=== PATIENT | female | born 1950 | race Caucasian/White ===

== ENCOUNTER → 2016-12-27 | Outpatient (CLI) | payer OTHER ==
[~2016-12-27] MED LIST: OPTIRAY 320 IV PRN
--- NOTE | 2016-12-27 10:11 | DIAGNOSTIC IMAGING REPORT ---
CHEST CT WITH CONTRAST CT DOSE: 263.59 mGycm HISTORY: Lung nodule R91.1 Lung [id number] TECHNIQUE: Multiaxial CT images of the chest were performed following the intravenous administration of contrast. COMPARISON: 07/12/2016 FINDINGS: Unchanging 3 mm nodular density anterior aspect left upper lobe best seen transaxial image 23. Lungs otherwise are clear. There are no new or interval findings. There are no focal infiltrates. Findings of mild fatty infiltration of liver. No significant adenopathy. Thoracic aorta is normal in course and caliber. Unchanging left thyroid nodule. IMPRESSION: 1. No change compared to the prior study. 2. Unchanging left upper lobe 3 mm nodule. 3. Follow-up per Fleischner criteria. Please refer to below summary of Fleischner criteria recommendations for follow-up of incidental CT nodules (Carrol Hyatt, Guidelines for management of small pulmonary nodules detected on CT scans: A statement from the Fleischner Society, Radiology 237: [phone].) SOLID NODULES Solitary nodule size: <6 mm * low risk patients: no follow-up needed * high risk patients: optional CT at 12 months Solitary nodule size: 6-8 mm * low risk patients: follow-up at 6-12 months, then consider further follow-up at 18-24 months * high risk patients: initial follow-up CT at 6-12 months and then at 18-24 months if no change Solitary nodule size: >8 mm * either low or high risk patients - consider follow-up CT at 3 months, and/or CT-PET, and/or biopsy Multiple nodules size: <6 mm * low risk patients: no routine follow-up * high risk patients: optional CT at 12 months Multiple nodules size: 6-8 mm * low risk patients: follow-up at 3-6 months, then consider further follow-up at 18-24 months * high risk patients: follow-up at 3-6 months, then at 18-24 months if no change Multiple nodules size: >8 mm * low risk patients: follow-up at 3-6 months, then consider further follow-up at 18-24 months * high risk patients: follow-up at 3-6 months, then at 18-24 months if no change Note: newly detected indeterminate nodule in persons 35 years of age or older. * low risk patients: minimal or absent history of smoking and/or other known risk factors * high risk patients: history of smoking or of other known risk factors (e.g. first degree relative with lung cancer, or exposure to asbestos, radon, uranium) * if a nodule up to 8 mm is partly solid or is ground glass further follow-up is required after 24 months to exclude possible slow growing adenocarcinoma (ALEXANDRE) SUBSOIL NODULES Solitary pure ground-glass nodule * nodule size <6 mm - no CT follow-up required * nodule size >=6 mm - follow-up CT at 6-12 months, then every 2 years until 5 years Solitary part-solid nodule * nodule size <6 mm - no CT follow-up required * nodule size >=6 mm - follow-up CT at 3-6 months. If unchanged, and solid component remains <6 mm, then annual follow-up for 5 years Multiple subsolid nodules * nodule size <6 mm - follow-up CT at 3-6 months, consider further follow-up at 2 and 4 years if stable * nodule size >=6 mm - follow-up CT at 3-6 months, subsequent management based on the most suspicious nodule(s) . Electronically signed by: Wilberto Moore M.D. 12/27/2016 10:09 AM Dictated Date/Time: 12/27/2016 10:05 AM
== END | disposition home or self-care (01) ==
LOC: C.CTS 09:42
PROVIDERS: ATTEND Family Medicine
DX: R91.1 Solitary pulmonary nodule (principal)

== ENCOUNTER → 2018-01-31 | Outpatient (CLI) | payer OTHER ==
[2018-01-31 13:23] LABS: BASO % 0.6 %; BASO ABS # 0.05 K/uL (0-0.2); EOS % 1.7 %; EOS ABS # 0.15 K/uL (0-0.5); HEMATOCRIT 44.2 % (37-47); HEMOGLOBIN 14.8 g/dL (12.0-16.0); IG# 0.02 K/uL (0.00-0.02); LYMPH % 24.4 %; LYMPH ABS # 2.17 K/uL (1.2-3.4); MEAN CELL VOLUME 93.6 fL (80-100); MEAN CORPUSCULAR HEMOGLOBIN 31.4 pg (25-34); MEAN CORPUSCULAR HGB CONC 33.5 g/dl (32-36); MONO % 5.2 %; MONO ABS # 0.46 K/uL (0.11-0.59); NEUT % 67.9 %; NEUT ABS # 6.03 K/uL (1.4-6.5); PLATELET COUNT 285 K/uL (130-400); RED CELL DISTRIBUTION WIDTH CV 14.2 % (11.5-14.5); RED CELL DISTRIBUTION WIDTH SD 48.4 fL (36.4-46.3); WHITE BLOOD COUNT 8.88 K/uL (4.8-10.8)
[2018-01-31 14:04] LABS: ALBUMIN 4.3 gm/dl (3.4-5.0); ALT/SGPT 30 U/L (12-78); AST/SGOT 17 U/L (15-37); BLOOD UREA NITROGEN 12 mg/dl (7-18); CALCIUM 9.2 mg/dl (8.5-10.1); CARBON DIOXIDE 25 mmol/L (21-32); CHOLESTEROL 272 mg/dl (0-200); CREATININE 0.89 mg/dl (0.60-1.20); GLUCOSE 99 mg/dl (70-99); POTASSIUM 4.4 mmol/L (3.5-5.1); SODIUM 139 mmol/L (136-145)
[2018-01-31 14:12] LABS: ALKALINE PHOSPHATASE 83 U/L (45-117); LDL CHOLESTEROL CALCULATED 181 mg/dl
== END | disposition home or self-care (01) ==
LOC: C.LABPBG 08:49
PROVIDERS: ATTEND Family Medicine
DX: R10.9 Unspecified abdominal pain (principal); R19.7 Diarrhea, unspecified; M25.50 Pain in unspecified joint; R53.83 Other fatigue; Z13.220 Encounter for screening for lipoid disorders; Z11.59 Encounter for screening for other viral diseases

== ENCOUNTER → 2018-02-06 | Outpatient (CLI) | payer OTHER ==
--- NOTE | 2018-02-06 15:57 | DIAGNOSTIC IMAGING REPORT ---
ABD/PELVIS IV AND ORAL CONT CLINICAL HISTORY: 67 years-old Female presenting with R10.9 Abdominal painR19.7 [id number]. TECHNIQUE: Multidetector CT of the abdomen and pelvis was performed after the administration of oral and intravenous contrast. IV contrast: 93 mL of Optiray 320. A dose lowering technique was used consistent with the principles of ALARA (as low as reasonably achievable). COMPARISON: None. CT DOSE (mGy.cm): The estimated cumulative dose is 427.82 mGycm. FINDINGS: [employer] topogram: Unremarkable. Lung bases: Lungs and pleural spaces clear. Normal heart size. No pericardial or pleural effusion. Liver: Normal morphology. Density suggestive of hepatic steatosis. No focal lesion. Patent hepatic vasculature. Biliary: No intrahepatic or extrahepatic biliary ductal dilatation. Normal gallbladder. Pancreas: Normal. Spleen: Normal. Adrenal glands: Normal. Kidneys and ureters: Normal. No hydronephrosis. Bladder: Normal. Pelvic organs: Uterus and ovaries normal. Bowel: Diverticulosis of the distal descending and proximal colon. No significant wall thickening or pericolonic inflammatory change. The appendix is normal. No bowel obstruction. Peritoneal cavity: No free fluid or intraperitoneal gas. Lymph nodes: No enlarged lymph nodes in the abdomen or pelvis. Vasculature: Atherosclerosis of the normal caliber abdominal aorta. IVC patent. Abdominal wall: Normal. Musculoskeletal: Degenerative changes of the spine. IMPRESSION: 1. Hepatic steatosis. Correlate with liver function tests to exclude steatohepatitis as a cause for abdominal pain. No other evidence of acute intra-abdominal pathology. 2. Diverticulosis. No evidence of diverticulitis. Electronically signed by: Sammy Sutton M.D. 02/06/2018 3:56 PM Dictated Date/Time: 02/06/2018 3:49 PM
== END | disposition home or self-care (01) ==
LOC: C.CTS 13:22
PROVIDERS: ATTEND Family Medicine
DX: R19.7 Diarrhea, unspecified (principal); R10.9 Unspecified abdominal pain

== ENCOUNTER → 2018-03-30 | Outpatient (CLI) | payer OTHER | END | disposition home or self-care (01) | LOC: C.PAPS 17:15 | DX: N95.0 Postmenopausal bleeding (principal) ==

== ENCOUNTER 2020-08-27 05:54 | Inpatient (IN) ==
--- NOTE | 2020-08-07 08:53 | PAT Medication Instructions ---
Medication Instructions Date of Service August 07, 2020 Home Medications Medication Instructions Recorded ondansetron 4 mg disintegrating 4 mg PO Q8H PRN #14 tab 03/06/20 tablet lisinopril 20 mg tablet 20 mg PO QPM #90 tab 05/21/20 lorazepam 0.5 mg tablet 0.5 mg PO DAILY PRN #30 tab 07/23/20 tamsulosin 0.4 mg capsule 0.4 mg PO HS #30 cap 08/06/20 calcium carbonate [Calcium 600] 600 mg PO Q OTHER DAY ibuprofen 400 mg PO Q6H PRN diclofenac sodium 1 % topical gel 2 gm TOPICAL QID PRN cholecalciferol (vitamin D3) 50 mcg (2,000 unit) capsule 2,000 units PO QPM [facility] 1 tab PO QPM ondansetron 4 mg disintegrating tablet 4 mg PO Q8H PRN lisinopril 20 mg tablet 20 mg PO QPM lorazepam 0.5 mg tablet 0.5 mg PO DAILY PRN atorvastatin 20 mg PO QPM tamsulosin 0.4 mg capsule 0.4 mg PO HS ASK your surgeon for instructions ibuprofen 400 mg PO Q6H PRN STOP taking 2 weeks before surgery (or as soon as possible if surgery is within 2 weeks) [facility] 1 tab PO QPM STOP taking 24 hours before surgery diclofenac sodium 1 % topical gel 2 gm TOPICAL QID PRN DO NOT take the morning of surgery calcium carbonate [Calcium 600] 600 mg PO Q OTHER DAY Take morning of surgery With a small sip of water, OTHERWISE NOTHING TO EAT OR DRINK AFTER MIDNIGHT: ondansetron 4 mg disintegrating tablet 4 mg PO Q8H PRN (if needed) lorazepam 0.5 mg tablet 0.5 mg PO DAILY PRN (if needed) Take evening before surgery cholecalciferol (vitamin D3) 50 mcg (2,000 unit) capsule 2,000 units PO QPM ondansetron 4 mg disintegrating tablet 4 mg PO Q8H PRN (if needed) lisinopril 20 mg tablet 20 mg PO QPM lorazepam 0.5 mg tablet 0.5 mg PO DAILY PRN (if needed) atorvastatin 20 mg PO QPM tamsulosin 0.4 mg capsule 0.4 mg PO HS Other Notes If you have any questions please call us at [phone] or [phone] or [phone] or [phone]
--- NOTE | 2020-08-07 09:08 | Anesthesiology Consultation ---
Date of Service August 07, 2020 Assessment & Plan (1) Encounter for pre-operative examination: - Per assessment on 08/07: Travel screen negative. No known COVID-19 positive contacts or current COVID-19 related symptoms. Surgeon arranging preop COVID testing. Awaiting results. - S/P cystoscopy: 03/05/20: LMA#4 at [facility] - S/P cystoscopy, RP07/09/20: MAC sedation at [facility] Chart Review Chart Review: Acceptable Risk for Surgery and Patient seen in Pre Admission Testing Teaching & Discussion Pre-Anesthesia Teaching/Discussion Notes: Instructed NPO after midnight before surgery,except medications with 15 cc of water. Medication instructions provided according to the PAT guidelines. History Surgery Operation Date: 08/27/20 07:15 Proposed Procedures p Robotic Laparoscopic Assised Nephrectomy, Right Radical Nephroureterectomy - Frank Bonds, Height/Weight Height: 5 ft 3.5 in Weight: 61.6 kg Allergies Allergy/AdvReac Type Severity Reaction Status Date / Time magnesium sulfate Allergy Severe face, hand Verified 08/07/20 10:41 [From Suprep Bowel Prep Kit] swelling Penicillins Allergy Severe rash, Verified 08/06/20 15:06 throat tightening potassium Allergy Severe face, hand Verified 08/07/20 10:41 [From Suprep Bowel Prep Kit] swelling sodium sulfate Allergy Severe face, hand Verified 08/07/20 10:41 [From Suprep Bowel Prep Kit] swelling Medications Home Medications Medication Instructions Recorded Confirmed Last Taken calcium carbonate [Calcium 600] 600 mg PO Q OTHER DAY 01/16/19 08/06/20 07/06/20 ibuprofen 400 mg PO Q6H PRN 01/16/19 08/06/20 07/07/20 diclofenac sodium 1 % topical gel 2 gm TOPICAL QID PRN #1 gm 04/02/19 08/06/20 07/08/20 21:00 cholecalciferol (vitamin D3) 50 2,000 units PO QPM #30 cap 10/02/19 08/06/20 07/07/20 mcg (2,000 unit) capsule [facility] 1 tab PO QPM 12/16/19 08/06/20 07/07/20 ondansetron 4 mg disintegrating 4 mg PO Q8H PRN #14 tab 03/06/20 08/06/20 Unknown tablet lisinopril 20 mg tablet 20 mg PO QPM #90 tab 05/21/20 08/06/20 07/07/20 22:00 lorazepam 0.5 mg tablet 0.5 mg PO DAILY PRN #30 tab 07/23/20 08/06/20 Unknown atorvastatin 20 mg PO QPM 08/06/20 08/06/20 Unknown tamsulosin 0.4 mg capsule 0.4 mg PO HS #30 cap 08/06/20 08/06/20 Unknown Past Medical History Medical History Anxiety CKD (chronic kidney disease) baseline creatinine 1.3-1.4 per chart review Hyperlipidemia Hypertension Lung nodule Last CT 01/2019, unchanged, no further f/u needed per records Osteoarthritis Temporomandibular joint disorder + clicking, no locking Thyroid nodule Urothelial carcinoma of distal ureter Exercise / Class Metabolic Activity II 4-5 Yardwork/Stairs/Walk up hill Past Family History Family History Aunt Diabetes Colorectal cancer Myocardial infarction Ovarian cancer Father No problems noted. Mother Dementia Pacemaker Hypertension Uterine cancer Family/Other Pancreatic cancer Breast cancer Colorectal cancer Other No family history of adverse response to anesthesia Past Surgical History Surgical History H/O exploratory laparotomy tubal surgery for fertility issues History of cardiac cath 5+ years ago ([facility] no stents, attempts to obtain official report unsuccessful History of colonoscopy History of cystoscopy cystoscopy + stent insertion: 01/02/20: LMA#4 at [facility] cystoscopy: 03/05/20: LMA#4 at [facility] cystoscopy, RP07/09/20: MAC sedation at [facility] History of tooth extraction S/P D&C (status post dilation and curettage) S/P tonsillectomy Past Anesthesia History No Family Hx of Anesthesia Complications and Other ("slow to wake") History of PONV History of PONV (multiple*) and Hx of Motion Sickness (remote hx) Social History Smoking Status: Current every day smoker tobacco type: cigarettes Smoking cigarettes per day: 15 cigs/day x 25 years Do You Dip or Chew Tobacco: No Hx Alcohol Use: Yes Alcohol type: wine alcohol intake frequency: a few times a month Hx Substance Use: No substance use type: does not use Review of Systems Patient denies chest pain, shortness of breath, dyspnea on exertion, fever, chills, cough, wheezing, palpitations. Physical Exam Vital Signs VITALS BP 149/74 P 81 TEMP 98.0 SP02 99%RA RESP 16 PHYSICAL Full neck and c-spine range of motion. Full TMJ range of motion. TMD 2.5 finger breaths (small chin) Mallampati Score 3 Dentition: missing molars, + crowns (upper left side, ?lower right side) Lungs: clear throughout to auscultation Cardiac: regular rate and rhythm, III/ systolic murmur Spine: normal Carotid arteries: negative bruit Extremities: no edema Testing Laboratory Results 08/07/20 09:40 08/07/20 09:40 Urine Color Yellow 08/07/20 09:40 Urine Appearance Clear (Clear) 08/07/20 09:40 Urine pH 5.5 (4.5-7.5) 08/07/20 09:40 Ur Specific [place] 1.010 (1.000-1.030) 08/07/20 09:40 Urine Protein Negative (Negative) 08/07/20 09:40 Urine Glucose (UA) Negative (Negative) 08/07/20 09:40 Urine Ketones Negative (Negative) 08/07/20 09:40 Urine Nitrite Negative (Negative) 08/07/20 09:40 Ur Leukocyte Esterase Trace (Negative) H 08/07/20 09:40 Urine WBC (Auto) 1-5 /hpf (0-5) 08/07/20 09:40 Urine RBC (Auto) 0-4 /hpf (0-4) 08/07/20 09:40 U Hyaline Cast (Auto) 0 /lpf (0-5) 08/07/20 09:40 U Epithel Cells (Auto) 10-20 /lpf (0-5) H 08/07/20 09:40 Urine Bacteria (Auto) Negative (Negative) 08/07/20 09:40 Blood Type A Positive 08/07/20 09:40 Antibody Screen NEGATIVE 08/07/20 09:40 Preop labs forwarded to PCP for continuity of care* Electrocardiogram Date: 07/14/20 SR at 74bpm. Possible LAE. Chest X-Ray Date: 07/14/20 Findings: + NAD Echocardiogram Date: 10/24/18 Date: 10/24/18 EF: 60-65% LV Function: normal RWMA: + none Other Findings: + LVH (mild/concentric) Mild MR. Sclerotic AV without significant stenosis. Other Testing Chest CT: 01/17/29: unchanged bilateral 3 mm nodules. Lungs remain clear. No further follow-up is indicated. Thyroid ultrasound: 01/17/19: Decrease in size in the dominant 1.1 cm solid and cystic nodule within the upper pole of the left thyroid lobe. This does not meet sonographic criteria for biopsy.
[2020-08-07 10:41] LABS: Appearance Urine Clear (Clear); Bacteria Urine Automated Negative (Negative); Basophils # (auto) 0.05 K/uL (0-0.2); Basophils % (auto) 0.5 %; Bilirubin Urine Negative (Negative); Blood Urine Trace (Negative); Cast Urine Automated 0 /lpf (0-5); Color Urine Yellow; Eosinophils # (auto) 0.12 K/uL (0-0.5); Eosinophils % (auto) 1.1 %; Glucose Urine UA Negative (Negative); Hematocrit (blood only) 38.4 % (37-47); Hemoglobin 12.7 g/dL (12.0-16.0); Immature Granulocytes # (auto) 0.01 K/uL (0.00-0.02); Immature Granulocytes % (auto) 0.1 %; Ketones Urine Negative (Negative); Leukocyte Esterase Urine Trace (Negative); Lymphocytes # (auto) 1.62 K/uL (1.2-3.4); Lymphocytes % (auto) 14.8 %; Mean Corpuscular Hgb Conc 33.1 g/dL (32-36); Mean Corpuscular Volume 93.7 fL (80-100); Mean Platelet Volume 10.4 fL (7.4-10.4); Monocytes # (auto) 0.53 K/uL (0.11-0.59); Monocytes % (auto) 4.8 %; Neutrophils % (auto) 78.7 %; Nitrite Urine Negative (Negative); Platelet Count 316 K/uL (130-400); Protein Urine Negative (Negative); RBC Urine Automated 0-4 /hpf (0-4); RDW Coefficient of Variation 14.2 % (11.5-14.5); RDW Standard Deviation 48.5 fL (36.4-46.3); Urobilinogen Urine Negative (Negative); White Blood Count 10.93 K/uL (4.8-10.8); pH Urine 5.5 (4.5-7.5)
[2020-08-07 10:58] LABS: BUN Creatinine Ratio 16.7 (10-20); Calcium 9.9 mg/dl (8.5-10.1); Creatinine Clr Calc Pharmacy 30.7 ml/min; Est GFR (African American) 42.1; Est GFR (Non-African American) 36.3; Potassium 4.4 mmol/L (3.5-5.1)
[~2020-08-27 05:54] MED LIST changes: +ANCEF: ALLERGY NOTED TO ORDERED MEDICATION SCH; -OPTIRAY 320 IV PRN
[2020-08-27] MEDS ORDERED: ceFAZolin 2000MG 2,000 MG/15 ML SYR IV SCH (06:00)
[2020-08-27] MEDS ORDERED: LR 15ML/HR IV SCH (06:00)
[2020-08-27] MEDS ORDERED: ONDANSETRON INJ 2 MG/ML 2 ML VIAL IV PRN (07:07)
[2020-08-27] MEDS ORDERED: ePHEDrine sulfate 50 MG/ML AMP IV PRN (07:07)
[2020-08-27] MEDS ORDERED: LABETALOL HCL IV 5 MG/ML 20ML IV PRN (07:07)
[2020-08-27] MEDS ORDERED: PHENYLEPHRINE 100MCG/ML 5ML SYR IV PRN (07:07)
[2020-08-27] MEDS ORDERED: ATROPINE SULFATE 0.1 MG/ML 10ML SYR IV PRN (07:07)
[2020-08-27] MEDS ORDERED: MEPERIDINE HCL 25 MG/ML CARP/VIAL IV PRN (07:07)
[2020-08-27] MEDS ORDERED: HYDROmorphone INJ 1 MG/ML SYRINGE IV PRN (07:07)
[2020-08-27] MEDS ORDERED: SCOPOLAMINE 1.5 MG TDSY TD ONE (07:14)
[2020-08-27] MEDS ORDERED: ONDANSETRON 4 MG OD TAB PO PRN (07:20)
[2020-08-27] MEDS ORDERED: BUPIVACAINE 0.5 % 5 MG/1 ML MPF 30ML VIAL ONE (07:20)
[2020-08-27] MEDS ORDERED: LORazepam 0.5 MG TAB PO PRN (07:20)
--- NOTE | 2020-08-27 07:20 | History & Physical Bridge Note ---
Date of Service August 27, 2020 History & Physical Bridge Note I have examined the patient, reviewed the History & Physical and in the interval since the performance of the History & Physical I have noted the following changes of clinical significance: no changes noted
--- NOTE | 2020-08-27 12:48 | Post Operative Brief Note ---
PG Immediate Post Op with CF Date of Surgery August 27, 2020 Pre & Post Diagnosis Operation Date: 08/27/20 07:30 Pre-Op Diagnosis: Urothelial Carcinoma of Distal Ureter Post-Op Diagnosis: Urothelial Carcinoma of Distal Ureter I identified the patient and participated in the time-out.: Yes Procedure Operation Date: 08/27/20 07:30 Actual Procedures p Robotic Right Laparoscopic Assised Nephroureterectomy, Extensive Lysis of Adhesions(Right) - Frank Bonds, Surgeon Frank Bonds, II, DO Buttermaker Brooks DEJESUS and Jose ESPINOZA Estimated Blood Loss 40 Findings Consistent with Post-Op Diagnosis Specimens Specimen Description: Permanent specimen: A. right kidney and ureter Drains Mcgrath Catheter (16 fr mcgrath catheter inserted by SARAVANAN Rodriguez without difficulty, clear yellow urine for return) and Jame-Durant Drain (10 flat) Anesthesia Type General Complications none Disposition Disposition: Recovery Room Overlapping Procedure I was present for: the critical portions of procedure. I was immediately available: during the entire case. Back up surgeon: was not required during procedure.
--- NOTE | 2020-08-27 12:58 | Operative Report ---
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 Patient also had severe and extensive adhesions of the right lateral wall and pelvis with severe adhesions along the midline. 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 Patient failed ablation and resection and developed severe stricture and obliteration of ureter making surveillance and monitoring impossible. Risks and benefits discussed at length. Description of Procedure The patient was brought to the operative suite and placed under general endotracheal intubation anesthesia in the supine position. The patient was transferred to lateral position with the right flank exposed. The patient was placed into a flex'ed position and then placed into mild reverse Trendelenberg. At this point, the patient prepped and draped in the usual sterile fashion and a timeout was completed. Preoperative weight based antibiotics had been given. RUSSELL's and SCD's were placed on the patient's lower extremities. A catheter was placed by nursing using sterile technique. With the time out completed the patient was flexed and the skin was marked. The skin was marked to allow for robotic arms to be placed in a diagonal from the mid clavicular line for the superior placement down to the infra umbilical region for the fourth port. The lateral port site was anesthetized. A small incision was made into the skin and subcutaneous tissues. A Varess needle was selected and placed. The needle was easily moved and it was irrigated and aspirated without any issues or concerns for placement. Insufflation commenced. The 8 mm robotic port was placed. The abdominal cavity was further insufflated. The laparoscopic camera was placed and the abdominal cavity inspected. No concerning features were noted from placement of the needle report. Patient had severe adhesions throughout the abdomen especially around the liver, midline, and lateral wall. At this point, the skin was marked for the additional port placement and 8mm working ports were placed. The infraumbilical incision was held due to severe adhesions over that region. The skin was anesthetized down to fascia and an approx 1cm incision was made to place the 2 x 8mm ports. A 5 mm and 12 mm emergency veterinary assistant ports were also placed in similar fashion under direct visualization. The robot was positioned and docked. The camera was placed and all trocars were positioned under direct visualization. Leana Guy was integral in port placement, camera utilization, and docking procedure. She also assisted during the extensive lysis of adhesions. She remained in sterile attire and then proceeded to assist the remainder of the case. An extensive lysis of adhesions was completed in order to fully assess the kidney which was surrounded by adhesions along the liver. There was severe adhesions in the pelvis running along the midline going down into the right lower quadrant. These were slowly and bluntly dissected with minimal cautery utilized during the process. Greater than 45 minutes to lyse and excise the adhesions and to free bowel to allow retraction. The colon was mobilized medially to expose the retroperitoneum and the area assessed. Adhesions were freed to allow mobilization. A small amount of further adhesions were noted from the colon and were freed. These were dissected with blunt technique. Cautery was used to assist dissection and control bleeding. The retroperitoneal fat was assessed. Starting distally the retroperitoneum was dissected and care was taken to dissect down near the IVC. The gonadal vein and ureter were identified. This was then followed inferiorly to your the iliac vessels. Along the way larger veins running towards the ureter were noted and clips were utilized to ligate the vessels. As the ureter and gonadal crossed the iliac the gonadal vein was also clipped and cut. Dissection was taken down further. The patient's ovary and fallopian tube were found to be adhered to the anterior portion of the ureter. This was slowly dissected away. The ovary was then freely completely mobilized medially allowing for further dissection of the ureter. In this region significant adhesions and fibrosis was noted in the retroperitoneal fat. Care was taken to slowly dissect along. Additional large vessels were noted as the ureter moved further down the pelvis towards the bladder. During the dissection, a small mucosal injury was noted on a piece of ileal bowel. This did not appear to be a significant or severe injury however it was decided to oversew. A 3-0 silk suture was used to oversew this area with a [id number] stitch. No considerable issues or problems. At this point I transition from the robot to the bedside and scrubbed back in in order to place the fourth robotic port that was now able to be placed with the significant adhesions removed. A 12 mm robotic port was placed under direct visualization. After anesthetizing the skin with local and incising the skin with a scalpel. With the fourth port further retraction of the bowel was c ompleted. I transitioned back to the robotic consult. Resection of the ureter continued towards the bladder. Once the ureter was found free down towards the bladder, the ureter was clipped at the mid ureter. The ureter was then followed superiorly along with the gonadal vein towards the renal hilum. The gonadal vein was clipped and cut on its insertion on the IVC. This was further traveled to find the renal vein. With the renal vein isolated it was dissected free and exposed. The renal arteries were then identified. Patient appeared to have 2 arteries with 1 more superior. These were both read. Additional tissue was freed posteriorly as well as somewhat laterally. Attention was then taken back down to the bladder insertion of the ureter. At this point Dr. Garcia was available and scrubbed to assist during the portion of the procedure. The ureter was taken to its attachment at the bladder. The bladder was then filled retrograde through the catheter. With the bladder distended a V-Loc 2-0 suture was used at the edge of the planned excision of the bladder wall. Plan was to take a wide cuff due to the distal tumor location. A additional hemolock clip was placed on the distal ureter near its insertion into the bladder detrusor muscle. With the V-Loc in place and ready to close the mucosal linin, the ureter was then completely freed and a bladder cuff was achieved to fully excise and remove the ureter. The mucosal edges were approximated to close the cystotomy. This was completed in a running fashion. The same V-Loc suture was then used to imbricate the detrusor muscle and additional tissue over top of the incision line. Multiple leak test were completed and the closure was found to be adequate without considerable leak or concern. The suture line was bolstered additionally with a 2-0 Vicryl suture. The ureter was then followed back up to the renal hilum. The vascular load robotic stapling device was selected. The vessels were well exposed and the stapler was positioned to cross. The renal artery and vein were then stapled and ligated with the device. The superior additional accessory renal artery was then stapled and ligated with an additional staple load. No bleeding areas of concern or issues with closure were noted. The entire was assessed. The tips of the stapling device have been cleared with both. The kidney was then freed from the attachments in the lateral, superior, and posterior attachments. The kidney was completely freed and moved down towards the pelvis. The entire wound bed was assessed. No major issues or problems. No areas of concern. No bleeding or other concerning features. The area of extensive lysis was assessed. No concerning features or other areas concern. A Flat drain was placed through an additional incision in the right lower quadrant and positioned into the pelvis. This was secured with a silk 1-0 suture. The entire dissection space was inspected one final time. No bleeding or injuries or areas of concern were noted. No tumor or other concerning features were noted. At this point, the robot was undocked and moved away from the patient. The port sites were all assessed laparoscopically. The emergency veterinary assistant 12 mm port site was closed with the Govind-Jimenez device and were closed with Vicryl suture. The other ports were assessed and no issues observed. The inferior 12 mm robotic port was opened further along a previous midline incision scar. This exposed fascia which was then opened in order to removed the kidney and ureter. A PDS suture was used to close fascia. A running 2-0 Vicryl was used to close the subcutaneous tissues. The skin at each site was closed with a stapling device. The area was cleaned and bandages placed on each incision. The patient was cleaned and bandaged. The patient was moved back into the supine position The patient was cleaned, aroused from anesthesia, and transferred to the pacu in stable condition having tolerated the procedure well with no complications. I was present and participated in all aspects of the procedure. ANJELICA Teresa was critical in the portions as mentioned above. I attest to the content of the Intraoperative Record and any orders documented therein. Any exceptions are noted below.
[2020-08-27 13:22] LABS: Basophils # (auto) 0.02 K/uL (0-0.2); Basophils % (auto) 0.1 %; Eosinophils # (auto) 0.02 K/uL (0-0.5); Eosinophils % (auto) 0.1 %; Hematocrit (blood only) 34.8 % (37-47); Hemoglobin 11.3 g/dL (12.0-16.0); Immature Granulocytes # (auto) 0.06 K/uL (0.00-0.02); Immature Granulocytes % (auto) 0.3 %; Lymphocytes % (auto) 4.5 %; Mean Corpuscular Hemoglobin 30.5 pg (25-34); Mean Corpuscular Volume 94.1 fL (80-100); Mean Platelet Volume 9.8 fL (7.4-10.4); Monocytes # (auto) 0.47 K/uL (0.11-0.59); Monocytes % (auto) 2.3 %; Neutrophils # (auto) 18.61 K/uL (1.4-6.5); Neutrophils % (auto) 92.7 %; Platelet Count 255 K/uL (130-400); RDW Coefficient of Variation 14.3 % (11.5-14.5); RDW Standard Deviation 49.2 fL (36.4-46.3); White Blood Count 20.08 K/uL (4.8-10.8)
[2020-08-27 13:25] LABS: Mean Corpuscular Hgb Conc 32.5 g/dL (32-36)
[2020-08-27 13:38] LABS: BUN Creatinine Ratio 10.3 (10-20); Creatinine Clr Calc Pharmacy 25.4 ml/min; Est GFR (African American) 33.4; Est GFR (Non-African American) 28.8; Potassium 4.6 mmol/L (3.5-5.1)
[2020-08-27] MEDS: fentaNYL citrate 100 MCG/2 ML VIAL IV PRN ×4 (13:38→14:19)
--- NOTE | 2020-08-27 14:41 | Anesthesiology Progress Note ---
Date of Service August 27, 2020 Anesthesia Post Procedure Vital Signs Vital Signs: Temp Pulse Pulse Resp BP Pulse Ox 08/27/20 14:30 82 16 136/56 L 95 08/27/20 14:20 75 14 137/53 L 95 08/27/20 14:10 81 19 127/59 L 95 08/27/20 14:00 78 18 140/55 L 97 08/27/20 13:50 78 19 141/58 H 95 08/27/20 13:40 70 20 120/49 L 97 08/27/20 13:30 75 26 H 115/45 L 96 08/27/20 13:20 74 23 106/47 L 97 08/27/20 13:10 74 24 107/44 L 95 08/27/20 13:00 75 18 98/52 L 94 08/27/20 12:56 36.0 C L 75 26 H 99/37 L 94 08/27/20 06:14 36.8 C 77 18 155/83 H 99 Pain Intensity Right Abdomen: Pain Intensity: 2 Transfer of Care Handoff Completed per policy Notes Mental Status: alert / awake / arousable Patient Amnestic to Procedure: Yes Nausea / Vomiting: adequately controlled Pain: adequately controlled Airway Patency, RR, SpO2: stable & adequate BP & HR: stable & adequate Hydration State: stable & adequate Anesthetic Complications: no major complications apparent and Pt Satisfied with anesthetic care
[2020-08-27] MEDS ORDERED: oxyCODONE HCL IR 5 MG TAB (IMMEDIATE RELEASE) PO PRN (15:50)
[2020-08-27] MEDS ORDERED: ACETAMINOPHEN 325 MG TAB PO PRN (15:50)
[2020-08-27 16:26] LABS: Basophils # (auto) 0.02 K/uL (0-0.2); Basophils % (auto) 0.1 %; Hematocrit (blood only) 35.9 % (37-47); Hemoglobin 11.8 g/dL (12.0-16.0); Immature Granulocytes # (auto) 0.04 K/uL (0.00-0.02); Immature Granulocytes % (auto) 0.2 %; Lymphocytes # (auto) 0.91 K/uL (1.2-3.4); Lymphocytes % (auto) 4.8 %; Mean Corpuscular Hemoglobin 30.6 pg (25-34); Mean Corpuscular Hgb Conc 32.9 g/dL (32-36); Mean Corpuscular Volume 93.2 fL (80-100); Monocytes # (auto) 0.32 K/uL (0.11-0.59); Monocytes % (auto) 1.7 %; Neutrophils # (auto) 17.59 K/uL (1.4-6.5); Neutrophils % (auto) 93.2 %; Platelet Count 251 K/uL (130-400); RDW Coefficient of Variation 14.5 % (11.5-14.5); RDW Standard Deviation 49.2 fL (36.4-46.3); Red Blood Count 3.85 M/uL (4.2-5.4); White Blood Count 18.88 K/uL (4.8-10.8)
[2020-08-27] MEDS: MoRPHine SULFATE 2 MG/ML CARP IV PRN ×2 (16:27→20:26)
[2020-08-27] MEDS: D5W AND 1/2NSS + 20MEQ KCL 20 MEQ/1,000 ML BAG IV SCH (16:37)
[2020-08-27] MEDS: CHECK SCOPOLAMINE PATCH PLACEMENT SCH (16:38)
[2020-08-27] MEDS: NICOTINE 21 MG/24 HR TDSY TD SCH (16:38)
[2020-08-27] MEDS: ceFAZolin 2000MG 2,000 MG/15 ML SYR IV SCH (16:38)
[2020-08-27 16:44] LABS: Albumin Level 3.8 gm/dl (3.4-5.0); BUN Creatinine Ratio 11.7 (10-20); Calcium 9.4 mg/dl (8.5-10.1); Creatinine Clr Calc Pharmacy 26.7 ml/min; Est GFR (African American) 35.6; Est GFR (Non-African American) 30.7; Potassium 4.6 mmol/L (3.5-5.1)
[2020-08-27 16:47] LABS: Albumin Globulin Ratio 1.3 (0.9-2); Bilirubin,Total 0.6 mg/dl (0.2-1); Total Protein 6.8 gm/dl (6.4-8.2)
[2020-08-27] MEDS ORDERED: FAMOTIDINE 20 MG in SYRINGE 3 ML IV ONE (17:00)
--- NOTE | 2020-08-27 17:06 | Hospitalist Consultation ---
Date of Consultation August 27, 2020 Assessment & Plan (1) Ureteral cancer: s/p Robotic Right Laparoscopic Assisted Nephroureterectomy, Extensive Lysis of Adhesions Management of cancer, dvt proph, pain control per primary (2) CKD (chronic kidney disease): Creatinine 1.68 following procedure Baseline looks closer to about 1.4 IVF per primary D5 1/2 NSS 20K @ 75 mls/hr Avoid nephrotoxins, renally dose medications Repeat bmp am (3) Hypertension: Patient with hypertension - current blood pressure 170s systolically Hold home lisinopril for now given elevated creatinine Will add hydralazine prn for sbp >180 or dbp >110 (4) Hyperlipidemia: Continue home atorvastatin (5) Heartburn: Patient with substernal pain which she is describing as heartburn. She is not sob, no radiation of her pain EKG performed showing NSR, appears similar to previous tracing in June Will give 1 dose of IV famotidine IV now Supervising Physician Co-Signing Physician Notes I personally examined the patient and verified all bocanegra points of history and exam, discussed case, and agree with decision making with Katie DEJESUS. abdominal pain. R leg pain although seems to relate to abdomen. mouth dry. had some heartburn related pain earlier but now better vitals noted fatigued but nad. heent nc at mmm. cardio reg no r/m/g. lungs cta b/l no r/r/w good effort. mcgrath w bloody drainage. abd wound dressed, tender abdomen in range of expected post op. cn 2-12 grossly intact gross motor/sensory intact. in particular RLE moves 5/5. abdominal pain - post op, expected. R leg pain - seems referred from abdomen. follow clinically. no signs of leg pathology or neurovascular pathology heartburn - resolved. EKG compared to previous - nonspecifically flipped T's anterolaterally and a little more flat laterally. doubt acute ischemia given presentation. does have risks - check trop to be safe, but otherwise would anticipate outpt w/u otherwise as above History of Present Illness Attending Physician: Frank Bonds, II, DO History of Present Illness Ms. Hanna is just back from PACU and is very drowsy yet. She is in pain in her lower abdomen and feeling heartburn type substernal pain that does not radiate. She is not sob. She feels very thirsty. Her right leg feels stiff and weak. Pmhx: dyslipidemia, htn, anxiety, urothelial carcinoma of the distal ureter, osteoarthritis Social: retired, lives with , smokes ppd, rare alcohol Family: both parents had dementia Allergies Allergy/AdvReac Type Severity Reaction Status Date / Time magnesium sulfate Allergy Severe face, hand Verified 08/27/20 06:13 [From Suprep Bowel Prep Kit] swelling Penicillins Allergy Severe rash, Verified 08/27/20 06:13 throat tightening potassium Allergy Severe face, hand Verified 08/27/20 06:13 [From Suprep Bowel Prep Kit] swelling sodium sulfate Allergy Severe face, hand Verified 08/27/20 06:13 [From Suprep Bowel Prep Kit] swelling Home Medications Medication Instructions Recorded Confirmed Type calcium carbonate [Calcium 600] 600 mg PO Q OTHER DAY 01/16/19 08/27/20 History ibuprofen 400 mg PO Q6H PRN 01/16/19 08/27/20 History diclofenac sodium 1 % topical gel 2 gm TOPICAL QID PRN #1 gm 04/02/19 08/27/20 History cholecalciferol (vitamin D3) 50 2,000 units PO QPM #30 cap 10/02/19 08/27/20 History mcg (2,000 unit) capsule [facility] 1 tab PO QPM 12/16/19 08/27/20 History ondansetron 4 mg disintegrating 4 mg PO Q8H PRN #14 tab 03/06/20 08/27/20 Rx tablet lisinopril 20 mg tablet 20 mg PO QPM #90 tab 05/21/20 08/27/20 Rx lorazepam 0.5 mg tablet 0.5 mg PO DAILY PRN #30 tab 07/23/20 08/27/20 Rx tamsulosin 0.4 mg capsule 0.4 mg PO HS #30 cap 08/06/20 08/27/20 Rx atorvastatin 20 mg tablet 20 mg PO QPM #90 tab 08/24/20 08/27/20 Rx Patient History Medical History (Updated 08/27/20 @ 17:11 by ANJELICA Harley) Anxiety CKD (chronic kidney disease) baseline creatinine 1.3-1.4 per chart review Hyperlipidemia Hypertension Lung nodule Last CT 01/2019, unchanged, no further f/u needed per records Osteoarthritis PONV (postoperative nausea and vomiting) Temporomandibular joint disorder + clicking, no locking Thyroid nodule 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 Surgical History H/O exploratory laparotomy tubal surgery for fertility issues History of cardiac cath 5+ years ago ([facility] [place])- no stents, attempts to obtain official report unsuccessful History of colonoscopy History of cystoscopy cystoscopy + stent insertion: 01/02/20: LMA#4 at [facility] cystoscopy: 03/05/20: LMA#4 at [facility] cystoscopy, RP07/09/20: MAC sedation at [facility] History of tooth extraction S/P D&C (status post dilation and curettage) S/P tonsillectomy Family History Aunt Diabetes Colorectal cancer Myocardial infarction Ovarian cancer Father No problems noted. Mother Dementia Pacemaker Hypertension Uterine cancer Family/Other Pancreatic cancer Breast cancer Colorectal cancer Other No family history of adverse response to anesthesia Social History Smoking Status: Current every day smoker packs per day: 1; Cigarettes Per Day: 15 cigs/day x 25 years; Second Hand Exposure: Yes ( A CHILD); Do You Dip or Chew Tobacco: No; Tobacco Cessation Education Requested by Patient: No Hx Alcohol Use: Yes Alcohol type: wine Hx Substance Use: No Preferred Language: Singaporean Communication Ability: Effective Visual Impairment: No Limitations Hearing Ability: Normal Manager Nursing Home Required: No Beliefs That Will Affect Care: None marital status: Current Living Situation: Spouse current occupational status: retired Feels Safe at Home: Yes Safety Concerns: Feels Safe At This Time Childhood Exposure to Second-Hand Smoke: Yes caffeine: Yes (Coffee x 2-3 per day) during the past year weight has: remained stable Dental Care, Regularly: Yes Physical Activity Frequency: Daily Seatbelt Use: always Sunscreen Use: No Assistive Devices: Glasses Assistive Devices Comment: GLASSES FOR DRIVING Review of Systems Constitutional: no fever, no chills and no body aches Respiratory: no cough and no dyspnea Cardiovascular: no palpitations and no lightheadedness Gastrointestinal: + abdominal pain; no nausea and no vomiting Genitourinary: has Mcgrath catheter putting out bloody urine Musculoskeletal: no back pain and no joint pain Integumentary: no rash Physical Exam Physical Exam: General: no distress Eyes: normal inspection, PERLL Respiratory: chest non tender, clear to auscultation, normal breath sounds, no respiratory distress, no accessory muscle use Cardiac: regular rate and rhythm, no rub or gallop, no murmur, no edema, no jvd GI/: active bowel sounds, no abd pain or tenderness, soft, non distended Extremities: normal range of motion, normal strength, non tender, right leg reduced range of motion at the hip but equal pedal strength, able to move right arm without difficulty Neuro: drowsy, moves all extremities, no facial droop Psych: oriented x 3, normal mood and affect Skin: normal color, dry Results & Data Results & Data ([facility]) Vital Signs (Past 12 Hours) Vital Signs Temp Pulse Pulse Resp BP Pulse Ox 08/27/20 16:27 36.8 C 98 H 20 170/72 H 97 08/27/20 15:55 36.8 C 90 18 158/70 H 97 08/27/20 15:25 37.2 C 91 H 16 164/68 H 97 08/27/20 15:15 86 16 150/64 H 96 08/27/20 15:10 84 14 163/59 H 95 08/27/20 15:00 84 16 150/67 H 95 08/27/20 14:50 36.4 C L 85 16 148/55 H 95 08/27/20 14:40 80 15 155/60 H 95 08/27/20 14:30 82 16 136/56 L 95 08/27/20 14:20 75 14 137/53 L 95 08/27/20 14:10 81 19 127/59 L 95 08/27/20 14:00 78 18 140/55 L 97 08/27/20 13:50 78 19 141/58 H 95 08/27/20 13:40 70 20 120/49 L 97 08/27/20 13:30 75 26 H 115/45 L 96 08/27/20 13:20 74 23 106/47 L 97 08/27/20 13:10 74 24 107/44 L 95 08/27/20 13:00 75 18 98/52 L 94 08/27/20 12:56 36.0 C L 75 26 H 99/37 L 94 08/27/20 06:14 36.8 C 77 18 155/83 H 99 PG Care Time/CCT Total # of Minutes Spent Total Time Spent with Patient: Total time spent is greater than 50% in coordination of care (as documented) at patient's floor/unit and/or counseling patient: Coding Level of Care Code 69631 Inpt Consult Level 4 Diagnoses Ureteral cancer C66.9 CKD (chronic kidney disease) N18.9 Hypertension I10 Hyperlipidemia E78.5 Heartburn R12
[2020-08-27] MEDS ORDERED: hydrALAZINE HCL 20 MG/ML VIAL IV PRN (18:09)
[2020-08-27] MEDS: DOCUSATE SODIUM 100 MG CAP PO SCH (20:26)
[2020-08-27] MEDS: ATORVASTATIN 20 MG TAB PO SCH (20:27)
[2020-08-27] MEDS: TAMSULOSIN HCL 0.4 MG CAP PO SCH (20:27)
[2020-08-27] MEDS ORDERED: lisinopril 20 MG TAB PO SCH (21:00)
[2020-08-27] MEDS: oxyCODONE HCL IR 5 MG TAB (IMMEDIATE RELEASE) PO PRN (22:06)
[2020-08-28] MEDS: MoRPHine SULFATE 2 MG/ML CARP IV PRN ×4 (00:40→13:09)
[2020-08-28] MEDS: CHECK SCOPOLAMINE PATCH PLACEMENT SCH ×3 (00:40→17:15)
[2020-08-28] MEDS: ceFAZolin 2000MG 2,000 MG/15 ML SYR IV SCH ×2 (00:40→08:52)
[2020-08-28] MEDS: D5W AND 1/2NSS + 20MEQ KCL 20 MEQ/1,000 ML BAG IV SCH ×2 (05:42→19:23)
[2020-08-28 06:19] LABS: Basophils # (auto) 0.01 K/uL (0-0.2); Basophils % (auto) 0.1 %; Eosinophils # (auto) 0.02 K/uL (0-0.5); Eosinophils % (auto) 0.1 %; Hematocrit (blood only) 33.5 % (37-47); Hemoglobin 11.2 g/dL (12.0-16.0); Immature Granulocytes # (auto) 0.04 K/uL (0.00-0.02); Immature Granulocytes % (auto) 0.3 %; Lymphocytes # (auto) 1.22 K/uL (1.2-3.4); Lymphocytes % (auto) 7.9 %; Mean Corpuscular Hemoglobin 30.9 pg (25-34); Mean Corpuscular Hgb Conc 33.4 g/dL (32-36); Mean Corpuscular Volume 92.5 fL (80-100); Monocytes # (auto) 1.27 K/uL (0.11-0.59); Monocytes % (auto) 8.2 %; Neutrophils # (auto) 12.97 K/uL (1.4-6.5); Neutrophils % (auto) 83.4 %; Platelet Count 213 K/uL (130-400); RDW Coefficient of Variation 14.2 % (11.5-14.5); RDW Standard Deviation 48.5 fL (36.4-46.3); Red Blood Count 3.62 M/uL (4.2-5.4); White Blood Count 15.53 K/uL (4.8-10.8)
[2020-08-28 06:51] LABS: BUN Creatinine Ratio 11.7 (10-20); Calcium 8.6 mg/dl (8.5-10.1); Creatinine Clr Calc Pharmacy 29.3 ml/min; Est GFR (African American) 39.8; Est GFR (Non-African American) 34.3; Potassium 4.6 mmol/L (3.5-5.1)
[2020-08-28 08:49] LABS: Albumin Level 3.4 gm/dl (3.4-5.0); Bilirubin Direct 0.1 mg/dl (0-0.2); Bilirubin,Total 0.5 mg/dl (0.2-1); Total Protein 6.4 gm/dl (6.4-8.2)
[2020-08-28] MEDS: ONDANSETRON INJ 2 MG/ML 2 ML VIAL IV PRN (08:52)
[2020-08-28] MEDS: DOCUSATE SODIUM 100 MG CAP PO SCH ×2 (08:52→20:05)
[2020-08-28] MEDS: HEPARIN SOD 5,000 UNIT/0.5 ML VIAL SQ SCH ×2 (08:52→20:07)
[2020-08-28] MEDS: NICOTINE 21 MG/24 HR TDSY TD SCH (08:52)
--- NOTE | 2020-08-28 09:36 | Urology Progress Note ---
Date of Service August 28, 2020 Assessment & Plan (1) Urothelial carcinoma of distal ureter: (2) ESTRELLA (acute kidney injury): 69yo F who is s/p Right s/p Robotic Laparoscopic Assisted Nephroureterectomy, Extensive Lysis of Adhesions on 08/27/[address] Bonds for urothelial carcinoma of the distal ureter with ESTRELLA likely secondary to intervention on kidney and postoperative ESTRELLA. -Patient clinically progressing as expected. -Remains afebrile, hemodynamically stable. -Labs reviewed, creatinine 1.53 today (previous 1.68) -Continue Yan catheter -Maintain MANI drain -Encourage ambulation with assistance -Continue with supportive care and pain management. -Will continue to monitor, likely home tomorrow depending on clinical progression Admission and Anticipated Discharge Date Admission Date: August 27, 2020 Subjective 69yo F admitted s/p Robotic Right Laparoscopic Assisted Nephroureterectomy, Extensive Lysis of Adhesions on 08/27/[address] Bonds POD #1 Patient examined at bedside this AM. Awake, resting in bed on arrival. She reports bilateral abdominal pain, tolerable with IV/PO pain meds. Some nausea, managed with prn medication. Denies fevers or chills. Denies vomiting. No Flatus. Yan intact/patent and draining light pink urine, 400ml output overnight. MANI drain putting out small amount of sanguinous drainage, 25ml output overnight. Has not been OOB yet. Chart review: Afebrile Wbc 15.53 (previous 18.88) Hgb 11.2 (previous 11.8) Cr 1.53 (previous 1.68) On IV Cefazolin q8h Review of Systems Constitutional: as per Subjective / HPI Gastrointestinal: as per Subjective / HPI Genitourinary: as per Subjective / HPI Physical Exam Constitutional: well developed and well nourished; no acute distress Neck: normal visual inspection Respiratory: normal respiratory effort and able to speak in complete sentences Cardiovascular: Extremities: no calf tenderness Gastrointestinal (Abdomen): Inspection/Auscultation: abdomen not distended Percussion/Palpation: + abdomen tender and abdomen soft Incision sites covered with 4x4 and Medipore, clean, dry, intact. MANI drain intact Musculoskeletal: Head/Neck/Chest: normocephalic Skin: Normal color. Warm and dry. Neurologic: awake; not confused Psychiatric: Orientation: alert, oriented x 3 and cooperative Genitourinary: Yan catheter intact/patent, draining light pink urine Results & Data ([facility]) Vital Signs (Past 12 Hours) Vital Signs Temp Pulse Pulse Pulse Resp BP Pulse Ox 08/28/20 07:54 37.0 C 82 20 150/69 H 97 08/28/20 07:31 81 08/28/20 04:00 37.0 C 90 18 156/66 H 93 08/28/20 01:39 89 08/28/20 01:35 08/27/20 23:00 36.8 C 93 H 18 175/75 H 98 Pulse Ox 08/28/20 07:54 08/28/20 07:31 08/28/20 04:00 08/28/20 01:39 08/28/20 01:35 98 08/27/20 23:00 PG Care Time/CCT Total # of Minutes Spent Total Time Spent with Patient: Total time spent is greater than 50% in coordination of care (as documented) at patient's floor/unit and/or counseling patient: Coding Level of Care Code None Diagnoses Urothelial carcinoma of distal ureter C66.9 ESTRELLA (acute kidney injury) N17.9
--- NOTE | 2020-08-28 13:36 | Hospitalist Progress Note ---
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 08/27 EKG performed showing NSR, appears similar to previous tracing in June, negative Given famotidine Symptoms resolved Admission and Anticipated Discharge Date Admission Date: August 27, 2020 Supervising Physician Co-Signing Physician Notes I personally examined the patient and verified all bocanegra points of history and exam, discussed case, and agree with decision making with Katie DEJESUS. more more awake and alert. much brighter. in the morning still had some abdominal pain she related to CO2 insufflation from surgery. in the evening eating well and smiling vitals noted fatigued but nad. heent nc at mmm. breathing unlabored no accessory muscles good effort. skin no pallor or icterus abdominal pain - post op, expected. doing well. R leg pain - essentially resolved. heartburn - resolved. otherwise as above Subjective Ms. Hanna is having some abdominal soreness but otherwise doing well. She is tolerating clear liquid diet though she does report some nausea Review of Systems Constitutional: no fever, no chills and no body aches Respiratory: no cough and no dyspnea Cardiovascular: no chest pain, no dyspnea and no palpitations Gastrointestinal: + nausea; no abdominal pain and no vomiting Genitourinary: no dysuria and no urinary hesitancy Musculoskeletal: no back pain and no joint pain Integumentary: no rash Physical Exam Physical Exam: General: no distress Eyes: normal inspection, PERLL Respiratory: chest non tender, clear to auscultation, normal breath sounds, no respiratory distress, no accessory muscle use Cardiac: regular rate and rhythm, no rub or gallop, systolic murmur, no edema, no jvd GI/: active bowel sounds, no abd pain or tenderness, soft, non distended Extremities: normal range of motion, normal strength, non tender Neuro/Psych: alert and oriented x 3, normal mood and affect Skin: normal color, dry Results & Data Results & Data ([facility]) Vital Signs (Past 12 Hours) Vital Signs Temp Pulse Pulse Pulse Resp BP Pulse Ox 08/28/20 11:43 36.8 C 85 20 120/69 91 08/28/20 07:54 37.0 C 82 20 150/69 H 97 08/28/20 07:31 81 08/28/20 04:00 37.0 C 90 18 156/66 H 93 08/28/20 01:39 89 08/28/20 01:35 Pulse Ox 08/28/20 11:43 08/28/20 07:54 08/28/20 07:31 08/28/20 04:00 08/28/20 01:39 08/28/20 01:35 98 PG Care Time/CCT Total # of Minutes Spent Total Time Spent with Patient: Total time spent is greater than 50% in coordination of care (as documented) at patient's floor/unit and/or counseling patient: Coding Level of Care Code 40751 Subseq Hosp Care Lvl 2 Diagnoses Ureteral cancer C66.9 CKD (chronic kidney disease) N18.9 Hypertension I10 Hyperlipidemia E78.5 Heartburn R12
--- NOTE | 2020-08-28 14:22 | Electrocardiogram Report ---
Test Reason : Blood Pressure : / mmHG Vent. Rate : 096 BPM Atrial Rate : 096 BPM P-R Int : 130 ms QRS Dur : 086 ms QT Int : 348 ms P-R-T Axes : 097 050 090 degrees QTc Int : 439 ms Normal sinus rhythm Possible Left atrial enlargement Septal infarct , age undetermined Nonspecific ST and T wave abnormality Abnormal ECG When compared with ECG of 16-DEC-2019 13:06, Vent. rate has increased BY 32 BPM Septal infarct is now Present ST now depressed in Anterior leads Nonspecific T wave abnormality, worse in Anterolateral leads Confirmed by Gokul Rubalcava ([id number]) on 08/28/2020 2:22:29 PM Referred By: Frank Bonds Confirmed By:Gokul Rubalcava
[2020-08-28] MEDS: oxyCODONE HCL IR 5 MG TAB (IMMEDIATE RELEASE) PO PRN (20:04)
[2020-08-28] MEDS: ATORVASTATIN 20 MG TAB PO SCH (20:06)
[2020-08-28] MEDS: TAMSULOSIN HCL 0.4 MG CAP PO SCH (20:06)
[2020-08-29] MEDS: CHECK SCOPOLAMINE PATCH PLACEMENT SCH ×3 (00:07→14:40)
[2020-08-29] MEDS: oxyCODONE HCL IR 5 MG TAB (IMMEDIATE RELEASE) PO PRN ×2 (05:31→14:39)
[2020-08-29] MEDS: D5W AND 1/2NSS + 20MEQ KCL 20 MEQ/1,000 ML BAG IV SCH ×2 (08:03→22:06)
[2020-08-29] MEDS: DOCUSATE SODIUM 100 MG CAP PO SCH ×2 (08:04→19:43)
[2020-08-29] MEDS: HEPARIN SOD 5,000 UNIT/0.5 ML VIAL SQ SCH ×2 (08:04→19:42)
[2020-08-29] MEDS: NICOTINE 21 MG/24 HR TDSY TD SCH (08:04)
[2020-08-29 11:49] LABS: Basophils # (auto) 0.02 K/uL (0-0.2); Basophils % (auto) 0.2 %; Eosinophils # (auto) 0.11 K/uL (0-0.5); Hematocrit (blood only) 31.4 % (37-47); Hemoglobin 10.5 g/dL (12.0-16.0); Immature Granulocytes # (auto) 0.02 K/uL (0.00-0.02); Immature Granulocytes % (auto) 0.2 %; Lymphocytes # (auto) 1.28 K/uL (1.2-3.4); Lymphocytes % (auto) 11.4 %; Mean Corpuscular Hgb Conc 33.4 g/dL (32-36); Mean Corpuscular Volume 92.6 fL (80-100); Mean Platelet Volume 9.9 fL (7.4-10.4); Monocytes % (auto) 8.9 %; Neutrophils # (auto) 8.81 K/uL (1.4-6.5); Neutrophils % (auto) 78.3 %; Platelet Count 187 K/uL (130-400); RDW Standard Deviation 47.4 fL (36.4-46.3); Red Blood Count 3.39 M/uL (4.2-5.4); White Blood Count 11.24 K/uL (4.8-10.8)
[2020-08-29 12:33] LABS: Albumin Level 3.1 gm/dl (3.4-5.0); BUN Creatinine Ratio 9.8 (10-20); Calcium 8.9 mg/dl (8.5-10.1); Creatinine Clr Calc Pharmacy 37.2 ml/min; Est GFR (African American) 47.6; Est GFR (Non-African American) 41.1
--- NOTE | 2020-08-29 14:05 | Hospitalist Progress Note ---
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, Extensive Lysis of Adhesions 08/27 Intermittent hip numbness complaints likely due to cutaneous nerve disruption during surgery especially in the abscence of back pain Management of cancer, dvt proph, pain control per primary (2) CKD (chronic kidney disease): Creatinine improved to 1.32 IVF per primary D5 1/ NSS 20K @ 75 mls/hr Avoid nephrotoxins, renally dose medications (3) Hypertension: Patient with hypertension - blood pressures have improved, not hypertensive now Can resume home lisinopril at discharge or sooner if blood pressure begins to run high again Hydralazine prn (4) Hyperlipidemia: Continue home atorvastatin (5) Heartburn: Patient with substernal pain which she was describing as heartburn 08/27 EKG performed showing NSR, appears similar to previous tracing in June, trop negative Given famotidine Symptoms resolved Thank you for involving us in the care of this patient. Medicine will sign off at this time. Please call with any questions or concerns. Admission and Anticipated Discharge Date Admission Date: August 27, 2020 Supervising Physician Co-Signing Physician Notes I personally examined the patient and verified all bocanegra points of history and exam, discussed case, and agree with decision making with Katie DEJESUS. pain reasonable control. doing well overall. eating reasonably well too. vitals noted fatigued but nad. heent nc at mmm. breathing unlabored no accessory muscles good effort. skin no pallor or icterus abdominal pain - post op, expected. doing well. possibly home tomorrow. continue current care. R leg pain - essentially resolved. heartburn - resolved. otherwise as above Subjective Ms. Hanna is having intermittent numbness over her right hip near her surgical site, denies back pain. She is also having some intermittent nausea, no vomiting, no diarrhea, belly still feels sore. Yan catheter no longer putting out bloody drainage Review of Systems Constitutional: no fever, no chills and no body aches Respiratory: no cough and no dyspnea Cardiovascular: no chest pain and no palpitations Gastrointestinal: no abdominal pain, no nausea and no vomiting Genitourinary: no dysuria and no urinary hesitancy Musculoskeletal: no back pain and no joint pain Integumentary: no rash Physical Exam Physical Exam: General: no distress Eyes: normal inspection, PERLL Respiratory: chest non tender, clear to auscultation, normal breath sounds, no respiratory distress, no accessory muscle use Cardiac: regular rate and rhythm, no rub or gallop, no murmur, no edema, no jvd GI/: active bowel sounds, no abd pain or tenderness, soft, non distended Extremities: normal range of motion, normal strength, non tender Neuro/Psych: alert and oriented x 3, normal mood and affect Skin: normal color, dry Results & Data Results & Data ([facility]) Vital Signs (Past 12 Hours) Vital Signs Temp Pulse Pulse Resp BP Pulse Ox 08/29/20 11:36 37.0 C 86 18 122/86 98 08/29/20 07:42 84 08/29/20 06:30 36.8 C 88 18 149/73 H 93 08/29/20 02:53 37.2 C 77 18 151/73 H 96 PG Care Time/CCT Total # of Minutes Spent Total Time Spent with Patient: Total time spent is greater than 50% in coordination of care (as documented) at patient's floor/unit and/or counseling patient: Coding Level of Care Code 61927 Subseq Hosp Care Lvl 2 Diagnoses Ureteral cancer C66.9 CKD (chronic kidney disease) N18.9 Hypertension I10 Hyperlipidemia E78.5 Heartburn R12
[2020-08-29 14:16] LABS: Potassium 4.6 mmol/L (3.5-5.1)
[2020-08-29 14:25] LABS: Albumin Globulin Ratio 0.9 (0.9-2); Bilirubin,Total 0.5 mg/dl (0.2-1); Globulin 3.4 gm/dl (2.5-4.0); Total Protein 6.5 gm/dl (6.4-8.2)
--- NOTE | 2020-08-29 16:26 | Urology Progress Note ---
Date of Service August 29, 2020 Assessment & Plan (1) Urothelial carcinoma of distal ureter: (2) ESTRELLA (acute kidney injury): 69yo F POD2 s/p Right Robotic Laparoscopic Assisted Nephroureterectomy, Extensive Lysis of Adhesions on 08/27/[address] Bonds urothelial carcinoma of the distal ureter with ESTRELLA likely secondary to intervention on kidney and postoperative ESTRELLA. -Patient clinically progressing as expected. -Remains afebrile, hemodynamically stable. -Labs reviewed, improving -Continue Yan catheter. Maintain likely 1-2 weeks. -Maintain MANI drain. Possible out tomorrow if <50 cc per day -Encourage ambulation with assistance. OOB today. -Continue with supportive care and pain management. -Will continue to monitor, likely home tomorrow depending on clinical progression Continue nicotene replacement as needed. Monitor. Encouraged ambulation. Possibly home tomorrow. Okay to shower and wash. Admission and Anticipated Discharge Date Admission Date: August 27, 2020 Subjective Postop from urologic surgery. Patient has been tolerating well, but is having some pain and discomfort. Incisions have been mild sore. Having some abdominal distension/gas pains. Has tolerated catheter. Has not had severe pain or uncontrollable pain. Patient has been ambulating. Has not had bowel movement or major change. No new nausea or vomiting. Had tolerated anesthesia without major problems Tolerated liquid diet postoperatively. Review of Systems Review of Systems: All systems reviewed & are unremarkable except as noted in HPI & below Physical Exam Physical Exam: General: Alert in no acute distress. HEENT: Normocephalic Atraumatic. Inspection normal. Cranial Nerves 2-12 Grossly intact. Normal inspection of face. Normal inspection of neck. Psychologic: Normal affect. Respiratory: Nonlabored. No use of accessory muscles. No tachypnea or dyspnea. Cardiovascular: No tachycardia Skin: [place] and Dry. No rashes or visible lesions. Extremities/Lymphatics: No edema Abdomen: Appropriately tender. Mild distended. No rebound or guarding. Wound: Clean, dry, covered. Results & Data ([facility]) Vital Signs (Past 12 Hours) Vital Signs Temp Pulse Pulse Resp BP Pulse Ox 08/29/20 15:33 37.0 C 78 18 132/68 98 08/29/20 14:58 86 08/29/20 11:36 37.0 C 86 18 122/86 98 08/29/20 07:42 84 12/12/20 06:30 36.8 C 88 18 149/73 H 93 PG Care Time/CCT Total # of Minutes Spent Total Time Spent with Patient: Total time spent is greater than 50% in coordination of care (as documented) at patient's floor/unit and/or counseling patient: Coding Level of Care Code 87389 Subseq Hosp Care Lvl 2 Diagnoses Urothelial carcinoma of distal ureter C66.9 ESTRELLA (acute kidney injury) N17.9
[2020-08-29] MEDS: ATORVASTATIN 20 MG TAB PO SCH (19:42)
[2020-08-29] MEDS: TAMSULOSIN HCL 0.4 MG CAP PO SCH (19:43)
[2020-08-29] MEDS: MoRPHine SULFATE 2 MG/ML CARP IV PRN (19:56)
[2020-08-30] MEDS: CHECK SCOPOLAMINE PATCH PLACEMENT SCH ×2 (00:34→08:18)
[2020-08-30] MEDS: MoRPHine SULFATE 2 MG/ML CARP IV PRN (05:18)
[2020-08-30] MEDS ORDERED: FAMOTIDINE 20 MG in SYRINGE 3 ML IV ONE (06:09)
[2020-08-30] MEDS: HEPARIN SOD 5,000 UNIT/0.5 ML VIAL SQ SCH ×2 (08:18→20:13)
[2020-08-30] MEDS: NICOTINE 21 MG/24 HR TDSY TD SCH (08:18)
[2020-08-30] MEDS: DOCUSATE SODIUM 100 MG CAP PO SCH ×2 (08:18→20:13)
[2020-08-30] MEDS ORDERED: POLYETHYLENE (MIRALAX) 17 GM PACK PO PRN (09:07)
[2020-08-30] MEDS: D5W AND 1/2NSS + 20MEQ KCL 20 MEQ/1,000 ML BAG IV SCH ×2 (11:37→23:31)
[2020-08-30] MEDS: oxyCODONE HCL IR 5 MG TAB (IMMEDIATE RELEASE) PO PRN ×2 (11:37→22:21)
--- NOTE | 2020-08-30 13:12 | Urology Progress Note ---
Date of Service August 30, 2020 Assessment & Plan (1) Urothelial carcinoma of distal ureter: (2) ESTRELLA (acute kidney injury): 69yo F POD3 s/p Right Robotic Laparoscopic Assisted Nephroureterectomy, Extensive Lysis of Adhesions on 08/27/20 urothelial carcinoma of the distal ureter with ESTRELLA likely secondary to intervention on kidney and postoperative ESTRELLA. -Patient continues to improve. -Remains afebrile, hemodynamically stable. -Nausea was worse this am and lead to vomiting. Responded well to antiemetics. -Continue Yan catheter. Maintain likely 1-2 weeks. -Encourage ambulation with assistance. OOB today. -Continue with supportive care and pain management. Continue nicotene replacement as needed. Monitor. Encouraged ambulation. Possibly home tomorrow. Okay to shower and wash. Admission and Anticipated Discharge Date Admission Date: August 27, 2020 Subjective Postop from urologic surgery. Patient has been tolerating well, but is having some pain and discomfort. Developed worsening of N/V this am which responded well to antiemetics. No further episode. May still be post anesthesia nausea. Incisions have been mild sore. Having some abdominal distension/gas pains. Has not had severe pain or uncontrollable pain. Patient has been ambulating. Has not had bowel movement or major change. Diet advancing. Increasing activity. Tolerating catheter. Review of Systems Review of Systems: All systems reviewed & are unremarkable except as noted in HPI & below Physical Exam Physical Exam: General: Alert in no acute distress. HEENT: Normocephalic Atraumatic. Inspection normal. Cranial Nerves 2-12 Grossly intact. Normal inspection of face. Normal inspection of neck. Psychologic: Normal affect. Respiratory: Nonlabored. No use of accessory muscles. No tachypnea or dyspnea. Cardiovascular: No tachycardia Skin: [place] and Dry. No rashes or visible lesions. Extremities/Lymphatics: No edema Abdomen: Appropriately tender. Mild distended. No rebound or guarding. Wound: Clean, dry, and intact Results & Data ([facility]) Vital Signs (Past 12 Hours) Vital Signs Temp Pulse Pulse Resp BP Pulse Ox 08/30/20 10:00 77 08/30/20 07:22 37.2 C 77 18 118/72 91 08/30/20 05:30 76 08/30/20 03:37 36.9 C 81 18 139/71 89 L PG Care Time/CCT Total # of Minutes Spent Total Time Spent with Patient: Total time spent is greater than 50% in coordination of care (as documented) at patient's floor/unit and/or counseling patient: Coding Level of Care Code 67351 Subseq Hosp Care Lvl 2 Diagnoses Urothelial carcinoma of distal ureter C66.9 ESTRELLA (acute kidney injury) N17.9
--- NOTE | 2020-08-30 13:38 | Hospitalist Progress Note ---
Date of Service August 30, 2020 Assessment & Plan (1) Ureteral cancer: s/p Robotic Right Laparoscopic Assisted Nephroureterectomy, Extensive Lysis of Adhesions 08/27 Intermittent hip numbness complaints likely due to cutaneous nerve disruption during surgery especially in the abscence of back pain Management of cancer, dvt proph, pain control per primary (2) CKD (chronic kidney disease): Creatinine improved to 1.32 IVF per primary D5 1/ NSS 20K @ 75 mls/hr Avoid nephrotoxins, renally dose medications (3) Hypertension: Patient with hypertension - blood pressures have improved, not hypertensive now Can resume home lisinopril at discharge or sooner if blood pressure begins to run high again Hydralazine prn (4) Hyperlipidemia: Continue home atorvastatin (5) Heartburn: Patient with substernal pain which she was describing as heartburn 08/27 EKG performed showing NSR, appears similar to previous tracing in June, trop negative Given famotidine Symptoms resolved (6) Hypoxia: Likely atelectasis as patient is avoiding deep breaths and coughing due to belly pain. She is also a smoker so may have a component of underlying COPD. Encourage IS and splinting belly with pillow when needing to cough Admission and Anticipated Discharge Date Admission Date: August 27, 2020 Supervising Physician Co-Signing Physician Notes I personally examined the patient and verified all bocanegra points of history and exam, discussed case, and agree with decision making with Katie DEJESUS. wondering about discharge. no problems when i see her vitals noted no converastional dyspnea breathing unlabored no accessory muscles skin no pallor or icterus mild hypoxia - almost certainly atelectasis. IS, follow pulse ox Subjective Saw patient today for hypoxia overnight. She feels that her breath "hitches" but is not sob. She is taking shallow breaths and avoiding coughing due to abdominal pain. Review of Systems Constitutional: no fever, no chills and no body aches Respiratory: no cough and no dyspnea Cardiovascular: no chest pain and no palpitations Gastrointestinal: + nausea and + vomiting; no abdominal pain Genitourinary: no dysuria and no urinary hesitancy Musculoskeletal: no back pain and no joint pain Integumentary: no rash Physical Exam Physical Exam: General: no distress Eyes: normal inspection, PERLL Respiratory: chest non tender, clear to auscultation, normal breath sounds, no respiratory distress, no accessory muscle use Cardiac: regular rate and rhythm, no rub or gallop, no murmur, no edema, no jvd GI/: active bowel sounds, no abd pain or tenderness, soft, non distended Extremities: normal range of motion, normal strength, non tender Neuro/Psych: alert and oriented x 3, normal mood and affect Skin: normal color, dry Results & Data Results & Data ([facility]) Vital Signs (Past 12 Hours) Vital Signs Temp Pulse Pulse Resp BP Pulse Ox 08/30/20 10:00 77 08/30/20 07:22 37.2 C 77 18 118/72 91 08/30/20 05:30 76 08/30/20 03:37 36.9 C 81 18 139/71 89 L PG Care Time/CCT Total # of Minutes Spent Total Time Spent with Patient: Total time spent is greater than 50% in coordination of care (as documented) at patient's floor/unit and/or counseling patient: Coding Level of Care Code 09571 Subseq Hosp Care Lvl 2 Diagnoses Ureteral cancer C66.9 CKD (chronic kidney disease) N18.9 Hypertension I10 Hyperlipidemia E78.5 Heartburn R12 Hypoxia R09.02
[2020-08-30] MEDS: ATORVASTATIN 20 MG TAB PO SCH (20:13)
[2020-08-30] MEDS: TAMSULOSIN HCL 0.4 MG CAP PO SCH (20:13)
[2020-08-31] MEDS: HEPARIN SOD 5,000 UNIT/0.5 ML VIAL SQ SCH ×2 (08:26→10:37)
[2020-08-31] MEDS: DOCUSATE SODIUM 100 MG CAP PO SCH (08:26)
[2020-08-31] MEDS: oxyCODONE HCL IR 5 MG TAB (IMMEDIATE RELEASE) PO PRN ×2 (08:27→13:53)
[2020-08-31] MEDS: NICOTINE 21 MG/24 HR TDSY TD SCH (08:27)
[2020-08-31] MEDS: ONDANSETRON INJ 2 MG/ML 2 ML VIAL IV PRN (08:28)
--- NOTE | 2020-08-31 10:10 | Hospitalist Progress Note ---
Date of Service August 31, 2020 Assessment & Plan (1) Ureteral cancer: s/p Robotic Right Laparoscopic Assisted Nephroureterectomy, Extensive Lysis of Adhesions 08/27 Intermittent hip numbness complaints likely due to cutaneous nerve disruption during surgery especially in the abscence of back pain (2) CKD (chronic kidney disease): Creatinine improved to 1.32 (3) Hypertension: Patient with hypertension - blood pressures have improved, not hypertensive now Can resume home lisinopril at discharge (4) Hyperlipidemia: Continue home atorvastatin (5) Heartburn: Patient with substernal pain which she was describing as heartburn 08/27 EKG performed showing NSR, appears similar to previous tracing in June, trop negative Given famotidine Symptoms resolved (6) Hypoxia: Likely atelectasis as patient is avoiding deep breaths and coughing due to belly pain. She is also a smoker so may have a component of underlying COPD. Encourage smoking cessation Admission and Anticipated Discharge Date Admission Date: August 30, 2020 Subjective Patient without complaints or problems she is eating food during my examination she only has some very minor abdominal discomfort Review of Systems Review of Systems: Mild distress and fatigue no headache, blurry or double vision no speech or swallowing issues no chest pain, pressure or palpitations no shortness of breath, cough or wheezes Minor abdominal discomfort mostly with movement no significant dysuria, hematuria or frequency no focal joint pain or swelling no back pain, CVA tenderness or radicular pain no bruising, bleeding or rashes no focal signs of weakness or numbness or altered sensation no complaints of anxiety or depression.. Physical Exam Physical Exam: The patient appeared well Vital signs as documented. Lungs are clear to auscultation and appear unlabored Cardiac exam, Rhythm is regular.. No murmurs, rubs or gallops. Abdominal exam reveals normal bowel sounds, soft very mild nondescript tenderness, no masses Extremities are nonedematous and both pedal pulses are normal. Neurologic exam is alert and oriented, no focal loss of strength or sensation Skin is without bruises or rashes Psychologically is without concerns for anxiety or depression. Results & Data Results & Data ([facility]) Vital Signs (Past 12 Hours) Vital Signs Temp Pulse Pulse Pulse Resp BP Pulse Ox 08/31/20 07:26 97.9 F 87 16 131/70 91 08/31/20 07:18 72 12/14/20 04:00 98.6 F 80 20 131/74 91 08/31/20 00:00 99.1 F 70 18 152/74 H 92 08/30/20 23:38 86 PG Care Time/CCT Total # of Minutes Spent Total Time Spent with Patient: Total time spent is greater than 50% in coordination of care (as documented) at patient's floor/unit and/or counseling patient: Coding Level of Care Code 87102 Subseq Hosp Care Lvl 2 Diagnoses Ureteral cancer C66.9 CKD (chronic kidney disease) N18.9 Hypertension I10 Hyperlipidemia E78.5 Heartburn R12 Hypoxia R09.02
--- NOTE | 2020-08-31 10:12 | Urology Progress Note ---
Date of Service August 31, 2020 Assessment & Plan (1) Ureteral cancer: 69 yo F POD#4 s/p Right Robotic Laparoscopic Assisted Nephroureterectomy, Extensive Lysis of Adhesions on 08/27/20. - Pt with urothelial carcinoma of the distal ureter. - Remains afebrile, hemodynamically stable. No new lab work since 08/29/20. Pt refused additional labs this morning. - Continue Yan catheter, maintain for 1-2 weeks. - Encourage ambulation with assistance, incentive spirometer - discussed splinting abd for IS, cough/deep breathing. - Continue with supportive care and prn pain management. - Possibly d/c later today if continues to progress. - Will arrange outpatient follow-up next week for Yan removal, cystogram prior per Dr. Bonds - order placed. Update: Pt reassessed at 1100 - She is feeling better at present. Reports abdominal discomfort improved since this AM, no nausea or vomiting. Continues to feel some bloating, no BM at this time. She agreed to lab work after morning exam. Labs reviewed: Creatinine improved to 1.27, WBC 12.59, Hgb 11.7. She would like to go home today. Reviewed with Dr. Bonds. Will plan to d/c home later today with Yan catheter intact. MANI to be removed prior to discharge. Follow-up appointments in place. Admission and Anticipated Discharge Date Admission Date: August 30, 2020 Subjective Patient seen and examined at bedside this AM. Overall, feeling better than yesterday. Reports bloating and generalized abdominal discomfort, most pronounced in right upper quadrant. Notes incisions sore, especially with movement, cough and deep breathing. Tolerating diet this AM, though notes low appetite. No nausea or vomiting. Reports belching, no flatus. No BM. She is tolerating Yan catheter with minimal bother. Yan intact, patent, and draining clear yellow urine. No dysuria. Reports OOB ambulating in hallway a few times yesterday, has not been out of bed yet today. Breathing stable. She is utilizing incentive spirometer. No fever or chills. Pt would like to go home today if continues to feel better. No additional concerns today. Chart review: Afebrile. MANI output - 20 mL overnight. No new labs on chart this AM. Pt refused lab work. Review of Systems Constitutional: as per Subjective / HPI Gastrointestinal: as per Subjective / HPI Genitourinary: as per Subjective / HPI Physical Exam Constitutional: well developed and well nourished; no acute distress and not ill appearing Respiratory: normal respiratory effort and able to speak in complete sentences; no respiratory distress and no labored breathing Cardiovascular: Extremities: no pedal edema Gastrointestinal (Abdomen): Inspection/Auscultation: abdomen normal to inspection; abdomen not distended Percussion/Palpation: + abdomen tender (mi ld tenderness to palpation near incisions.) and abdomen soft; no guarding Musculoskeletal: Head/Neck/Chest: normocephalic and head atraumatic Extremities: extremities normal to inspection Skin: Surgical incisions with jaci, well approximated. C/D/I. No warmth, erythema or drainage. MANI intact with minimal serosanguinous output noted. Neurologic: moves all extremities and awake Psychiatric: Orientation: alert and oriented x 3 Genitourinary: no CVA tenderness Yan catheter intact, patent, and draining clear yellow urine. Results & Data ([facility]) Vital Signs (Past 12 Hours) Vital Signs Temp Pulse Pulse Pulse Resp BP Pulse Ox 08/31/20 07:26 36.6 C 87 16 131/70 91 08/31/20 07:18 72 08/31/20 04:00 37 C 80 20 131/74 91 08/31/20 00:00 37.3 C 70 18 152/74 H 92 08/30/20 23:38 86 PG Care Time/CCT Total # of Minutes Spent Total Time Spent with Patient: Total time spent is greater than 50% in coordination of care (as documented) at patient's floor/unit and/or counseling patient: Coding Level of Care Code 77707 Subseq Hosp Care Lvl 2 Diagnoses Ureteral cancer C66.9
[2020-08-31 10:26] LABS: Basophils # (auto) 0.03 K/uL (0-0.2); Basophils % (auto) 0.2 %; Eosinophils # (auto) 0.17 K/uL (0-0.5); Eosinophils % (auto) 1.4 %; Hematocrit (blood only) 34.6 % (37-47); Hemoglobin 11.7 g/dL (12.0-16.0); Immature Granulocytes # (auto) 0.03 K/uL (0.00-0.02); Immature Granulocytes % (auto) 0.2 %; Lymphocytes # (auto) 0.82 K/uL (1.2-3.4); Lymphocytes % (auto) 6.5 %; Mean Corpuscular Hgb Conc 33.8 g/dL (32-36); Mean Corpuscular Volume 91.5 fL (80-100); Mean Platelet Volume 10.2 fL (7.4-10.4); Monocytes # (auto) 0.83 K/uL (0.11-0.59); Monocytes % (auto) 6.6 %; Neutrophils # (auto) 10.71 K/uL (1.4-6.5); Neutrophils % (auto) 85.1 %; Platelet Count 254 K/uL (130-400); RDW Coefficient of Variation 13.7 % (11.5-14.5); RDW Standard Deviation 45.4 fL (36.4-46.3); Red Blood Count 3.78 M/uL (4.2-5.4); White Blood Count 12.59 K/uL (4.8-10.8)
[2020-08-31 10:46] LABS: BUN Creatinine Ratio 10.3 (10-20); Calcium 9.5 mg/dl (8.5-10.1); Creatinine Clr Calc Pharmacy 38.9 ml/min; Creatinine Clr Calc Pharmacy 39.2 ml/min; Est GFR (African American) 49.9; Est GFR (African American) 50.3; Est GFR (Non-African American) 43.4; Potassium 4.9 mmol/L (3.5-5.1)
[2020-08-31 10:48] LABS: Albumin Globulin Ratio 0.8 (0.9-2); Bilirubin,Total 0.7 mg/dl (0.2-1); Globulin 3.8 gm/dl (2.5-4.0); Total Protein 6.8 gm/dl (6.4-8.2)
[2020-08-31] MEDS: D5W AND 1/2NSS + 20MEQ KCL 20 MEQ/1,000 ML BAG IV SCH (11:56)
--- NOTE | 2020-09-08 13:24 | Discharge Summary ---
Date of Service August 31, 2020 Admission HPI Per Admitting Provider Patient is a 69-year-old female with upper track UCC for Nephroureterectomy See Admission H&P Admission Exam Per Admitting Provider See H&P Principal Diagnosis Upper Track UCC of ureter Discharge Exam General: Alert in no acute distress. HEENT: Normocephalic Atraumatic. Inspection normal. Psychologic: Normal affect. Skin: Linneus and Dry. No rashes or visible lesions. Abdomen: Soft Non-distended. No rebound or guarding. Discharge Data Allergies Allergy/AdvReac Type Severity Reaction Status Date / Time magnesium sulfate Allergy Severe face, hand Verified 09/01/20 17:55 [From Suprep Bowel Prep Kit] swelling Penicillins Allergy Severe rash, Verified 09/01/20 17:55 throat tightening potassium Allergy Severe face, hand Verified 09/01/20 17:55 [From Suprep Bowel Prep Kit] swelling sodium sulfate Allergy Severe face, hand Verified 09/01/20 17:55 [From Suprep Bowel Prep Kit] swelling Consultations 09/01/20 17:55 ED Decision to Admit Stat 09/01/20 20:18 Consult General Surgery Routine Consult Urology Stat Ordered Studies 09/01/20 15:58 CT abd pelvis IV con only Stat CT angio chest PE protocol Stat 09/04/20 09:24 [place] small bowel follow through Routine Hospital Course (1) Urothelial carcinoma of distal ureter: Post op from Nephro-uretectomy on right with mild pain and overall doing well without issues. 69 yo F POD#4 s/p Right Robotic Laparoscopic Assisted Nephroureterectomy, Extensive Lysis of Adhesions on 08/27/20. - Pt with urothelial carcinoma of the distal ureter. - Remains afebrile, hemodynamically stable. No new lab work since 08/29/20. Pt refused additional labs this morning. - Continue Yan catheter, maintain for 1-2 weeks. - Encourage ambulation with assistance, incentive spirometer - discussed splinting abd for IS, cough/deep breathing. - Continue with supportive care and prn pain management. - Possibly d/c later today if continues to progress. - Will arrange outpatient follow-up next week for Yan removal, cystogram prior per Dr. Bonds - order placed. Update: Pt reassessed at 1100 - She is feeling better at present. Reports abdominal discomfort improved since this AM, no nausea or vomiting. Continues to feel some bloating, no BM at this time. She agreed to lab work after morning exam. Labs reviewed: Creatinine improved to 1.27, WBC 12.59, Hgb 11.7. She would like to go home today. Reviewed with Dr. Bonds. Will plan to d/c home later today with Yan catheter intact. MANI to be removed prior to discharge. Follow-up appointments in place Total Time Total Time Spent Total Time Spent (In Minutes): 10 minutes Total Time Includes: Examination of the Patient, Discharge Planning, Medication Reconciliation and Communication With Other Providers Discharge Plan Discharge Items Reason For Visit: Spontaneous Right Sided pneumothorax, SBO, s/p Rig Follow-up/Referrals: Verónica Faulkner, [Primary Care Provider] - Medications and DC Order Prescriptions: No Action lisinopril 20 mg tablet 20 mg PO QPM Qty: 90 RF: 1 tamsulosin 0.4 mg capsule 0.4 mg PO HS Qty: 30 RF: 0 atorvastatin 20 mg tablet 20 mg PO QPM Qty: 90 RF: 1 cholecalciferol (vitamin D3) 50 mcg (2,000 unit) capsule 2,000 units PO QPM Qty: 30 RF: 0 lorazepam [Ativan] 0.5 mg tablet 0.5 mg PO DAILY PRN (Reason: anxiety) Qty: 30 RF: 0 [facility] 40-10-5-3.3 mg Tablet 1 tab PO QPM RF: 0 docusate sodium [Colace] 100 mg capsule 100 mg PO BID Qty: 60 RF: 0 oxycodone-acetaminophen [Percocet] 5-325 mg tablet 1 tab PO TID PRN (Reason: pain) Qty: 14 RF: 0 nicotine [Nicoderm CQ] 21 mg/24 hr Patch 24 Hour 21 mg transdermal QAM Qty: 14 RF: 0 ondansetron 4 mg tablet,disintegrating 4 mg PO TID PRN (Reason: nausea and vomiting) Qty: 12 RF: 0 calcium carbonate [Calcium 600] 600 mg calcium (1,500 mg) Tablet 600 mg PO Q OTHER DAY RF: 0 Admission Data Admit Date/Time: 09/01/20 18:43 Attending Provider: Hemanth Martinez Admit Provider: Hemanth Martinez Primary Care Provider: Verónica Faulkner Other Providers: Hemanth Martinez ; Frank Bonds ; Frantz Navarro ; Vazquez Bang ; Henry Villalobos ; Troy Elias Jr ; Michael Urban ; Antonio Leiva ; Stephanie Fay ; Artis Vincent ; Rafael Sherman Coding Level of Care Code D/C Day Management <30 mins Diagnoses Urothelial carcinoma of distal ureter C66.9
== END 2020-08-31 14:47 | disposition home or self-care (01) | DRG 657 ==
LOC: ASU 05:54 → 2N 05:54

== ENCOUNTER 2020-09-01 15:04 | Inpatient (IN) ==
[2020-09-01] MEDS ORDERED: FAMOTIDINE 20MG IV PUSH 20 MG/5 ML SYR IV STA (15:15)
[2020-09-01] MEDS ORDERED: SODIUM CHLORIDE 0.9% 1000ML 1,000 ML IV ONE ×2 (15:15→17:07)
[2020-09-01] MEDS ORDERED: diphenhydrAMINE 50 MG/ML VIAL IV STA (15:18)
[2020-09-01] MEDS ORDERED: METOCLOPRAMIDE HCL INJ 5 MG/ML 2 ML VIAL IV STA (15:18)
[2020-09-01] MEDS ORDERED: ACETAMINOPHEN 1,000 MG/100 ML VIAL IV STA (15:19)
--- NOTE | 2020-09-01 15:41 | XRay Report ---
[facility]UB CLINICAL HISTORY: Recent surgery. Generalized abdominal pain. Nausea and vomiting. FINDINGS: An AP, portable, supine abdominal radiograph is correlated with abdominal CT dated 0. Numerous skin clips project over the abdomen. Fecal retention is noted in the right colon. There a re distended and gas-filled loops of small bowel which measure up to 3.6 cm in diameter. Gas is noted within the left colon. No evidence of intraperitoneal free air is seen on this supine image. There a re no abnormal abdominal calcifications. The skeletal structures are osteopenic and appear intact. IMPRESSION: There are distended and gas-filled loops of small bowel, with gas also seen in the colon. Differential considerations are postoperative ileus versus developing small bowel obstruction. Ileus is favored given the history of recent surgery. Clinical correlation will be required. Electronically signed by: Delio Alvarez M.D. 09/01/2020 3:40 PM
--- NOTE | 2020-09-01 15:42 | XRay Report ---
XR chest 1V portable CLINICAL HISTORY: Chest Pain COMPARISON STUDY: Chest radiograph December 16, 2019. FINDINGS: A moderate right pneumothorax is noted. Superior pleural separation is 2.2 cm. There is no left pneumothorax. Bibasilar opacities, greater on the right, are noted. There is possible pneumoperi toneum with lucency under the left hemidiaphragm. Cardiac size is normal. There is no evidence for pu lmonary edema. IMPRESSION: 1. Moderate right pneumothorax. Findings discussed with Dr. Ramirez at time of dictation. 2. Bibasilar opacities, greater on the right. This could reflect atelectasis or consolidation. 3. Possible extraluminal gas under the left hemidiaphragm. This could be postsurgical. ACT 112: Negative or not required by law. Electronically signed by: Chicho Porter M.D. 09/01/2020 3:41 PM
[2020-09-01 16:42] LABS: Basophils # (auto) 0.03 K/uL (0-0.2); Basophils % (auto) 0.2 %; Eosinophils # (auto) 0.13 K/uL (0-0.5); Eosinophils % (auto) 0.7 %; Hematocrit (blood only) 35.4 % (37-47); Immature Granulocytes # (auto) 0.07 K/uL (0.00-0.02); Immature Granulocytes % (auto) 0.4 %; Lymphocytes # (auto) 1.23 K/uL (1.2-3.4); Lymphocytes % (auto) 6.3 %; Mean Corpuscular Hgb Conc 33.9 g/dL (32-36); Mean Corpuscular Volume 91.5 fL (80-100); Mean Platelet Volume 10.3 fL (7.4-10.4); Monocytes # (auto) 0.89 K/uL (0.11-0.59); Monocytes % (auto) 4.5 %; Neutrophils # (auto) 17.32 K/uL (1.4-6.5); Neutrophils % (auto) 87.9 %; Platelet Count 348 K/uL (130-400); RDW Coefficient of Variation 13.8 % (11.5-14.5); Red Blood Count 3.87 M/uL (4.2-5.4); White Blood Count 19.67 K/uL (4.8-10.8)
--- NOTE | 2020-09-01 16:49 | Emergency Department Note ---
Impression & Plan Small bowel obstruction, Pneumothorax on right, Renal insufficiency, Leukocytosis, Hx of nephroureterectomy ED Provider Note NAME: ISIS Wilson YOUNG AGE: 69 SEX: F ARRIVES VIA: Ambulance INFORMANT: Patient, ED PROVIDER(S): Enrique Ramirez MD CHIEF COMPLAINT: vomiting PLAN: Disposition: Admit MEDICAL DECISION MAKING: The patient is a pleasant 69-year-old woman with a past medical history of hypertension, hyperlipidemia who is s/p Right Robotic Laparoscopic Assisted Nephroureterectomy, Extensive Lysis of Adhesions on 08/27/[address] Bonds who presents emergency department with nausea vomiting that began last night worsening into today with chills and generalized abdominal pain. She reports she left the hospital feeling improved and was preferring to go home but since last night into today she has not been able to keep anything down. Denies objective fevers, cough, diarrhea. She does report not having a bowel movement since prior to her surgery 6 days ago. She denies chest pain or shortness of breath though was noted to be hypoxic by EMS to 88% on room air placed on oxygen however here in the emergency department is saturating 94% on room air without labored breathing. On arrival patient is uncomfortable but no acute distress, afebrile with stable vital signs. She appears clinically dry. She has generalized abdominal discomfort is appropriate for her postop status. Yan catheter is in dwelling. Chest x-ray performed and demonstrates a moderate right-sided pneumothorax of unclear etiology. Additionally noted are bibasilar opacities which are likely atelectasis in the setting of the patient's recent surgery. Note of extraluminal gas underneath the left diaphragm could be postsurgical. KUB demon strates distended and gas-filled loops of small bowel that are consistent with ileus versus less likely SBO in setting of the patient's recent surgery. Given the patient's history of renal cancer which led to her nephrectomy CTA of the chest was ordered for further characterization of patient's pneumothorax and to help clarify possible underlying etiology to this. Additionally will proceed with CT abdomen pelvis for further clarification of KUB findings. I did review the pneumothorax with pulmonology, Dr. Noel, and we agree that given the patient has no respiratory distress/complaints can place the patient on nonrebreather overnight and repeat x-ray in the morning to assess need for chest tube or pigtail if not resolved or worsening. WBC 19.6 which is elevated from patient's discharge yesterday of 12. This potentially could be related to the patient's nausea and vomiting. However, bl ood cultures ordered. Chemistry without metabolic acidosis. Creatinine 1.5 consistent with the adrienne ent's clinically dry appearance. Troponin negative/undetectable. Lipase within normal limits. COVID-19 RNA, NAAT test was negative. CTA of the chest was performed and negative for PE, however redemonstrates the patient's pneumothorax without clear underlying etiology. CT abdomen pelvis demonstrates small bowel obstruction with mesenteric swirling that raises the possibility of internal hernia. CT was reviewed with general surgery Dr. Urban and agrees with plan for NG tube as well as empiric antibiotics. He will be available for inpatient team consultation. Case was d/w Elise Javier, [facility] and Dr. Martinez [facility] hospitalist who will evaluate the patient for admission. Triage Nursing notes reviewed and agree them. Prior medical records reviewed Vital Signs: reviewed and remarkable for no significant abnormalities Differential diagnosis: Gastroenteritis, food borne illness, infections, appendicitis, diverticulitis, inflammatory bowel disease, obstruction, GI bleed, biliary pathology, volvulus, as well as other pathologies. ER treatment provided: See below. Diagnostics interpreted by me: ECG: Normal sinus rhythm, 71 bpm, no ectopy, nonspecific T wave abnormality, no overt ST elevation or depression, QTC 430, QRS 86. Cardiac Monitoring: An order for continuous cardiac monitoring was placed and demonstrated Normal sinus rhythm, 71 bpm, no ectopy. Laboratory studies: See below Imaging studies: XR chest 1V portable CLINICAL HISTORY: Chest Pain COMPARISON STUDY: Chest radiograph December 16, 2019. FINDINGS: A moderate right pneumothorax is noted. Superior pleural separation is 2.2 cm. There is no left pneumothorax. Bibasilar opacities, greater on the right, are noted. There is possible pneumoperitoneum with lucency under the left hemidiaphragm. Cardiac size is normal. There is no evidence for pulmonary edema. IMPRESSION: 1. Moderate right pneumothorax. Findings discussed with Dr. Ramirez at time of dictation. 2. Bibasilar opacities, greater on the right. This could reflect atelectasis or consolidation. 3. Possible extraluminal gas under the left hemidiaphragm. This could be postsurgical. -- KUB CLINICAL HISTORY: Recent surgery. Generalized abdominal pain. Nausea and vomiting. FINDINGS: An AP, portable, supine abdominal radiograph is correlated with abdominal CT dated 06/10/2020. Numerous skin clips project over the abdomen. Fecal retention is noted in the right colon. There are distended and gas-filled loops of small bowel which measure up to 3.6 cm in diameter. Gas is noted within the left colon. No evidence of intraperitoneal free air is seen on this supine image. There are no abnormal abdominal calcifications. The skeletal structures are osteopenic and appear intact. IMPRESSION: There are distended and gas-filled loops of small bowel, with gas also seen in the colon. Differential considerations are postoperative ileus versus developing small bowel obstruction. Ileus is favored given the history of recent surgery. Clinical correlation will be required. Consultation(s): Dr. Noel, Pulmonology Dr. Urban, General surgery. Elise Javier, [facility] and Dr. Martinez [facility] hospitalist. HPI: The patient is a pleasant 69-year-old woman with a past medical history of hypertension, hyperlipidemia who is s/p Right Robotic Laparoscopic Assisted Nephroureterectomy, Extensive Lysis of Adhesions on 08/27/[address] Bonds who presents emergency department with nausea vomiting that began last night worsening into today with chills and generalized abdominal pain. She reports she left the hospital feeling improved and was preferring to go home but since last night into today she has not been able to keep anything down. Denies objective fevers, cough, diarrhea. She does report not having a bowel movement since prior to her surgery 6 days ago. She denies chest pain or shortness of breath though was noted to be hypoxic by EMS to 88% on room air placed on oxygen however here in the emergency department is saturating 94% on room air without labored breathing. ROS: See above HPI for pertinent positives & negatives. A total of 10 systems reviewed and were otherwise negative. PAST MEDICAL HISTORY:See Below PAST SURGICAL HISTORY:See Below FAMILY HISTORY:See Below SOCIAL HISTORY:See Below HOME MEDICATIONS:See Below ALLERGIES:See Below VITALS:See Below PHYSICAL EXAMINATION: GENERAL: Awake, alert, uncomfortable-appearing, in no distress HENT: Normocephalic, atraumatic. Oropharynx with dry mucous membranes and otherwise unremarkable. EYES: Normal conjunctiva. Sclera non-icteric. NECK: Supple. No nuchal rigidity. FROM. No JVD. RESPIRATORY: Clear to auscultation. CARDIAC: Regular rate, normal rhythm. Extremities warm and well perfused. Pulses equal. ABDOMEN: Soft, non-distended. Generalized abdominal discomfort without discrete to palpation appropriate for postop status. Trocar incision sites clean dry and intact. No rebound or guarding. No masses. RECTAL: Deferred. MUSCULOSKELETAL: Chest examination reveals no tenderness. The back is symmetrical on inspection without obvious abnormality. There is no CVA tenderness to palpation. No joint edema. LOWER EXTREMITIES: Calves are equal size bilaterally and non-tender. No edema. No discoloration. NEURO: Normal sensorium. No sensory or motor deficits noted. SKIN: No rash or jaundice noted. ED COURSE: Critical Care: I have personally spent greater than 45 minutes of critical care time in the direct management of this patient. This includes bedside care, interpretation of diagnostic studies, and testing, discussion with consultants, patient, and family members, and other required patient management activities. This 45 minutes is in excess of all separately billable procedures. 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 Surgical History H/O exploratory laparotomy tubal surgery for fertility issues History of cardiac cath 5+ years ago ([facility] [place])- no stents, attempts to obtain official report unsuccessful History of colonoscopy History of cystoscopy cystoscopy + stent insertion: 01/02/20: LMA#4 at [facility] cystoscopy: 03/05/20: LMA#4 at [facility] cystoscopy, RP07/09/20: MAC sedation at [facility] History of tooth extraction S/P D&C (status post dilation and curettage) S/P tonsillectomy Family History Aunt Diabetes Colorectal cancer Myocardial infarction Ovarian cancer Father No problems noted. Mother Dementia Pacemaker Hypertension Uterine cancer Family/Other Pancreatic cancer Breast cancer Colorectal cancer Other No family history of adverse response to anesthesia Social History Smoking Status: Current every day smoker packs per day: 1; Cigarettes Per Day: 15 cigs/day x 25 years; Second Hand Exposure: Yes ( A CHILD); Hx Alcohol Use: Yes Alcohol type: wine Hx Substance Use: No Preferred Language: Slovak Communication Ability: Effective Visual Impairment: No Limitations Hearing Ability: Normal Material Assistant Required: No Beliefs That Will Affect Care: None marital status: Current Living Situation: Spouse current occupational status: retired Feels Safe at Home: Yes Childhood Exposure to Second-Hand Smoke: Yes caffeine: Yes (Coffee x 2-3 per day) during the past year weight has: remained stable Dental Care, Regularly: Yes Physical Activity Frequency: Daily Seatbelt Use: always Sunscreen Use: No Assistive Devices: Walker Allergies Allergies Allergy/AdvReac Type Severity Reaction Status Date / Time magnesium sulfate Allergy Severe face, hand Verified 09/01/20 17:55 [From Suprep Bowel Prep Kit] swelling Penicillins Allergy Severe rash, Verified 09/01/20 17:55 throat tightening potassium Allergy Severe face, hand Verified 09/01/20 17:55 [From Suprep Bowel Prep Kit] swelling sodium sulfate Allergy Severe face, hand Verified 09/01/20 17:55 [From Suprep Bowel Prep Kit] swelling Home Meds Home Medications Medication Instructions Recorded Confirmed calcium carbonate [Calcium 600] 600 mg PO Q OTHER DAY 01/16/19 09/01/20 cholecalciferol (vitamin D3) 50 2,000 units PO QPM #30 cap 10/02/19 09/01/20 mcg (2,000 unit) capsule Joint Health 1 tab PO QPM 12/16/19 09/01/20 Previous Rx's Medication Instructions Recorded lisinopril 20 mg tablet 20 mg PO QPM #90 tab 05/21/20 lorazepam 0.5 mg tablet 0.5 mg PO DAILY PRN #30 tab 07/23/20 tamsulosin 0.4 mg capsule 0.4 mg PO HS #30 cap 11/19/20 atorvastatin 20 mg tablet 20 mg PO QPM #90 tab 08/24/20 docusate sodium [Colace] 100 mg PO BID #60 cap 08/31/20 nicotine [Nicoderm CQ] 21 mg TRANSDERMAL QAM #14 ea 08/31/20 ondansetron 4 mg PO TID PRN #12 tab 08/31/20 oxycodone-acetaminophen [Percocet] 1 tab PO TID PRN #14 tab 08/31/20 Results & Data (ED) Vital Signs Vital Signs - 24 hr 09/01/20 15:30 09/01/20 15:31 09/01/20 15:47 Temperature 36.7 C Temperature Source Oral Pulse Rate 73 75 78 Pulse Rate [Apical] Pulse Rate from SpO2 Sensor 75 78 Respiratory Rate 19 26 H 20 Respiratory Effort / Characteristics Non-Labored Respiratory Depth Normal Blood Pressure 92/62 L 92/54 L Blood Pressure [Left Arm] Blood Pressure Mean 72 78 Blood Pressure Mean [Left Arm] Pulse Oximetry 94 91 90 Oxygen Delivery Method Room Air Oxygen Flow Rate Sepsis Recent Fever Within 48 Hours No Sepsis New/Unexplained Change in Mental Status No Sepsis Action Taken by Nursing No Action Required 09/01/20 15:50 09/01/20 16:00 09/01/20 16:01 Temperature Temperature Source Pulse Rate 74 79 78 Pulse Rate [Apical] Pulse Rate from SpO2 Sensor 74 81 78 Respiratory Rate 26 H 18 23 Respiratory Effort / Characteristics Respiratory Depth Blood Pressure 103/53 L Blood Pressure [Left Arm] Blood Pressure Mean 64 Blood Pressure Mean [Left Arm] Pulse Oximetry 91 91 90 Oxygen Delivery Method Oxygen Flow Rate Sepsis Recent Fever Within 48 Hours Sepsis New/Unexplained Change in Mental Status Sepsis Action Taken by Nursing 09/01/20 16:07 09/01/20 16:10 09/01/20 16:13 Temperature Temperature Source Pulse Rate 73 Pulse Rate [Apical] Pulse Rate from SpO2 Sensor 72 Respiratory Rate 23 Respiratory Effort / Characteristics Respiratory Depth Blood Pressure Blood Pressure [Left Arm] Blood Pressure Mean Blood Pressure Mean [Left Arm] Pulse Oximetry 91 92 92 Oxygen Delivery Method Room Air Room Air Oxygen Flow Rate Sepsis Recent Fever Within 48 Hours Sepsis New/Unexplained Change in Mental Status Sepsis Action Taken by Nursing 09/01/20 16:20 09/01/20 16:30 09/01/20 16:31 Temperature Temperature Source Pulse Rate 66 68 72 Pulse Rate [Apical] Pulse Rate from SpO2 Sensor 68 72 Respiratory Rate 21 20 18 Respiratory Effort / Characteristics Respiratory Depth Blood Pressure 148/61 H Blood Pressure [Left Arm] Blood Pressure Mean 83 Blood Pressure Mean [Left Arm] Pulse Oximetry 93 93 Oxygen Delivery Method Oxygen Flow Rate Sepsis Recent Fever Within 48 Hours Sepsis New/Unexplained Change in Mental Status Sepsis Action Taken by Nursing 09/01/20 16:40 09/01/20 16:50 09/01/20 17:00 Temperature Temperature Source Pulse Rate 76 73 77 Pulse Rate [Apical] Pulse Rate from SpO2 Sensor 75 72 78 Respiratory Rate 22 20 21 Respiratory Effort / Characteristics Respiratory Depth Blood Pressure 155/75 H Blood Pressure [Left Arm] Blood Pressure Mean 94 Blood Pressure Mean [Left Arm] Pulse Oximetry 94 95 94 Oxygen Delivery Method Oxygen Flow Rate Sepsis Recent Fever Within 48 Hours Sepsis New/Unexplained Change in Mental Status Sepsis Action Taken by Nursing 09/01/20 17:01 09/01/20 17:22 09/01/20 17:30 Temperature Temperature Source Pulse Rate 80 102 H 93 H Pulse Rate [Apical] 90 Pulse Rate from SpO2 Sensor 80 94 H Respiratory Rate 23 26 H 25 H Respiratory Effort / Characteristics Respiratory Depth Blood Pressure 168/74 H Blood Pressure [Left Arm] 168/74 H Blood Pressure Mean 117 Blood Pressure Mean [Left Arm] 105 Pulse Oximetry 95 100 Oxygen Delivery Method Oxymask Oxygen Flow Rate 10 Sepsis Recent Fever Within 48 Hours Sepsis New/Unexplained Change in Mental Status Sepsis Action Taken by Nursing 09/01/20 17:31 09/01/20 17:40 09/01/20 17:50 Temperature Temperature Source Pulse Rate 93 H 96 H 86 Pulse Rate [Apical] Pulse Rate from SpO2 Sensor 93 H 96 H 86 Respiratory Rate 22 24 22 Respiratory Effort / Characteristics Respiratory Depth Blood Pressure Blood Pressure [Left Arm] Blood Pressure Mean Blood Pressure Mean [Left Arm] Pulse Oximetry 100 100 99 Oxygen Delivery Method Oxymask Oxygen Flow Rate 15 Sepsis Recent Fever Within 48 Hours Sepsis New/Unexplained Change in Mental Status Sepsis Action Taken by Nursing 09/01/20 18:00 09/01/20 18:01 09/01/20 18:10 Temperature Temperature Source Pulse Rate 90 92 H 96 H Pulse Rate [Apical] Pulse Rate from SpO2 Sensor 90 93 H 96 H Respiratory Rate 25 H 27 H 20 Respiratory Effort / Characteristics Respiratory Depth Blood Pressure 146/92 H Blood Pressure [Left Arm] Blood Pressure Mean 106 Blood Pressure Mean [Left Arm] Pulse Oximetry 95 96 92 Oxygen Delivery Method Oxygen Flow Rate Sepsis Recent Fever Within 48 Hours Sepsis New/Unexplained Change in Mental Status Sepsis Action Taken by Nursing 09/01/20 18:20 09/01/20 18:21 09/01/20 18:30 Temperature Temperature Source Pulse Rate 90 90 95 H Pulse Rate [Apical] Pulse Rate from SpO2 Sensor 89 91 H 95 H Respiratory Rate 19 24 18 Respiratory Effort / Characteristics Respiratory Depth Blood Pressure 123/67 143/85 H Blood Pressure [Left Arm] Blood Pressure Mean 92 124 Blood Pressure Mean [Left Arm] Pulse Oximetry 98 94 97 Oxygen Delivery Method Oxygen Flow Rate Sepsis Recent Fever Within 48 Hours Sepsis New/Unexplained Change in Mental Status Sepsis Action Taken by Nursing 09/01/20 18:31 09/01/20 18:40 09/01/20 18:50 Temperature Temperature Source Pulse Rate 83 86 87 Pulse Rate [Apical] Pulse Rate from SpO2 Sensor 87 88 87 Respiratory Rate 17 22 17 Respiratory Effort / Characteristics Respiratory Depth Blood Pressure Blood Pressure [Left Arm] Blood Pressure Mean Blood Pressure Mean [Left Arm] Pulse Oximetry 97 97 94 Oxygen Delivery Method Oxygen Flow Rate Sepsis Recent Fever Within 48 Hours Sepsis New/Unexplained Change in Mental Status Sepsis Action Taken by Nursing 09/01/20 19:00 09/01/20 19:01 09/01/20 19:10 Temperature Temperature Source Pulse Rate 85 86 85 Pulse Rate [Apical] Pulse Rate from SpO2 Sensor 86 85 85 Respiratory Rate 18 15 15 Respiratory Effort / Characteristics Respiratory Depth Blood Pressure 131/79 Blood Pressure [Left Arm] Blood Pressure Mean 105 Blood Pressure Mean [Left Arm] Pulse Oximetry 97 98 94 Oxygen Delivery Method Oxygen Flow Rate Sepsis Recent Fever Within 48 Hours Sepsis New/Unexplained Change in Mental Status Sepsis Action Taken by Nursing 09/01/20 19:20 09/01/20 19:30 09/01/20 19:31 Temperature Temperature Source Pulse Rate 94 H 93 H 92 H Pulse Rate [Apical] Pulse Rate from SpO2 Sensor 94 H 93 H 92 H Respiratory Rate 23 21 17 Respiratory Effort / Characteristics Respiratory Depth Blood Pressure 126/76 Blood Pressure [Left Arm] Blood Pressure Mean 91 Blood Pressure Mean [Left Arm] Pulse Oximetry 97 95 94 Oxygen Delivery Method Oxymask Oxygen Flow Rate 15 Sepsis Recent Fever Within 48 Hours Sepsis New/Unexplained Change in Mental Status Sepsis Action Taken by Nursing 09/01/20 19:42 Temperature Temperature Source Pulse Rate Pulse Rate [Apical] Pulse Rate from SpO2 Sensor Respiratory Rate Respiratory Effort / Characteristics Respiratory Depth Blood Pressure Blood Pressure [Left Arm] Blood Pressure Mean Blood Pressure Mean [Left Arm] Pulse Oximetry Oxygen Delivery Method Oxymask Oxygen Flow Rate 15 Sepsis Recent Fever Within 48 Hours Sepsis New/Unexplained Change in Mental Status Sepsis Action Taken by Nursing Laboratory Data Result diagrams: 09/01/20 16:28 09/01/20 16:28 Lab Results 09/01/20 09/01/20 09/01/20 Range/Units 16:04 16:04 16:28 WBC 19.67 H (4.8-10.8) K/uL RBC 3.87 L (4.2-5.4) M/uL Hgb 12.0 (12.0-16.0) g/dL Hct 35.4 L (37-47) % MCV 91.5 (80-100) fL MCH 31.0 (25-34) pg MCHC 33.9 (32-36) g/dL RDW Std Deviation 46.0 (36.4-46.3) fL RDW Coeff of Bonita 13.8 (11.5-14.5) % Plt Count 348 (130-400) K/uL MPV 10.3 (7.4-10.4) fL Immature Gran % (Auto) 0.4 % Neut % (Auto) 87.9 % Lymph % (Auto) 6.3 % [place] % (Auto) 4.5 % Eos % (Auto) 0.7 % Baso % (Auto) 0.2 % Neut # (Auto) 17.32 H (1.4-6.5) K/uL Lymph # (Auto) 1.23 (1.2-3.4) K/uL [place] # (Auto) 0.89 H (0.11-0.59) K/uL Eos # (Auto) 0.13 (0-0.5) K/uL Baso # (Auto) 0.03 (0-0.2) K/uL Immature Gran # (Auto) 0.07 H (0.00-0.02) K/uL PT (9.0-12.0) Seconds INR (0.9-1.1) APTT (21.0-31.0) Seconds PTT Ratio Sodium (136-145) mmol/L Potassium (3.5-5.1) mmol/L Chloride (98-107) mmol/L Carbon Dioxide (21-32) mmol/L Anion Gap (3-11) BUN (7-18) mg/dl Creatinine (0.6-1.2) mg/dl Est Cr Clr Drug Dosing ml/min Est GFR ( Amer) Est GFR (Non-Af Amer) BUN/Creatinine Ratio (10-20) Glucose (70-99) mg/dl Lactate (0.4-2.0) mmol/L Calcium (8.5-10.1) mg/dl Phosphorus (2.5-4.9) mg/dl Magnesium (1.8-2.4) mg/dl Total Bilirubin (0.2-1) mg/dl Direct Bilirubin (0-0.2) mg/dl AST (15-37) U/L ALT (12-78) U/L Alkaline Phosphatase (45-117) U/L Troponin I (0-0.045) ng/ml Total Protein (6.4-8.2) gm/dl Albumin (3.4-5.0) gm/dl Globulin (2.5-4.0) gm/dl Albumin/Globulin Ratio (0.9-2) Lipase (73-393) U/L Procalcitonin (0-0.5) ng/ml Urine Color Urine Appearance (Clear) Urine pH (4.5-7.5) Ur Specific [place] (1.000-1.030) Urine Protein (Negative) Urine Glucose (UA) (Negative) Urine Ketones (Negative) Urine Blood (Negative) Urine Nitrite (Negative) Urine Bilirubin (Negative) Urine Urobilinogen (Negative) Ur Leukocyte Esterase (Negative) Urine WBC (Auto) (0-5) /hpf Urine RBC (Auto) (0-4) /hpf U Hyaline Cast (Auto) (0-5) /lpf U Epithel Cells (Auto) (0-5) /lpf Urine Bacteria (Auto) (Negative) COVID-19 Eval Order Covid19 IDNow atMINC SARS-CoV-2, RNA, NAAT NEGATIVE (NEGATIVE) 09/01/20 09/01/20 09/01/20 Range/Units 16:28 16:28 16:28 WBC (4.8-10.8) K/uL RBC (4.2-5.4) M/uL Hgb (12.0-16.0) g/dL Hct (37-47) % MCV (80-100) fL MCH (25-34) pg MCHC (32-36) g/dL RDW Std Deviation (36.4-46.3) fL RDW Coeff of Bonita (11.5-14.5) % Plt Count (130-400) K/uL MPV (7.4-10.4) fL Immature Gran % (Auto) % Neut % (Auto) % Lymph % (Auto) % [place] % (Auto) % Eos % (Auto) % Baso % (Auto) % Neut # (Auto) (1.4-6.5) K/uL Lymph # (Auto) (1.2-3.4) K/uL [place] # (Auto) (0.11-0.59) K/uL Eos # (Auto) (0-0.5) K/uL Baso # (Auto) (0-0.2) K/uL Immature Gran # (Auto) (0.00-0.02) K/uL PT 10.8 (9.0-12.0) Seconds INR 1.0 (0.9-1.1) APTT 23.3 (21.0-31.0) Seconds PTT Ratio 0.8 Sodium 134 L (136-145) mmol/L Potassium 4.3 (3.5-5.1) mmol/L Chloride 102 (98-107) mmol/L Carbon Dioxide 23 (21-32) mmol/L Anion Gap 9.0 (3-11) BUN 23 H D (7-18) mg/dl Creatinine 1.58 H D (0.6-1.2) mg/dl Est Cr Clr Drug Dosing 31.1 ml/min Est GFR ( Amer) 38.3 Est GFR (Non-Af Amer) 33.0 BUN/Creatinine Ratio 14.2 (10-20) Glucose 130 H (70-99) mg/dl Lactate (0.4-2.0) mmol/L Calcium 9.5 (8.5-10.1) mg/dl Phosphorus 4.2 (2.5-4.9) mg/dl Magnesium 2.0 (1.8-2.4) mg/dl Total Bilirubin 0.7 (0.2-1) mg/dl Direct Bilirubin 0.2 (0-0.2) mg/dl AST 29 (15-37) U/L ALT 30 (12-78) U/L Alkaline Phosphatase 92 (45-117) U/L Troponin I < 0.015 (0-0.045) ng/ml Total Protein 6.9 (6.4-8.2) gm/dl Albumin 3.1 L (3.4-5.0) gm/dl Globulin 3.8 (2.5-4.0) gm/dl Albumin/Globulin Ratio 0.8 L (0.9-2) Lipase 84 (73-393) U/L Procalcitonin 0.31 (0-0.5) ng/ml Urine Color Urine Appearance (Clear) Urine pH (4.5-7.5) Ur Specific [place] (1.000-1.030) Urine Protein (Negative) Urine Glucose (UA) (Negative) Urine Ketones (Negative) Urine Blood (Negative) Urine Nitrite (Negative) Urine Bilirubin (Negative) Urine Urobilinogen (Negative) Ur Leukocyte Esterase (Negative) Urine WBC (Auto) (0-5) /hpf Urine RBC (Auto) (0-4) /hpf U Hyaline Cast (Auto) (0-5) /lpf U Epithel Cells (Auto) (0-5) /lpf Urine Bacteria (Auto) (Negative) COVID-19 Eval Order SARS-CoV-2, RNA, NAAT (NEGATIVE) 09/01/20 09/01/20 Range/Units 17:55 18:52 WBC (4.8-10.8) K/uL RBC (4.2-5.4) M/uL Hgb (12.0-16.0) g/dL Hct (37-47) % MCV (80-100) fL MCH (25-34) pg MCHC (32-36) g/dL RDW Std Deviation (36.4-46.3) fL RDW Coeff of Bonita (11.5-14.5) % Plt Count (130-400) K/uL MPV (7.4-10.4) fL Immature Gran % (Auto) % Neut % (Auto) % Lymph % (Auto) % [place] % (Auto) % Eos % (Auto) % Baso % (Auto) % Neut # (Auto) (1.4-6.5) K/uL Lymph # (Auto) (1.2-3.4) K/uL [place] # (Auto) (0.11-0.59) K/uL Eos # (Auto) (0-0.5) K/uL Baso # (Auto) (0-0.2) K/uL Immature Gran # (Auto) (0.00-0.02) K/uL PT (9.0-12.0) Seconds INR (0.9-1.1) APTT (21.0-31.0) Seconds PTT Ratio Sodium (136-145) mmol/L Potassium (3.5-5.1) mmol/L Chloride (98-107) mmol/L Carbon Dioxide (21-32) mmol/L Anion Gap (3-11) BUN (7-18) mg/dl Creatinine (0.6-1.2) mg/dl Est Cr Clr Drug Dosing ml/min Est GFR ( Amer) Est GFR (Non-Af Amer) BUN/Creatinine Ratio (10-20) Glucose (70-99) mg/dl Lactate 1.5 (0.4-2.0) mmol/L Calcium (8.5-10.1) mg/dl Phosphorus (2.5-4.9) mg/dl Magnesium (1.8-2.4) mg/dl Total Bilirubin (0.2-1) mg/dl Direct Bilirubin (0-0.2) mg/dl AST (15-37) U/L ALT (12-78) U/L Alkaline Phosphatase (45-117) U/L Troponin I (0-0.045) ng/ml Total Protein (6.4-8.2) gm/dl Albumin (3.4-5.0) gm/dl Globulin (2.5-4.0) gm/dl Albumin/Globulin Ratio (0.9-2) Lipase (73-393) U/L Procalcitonin (0-0.5) ng/ml Urine Color Yellow Urine Appearance Clear (Clear) Urine pH 5.0 (4.5-7.5) Ur Specific [place] > 1.045 H (1.000-1.030) Urine Protein 1+ H (Negative) Urine Glucose (UA) Negative (Negative) Urine Ketones Negative (Negative) Urine Blood 2+ H (Negative) Urine Nitrite Negative (Negative) Urine Bilirubin Negative (Negative) Urine Urobilinogen Negative (Negative) Ur Leukocyte Esterase Negative (Negative) Urine WBC (Auto) 5-10 H (0-5) /hpf Urine RBC (Auto) 10-30 H (0-4) /hpf U Hyaline Cast (Auto) 1-5 (0-5) /lpf U Epithel Cells (Auto) 10-20 H (0-5) /lpf Urine Bacteria (Auto) Negative (Negative) COVID-19 Eval Order SARS-CoV-2, RNA, NAAT (NEGATIVE) Administered Medications Discontinued Medications Diphenhydramine HCl (Diphenhydramine 50 Mg/Ml Vial) 25 mg IV NOW STA Stop: 09/01/20 15:19 Last Admin: 09/01/20 16:09 Dose: 25 mg Documented by: [id number] Sodium Chloride (Nss 1000ml) 1,000 mls @ 999 mls/hr IV .Q1H1M ONE Stop: 09/01/20 16:15 Last Infusion: 09/01/20 17:11 Dose: 0 mls/hr Documented by: [id number] Admin: 09/01/20 16:08 Dose: 999 mls/hr Documented by: [id number] Famotidine (Pepcid 20mg Iv Push) 20 mg in 5 mls @ 2.5 mls/min IV NOW STA Stop: 09/01/20 15:16 Last Admin: 09/01/20 16:09 Dose: 2.5 mls/min Documented by: [id number] Acetaminophen (Ofirmev) 1,000 mg in 100 mls @ 400 mls/hr IV NOW STA Stop: 09/01/20 15:33 Last Infusion: 09/01/20 17:00 Dose: 0 mls/hr Documented by: [id number] Admin: 09/01/20 16:10 Dose: 400 mls/hr Documented by: [id number] Sodium Chloride (Nss 1000ml) 1,000 mls @ 999 mls/hr IV .Q1H1M ONE Stop: 09/01/20 18:07 Last Infusion: 09/01/20 18:59 Dose: 0 mls/hr Documented by: [id number] Admin: 09/01/20 17:49 Dose: 999 mls/hr Documented by: [id number] Ceftriaxone Sodium (Rocephin) 2,000 mg in 70 mls @ 140 mls/hr IV NOW STA Stop: 09/01/20 18:30 Last Infusion: 09/01/20 19:41 Dose: 0 mls/hr Documented by: [id number] Admin: 09/01/20 18:58 Dose: 140 mls/hr Documented by: [id number] Ioversol (Ioversol 100ml) 75 ml IV ONCE ONE Stop: 09/01/20 17:17 Last Admin: 09/01/20 17:16 Dose: 75 ml Documented by: [id number] Metoclopramide HCl (Metoclopramide Hcl Inj 5 Mg/Ml 2 Ml Vial) 10 mg IV NOW STA Stop: 09/01/20 15:19 Last Admin: 09/01/20 16:10 Dose: 10 mg Documented by: [id number] Morphine Sulfate (Morphine Sulfate 4 Mg/Ml 1 Ml Carp\Vial) 4 mg IV NOW STA Stop: 09/01/20 17:08 Last Admin: 09/01/20 17:49 Dose: 4 mg Documented by: [id number] Discharge Plan Visit Data Chief Complaint: Illness Stated Complaint: ILLNESS/ S/P KIDNEY REMOVAL ED Provider: Enrique Ramirez Discharge Problem: Small bowel obstruction, Pneumothorax on right, Renal insufficiency, Leukocytosis, Hx of nephroureterectomy Discharge Instructions Interventions: ED Discharge Assessment Last Done: 09/01/20 19:42 Forms Stand Alone Forms: My [facility] Prescriptions Prescriptions: No Action lisinopril 20 mg tablet 20 mg PO QPM Qty: 90 RF: 1 tamsulosin 0.4 mg capsule 0.4 mg PO HS Qty: 30 RF: 0 atorvastatin 20 mg tablet 20 mg PO QPM Qty: 90 RF: 1 cholecalciferol (vitamin D3) 50 mcg (2,000 unit) capsule 2,000 units PO QPM Qty: 30 RF: 0 lorazepam [Ativan] 0.5 mg tablet 0.5 mg PO DAILY PRN (Reason: anxiety) Qty: 30 RF: 0 Joint [email or web address] 40-10-5-3.3 mg Tablet 1 tab PO QPM RF: 0 docusate sodium [Colace] 100 mg capsule 100 mg PO BID Qty: 60 RF: 0 oxycodone-acetaminophen [Percocet] 5-325 mg tablet 1 tab PO TID PRN (Reason: pain) Qty: 14 RF: 0 nicotine [Nicoderm CQ] 21 mg/24 hr Patch 24 Hour 21 mg transdermal QAM Qty: 14 RF: 0 ondansetron 4 mg tablet,disintegrating 4 mg PO TID PRN (Reason: nausea and vomiting) Qty: 12 RF: 0 calcium carbonate [Calcium 600] 600 mg calcium (1,500 mg) Tablet 600 mg PO Q OTHER DAY RF: 0 Referrals Referrals: Verónica Faulkner DO [Primary Care Provider] - Discharge Problem: Leukocytosis Qualifiers: Leukocytosis type: unspecified Qualified Code(s): D72.829 - Elevated white blood cell count, unspecified
[2020-09-01 16:57] LABS: Alanine Aminotransferase 30 U/L (12-78); Albumin Level 3.1 gm/dl (3.4-5.0); Aspartate Aminotransferase 29 U/L (15-37); BUN Creatinine Ratio 14.2 (10-20); Bilirubin Direct 0.2 mg/dl (0-0.2); Blood Urea Nitrogen 23 mg/dl (7-18); Calcium 9.5 mg/dl (8.5-10.1); Carbon Dioxide 23 mmol/L (21-32); Chloride 102 mmol/L (98-107); Creatinine Clr Calc Pharmacy 31.1 ml/min; Est GFR (African American) 38.3; Glucose 130 mg/dl (70-99); Lipase 84 U/L (73-393); Potassium 4.3 mmol/L (3.5-5.1); Sodium 134 mmol/L (136-145)
[2020-09-01 17:01] LABS: Albumin Globulin Ratio 0.8 (0.9-2); Alkaline Phosphatase 92 U/L (45-117); Bilirubin,Total 0.7 mg/dl (0.2-1); Globulin 3.8 gm/dl (2.5-4.0); Phosphorus 4.2 mg/dl (2.5-4.9); Total Protein 6.9 gm/dl (6.4-8.2); Troponin I < 0.015 ng/ml (0-0.045)
[2020-09-01 17:03] LABS: Partial Thromboplastin Ratio 0.8; Partial Thromboplastin Time 23.3 Seconds (21.0-31.0); Prothrombin Time 10.8 Seconds (9.0-12.0)
[2020-09-01] MEDS ORDERED: MoRPHine SULFATE 4 MG/ML 1 ML CARP\\VIAL IV STA (17:07)
[2020-09-01] MEDS ORDERED: OPTIRAY 320 100ml IV ONE (17:16)
--- NOTE | 2020-09-01 17:34 | CT Scan Report ---
CT ANGIOGRAPHY OF THE CHEST, PULMONARY EMBOLUS PROTOCOL CLINICAL HISTORY: renal ca, eval ptx, low O2 COMPARISON STUDY: Chest CT January 17, 2019. Chest radiograph performed earlier today. TECHNIQUE: Following IV administration of 75 mL of Optiray-320, helical axial images of the chest wer e obtained utilizing the pulmonary embolus protocol. Maximal intensity projections and sagittal and coronal reformats were viewed on an independent 3D workstation. IV contrast was administered without complication. Automated exposure control was utilized for the study. A dose lowering technique was utilized adhering to the principles of ALARA. FINDINGS: No pulmonary emboli are identified although the lower lobe pulmonary arteries are suboptim ally assessed due to respiratory motion. The size of the heart is normal. There is no thoracic lympha denopathy. No thoracic aortic dissection is noted. Note is made of a moderate right pneumothorax, pre dominantly basilar on this supine examination. Extensive right lower lobe atelectasis is noted. There are secretions within the right lower lobe bronchi. There is a trace right pleural effusion There is no left pneumothorax. A 4 mm left upper lobe nodule on image 171 of 266 has only slightly increased in size since CT of July 12, 2016. This is likely benign. Actual gas within the abdomen and gas wi thin the right chest wall is likely postsurgical. The stomach is fluid-filled and distended. IMPRESSION: 1. No pulmonary emboli identified although lower lobe pulmonary arteries suboptimally assessed. 2. Moderate right pneumothorax. Extensive right lower lobe atelectasis with secretions within the rig ht lower lobe segmental bronchi. Trace right pleural effusion. 3. Postoperative findings within the abdomen and pelvis, depicted on the CT of the abdomen and pelvis . ACT 112: Negative or not required by law. Electronically signed by: Chicho Porter M.D. 09/01/2020 5:33 PM
--- NOTE | 2020-09-01 17:45 | CT Scan Report ---
CT OF THE ABDOMEN AND PELVIS WITH CONTRAST CLINICAL HISTORY: renal ca, n/v, abd pain, eval ileus vs sbo COMPARISON STUDY: CT of the abdomen and pelvis June 10, 2020. KUB performed earlier today. TECHNIQUE: Following IV administration of 75 mL of Optiray-320, axial images of the abdomen and pelvi s were obtained from the lung bases to the proximal femurs. Images were reviewed in the axial, sagitt al, and coronal planes. IV contrast was administered without complication. Automated exposure contro l was utilized for the study. A dose lowering technique was utilized adhering to the principles of A WILLIAM. CT DOSE: 591.93 mGy.cm FINDINGS: Please note that the chest CT will be reported separately. Moderate right basilar pneumotho rax with right lower lobe atelectasis and a trace right pleural effusion are better depicted on that exam. A small amount of extraluminal gas within the abdomen and pelvis is postsurgical. There is also gas within the abdominal wall which is postsurgical. Trace ascites within the operative bed is noted . There are postoperative findings consistent with a right nephroureterectomy. Trace fluid within the operative bed is postsurgical. There is no hematoma. The liver, spleen, adrenal glands, pancreas and left kidney are unremarkable. The gallbladder is surgically absent. There is trace fluid within the pelvis. A moderate amount stool within the right colon is noted. The stomach is distended and fluid-f illed. The proximal to mid small bowel is moderately dilated and fluid-filled. There is a discrete tr ansition point within the right mid abdomen on axial image 268 of 481. There is a swirling appearance of the mesentery at this site. Distal small bowel is decompressed. There is mild mesenteric infiltra tion. No bowel wall thickening is identified on this exam. There is no pneumatosis. No lymphadenopath y is present. Yan balloon is present within the bladder which is collapsed. No suspicious osseous l esions are noted. Skin jaci are present. IMPRESSION: 1. Findings consistent with a small bowel obstruction with transition point within the right mid abdo men, within the distal ileum. Swirling appearance of the bowel and mesentery at this site raises the possibility of an internal hernia as the etiology for the small bowel obstruction. Associated fluid-f illed distended stomach. Nasogastric tube placement might be considered. Surgical consultation is rec ommended. 2. Moderate basilar right pneumothorax, subtotal right lower lobe atelectasis and a trace right pleur al effusion, better depicted on the chest CT. 3. Extraluminal gas within the abdomen and pelvis and trace fluid within the right nephroureterectomy bed. These findings are postsurgical. 4. Slit-like IVC which may indicate depleted volume status. ACT 112: Negative or not required by law. Electronically signed by: Chicho Porter M.D. 09/01/2020 5:44 PM
[2020-09-01] MEDS ORDERED: cefTRIAXone SODIUM 2,000 MG/70 ML BAG IV STA (18:01)
[2020-09-01 18:13] LABS: Appearance Urine Clear (Clear); Bacteria Urine Automated Negative (Negative); Bilirubin Urine Negative (Negative); Blood Urine 2+ (Negative); Color Urine Yellow; Glucose Urine UA Negative (Negative); Ketones Urine Negative (Negative); Leukocyte Esterase Urine Negative (Negative); Nitrite Urine Negative (Negative); Protein Urine 1+ (Negative); Specific Gravity Urine > 1.045 (1.000-1.030); Urobilinogen Urine Negative (Negative)
[2020-09-01] MEDS ORDERED: GLUCAGON FOR INJ 1 MG VIAL SQ PRN (18:48)
[2020-09-01] MEDS ORDERED: DEXTROSE 50% 50 ML SYRINGE IV PRN (18:48)
[2020-09-01] MEDS ORDERED: ONDANSETRON INJ 2 MG/ML 2 ML VIAL IV PRN (18:53)
--- NOTE | 2020-09-01 19:03 | History & Physical Report ---
Date of Service September 01, 2020 Assessment & Plan (1) Spontaneous pneumothorax: * Patient initially found to be hypoxic with EMS arrival. * Chest x-ray concerning for spontaneous RIGHT-sided pneumothorax. Chest CT confirms moderate pneumothorax. * Patient provided high flow oxygen via oxygen mask. * Per pulmonary recommendations, continue with anoxic mass/high flow for 24 hours. * Repeat chest x-ray ordered in a.m. * Pigtail catheter placement if worsening clinical decline. * Patient saturating well at this time. * Likely secondary to retching with intense nausea and vomiting. No other mediastinal findings noted on CTA. (2) Small bowel obstruction: * Patient with intense abdominal discomfort in the epigastrium with intense nausea and vomiting. * CT findings concerning for small bowel obstruction. * Thankfully, lactic acid within normal limits. * Continue with IV fluid hydration. * NG tube in place. Initial output greater than 1 L bilious material. * Continue with NG tube to LIS. * Appreciate general surgery consultation. * Monitor electrolytes appropriately. Replace as needed. (3) Intractable nausea and vomiting: * Secondary to SBO. * Please see above. (4) Hypoxia: * Secondary to spontaneous pneumothorax. * Supplemental oxygen as described above. (5) ESTRELLA (acute kidney injury): * In the setting of profound dehydration with nausea, vomiting, and SBO. * Ongoing fluids in the form of Normosol at 100 mL's per hour. (6) Urothelial carcinoma of distal ureter: * Per pathology findings status post nephrectomy and ureterectomy. (7) Hypertension: * Hold antihypertensives while n.p.o. (8) Anxiety: * Provide IV Ativan as needed. * May benefit as a secondary antinausea medication as well. (9) Hyperlipidemia: * Hold on home Rx while NPO. History of Present Illness Primary Care Provider: Verónica Faulkner DO Patient is a 69-year-old female with significant past medical history of hyperlipidemia, anxiety, hypertension, chronic kidney disease, and mitral regurgitation who presented to the emergency department via EMS with a several hour episode of severe nausea and vomiting with associated abdominal pain as well as shortness of breath. Patient recently underwent RIGHT-sided laparoscopic nephrectomy in the setting of renal carcinoma. The patient had an uneventful hospital stay and was discharged from this institution yesterday. She was doing well at the time of discharged home, but throughout the night she reports that she did have an episode of vomiting. She reports that throughout most of the day she was experiencing intense nausea and vomiting with associated abdominal pain. She subsequently developed shortness of breath and upon EMS arrival, patient was noted to be hypoxic. On evaluation in the emergency department, the patient was noted to have a RIGHT-sided pneumothorax. She received antinausea medications with moderate relief of symptoms. Pain has been controlled at this point. Patient does have a moderate leukocytosis, but is without other significant laboratory findings. Slight ESTRELLA appreciated. No significant electrolyte derangements. COVID-[address] of the abdomen and pelvis demonstrates small bowel obstruction. Chest CT with findings of moderate right pneumothorax. Emergency provider spoke with general surgery as well as pulmonary/critical care provider. Plan for supplemental oxygen throughout the night with repeat chest x-ray. Chest tube/pigtail catheter to be placed if any respiratory decline. NG tube ordered. Upon evaluation in the emergency department, the patient is awake, alert, and oriented. The patient is ill-appearing. She complains of intense upper abdominal pain. She feels extremely nauseous. NG tube was placed with substantial amount of decompression in the emergency department. The patient was more comfortable and able to provide historical information at this time. She reports that she has had ongoing upper abdominal pain. She adamantly declines any complaints of headaches, dizziness, lightheadedness, chest pain, hemoptysis, hematemesis, hematochezia, melena, hematuria, or dysuria. The patient reports that she has not had a bowel movement since the time of discharge. Allergies Allergy/AdvReac Type Severity Reaction Status Date / Time magnesium sulfate Allergy Severe face, hand Verified 09/01/20 17:55 [From Suprep Bowel Prep Kit] swelling Penicillins Allergy Severe rash, Verified 09/01/20 17:55 throat tightening potassium Allergy Severe face, hand Verified 09/01/20 17:55 [From Suprep Bowel Prep Kit] swelling sodium sulfate Allergy Severe face, hand Verified 09/01/20 17:55 [From Suprep Bowel Prep Kit] swelling Home Medications Medication Instructions Recorded Confirmed Type calcium carbonate [Calcium 600] 600 mg PO Q OTHER DAY 01/16/19 09/01/20 History cholecalciferol (vitamin D3) 50 2,000 units PO QPM #30 cap 10/02/19 09/01/20 History mcg (2,000 unit) capsule [facility] 1 tab PO QPM 12/16/19 09/01/20 History lisinopril 20 mg tablet 20 mg PO QPM #90 tab 05/21/20 09/01/20 Rx lorazepam 0.5 mg tablet 0.5 mg PO DAILY PRN #30 tab 07/23/20 09/01/20 Rx tamsulosin 0.4 mg capsule 0.4 mg PO HS #30 cap 08/06/20 09/01/20 Rx atorvastatin 20 mg tablet 20 mg PO QPM #90 tab 08/24/20 09/01/20 Rx docusate sodium [Colace] 100 mg PO BID #60 cap 08/31/20 09/01/20 Rx nicotine [Nicoderm CQ] 21 mg TRANSDERMAL QAM #14 ea 08/31/20 09/01/20 Rx ondansetron 4 mg PO TID PRN #12 tab 08/31/20 09/01/20 Rx oxycodone-acetaminophen [Percocet] 1 tab PO TID PRN #14 tab 08/31/20 09/01/20 Rx Past Med/Surg History Medical History ESTRELLA (acute kidney injury) Anxiety CKD (chronic kidney disease) baseline creatinine 1.3-1.4 per chart review Hyperlipidemia Hypertension Lung nodule Last CT 01/2019, unchanged, no further f/u needed per records Osteoarthritis PONV (postoperative nausea and vomiting) Temporomandibular joint disorder + clicking, no locking Thyroid nodule 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 Surgical History H/O exploratory laparotomy tubal surgery for fertility issues History of cardiac cath 5+ years ago ([facility])- no stents, attempts to obtain official report unsuccessful History of colonoscopy History of cystoscopy cystoscopy + stent insertion: 01/02/20: LMA#4 at [facility] cystoscopy: 03/05/20: LMA#4 at [facility] cystoscopy, RP07/09/20: MAC sedation at [facility] History of tooth extraction S/P D&C (status post dilation and curettage) S/P tonsillectomy Family History Aunt Diabetes Colorectal cancer Myocardial infarction Ovarian cancer Father No problems noted. Mother Dementia Pacemaker Hypertension Uterine cancer Family/Other Pancreatic cancer Breast cancer Colorectal cancer Other No family history of adverse response to anesthesia Social History Smoking Status: Current every day smoker packs per day: 1; Cigarettes Per Day: hasn't smoked since surgery - been using patch; Second Hand Exposure: Yes ( A CHILD); Hx Alcohol Use: Yes Alcohol type: wine Hx Substance Use: No Preferred Language: Chinese Communication Ability: Effective Visual Impairment: No Limitations Hearing Ability: Normal Duplication Specialist Required: No Beliefs That Will Affect Care: None marital status: Current Living Situation: Spouse current occupational status: retired Other Information That Helps Us Care for You: No Feels Safe at Home: Yes Safety Concerns: Feels Safe At This Time Childhood Exposure to Second-Hand Smoke: Yes caffeine: Yes (Coffee x 2-3 per day) during the past year weight has: remained stable Dental Care, Regularly: Yes Physical Activity Frequency: Daily Seatbelt Use: always Sunscreen Use: No Assistive Devices: Oxygen - Continuous Review of Systems Review of Systems: A complete 10 point review of systems was reviewed with the patient with pertinent positives and negatives as per history of present illness. All else were negative. Physical Exam Physical Exam: VITAL SIGNS - Vital signs and nursing notes were reviewed. GENERAL - 69-year-old female appearing her stated age who is in moderate distress. Communicates well with provider and answers questions appropriately. HEAD - NC/AT. EYES - PERRL with EOMI bilaterally. Sclera anicteric. Palpebral conjunctiva pink and moist with no injection noted. EARS - No deformities of external structures noted on gross examination bilaterally. NOSE - Midline and without cyanosis. No epistaxis or purulent drainage noted. Septum midline without deviation or septal hematoma noted. MOUTH/OROPHARYNX - Without perioral cyanosis. Buccal mucosa pink and dry. NECK - Neck with FROM. No nuchal rigidity. LUNGS - Chest wall symmetric without accessory muscle use, intercostals retractions, or central cyanosis. Breath sounds appreciated greater LEFT versus right. Slightly diminished to the RIGHT, but able to discern inspiratory next Tory noises. CARDIAC - RRR with S1/S2. No murmur, rubs, or gallops appreciated. ABDOMEN - Abdominal contour flat without pulsations or visible masses. Postsurgical incision sites clean, dry, and intact. BS absent. Moderate tenderness to palpation appreciated in the epigastrium. Mild guarding. No palpable masses, hepatosplenomegaly, or ascites noted. EXTREMITIES - No clubbing or peripheral cyanosis. No pretibial edema present. +3/5 radial and dorsalis pedis pulses palpated throughout. +5/5 strength noted in UE/LE bilaterally. NEUROLOGIC - Cranial nerves II through XII grossly intact. Sensory intact to light touch throughout. PSYCH - A&Ox3 and cooperates fully with examiner. Pt is very pleasant despite current state of illness. Results & Data Results & Data ([facility]) Vital Signs (Past 12 Hours) Vital Signs Temp Pulse Pulse Resp BP BP Pulse Ox 09/01/20 18:21 90 24 94 09/01/20 18:20 90 19 123/67 98 09/01/20 18:10 96 H 20 92 09/01/20 18:01 92 H 27 H 96 09/01/20 18:00 90 25 H 146/92 H 95 09/01/20 17:50 86 22 99 09/01/20 17:40 96 H 24 100 09/01/20 17:31 93 H 22 100 09/01/20 17:30 93 H 90 25 H 168/74 H 168/74 H 100 09/01/20 17:22 102 H 26 H 09/01/20 17:01 80 23 95 09/01/20 17:00 77 21 155/75 H 94 09/01/20 16:50 73 20 95 09/01/20 16:40 76 22 94 09/01/20 16:31 72 18 93 09/01/20 16:30 68 20 148/61 H 93 09/01/20 16:20 66 21 09/01/20 16:13 92 09/01/20 16:10 73 23 92 09/01/20 16:07 91 09/01/20 16:01 78 23 90 09/01/20 16:00 79 18 103/53 L 91 09/01/20 15:50 74 26 H 91 09/01/20 15:47 78 20 90 09/01/20 15:31 75 26 H 92/54 L 91 09/01/20 15:30 36.7 C 73 19 92/62 L 94 Code Status & VTE Plan VTE Prophylaxis Plan VTE Prophylaxis will be ordered: Yes Supervising Physician Co-Signing Physician Notes Patient was seen and examined independently I discussed the case with Michael Lyn PAC I reviewed pertinent past medical social family history and also the plan of care and agree with the plan of care. Patient returns 1 day post discharge after urological surgical procedure with nephrectomy for urothelial carcinoma. The patient had nausea vomiting dizziness weakness at home. She is found to have a bowel obstruction. During her procedure there was comments that she had significant intra-abdominal adhesions. This is likely from preceding intra-abdominal infections of salpingitis when she was younger. The patient also was found to have a right-sided apical pneumothorax. The patient was vomiting at home which may have caused the pneumothorax occur. There is also some incidental free air noted in her abdomen but she is 1 week out from intra-abdominal procedure with insufflation of her abdominal cavity. After NG tube was placed almost a liter and a half of fluid came out the patient looks much better she was in no respiratory distress. Abdomen is was with hypoactive bowel sounds she was soft and mildly tender her lungs were clear bilaterally Patient be admitted to our facility for small bowel obstruction and new onset right sided pneumothorax. Patient be kept n.p.o. NG tube drainage antibiotics for coverage of her bowel melissa and surveillance x-rays for progression of her apical pneumothorax. Any exceptions will be noted below PG Care Time/CCT Total # of Minutes Spent Total Time Spent with Patient: Total time spent is greater than 50% in coordination of care (as documented) at patient's floor/unit and/or counseling patient: Coding Level of Care Code 64524 Initial Inpt Care Lvl 3 Diagnoses Spontaneous pneumothorax J93.83 Small bowel obstruction K56.609 Intractable nausea and vomiting R11.2 Hypoxia R09.02 ESTRELLA (acute kidney injury) N17.9 Urothelial carcinoma of distal ureter C66.9 Hypertension I10 Anxiety F41.9 Hyperlipidemia E78.5 Time Spent (min) 45
[2020-09-01] MEDS: NORMOSOL-R 1,000 ML IV SCH (21:32)
[2020-09-01] MEDS: metroNIDAZOLE 500 MG/100 ML BAG IV SCH (21:33)
[2020-09-01] MEDS: CEFEPIME 2,000 MG in SYRINGE 0 ML IV SCH (21:33)
[2020-09-01] MEDS: ONDANSETRON INJ 2 MG/ML 2 ML VIAL IV PRN (23:39)
[2020-09-01] MEDS: MoRPHine SULFATE 2 MG/ML CARP IV PRN (23:39)
--- NOTE | 2020-09-02 00:03 | Surgery Consultation ---
Date of Consultation September 01, 2020 Assessment & Plan (1) Small bowel obstruction: -continue NPO status -hydrate with IVF -continue NGT output -hopefully conservative measures will resolve this issue History of Present Illness Attending Physician: Hemanth Martinez MD History of Present Illness 69 year old female admitted with SBO and pneumothorax earlier today. This pt. had a right nephrectomy on 08/27/20 and was d/c home approx. 24 hours ago. Since being home she has had worsening abdominal pain along with N/V. The pain was described as an ache with some relief noted with vomiting. She presented to the ED where CT scan of the abdomen showed SBO. She had NGT placed with almost 1 liter of return immediately. She has noted relief of her N/V and improvement of her abdominal pain since NGT placement. At the time of my exam, she was in no distress. Allergies Allergy/AdvReac Type Severity Reaction Status Date / Time magnesium sulfate Allergy Severe face, hand Verified 09/01/20 17:55 [From Suprep Bowel Prep Kit] swelling Penicillins Allergy Severe rash, Verified 09/01/20 17:55 throat tightening potassium Allergy Severe face, hand Verified 09/01/20 17:55 [From Suprep Bowel Prep Kit] swelling sodium sulfate Allergy Severe face, hand Verified 09/01/20 17:55 [From Suprep Bowel Prep Kit] swelling Home Medications Medication Instructions Recorded Confirmed Type calcium carbonate [Calcium 600] 600 mg PO Q OTHER DAY 01/16/19 09/01/20 History cholecalciferol (vitamin D3) 50 2,000 units PO QPM #30 cap 10/02/19 09/01/20 History mcg (2,000 unit) capsule [employer] 1 tab PO QPM 12/16/19 09/01/20 History lisinopril 20 mg tablet 20 mg PO QPM #90 tab 05/21/20 09/01/20 Rx lorazepam 0.5 mg tablet 0.5 mg PO DAILY PRN #30 tab 07/23/20 09/01/20 Rx tamsulosin 0.4 mg capsule 0.4 mg PO HS #30 cap 08/06/20 09/01/20 Rx atorvastatin 20 mg tablet 20 mg PO QPM #90 tab 08/24/20 09/01/20 Rx docusate sodium [Colace] 100 mg PO BID #60 cap 08/31/20 09/01/20 Rx nicotine [Nicoderm CQ] 21 mg TRANSDERMAL QAM #14 ea 08/31/20 09/01/20 Rx ondansetron 4 mg PO TID PRN #12 tab 08/31/20 09/01/20 Rx oxycodone-acetaminophen [Percocet] 1 tab PO TID PRN #14 tab 08/31/20 09/01/20 Rx Patient History Medical History ESTRELLA (acute kidney injury) Anxiety CKD (chronic kidney disease) baseline creatinine 1.3-1.4 per chart review Hyperlipidemia Hypertension Lung nodule Last CT 01/2019, unchanged, no further f/u needed per records Osteoarthritis PONV (postoperative nausea and vomiting) Temporomandibular joint disorder + clicking, no locking Thyroid nodule 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 Surgical History H/O exploratory laparotomy tubal surgery for fertility issues History of cardiac cath 5+ years ago ([facility])- no stents, attempts to obtain official report unsuccessful History of colonoscopy History of cystoscopy cystoscopy + stent insertion: 01/02/20: LMA#4 at [facility] cystoscopy: 03/05/20: LMA#4 at [facility] cystoscopy, RP07/09/20: MAC sedation at [facility] History of tooth extraction S/P D&C (status post dilation and curettage) S/P tonsillectomy Family History Aunt Diabetes Colorectal cancer Myocardial infarction Ovarian cancer Father No problems noted. Mother Dementia Pacemaker Hypertension Uterine cancer Family/Other Pancreatic cancer Breast cancer Colorectal cancer Other No family history of adverse response to anesthesia Social History Smoking Status: Current every day smoker packs per day: 1; Cigarettes Per Day: hasn't smoked since surgery - been using patch; Second Hand Exposure: Yes ( A CHILD); Hx Alcohol Use: Yes Alcohol type: wine Hx Substance Use: No Preferred Language: Trinidadian Communication Ability: Effective Visual Impairment: No Limitations Hearing Ability: Normal Signing Agent Required: No Beliefs That Will Affect Care: None marital status: Current Living Situation: Spouse current occupational status: retired Other Information That Helps Us Care for You: No Feels Safe at Home: Yes Safety Concerns: Feels Safe At This Time Childhood Exposure to Second-Hand Smoke: Yes caffeine: Yes (Coffee x 2-3 per day) during the past year weight has: remained stable Dental Care, Regularly: Yes Physical Activity Frequency: Daily Seatbelt Use: always Sunscreen Use: No Assistive Devices: Oxygen - Continuous Review of Systems Constitutional: no fever Eyes: no diplopia Ear, Nose, Mouth, Throat: no ear pain Respiratory: no cough Cardiovascular: no chest pain Gastrointestinal: + abdominal pain, + nausea and + vomiting Genitourinary: no dysuria Musculoskeletal: no back pain Integumentary: no rash Neurologic: no localized weakness Physical Exam Constitutional: no acute distress Eyes: no conjunctival abnormality ENMT: Ears: no hearing impairment Neck: trachea midline Respiratory: normal respiratory effort; no respiratory distress and no labored breathing BS are decreased on right Cardiovascular: Rate/Rhythm: regular rate and regular rhythm Gastrointestinal (Abdomen): Percussion/Palpation: + abdomen tender (generalized ) BS are absent; mild distention Musculoskeletal: no calf pain Skin: no rashes, warm and dry Neurologic: moves all extremities Psychiatric: Orientation: alert and oriented x 3 Affect: + flat affect Results & Data ([facility]) Vital Signs (Past 12 Hours) Vital Signs Temp Pulse Pulse Resp BP BP Pulse Ox 09/01/20 23:34 36.7 C 100 H 20 118/57 L 97 09/01/20 20:28 37.1 C 90 20 104/54 L 95 09/01/20 19:31 92 H 17 94 09/01/20 19:30 93 H 21 126/76 95 09/01/20 19:20 94 H 23 97 09/01/20 19:10 85 15 94 09/01/20 19:01 86 15 98 09/01/20 19:00 85 18 131/79 97 09/01/20 18:50 87 17 94 09/01/20 18:40 86 22 97 09/01/20 18:31 83 17 97 09/01/20 18:30 95 H 18 143/85 H 97 09/01/20 18:21 90 24 94 09/01/20 18:20 90 19 123/67 98 09/01/20 18:10 96 H 20 92 09/01/20 18:01 92 H 27 H 96 09/01/20 18:00 90 25 H 146/92 H 95 09/01/20 17:50 86 22 99 09/01/20 17:40 96 H 24 100 09/01/20 17:31 93 H 22 100 09/01/20 17:30 93 H 90 25 H 168/74 H 168/74 H 100 09/01/20 17:22 102 H 26 H 09/01/20 17:01 80 23 95 09/01/20 17:00 77 21 155/75 H 94 09/01/20 16:50 73 20 95 09/01/20 16:40 76 22 94 09/01/20 16:31 72 18 93 09/01/20 16:30 68 20 148/61 H 93 09/01/20 16:20 66 21 09/01/20 16:13 92 09/01/20 16:10 73 23 92 09/01/20 16:07 91 09/01/20 16:01 78 23 90 09/01/20 16:00 79 18 103/53 L 91 09/01/20 15:50 74 26 H 91 09/01/20 15:47 78 20 90 09/01/20 15:31 75 26 H 92/54 L 91 09/01/20 15:30 36.7 C 73 19 92/62 L 94 PG Care Time/CCT Total # of Minutes Spent Total Time Spent with Patient: Total time spent is greater than 50% in coordination of care (as documented) at patient's floor/unit and/or counseling patient: Coding Level of Care Code 87956 Inpt Consult Level 4 Diagnoses Small bowel obstruction K56.609
[2020-09-02] MEDS: metroNIDAZOLE 500 MG/100 ML BAG IV SCH ×3 (05:09→21:21)
[2020-09-02 05:28] LABS: Basophils # (auto) 0.02 K/uL (0-0.2); Basophils % (auto) 0.2 %; Eosinophils # (auto) 0.12 K/uL (0-0.5); Eosinophils % (auto) 1.2 %; Hematocrit (blood only) 35.5 % (37-47); Immature Granulocytes # (auto) 0.02 K/uL (0.00-0.02); Immature Granulocytes % (auto) 0.2 %; Lymphocytes # (auto) 1.24 K/uL (1.2-3.4); Lymphocytes % (auto) 12.8 %; Mean Corpuscular Hemoglobin 30.7 pg (25-34); Mean Corpuscular Hgb Conc 33.8 g/dL (32-36); Mean Corpuscular Volume 90.8 fL (80-100); Mean Platelet Volume 9.9 fL (7.4-10.4); Monocytes # (auto) 0.21 K/uL (0.11-0.59); Monocytes % (auto) 2.2 %; Neutrophils # (auto) 8.07 K/uL (1.4-6.5); Neutrophils % (auto) 83.4 %; Platelet Count 341 K/uL (130-400); RDW Coefficient of Variation 13.9 % (11.5-14.5); Red Blood Count 3.91 M/uL (4.2-5.4); White Blood Count 9.68 K/uL (4.8-10.8)
[2020-09-02 05:48] LABS: Albumin Level 2.7 gm/dl (3.4-5.0); Bilirubin Direct 0.1 mg/dl (0-0.2); Calcium 9.2 mg/dl (8.5-10.1); Creatinine Clr Calc Pharmacy 29.1 ml/min; Est GFR (African American) 40.4; Est GFR (Non-African American) 34.9; Magnesium 2.3 mg/dl (1.8-2.4); Potassium 5.1 mmol/L (3.5-5.1)
--- NOTE | 2020-09-02 06:01 | Electrocardiogram Report ---
Test Reason : Blood Pressure : / mmHG Vent. Rate : 071 BPM Atrial Rate : 071 BPM P-R Int : 130 ms QRS Dur : 086 ms QT Int : 396 ms P-R-T Axes : 069 039 072 degrees QTc Int : 430 ms Normal sinus rhythm Normal ECG When compared with ECG of 27-AUG-2020 17:04, T wave amplitude has increased in Inferior leads Nonspecific T wave abnormality, improved in Anterolateral leads Confirmed by German Mckinney ([id number]) on 09/02/2020 6:00:55 AM Referred By: Confirmed By:German Mckinney
[2020-09-02 06:09] LABS: Bilirubin,Total 0.5 mg/dl (0.2-1); Phosphorus 4.5 mg/dl (2.5-4.9); Total Protein 6.7 gm/dl (6.4-8.2)
[2020-09-02] MEDS: NORMOSOL-R 1,000 ML IV SCH ×2 (06:25→18:08)
--- NOTE | 2020-09-02 07:56 | Hospitalist Progress Note ---
Date of Service September 02, 2020 Assessment & Plan (1) Spontaneous pneumothorax: * Patient initially found to be hypoxic with EMS arrival. * Chest x-ray concerning for spontaneous RIGHT-sided pneumothorax. Chest CT confirms moderate pneumothorax. * Patient with high flow oxygen overnight without improvement chest tube placed by pulmonary medicine on 09/02/2020 (2) Small bowel obstruction: * Patient with intense abdominal discomfort in the epigastrium with intense nausea and vomiting. * CT findings concerning for small bowel obstruction. Likely due to adhesions. * NG tube in place. Continue with NG tube to LIS. * Repeat abdominal series has some slight improvement of decompression of the small bowel obstruction, Appreciate general surgery consultation. (3) Intractable nausea and vomiting: * Secondary to SBO. * Improved with NG tube drainage and decompression continuing antiemetics as needed (4) Hypoxia: * Supplemental oxygen has resolved (5) ESTRELLA (acute kidney injury): * In the setting of profound dehydration with nausea, vomiting, and SBO. * Ongoing fluids in the form of Normosol at 100 mL's per hour. Slight im provement of creatinine since admission (6) Urothelial carcinoma of distal ureter: * Per pathology findings status post nephrectomy and ureterectomy. (7) Hypertension: * Hold antihypertensives while n.p.o. (8) Anxiety: * Provide IV Ativan as needed. * May benefit as a secondary antinausea medication as well. (9) Hyperlipidemia: * Hold on home Rx while NPO. Admission and Anticipated Discharge Date Admission Date: September 01, 2020 Subjective Patient seen. Feeling much better this morning than last night. Abdominal distention decreased. She is passing flatus. Her main complaint at this point is her NG tube. She denies chest pain or shortness of breath, she did have medical chest tube to decompress her pneumothorax and tolerated well Review of Systems Review of Systems: Mild distress and fatigue no headache, blurry or double vision no speech or swallowing issues no chest pain, pressure or palpitations persistent shortness of breath, lessening abdominal pain maybe some flatus no dysuria or frequency no focal joint pain or swelling no back pain, CVA tenderness or radicular pain no bruising, bleeding or rashes no focal signs of weakness or numbness or altered sensation no complaints of anxiety or depression. Physical Exam Physical Exam: The patient appeared much better but fatigued Vital signs as documented. Head exam is normocephalic atraumatic no scleral icterus Neck is without JVD, thyromegaly, or carotid bruits. Lungs are clear to auscultation, lateral rales which are scant likely atelecta tic Cardiac exam, Rhythm is regular.. No murmurs, rubs or gallops. Abdominal exam reveals hypoactive bowel sounds, only tender to exam not rigid not distended s Extremities are nonedematous and both pedal pulses are present Neurologic exam is alert and oriented, no focal loss of strength or sensation Skin is without bruises or rashes Psychologically is without concerns for anxiety or depression. Results & Data Results & Data ([facility]) Vital Signs (Past 12 Hours) Vital Signs Temp Pulse Resp BP Pulse Ox 09/02/20 04:00 98.1 F 108 H 20 150/73 H 97 09/01/20 23:34 98.1 F 100 H 20 118/57 L 97 09/01/20 20:28 98.8 F 90 20 104/54 L 95 PG Care Time/CCT Total # of Minutes Spent Total Time Spent with Patient: Total time spent is greater than 50% in coordinat ion of care (as documented) at patient's floor/unit and/or counseling patient: Coding Level of Care Code 25183 Subseq Hosp Care Lvl 3 Diagnoses Spontaneous pneumothorax J93.83 Small bowel obstruction K56.609 Intractable nausea and vomiting R11.2 Hypoxia R09.02 ESTRELLA (acute kidney injury) N17.9 Urothelial carcinoma of distal ureter C66.9 Hypertension I10 Anxiety F41.9 Hyperlipidemia E78.5
[2020-09-02] MEDS ORDERED: hydrALAZINE HCL 20 MG/ML VIAL IV PRN (07:59)
[2020-09-02] MEDS: ONDANSETRON INJ 2 MG/ML 2 ML VIAL IV PRN (08:02)
[2020-09-02] MEDS: MoRPHine SULFATE 2 MG/ML CARP IV PRN ×5 (08:02→23:42)
--- NOTE | 2020-09-02 08:11 | XRay Report ---
SINGLE VIEW CHEST CLINICAL HISTORY: Enteric tube placement. Pneumothorax. FINDINGS: An AP, portable, upright chest radiograph is compared to chest x-ray and chest CT dated . An enteric tube has been placed. The tip projects below the diaphragm over the mid stomach. The cardiomediastinal silhouette is unremarkable. Atelectasis is seen at both lung bases. There is a small right pleural effusion. A small to moderate right-sided pneumothorax persists. The skeletal str uctures are osteopenic. The bony thorax is grossly intact. IMPRESSION: 1. An enteric tube has been placed. The tip projects below the diaphragm. 2. A small to moderate right-sided pneumothorax is unchanged. 3. Atelectasis is seen at both lung bases with pleural fluid on the right ACT 112: Negative or not required by law. Electronically signed by: Delio Alvarez M.D. 09/02/2020 8:10 AM
--- NOTE | 2020-09-02 08:32 | XRay Report ---
XR abdomen min 2V CLINICAL HISTORY: Small bowel obstruction COMPARISON STUDY: No previous studies for comparison. FINDINGS: Postsurgical changes are visualized with multiple skin jaci. No free air is visualized o n the decubitus view. There is a nasogastric tube within the stomach. There is increasing colonic gas . There is slight decrease in the previously identified small bowel dilatation IMPRESSION: 1. Persistent but diminishing small bowel dilatation 2. Increasing colonic gas 2. No evidence of free intraperitoneal air ACT 112: Negative or not required by law. Electronically signed by: Sheng Braxton M.D. 09/02/2020 8:30 AM
[2020-09-02] MEDS: FAMOTIDINE 20 MG in SYRINGE 3 ML IV SCH (08:37)
--- NOTE | 2020-09-02 08:39 | Urology Consultation ---
Date of Consultation September 02, 2020 Assessment & Plan (1) Small bowel obstruction: (2) Pneumothorax on right: Small bowel obstruction and pneumothorax after recent right nephroureterectomy Continue supportive/intensive care Saturations have improved Bowel function gradually returning, however NG tube still with significant output Reassured her that think should improve with continued time no acute interventions but we will certainly continue to follow closely History of Present Illness Attending Physician: Hemanth Martinez MD History of Present Illness Admitted with difficulty breathing, severe nausea and vomiting, grossly distended abdomen She is status post recent right nephro ureterectomy She has an extensive surgical history She was discharged home Monday morning stable condition, developed symptoms shortly after returning home Progression of the symptoms promptly returned Imaging at that time revealed small bowel obstruction as well as a pneumothorax which is believed to have occurred secondary to retching Subjectively improved this morning NG tube in place In an ICU bed No supplemental oxygensaturations in the low 90s Flatus overnight and again this morning, no bowel movement Allergies Allergy/AdvReac Type Severity Reaction Status Date / Time magnesium sulfate Allergy Severe face, hand Verified 09/01/20 17:55 [From Suprep Bowel Prep Kit] swelling Penicillins Allergy Severe rash, Verified 09/01/20 17:55 throat tightening potassium Allergy Severe face, hand Verified 09/01/20 17:55 [From Suprep Bowel Prep Kit] swelling sodium sulfate Allergy Severe face, hand Verified 09/01/20 17:55 [From Suprep Bowel Prep Kit] swelling Home Medications Medication Instructions Recorded Confirmed Type calcium carbonate [Calcium 600] 600 mg PO Q OTHER DAY 01/16/19 09/01/20 History cholecalciferol (vitamin D3) 50 2,000 units PO QPM #30 cap 10/02/19 09/01/20 History mcg (2,000 unit) capsule [address] 1 tab PO QPM 12/16/19 09/01/20 History lisinopril 20 mg tablet 20 mg PO QPM #90 tab 05/21/20 09/01/20 Rx lorazepam 0.5 mg tablet 0.5 mg PO DAILY PRN #30 tab 07/23/20 09/01/20 Rx tamsulosin 0.4 mg capsule 0.4 mg PO HS #30 cap 08/06/20 09/01/20 Rx atorvastatin 20 mg tablet 20 mg PO QPM #90 tab 08/24/20 09/01/20 Rx docusate sodium [Colace] 100 mg PO BID #60 cap 08/31/20 09/01/20 Rx nicotine [Nicoderm CQ] 21 mg TRANSDERMAL QAM #14 ea 08/31/20 09/01/20 Rx ondansetron 4 mg PO TID PRN #12 tab 08/31/20 09/01/20 Rx oxycodone-acetaminophen [Percocet] 1 tab PO TID PRN #14 tab 08/31/20 09/01/20 Rx Patient History Medical History ESTRELLA (acute kidney injury) Anxiety CKD (chronic kidney disease) baseline creatinine 1.3-1.4 per chart review Hyperlipidemia Hypertension Lung nodule Last CT 01/2019, unchanged, no further f/u needed per records Osteoarthritis PONV (postoperative nausea and vomiting) Temporomandibular joint disorder + clicking, no locking Thyroid nodule 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 Surgical History H/O exploratory laparotomy tubal surgery for fertility issues History of cardiac cath 5+ years ago ([facility])- no stents, attempts to obtain official report unsuccessful History of colonoscopy History of cystoscopy cystoscopy + stent insertion: 01/02/20: LMA#4 at [facility] cystoscopy: 03/05/20: LMA#4 at [facility] cystoscopy, RP07/09/20: MAC sedation at [facility] History of tooth extraction S/P D&C (status post dilation and curettage) S/P tonsillectomy Family History Aunt Diabetes Colorectal cancer Myocardial infarction Ovarian cancer Father No problems noted. Mother Dementia Pacemaker Hypertension Uterine cancer Family/Other Pancreatic cancer Breast cancer Colorectal cancer Other No family history of adverse response to anesthesia Social History Smoking Status: Current every day smoker packs per day: 1; Cigarettes Per Day: hasn't smoked since surgery - been using patch; Second Hand Exposure: Yes ( A CHILD); Hx Alcohol Use: Yes Alcohol type: wine Hx Substance Use: No Preferred Language: Urdu Communication Ability: Effective Visual Impairment: No Limitations Hearing Ability: Normal Marine Insulator Required: No Beliefs That Will Affect Care: None marital status: Current Living Situation: Spouse current occupational status: retired Other Information That Helps Us Care for You: No Feels Safe at Home: Yes Safety Concerns: Feels Safe At This Time Childhood Exposure to Second-Hand Smoke: Yes caffeine: Yes (Coffee x 2-3 per day) during the past year weight has: remained stable Dental Care, Regularly: Yes Physical Activity Frequency: Daily Seatbelt Use: always Sunscreen Use: No Assistive Devices: Oxygen - Continuous Review of Systems Constitutional: + body aches, + fatigue and + malaise; no fever and no chills Eyes: no worsening vision Ear, Nose, Mouth, Throat: no facial pain and no pain with swallowing Respiratory: + dyspnea and + problem reported Cardiovascular: no chest pain and no palpitations Gastrointestinal: + abdominal pain and + nausea Genitourinary: no dysuria, no difficulty urinating, no urinary frequency and no hematuria Musculoskeletal: no back pain Integumentary: no rash and no urticaria Neurologic: no gait abnormality and no unsteadiness Psychiatric: no behavioral changes and no depression Endocrine: no fatigue Physical Exam Constitutional: Uncomfortable appearing NG tube in place Neck: neck nontender Respiratory: normal respiratory effort; no respiratory distress and does not use accessory muscles Cardiovascular: Rate/Rhythm: regular rate Vessels: radial pulses present Extremities: no edema Gastrointestinal (Abdomen): Percussion/Palpation: abdomen soft; abdomen nontender and no guarding Stable incisions, dressings on several, no evidence of infection, nondistended Musculoskeletal: Head/Neck/Chest: normocephalic and head atraumatic Extremities: extremities normal to inspection Skin: no rashes and no lesions Trauma: no evidence of skin trauma Neurologic: awake; not obtunded Speech / Cognition: normal speech Motor/Sensory: no tremor Psychiatric: Orientation: alert and oriented x 3 Lymphatic: no lymphadenopathy Results & Data ([facility]) Vital Signs (Past 12 Hours) Vital Signs Temp Pulse Resp BP Pulse Ox 09/02/20 04:00 36.7 C 108 H 20 150/73 H 97 09/01/20 23:34 36.7 C 100 H 20 118/57 L 97 PG Care Time/CCT Total # of Minutes Spent Total Time Spent with Patient: Total time spent is greater than 50% in coordination of care (as documented) at patient's floor/unit and/or counseling patient: Coding Level of Care Code 08159 Inpt Consult Level 4 Diagnoses Small bowel obstruction K56.609 Pneumothorax on right J93.9
[2020-09-02] MEDS ORDERED: FAMOTIDINE 20 MG in SYRINGE 3 ML IV SCH (09:00)
--- NOTE | 2020-09-02 10:22 | Surgery Progress Note ---
Date of Service September 02, 2020 Assessment & Plan (1) Small bowel obstruction: Clinically improving. Repeat x-ray looks better as well. Would keep NG tube at least another 24 hours and repeat KUB tomorrow. Regarding the pneumothorax she is clinically stable. We will continue to repeat chest x-rays until resolution. We will continue to follow closely. Admission and Anticipated Discharge Date Admission Date: September 01, 2020 Subjective Patient seen. Feeling much better this morning than last night. Abdominal distention decreased. She is passing flatus. Her main complaint at this point is her NG tube. She denies chest pain or shortness of breath Physical Exam Physical Exam: Alert. No acute distress NG tube in place with significant output. Abdomen soft. Mild distention but dramatically improved from last night according to the patient. Some mild incisional tenderness. No peritoneal signs. Recent surgical scars are healing nicely with no sign of infection. Results & Data ([facility]) Vital Signs (Past 12 Hours) Vital Signs Temp Pulse Resp BP Pulse Ox 09/02/20 08:00 37.0 C 96 H 19 116/59 L 99 09/02/20 04:00 36.7 C 108 H 20 150/73 H 97 09/01/20 23:34 36.7 C 100 H 20 118/57 L 97 PG Care Time/CCT Total # of Minutes Spent Total Time Spent with Patient: Total time spent is greater than 50% in coordination of care (as documented) at patient's floor/unit and/or counseling patient: Coding Level of Care Code 52845 Subseq Hosp Care Lvl 3 Diagnoses Small bowel obstruction K56.609
--- NOTE | 2020-09-02 10:30 | XRay Report ---
XR chest 1V portable CLINICAL HISTORY: Pneumothorax COMPARISON STUDY: 09/01/2020 FINDINGS: There is a persistent right apical pneumothorax with pleural separation of 2 cm. There are persistent but improving right basilar airspace opacities, atelectatic versus infectious/inflammatory . A nasogastric tube is again visualized.[ IMPRESSION: 1. Slight decrease in the size of the right apical pneumothorax with pleural separation a 2 cm 2. Right basilar opacities, atelectasis favored over pneumonia. ACT 112: Negative or not required by law. Electronically signed by: Sheng Braxton M.D. 09/02/2020 10:29 AM
--- NOTE | 2020-09-02 15:06 | Pulmonary Consultation ---
Date of Consultation September 02, 2020 Assessment & Plan (1) Pneumothorax on right: Impression: 69-year-old female status post recent robotic/laparoscopic nephrectomy on the right now with right-sided pneumothorax in the setting of small bowel obstruction. She has had nausea and vomiting and certainly Fernanda- Marin tear would be possible. She does not appear to have a clinical picture consistent with Boerhaave's. Alternatively, the pneumothorax could be secondary to insufflation of air associated with her laparoscopic procedure. Nevertheless, it is not shown significant improvement or regression with conservative management overnight and I recommended drainage. Recommendations: 1. Pneumothorax: Discussed with patient options at this point time. Could pursue a small bore catheter with aspiration/drainage versus continued clinical observation. I think given the fact that it is not really resolved over 12 hours of conservative therapy would make a drainage procedure a better option for the patient. After careful consideration, she has consented to placement of a small bore chest tube. 2. Additional recommendations will depend on results of the follow-up imaging studies and the patient's clinical response. Management of her medical issues per primary admitting service History of Present Illness Attending Physician: Hemanth Martinez MD History of Present Illness Asked by hospitalist to evaluate this patient with pneumothorax. History is obtained from discussion with the ER staff, admitting hospitalist, patient, and review the electronic medical record. The patient is a 69-year-old female who was recently dismissed to the hospital after undergoing a right-sided laparoscopic nephrectomy for urothelial carcinoma. She returned to the emergency room yesterday evening complaining of nausea vomiting and abdominal pain. She also had some associated shortness of breath and was found to be hypoxemic when EMS evaluated her. In the emergency room she had imaging performed which revealed an ileus versus bowel obstruction as well as a right-sided pneumothorax. Surgery was consulted and recommended conservative management with NG tube. Given the fact that she was in no distress she was observed overnight with a follow-up chest x-ray this morning which unfortunately revealed persistence of the right apical pneumothorax. Allergies Allergy/AdvReac Type Severity Reaction Status Date / Time magnesium sulfate Allergy Severe face, hand Verified 09/01/20 17:55 [From Suprep Bowel Prep Kit] swelling Penicillins Allergy Severe rash, Verified 09/01/20 17:55 throat tightening potassium Allergy Severe face, hand Verified 09/01/20 17:55 [From Suprep Bowel Prep Kit] swelling sodium sulfate Allergy Severe face, hand Verified 09/01/20 17:55 [From Suprep Bowel Prep Kit] swelling Home Medications Medication Instructions Recorded Confirmed Type calcium carbonate [Calcium 600] 600 mg PO Q OTHER DAY 01/16/19 09/01/20 History cholecalciferol (vitamin D3) 50 2,000 units PO QPM #30 cap 10/02/19 09/01/20 History mcg (2,000 unit) capsule [facility] 1 tab PO QPM 12/16/19 09/01/20 History lisinopril 20 mg tablet 20 mg PO QPM #90 tab 05/21/20 09/01/20 Rx lorazepam 0.5 mg tablet 0.5 mg PO DAILY PRN #30 tab 07/23/20 09/01/20 Rx tamsulosin 0.4 mg capsule 0.4 mg PO HS #30 cap 08/06/20 09/01/20 Rx atorvastatin 20 mg tablet 20 mg PO QPM #90 tab 08/24/20 09/01/20 Rx docusate sodium [Colace] 100 mg PO BID #60 cap 08/31/20 09/01/20 Rx nicotine [Nicoderm CQ] 21 mg TRANSDERMAL QAM #14 ea 08/31/20 09/01/20 Rx ondansetron 4 mg PO TID PRN #12 tab 08/31/20 09/01/20 Rx oxycodone-acetaminophen [Percocet] 1 tab PO TID PRN #14 tab 08/31/20 09/01/20 Rx Patient History Medical History ESTRELLA (acute kidney injury) Anxiety CKD (chronic kidney disease) baseline creatinine 1.3-1.4 per chart review Hyperlipidemia Hypertension Lung nodule Last CT 01/2019, unchanged, no further f/u needed per records Osteoarthritis PONV (postoperative nausea and vomiting) Temporomandibular joint disorder + clicking, no locking Thyroid nodule 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 Surgical History H/O exploratory laparotomy tubal surgery for fertility issues History of cardiac cath 5+ years ago ([facility])- no stents, attempts to obtain official report unsuccessful History of colonoscopy History of cystoscopy cystoscopy + stent insertion: 01/02/20: LMA#4 at [facility] cystoscopy: 03/05/20: LMA#4 at [facility] cystoscopy, RP07/09/20: MAC sedation at [facility] History of tooth extraction S/P D&C (status post dilation and curettage) S/P tonsillectomy Family History Aunt Diabetes Colorectal cancer Myocardial infarction Ovarian cancer Father No problems noted. Mother Dementia Pacemaker Hypertension Uterine cancer Family/Other Pancreatic cancer Breast cancer Colorectal cancer Other No family history of adverse response to anesthesia Social History Smoking Status: Current every day smoker packs per day: 1; Cigarettes Per Day: hasn't smoked since surgery - been using patch; Second Hand Exposure: Yes ( A CHILD); Hx Alcohol Use: Yes Alcohol type: wine Hx Substance Use: No Preferred Language: Ugandan Communication Ability: Effective Visual Impairment: No Limitations Hearing Ability: Normal Associate Counsel Required: No Beliefs That Will Affect Care: None marital status: Current Living Situation: Spouse current occupational status: retired Other Information That Helps Us Care for You: No Feels Safe at Home: Yes Safety Concerns: Feels Safe At This Time Childhood Exposure to Second-Hand Smoke: Yes caffeine: Yes (Coffee x 2-3 per day) during the past year weight has: remained stable Dental Care, Regularly: Yes Physical Activity Frequency: Daily Seatbelt Use: always Sunscreen Use: No Assistive Devices: Oxygen - Continuous Review of Systems Review of Systems: Please refer to admission H&P Physical Exam Constitutional: WD/WN, vitals as above Neck: trachea midline, no thyromegaly Respiratory: normal respiratory effort, lungs clear to auscultation No crepitus or tracheal deviation Cardiovascular: RRR, no murmur, no edema Gastrointestinal (Abdomen): Inspection/Auscultation: abdomen normal to inspe ction Nontender to palpation. Diminished bowel sounds Musculoskeletal: Extremities: extremities normal to inspection Skin: no rashes, warm and dry Neurologic: Nonfocal exam Lymphatic: no cervical lymphadenopathy Results & Data Results & Data ([facility]) Vital Signs (Past 12 Hours) Vital Signs Temp Pulse Resp BP Pulse Ox 09/02/20 08:00 37.0 C 96 H 19 116/59 L 99 09/02/20 04:00 36.7 C 108 H 20 150/73 H 97 Laboratory Results 09/02/20 05:06 09/02/20 05:06 Diagnostic Findings Imaging studies were all independently reviewed. CT angiogram performed 09/01/2020 showed no PE. Moderate right-sided pneumothorax with right lower lobe atelectasis and trace right pleural effusions. Postoperative findings within the abdomen and pelvis better delineated on CT of the abdomen pelvis from same day. Chest x-ray this morning demonstrated stable pneumothorax measuring 2 to 3 cm in the right apex PG Care Time/CCT Total # of Minutes Spent Total Time Spent with Patient: Total time spent is greater than 50% in coordination of care (as documented) at patient's floor/unit and/or counseling patient: Coding Level of Care Code 67475 Inpt Consult Level 5 Diagnoses Pneumothorax on right J93.9
--- NOTE | 2020-09-02 15:07 | Procedure Note ---
Procedure Note Date of Service September 02, 2020 Procedure: Right-sided 8 [place] pneumothorax catheter placement. Radio Interference Supervisor Dr. Noel Indication: Pneumothorax Consent risks and benefits were explained to the patient who agreed to proceed. Anesthesia: 10 cc 1% lidocaine locally. Estimated blood loss minimal Procedure: Consent was verified. A timeout was performed. The patient was placed in a semirecumbent position. The anterior chest was cleaned extending below the clavicles approximately 4cm. The rib was easily palpable. Using 1% lidocaine, the skin and subcutaneous tissues approximately 2 cm below the clavicle in the midclavicular line were anesthetized. The soft tissues were anesthetized deeper down to the pleural space and I was able to aspirate air with the finder needle. The finder needle was removed and a small skin viki was made with a scalpel. An 8 [place] pneumothorax catheter was then advanced through the stab wound and through the subcutaneous tissues until we are able to aspirate air. The catheter was then threaded off the needle into the pleural space and attached to the Pleur-evac where significant bubbling was observed. The catheter was sutured in place and a Vaseline impregnated gauze and dressing were applied. Post procedure chest x-ray is pending. Coding CPT Codes Pulmonary/Thoracic - Pulmonary and Thoracic: 91775 Pleural drainage w/o imaging ([id number]) [facility] Procedure Codes (Charges) Pulmonary/Thoracic Procedure 1: Pulmonary and Thoracic: 61772 Pleural drainage w/o imaging
--- NOTE | 2020-09-02 16:47 | XRay Report ---
XR chest 1V portable CLINICAL HISTORY: R chest tube placement COMPARISON STUDY: Chest radiograph September 02, 2020 at 10:05 AM. FINDINGS: Interval placement of a right pleural catheter is noted. The right pneumothorax has nearly completely resolved. There is a trace residual right apical pneumothorax. No evidence for pulmonary e ace. There are are persistent mild bibasilar opacities. Cardiac size is normal. Mediastinal contours are normal. Tip of nasogastric tube is within the gastric fundus. IMPRESSION: Near complete resolution of the right pneumothorax following pleural catheter placement. Trace residual right apical pneumothorax. ACT 112: Negative or not required by law. Electronically signed by: Chicho Porter M.D. 09/02/2020 4:46 PM
[2020-09-02] MEDS: CEFEPIME 2,000 MG in SYRINGE 0 ML IV SCH (21:21)
[2020-09-03] MEDS: NORMOSOL-R 1,000 ML IV SCH ×3 (03:12→22:46)
[2020-09-03] MEDS: MoRPHine SULFATE 2 MG/ML CARP IV PRN ×3 (03:12→17:20)
[2020-09-03] MEDS: metroNIDAZOLE 500 MG/100 ML BAG IV SCH ×3 (03:13→21:15)
[2020-09-03] MEDS: NICOTINE 7 MG/24 HR TDSY TD SCH (06:11)
--- NOTE | 2020-09-03 07:37 | XRay Report ---
XR KUB/Abdomen 1 view CLINICAL HISTORY: Small bowel obstruction COMPARISON STUDY: 09/02/2020 FINDINGS: There are mildly distended small bowel loops measuring up to 33 mm in diameter. This remain s unchanged from the prior study. There is gas present within the colon. Multiple skin jaci are vi sualized. There is suspected colonic diverticulosis. A nasogastric tube is visualized. IMPRESSION: 1. Stable mild small bowel dilatation. ACT 112: Negative or not required by law. Electronically signed by: Sheng Braxton M.D. 09/03/2020 7:35 AM
--- NOTE | 2020-09-03 07:48 | XRay Report ---
XR chest 1V portable CLINICAL HISTORY: Pneumonia PNEUMOTHORAX COMPARISON STUDY: 09/02/2020 FINDINGS: A right-sided pleural catheter remains unchanged in position. There is a nasogastric tube w ithin the stomach. The heart is normal in size. There are patchy bibasilar airspace opacities likely atelectatic although an infectious/inflammatory processes could appear similar. There is a persistent right-sided pneumothorax with pleural separation of 16 mm.[ IMPRESSION: 1. Interval enlargement of the right-sided pneumothorax which has a pleural separation of 16 mm. 2. Persistent bibasilar opacities, atelectatic versus infectious/inflammatory ACT 112: Negative or not required by law. Electronically signed by: Sheng Braxton M.D. 09/03/2020 7:47 AM
[2020-09-03] MEDS: FAMOTIDINE 20 MG in SYRINGE 3 ML IV SCH (08:58)
--- NOTE | 2020-09-03 09:21 | Surgery Progress Note ---
Date of Service September 03, 2020 Assessment & Plan (1) Small bowel obstruction: Patient continues to slowly improve She is passing flatus, no BM yet KUB this AM shows stable mild small bowel dilation Patient now has a right sided chest tube placed yesterday for enlarging ptx For SBO, would continue supportive care and keep NGT in for today yet Will repeat KUB tomorrow as above. continues to feel better each day. denies abdominal pain. still with NGT output and no bowel fx. repeat KUB tomorrow. Keep NGT/NPO. continue conservative management.. will continue to follow closely. Admission and Anticipated Discharge Date Admission Date: September 01, 2020 Subjective Patient states she is doing well. Passing some flatus, no BM yet. Denies nausea/vomiting. Reports abdominal pain is tolerable. Physical Exam Physical Exam: awake/alert, sitting up in bed Gastrointestinal (Abdomen): Inspection/Auscultation: + abdomen distended (mild) and + abdominal surgical incision (c/d/i) Percussion/Palpation: + abdomen tender (mild ttp epigastric) and abdomen soft NGT 800cc brown/bilious output documented Results & Data ([facility]) Vital Signs (Past 12 Hours) Vital Signs Temp Pulse Pulse Resp BP Pulse Ox 09/03/20 07:35 36.8 C 81 16 146/69 H 92 09/03/20 03:30 36.8 C 87 18 151/70 H 91 09/03/20 01:17 92 H 09/03/20 01:03 36.8 C 90 137/62 94 PG Care Time/CCT Total # of Minutes Spent Total Time Spent with Patient: Total time spent is greater than 50% in coordination of care (as documented) at patient's floor/unit and/or counseling patient: Coding Level of Care Code 46983 Subseq Hosp Care Lvl 3 Diagnoses Small bowel obstruction K56.609
[2020-09-03 09:36] LABS: Hematocrit (blood only) 33.4 % (37-47); Mean Corpuscular Hemoglobin 30.1 pg (25-34); Mean Corpuscular Hgb Conc 32.9 g/dL (32-36); Mean Corpuscular Volume 91.3 fL (80-100); Mean Platelet Volume 9.6 fL (7.4-10.4); Platelet Count 338 K/uL (130-400); RDW Coefficient of Variation 14.2 % (11.5-14.5); RDW Standard Deviation 47.6 fL (36.4-46.3); Red Blood Count 3.66 M/uL (4.2-5.4); White Blood Count 10.94 K/uL (4.8-10.8)
[2020-09-03 10:14] LABS: BUN Creatinine Ratio 21.6 (10-20); Calcium 8.9 mg/dl (8.5-10.1); Creatinine Clr Calc Pharmacy 37.1 ml/min; Est GFR (Non-African American) 41.4; Magnesium 2.4 mg/dl (1.8-2.4); Potassium 4.4 mmol/L (3.5-5.1)
[2020-09-03 10:17] LABS: Phosphorus 2.3 mg/dl (2.5-4.9)
--- NOTE | 2020-09-03 11:59 | Pulmonology Progress Note ---
Date of Service September 03, 2020 Assessment & Plan (1) Pneumothorax on right: Impression: 69-year-old female status post recent robotic/laparoscopic nephrectomy on the right now with right-sided pneumothorax in the setting of small bowel obstruction. She had a small bore 8 Samoan catheter placed 09/02/2020 and unfortunately demonstrates persistent air leak Recommendations: 1. Pneumothorax: Increase suction to 40 cm of water. After about 5 minutes of doing this, the air leak appeared to have resolved. We will repeat the chest x- ray in the morning and see how it looks. If she continues to have issues, we may need to upsize the 8 [place]oan catheter to a 14 Samoan catheter. 2. Management of the patient's bowel obstruction per hospitalist and general surgery Admission and Anticipated Discharge Date Admission Date: September 01, 2020 Subjective Patient seen and examined. She looks like she is doing better. Unfortunately, her chest tube continues to demonstrate an air leak and there is a persistent pneumothorax on her chest x-ray. Her pain at the chest tube site is much better. She is not having any significant respiratory issues currently. Review of Systems Review of Systems: All systems reviewed & are unremarkable except as noted in HPI & below Physical Exam Constitutional: WD/WN, vitals as above Neck: trachea midline, no thyromegaly Respiratory: normal respiratory effort, lungs clear to auscultation Cardiovascular: RRR, no murmur, no edema Chest (Breasts): Additional Comments: 1-2+ air leak at 20 cm of water Gastrointestinal (Abdomen): Inspection/Auscultation: abdomen normal to inspection Musculoskeletal: Extremities: extremities normal to inspection Skin: no rashes, warm and dry Lymphatic: no cervical lymphadenopathy Results & Data Results & Data ([facility]) Vital Signs (Past 12 Hours) Vital Signs Temp Pulse Pulse Resp BP Pulse Ox 09/03/20 11:26 36.8 C 81 18 153/72 H 94 09/03/20 09:00 90 09/03/20 07:35 36.8 C 81 16 146/69 H 92 09/03/20 03:30 36.8 C 87 18 151/70 H 91 09/03/20 01:17 92 H 09/03/20 01:03 36.8 C 90 137/62 94 Laboratory Results 09/03/20 09:25 09/03/20 09:25 Diagnostic Findings Chest x-ray this morning was reviewed. It demonstrates an apical persistent pneumothorax. Measures approximately 20 mm PG Care Time/CCT Total # of Minutes Spent Total Time Spent with Patient: Total time spent is greater than 50% in coordination of care (as documented) at patient's floor/unit and/or counseling patient: Coding Level of Care Code 66129 Subseq Hosp Care Lvl 2 Diagnoses Pneumothorax on right J93.9
[2020-09-03] MEDS: HEPARIN SOD 5,000 UNIT/0.5 ML VIAL SQ SCH ×2 (13:28→21:15)
--- NOTE | 2020-09-03 16:38 | Urology Progress Note ---
Date of Service September 03, 2020 Assessment & Plan (1) Small bowel obstruction: (2) Pneumothorax on right: Ilesu/Small bowel obstruction and pneumothorax after recent right nephroureterectomy Continue supportive/intensive care. Tolerating Catheter, NG, and chest tube. Did have flatus again today. Saturations have improved and tolerating. continue supportive care. Continue monitoring. Admission and Anticipated Discharge Date Admission Date: September 01, 2020 Subjective Postop Day 7 from urologic surgery Neph U on Right with extensive adhesions. Patient readmitted due to Ileus/SBO with development of Vomiting with Pneumothorax likely due to retching. Patient has NG in place with good improvement and tolerating. Had small chest tube placed and has been tolerating but is having some pain and discomfort. Incisions have been mild sore and healing well Having some abdominal distension/gas pains. Has tolerated catheter. Has not had severe pain or uncontrollable pain. Patient has been ambulating. Has not had bowel movement or major change. No new nausea or vomiting. Had tolerated anesthesia without major problems Review of Systems Review of Systems: All systems reviewed & are unremarkable except as noted in HPI & below Physical Exam Physical Exam: General: Alert in no acute distress. HEENT: NG in place. Normocephalic Atraumatic. Inspection normal. Cranial Ne rves 2-12 Grossly intact. Normal inspection of face. Normal inspection of neck. Psychologic: Normal affect. Respiratory: Nonlabored. No use of accessory muscles. No tachypnea or dyspnea. Chest tube in place. Cardiovascular: No tachycardia Skin: [place] and Dry. No rashes or visible lesions. Extremities/Lymphatics: No edema Abdomen: Appropriately tender. Mild distended. No rebound or guarding. Wound: Clean, dry, intact with jaci. Results & Data ([facility]) Vital Signs (Past 12 Hours) Vital Signs Temp Pulse Pulse Resp BP Pulse Ox 09/03/20 15:12 87 09/03/20 14:46 36.5 C 85 18 155/72 H 94 09/03/20 11:26 36.8 C 81 18 153/72 H 94 09/03/20 09:00 90 09/03/20 07:35 36.8 C 81 16 146/69 H 92 PG Care Time/CCT Total # of Minutes Spent Total Time Spent with Patient: Total time spent is greater than 50% in coordination of care (as documented) at patient's floor/unit and/or counseling patient: Coding Level of Care Code 75216 Subseq Hosp Care Lvl 3 Diagnoses Small bowel obstruction K56.609 Pneumothorax on right J93.9
--- NOTE | 2020-09-03 18:14 | Hospitalist Progress Note ---
Date of Service September 03, 2020 Assessment & Plan (1) Spontaneous pneumothorax: * Patient initially found to be hypoxic with EMS arrival. * Chest x-ray concerning for RIGHT-sided pneumothorax. Chest CT confirms moderate pneumothorax * chest tube placed by pulmonary medicine on 09/02/2020. * repeat CXR on 09/03 with slight enlargement, Pulmonary medicine to re evaluate * Patient with high flow oxygen (2) Small bowel obstruction: * Patient with intense abdominal discomfort in the epigastrium with intense nausea and vomiting. * CT findings concerning for small bowel obstruction. Likely due to adhesions. * NG tube in place. pt is much more comfortable, still significant drainage * Repeat abdominal series shows persistent small bowel obstruction, Appreciate general surgery continued management (3) Intractable nausea and vomiting: * Secondary to SBO. * Improved with NG tube drainage and decompression continuing antiemetics as needed (4) Hypoxia: * Supplemental oxygen has resolved (5) ESTRELLA (acute kidney injury): * In the setting of profound dehydration with nausea, vomiting, and SBO. * Ongoing fluids in the form of Normosol at 100 mL's per hour. Slight improvement of creatinine since admission (6) Urothelial carcinoma of distal ureter: * Per pathology findings status post nephrectomy and ureterectomy. (7) Hypertension: * Hold antihypertensives while n.p.o. (8) Anxiety: * Provide IV Ativan as needed. * May benefit as a secondary antinausea medication as well. (9) Hyperlipidemia: * Hold on home Rx while NPO. Admission and Anticipated Discharge Date Admission Date: September 01, 2020 Subjective Postop 08/27 from right nephrectomy and lysis of adhesions for urothelial carcinoma. Patient readmitted due to Ileus/SBO with development of Vomiting with Pneumothorax likely due to retching. Patient has NG in place with good improvement and tolerating. Had small chest tube placed with manipulation on 09/03 due to expansion of her pneumothorax.. Patient is had no flatus and there is concerned that her small bowel obstruction is not resolving. Patient feels much better with NG tube in place Review of Systems Review of Systems: Mild distress and fatigue no headache, blurry or double vision no speech or swallowing issues no chest pain, pressure or palpitations persistent shortness of breath, Persistent abdominal pain no real flatus on 09/03 no dysuria or frequency no focal joint pain or swelling no back pain, CVA tenderness or radicular pain no bruising, bleeding or rashes no focal signs of weakness or numbness or altered sensation no complaints of anxiety or depression. Physical Exam Physical Exam: The patient appeared much better but fatigued Vital signs as documented. Head exam is normocephalic atraumatic no scleral icterus Neck is without JVD, thyromegaly, or carotid bruits. Lungs are clear to auscultation, lateral rales which are scant likely atelectatic Cardiac exam, Rhythm is regular.. No murmurs, rubs or gallops. Abdominal exam reveals hypoactive bowel sounds, only tender to exam not rigid not distended s Extremities are nonedematous and both pedal pulses are present Neurologic exam is alert and oriented, no focal loss of strength or sensation Skin is without bruises or rashes Psychologically is without concerns for anxiety or depression. Results & Data Results & Data ([facility]) Vital Signs (Past 12 Hours) Vital Signs Temp Pulse Pulse Resp BP Pulse Ox 09/03/20 15:12 87 09/03/20 14:46 97.7 F 85 18 155/72 H 94 09/03/20 11:26 98.2 F 81 18 153/72 H 94 09/03/20 09:00 90 09/03/20 07:35 98.2 F 81 16 146/69 H 92 PG Care Time/CCT Total # of Minutes Spent Total Time Spent with Patient: Total time spent is greater than 50% in coordination of care (as documented) at patient's floor/unit and/or counseling patient: Coding Level of Care Code 44991 Subseq Hosp Care Lvl 3 Diagnoses Spontaneous pneumothorax J93.83 Small bowel obstruction K56.609 Intractable nausea and vomiting R11.2 Hypoxia R09.02 ESTRELLA (acute kidney injury) N17.9 Urothelial carcinoma of distal ureter C66.9 Hypertension I10 Anxiety F41.9 Hyperlipidemia E78.5
[2020-09-03] MEDS: ACETAMINOPHEN 1,000 MG/100 ML VIAL IV PRN (21:08)
[2020-09-03] MEDS: CEFEPIME 2,000 MG in SYRINGE 0 ML IV SCH (21:10)
[2020-09-04] MEDS: metroNIDAZOLE 500 MG/100 ML BAG IV SCH ×3 (05:56→21:01)
[2020-09-04] MEDS: HEPARIN SOD 5,000 UNIT/0.5 ML VIAL SQ SCH ×3 (05:57→21:08)
[2020-09-04] MEDS: ACETAMINOPHEN 1,000 MG/100 ML VIAL IV PRN (06:03)
[2020-09-04 06:31] LABS: BUN Creatinine Ratio 22.6 (10-20); Calcium 8.5 mg/dl (8.5-10.1); Creatinine Clr Calc Pharmacy 45.4 ml/min; Est GFR (African American) 61.3; Est GFR (Non-African American) 52.9
--- NOTE | 2020-09-04 08:17 | XRay Report ---
KUB HISTORY: eval bowel gas pattern; small bowel obstruction. Postop. COMPARISON: KUB 09/03/2020. FINDINGS: Multiple skin jaci seen within the abdomen consistent consistent with the recent postope rative change. Mildly dilated gas-filled loops of small bowel persist. These measure up to 3.6 cm in diameter. There is a gas-filled borderline dilated distal colon and rectum. Nasogastric tube terminat es in the stomach. This remains unchanged. No renal calculi. No ureteral calculi. No pneumoperitoneu m or pneumatosis. IMPRESSION: No change in the mildly dilated gas-filled loops of small bowel within the midabdomen. ACT 112: Negative or not required by law. Electronically signed by: Manolo Villavicencio M.D. 09/04/2020 8:16 AM
[2020-09-04] MEDS: NICOTINE 7 MG/24 HR TDSY TD SCH (08:23)
[2020-09-04] MEDS: FAMOTIDINE 20 MG in SYRINGE 3 ML IV SCH (08:23)
[2020-09-04] MEDS: NORMOSOL-R 1,000 ML IV SCH ×2 (08:23→21:02)
--- NOTE | 2020-09-04 08:36 | XRay Report ---
XR chest 1V portable CLINICAL HISTORY: pneumothorax COMPARISON STUDY: Chest radiograph September 03, 2020. FINDINGS: Tip of nasogastric tube is within the body of the stomach. Right pleural catheter remains i n place. The right pneumothorax has decreased in size. There is a small residual right apical pneumot horax with pleural separation of 9 mm. Cardiac size is normal. There is no evidence for pulmonary blanca ma. Mild bibasilar opacities persist. IMPRESSION: Interval decrease in size of a small right apical pneumothorax. Right pleural catheter i n place. ACT 112: Negative or not required by law. Electronically signed by: Chicho Porter M.D. 09/04/2020 8:34 AM
--- NOTE | 2020-09-04 09:12 | Pulmonology Progress Note ---
Date of Service September 04, 2020 Assessment & Plan (1) Pneumothorax on right: Impression: 69-year-old female status post recent robotic/laparoscopic nephrectomy on the right now with right-sided pneumothorax in the setting of small bowel obstruction. She had a small bore 8 Vietnamese catheter placed 09/02/2020. Suction was increased to 40 cm of water yesterday with resolution of the pneumothorax on chest x-ray and no air leak today Recommendations: 1. Pneumothorax: No air leak this morning and chest x-ray looks much better. Will clamp the chest tube and repeat a chest x-ray in 2 to 3 hours. If the lung remains up with the tube clamped, the tube will be discontinued. Admission and Anticipated Discharge Date Admission Date: September 01, 2020 Subjective Patient seen and examined. She reports that she is doing well clinically. She is having some slight discomfort at the site of the chest tube but overall feels her breathing is better. She is not coughing or expectorating phlegm. No significant wheezing. She believes that she is starting to have some bowel sounds which Review of Systems Review of Systems: All systems reviewed & are unremarkable except as noted in HPI & below Physical Exam Constitutional: WD/WN, vitals as above Neck: trachea midline, no thyromegaly Respiratory: normal respiratory effort, lungs clear to auscultation Cardiovascular: RRR, no murmur, no edema Chest (Breasts): Additional Comments: No air leak with breathing or coughing on the chest tube Gastrointestinal (Abdomen): Inspection/Auscultation: abdomen normal to inspection Musculoskeletal: Extremities: extremities normal to inspection Skin: no rashes, warm and dry Lymphatic: no cervical lymphadenopathy Results & Data Results & Data ([facility]) Vital Signs (Past 12 Hours) Vital Signs Temp Pulse Resp BP Pulse Ox 09/04/20 06:45 36.7 C 75 17 145/66 H 94 09/04/20 04:52 36.7 C 85 19 158/74 H 93 09/04/20 00:21 36.6 C 83 17 169/71 H 95 Laboratory Results 09/03/20 09:25 09/04/20 05:22 Diagnostic Findings Chest x-ray from today was reviewed. There is trivial apical pneumothorax note d. PG Care Time/CCT Total # of Minutes Spent Total Time Spent with Patient: Total time spent is greater than 50% in coordination of care (as documented) at patient's floor/unit and/or counseling patient: Coding Level of Care Code 79472 Subseq Hosp Care Lvl 2 Diagnoses Pneumothorax on right J93.9
--- NOTE | 2020-09-04 09:31 | Surgery Progress Note ---
Date of Service September 04, 2020 Assessment & Plan (1) Small bowel obstruction: clinically improved but still with fair amount of NGT output and KUB still with some small bowel dilation. will obtain SBFT via NGT even if sbo persistant would give it some more time. [facility] surgeons will be covering for weekend. would keep NGT until bowel fx returns. Admission and Anticipated Discharge Date Admission Date: September 01, 2020 Subjective pt continues to slowly improve. +flatus. no bm yet. denies pain. feels "gurgling". Physical Exam Physical Exam: alert. nad abd: soft. less distension. incisions all look good. +faint bs's. Results & Data ([facility]) Vital Signs (Past 12 Hours) Vital Signs Temp Pulse Resp BP Pulse Ox 09/04/20 06:45 36.7 C 75 17 145/66 H 94 09/04/20 04:52 36.7 C 85 19 158/74 H 93 09/04/20 00:21 36.6 C 83 17 169/71 H 95 PG Care Time/CCT Total # of Minutes Spent Total Time Spent with Patient: Total time spent is greater than 50% in coordination of care (as documented) at patient's floor/unit and/or counseling patient: Coding Level of Care Code 82342 Inpt Consult Level 3 Diagnoses Small bowel obstruction K56.609
--- NOTE | 2020-09-04 09:48 | Urology Progress Note ---
Date of Service September 04, 2020 Assessment & Plan (1) Urothelial carcinoma of distal ureter: (2) Pneumothorax on right: (3) Small bowel obstruction: 69 yo F s/p right nephroureterectomy admitted with small bowel obstruction and right pneumothorax. - Subjectively improving - Continue supportive care and antibiotics - Incisions healing appropriately - jaci will likely be removed while inpatient - Maintain Yan catheter - Appreciate pulmonology and gen surgery recommendations - We will continue to follow along closely with primary team, pulmonology, and general surgery Admission and Anticipated Discharge Date Admission Date: September 01, 2020 Subjective Pt seen and examined at bedside. Awake, alert and sitting up in bed this AM. Subjectively improving. Reports chest tube was clamped this AM and will have CXR later. Denies pain though notes some mild discomfort at chest tube site. NGT intact with bilious output. Reports abdomen less distended. No abdominal pain. + Flatus, also reports "gurgling", no BM. She is tolerating Yan catheter - intact, patent and draining clear yellow urine. No additional concerns. Chart review: Afebrile, creatinine 1.07, WBC 10.94, Hgb 11.0, on IV Cefepime and Flagyl. Review of Systems Constitutional: as per Subjective / HPI Respiratory: as per Subjective / HPI Cardiovascular: as per Subjective / HPI Gastrointestinal: as per Subjective / HPI Genitourinary: as per Subjective / HPI Physical Exam Constitutional: well developed and well nourished; no acute distress Respiratory: able to speak in complete sentences; no respiratory distress and no labored breathing Chest tube in place, clamped Cardiovascular: Extremities: no calf tenderness and no pedal edema Gastrointestinal (Abdomen): Inspection/Auscultation: abdomen normal to inspection; abdomen not distended Percussion/Palpation: abdomen soft; abdomen nontender and no guarding NG tube in place, bilious output Musculoskeletal: Head/Neck/Chest: normocephalic and head atraumatic Extremities: extremities normal to inspection Skin: Surgical incisions intact with jaci, well approximated, healing, C/D/I Neurologic: moves all extremities and awake Psychiatric: A+Ox3, euthymic affect Genitourinary: Yan catheter intact, patent, and draining clear yellow urine Results & Data ([facility]) Vital Signs (Past 12 Hours) Vital Signs Temp Pulse Resp BP Pulse Ox 09/04/20 06:45 36.7 C 75 17 145/66 H 94 09/04/20 04:52 36.7 C 85 19 158/74 H 93 09/04/20 00:21 36.6 C 83 17 169/71 H 95 PG Care Time/CCT Total # of Minutes Spent Total Time Spent with Patient: Total time spent is greater than 50% in coordination of care (as documented) at patient's floor/unit and/or counseling patient: Coding Level of Care Code 01122 Subseq Hosp Care Lvl 2 Diagnoses Urothelial carcinoma of distal ureter C66.9 Pneumothorax on right J93.9 Small bowel obstruction K56.609
--- NOTE | 2020-09-04 11:40 | XRay Report ---
SINGLE VIEW CHEST CLINICAL HISTORY: Pneumothorax. FINDINGS: 2 AP, portable, upright chest radiographs are compared to study dated 09/04/2020 and correl ated with chest CT dated 09/01/2020. An enteric tube is in place. Enteric contrast is seen in the sto mach. The cardiomediastinal silhouette is unremarkable. Atelectasis is seen at the right lung base. N o large pleural effusion is identified.. A right-sided chest tube is in place. There is a small resid ual right apical pneumothorax with approximately 1.4 cm apical pleural separation. No left-sided pneu mothorax is seen. The skeletal structures are osteopenic. The bony thorax is grossly intact. IMPRESSION: 1. A right-sided chest tube is in place. There is a small residual right apical pneumothorax. 2. The lungs are otherwise clear noting right basilar atelectasis. ACT 112: Negative or not required by law. Electronically signed by: Delio Alvarez M.D. 09/04/2020 11:38 AM
--- NOTE | 2020-09-04 14:58 | Fluoroscopy Report ---
FL small bowel follow through CLINICAL HISTORY: Small bowel obstruction. COMPARISON STUDY: KUB 09/04/2020. FLUOROSCOPY TIME: None.. FINDINGS: Philosophy Instructor images demonstrate progressive distention of the gas-filled loops of small bowel. The se measure up to 5 cm in diameter and are consistent with a high-grade small bowel obstruction. Multi ple surgical clips are seen within the abdomen. This patient swallowed oral contrast. The stomach and small bowel are distended. Nasogastric tube is seen within the stomach. The study was performed up t o 2 hours. However, the patient began vomiting therefore, the study was terminated early. Fluoroscopi c spot imaging was not obtained. IMPRESSION: Progressive high-grade small bowel obstruction. The transition point is not clearly ident ified on this study. ACT 112: Negative or not required by law. Electronically signed by: Manolo Villavicencio M.D. 09/04/2020 2:56 PM
[2020-09-04] MEDS: MoRPHine SULFATE 2 MG/ML CARP IV PRN ×2 (15:50→21:42)
[2020-09-04] MEDS ORDERED: PROMETHAZINE HCL 12.5 MG in SODIUM CHLORIDE 0.9% 50 ML IV PRN (16:15)
--- NOTE | 2020-09-04 17:24 | Hospitalist Progress Note ---
Date of Service September 04, 2020 Assessment & Plan (1) Spontaneous pneumothorax: * Patient initially found to be hypoxic with EMS arrival. * Chest x-ray concerning for RIGHT-sided pneumothorax. Chest CT confirms moderate pneumothorax * chest tube placed by pulmonary medicine on 09/02/2020. * repeat CXR on 09/03 with slight enlargement, Pulmonary medicine increased suction pressure, * resolved on am imaging 09/04, then recurred after clamped tube, resumed suction * Patient with oxygen supplementation (2) Small bowel obstruction: * Patient with intense abdominal discomfort in the epigastrium with intense nausea and vomiting. * CT findings concerning for small bowel obstruction. Likely due to adhesions. * NG tube in place. pt is much more comfortable, still significant drainage * Repeat abdominal series shows persistent small bowel obstruction, * general surgery ordered gastrographin sbft with persistent high grade obstruction 09/04 (3) Intractable nausea and vomiting: * Secondary to SBO. * Improved with NG tube drainage and decompression continuing antiemetics as needed (4) Hypoxia: * Supplemental oxygen has resolved (5) ESTRELLA (acute kidney injury): * In the setting of profound dehydration with nausea, vomiting, and SBO. * Ongoing fluids in the form of Normosol at 100 mL's per hour. Slight improvement of creatinine since admission (6) Urothelial carcinoma of distal ureter: * Per pathology findings status post nephrectomy and ureterectomy. (7) Hypertension: * Hold antihypertensives while n.p.o. (8) Anxiety: * Provide IV Ativan as needed. * May benefit as a secondary antinausea medication as well.phenergan added 09/04 (9) Hyperlipidemia: * Hold on home Rx while NPO. Admission and Anticipated Discharge Date Admission Date: September 01, 2020 Subjective Patient has no complaints or problems she is disappointed that she failed clamping of her chest tube with recurrence of her pneumothorax she is back on 40 cm of wall suction. Gastrografin study shows progressive high-grade small bowel obstruction Review of Systems Review of Systems: Mild distress and fatigue no headache, blurry or double vision no speech or swallowing issues no chest pain, pressure or palpitations persistent shortness of breath, Persistent abdominal pain +/- flatus on 09/04 no dysuria or frequency no focal joint pain or swelling no back pain, CVA tenderness or radicular pain no bruising, bleeding or rashes no focal signs of weakness or numbness or altered sensation no complaints of anxiety or depression. Physical Exam Physical Exam: The patient appeared much better but fatigued Vital signs as documented. Head exam is normocephalic atraumatic no scleral icterus Neck is without JVD, thyromegaly, or carotid bruits. Lungs are clear to auscultation, lateral rales which are scant likely atelectatic, right upper chest Cardiac exam, Rhythm is regular.. No murmurs, rubs or gallops. Abdominal exam reveals hypoactive bowel sounds, only tender to exam not rigid not distended Extremities are nonedematous and both pedal pulses are present Neurologic exam is alert and oriented, no focal loss of strength or sensation Skin is without bruises or rashes Psychologically is without concerns for anxiety or depression. Results & Data Results & Data ([facility]) Vital Signs (Past 12 Hours) Vital Signs Temp Pulse Resp BP Pulse Ox 09/04/20 16:23 99.1 F 84 18 159/74 H 97 09/04/20 06:45 98.1 F 75 17 145/66 H 94 PG Care Time/CCT Total # of Minutes Spent Total Time Spent with Patient: Total time spent is greater than 50% in coordination of care (as documented) at patient's floor/unit and/or counseling patient: Coding Level of Care Code 94879 Subseq Hosp Care Lvl 3 Diagnoses Spontaneous pneumothorax J93.83 Small bowel obstruction K56.609 Intractable nausea and vomiting R11.2 Hypoxia R09.02 ESTRELLA (acute kidney injury) N17.9 Urothelial carcinoma of distal ureter C66.9 Hypertension I10 Anxiety F41.9 Hyperlipidemia E78.5
[2020-09-04] MEDS: CEFEPIME 2,000 MG in SYRINGE 0 ML IV SCH (21:01)
[2020-09-04] MEDS: ONDANSETRON INJ 2 MG/ML 2 ML VIAL IV PRN (21:55)
--- NOTE | 2020-09-04 22:24 | Discharge Summary ---
Date of Service August 31, 2020 Admission HPI Per Admitting Provider Patient is a 69-year-old female with upper track UCC for Nephroureterectomy See Admission H&P Admission Exam Per Admitting Provider See H&P Principal Diagnosis Upper Track UCC of ureter Discharge Exam General: Alert in no acute distress. HEENT: Normocephalic Atraumatic. Inspection normal. Psychologic: Normal affect. Skin: [place] and Dry. No rashes or visible lesions. Abdomen: Soft Non-distended. No rebound or guarding. Discharge Data Allergies Allergy/AdvReac Type Severity Reaction Status Date / Time magnesium sulfate Allergy Severe face, hand Verified 09/01/20 17:55 [From Suprep Bowel Prep Kit] swelling Penicillins Allergy Severe rash, Verified 09/01/20 17:55 throat tightening potassium Allergy Severe face, hand Verified 09/01/20 17:55 [From Suprep Bowel Prep Kit] swelling sodium sulfate Allergy Severe face, hand Verified 09/01/20 17:55 [From Suprep Bowel Prep Kit] swelling Consultations 09/01/20 17:55 ED Decision to Admit Stat 09/01/20 20:18 Consult General Surgery Routine Consult Urology Stat Ordered Studies 09/01/20 15:58 CT abd pelvis IV con only Stat CT angio chest PE protocol Stat 09/04/20 09:24 [place] small bowel follow through Routine Hospital Course (1) Urothelial carcinoma of distal ureter: Post op from Nephro-uretectomy on right with mild pain and overall doing well without issues. 69 yo F POD#4 s/p Right Robotic Laparoscopic Assisted Nephroureterectomy, Extensive Lysis of Adhesions on 08/27/20. - Pt with urothelial carcinoma of the distal ureter. - Remains afebrile, hemodynamically stable. No new lab work since 08/29/20. Pt refused additional labs this morning. - Continue Yan catheter, maintain for 1-2 weeks. - Encourage ambulation with assistance, incentive spirometer - discussed splinting abd for IS, cough/deep breathing. - Continue with supportive care and prn pain management. - Possibly d/c later today if continues to progress. - Will arrange outpatient follow-up next week for Yan removal, cystogram prior per Dr. Bonds - order placed. Update: Pt reassessed at 1100 - She is feeling better at present. Reports abdominal discomfort improved since this AM, no nausea or vomiting. Continues to feel some bloating, no BM at this time. She agreed to lab work after morning exam. Labs reviewed: Creatinine improved to 1.27, WBC 12.59, Hgb 11.7. She would like to go home today. Reviewed with Dr. Bonds. Will plan to d/c home later today with Yan catheter intact. MANI to be removed prior to discharge. Follow-up appointments in place Total Time Total Time Spent Total Time Spent (In Minutes): 10 minutes Total Time Includes: Examination of the Patient, Discharge Planning, Medication Reconciliation and Communication With Other Providers Discharge Plan Discharge Items Reason For Visit: Spontaneous Right Sided pneumothorax, SBO, s/p Rig Follow-up/Referrals: Verónica Faulkner, [Primary Care Provider] - Medications and DC Order Prescriptions: No Action lisinopril 20 mg tablet 20 mg PO QPM Qty: 90 RF: 1 tamsulosin 0.4 mg capsule 0.4 mg PO HS Qty: 30 RF: 0 atorvastatin 20 mg tablet 20 mg PO QPM Qty: 90 RF: 1 cholecalciferol (vitamin D3) 50 mcg (2,000 unit) capsule 2,000 units PO QPM Qty: 30 RF: 0 lorazepam [Ativan] 0.5 mg tablet 0.5 mg PO DAILY PRN (Reason: anxiety) Qty: 30 RF: 0 [facility] 40-10-5-3.3 mg Tablet 1 tab PO QPM RF: 0 docusate sodium [Colace] 100 mg capsule 100 mg PO BID Qty: 60 RF: 0 oxycodone-acetaminophen [Percocet] 5-325 mg tablet 1 tab PO TID PRN (Reason: pain) Qty: 14 RF: 0 nicotine [Nicoderm CQ] 21 mg/24 hr Patch 24 Hour 21 mg transdermal QAM Qty: 14 RF: 0 ondansetron 4 mg tablet,disintegrating 4 mg PO TID PRN (Reason: nausea and vomiting) Qty: 12 RF: 0 calcium carbonate [Calcium 600] 600 mg calcium (1,500 mg) Tablet 600 mg PO Q OTHER DAY RF: 0 Admission Data Admit Date/Time: 09/01/20 18:43 Attending Provider: Hemanth Martinez Admit Provider: Hemanth Martinez Primary Care Provider: Verónica Faulkner Other Providers: Hemanth Martinez ; Frank Bonds ; Frantz Navarro ; Vazquez Bang ; Henry Villalobos ; Troy Elias Jr ; Michael Urban ; Antonio Leiva ; Stephanie Fay ; Artis Vincent ; Rafael Sherman Coding Level of Care Code D/C Day Management <30 mins Diagnoses Urothelial carcinoma of distal ureter C66.9
--- NOTE | 2020-09-04 22:50 | XRay Report ---
XR chest 1V portable HISTORY: 69 years-old Female NGT reinsert status post placement of an enteric tube COMPARISON: Chest radiograph of same day at 11:18 AM TECHNIQUE: Portable AP view of the chest FINDINGS: An enteric tube is present which terminates below the diaphragm, distal tip outside the [id number] . A right-sided chest tube is in similar positioning. There is no unchanged tiny right apical pneumot horax with pleural separation of approximately 6 mm. Cardiomediastinal and hilar silhouettes are with in normal limits. Mild blunting of the costophrenic angles may reflect trace effusions versus atelect asis. No overt pulmonary edema or airspace consolidation typical for pneumonia. Degenerative changes of the shoulders and spine. IMPRESSION: 1. Enteric tube courses below the diaphragm, distal tip outside the [id number]. 2. Stable positioning of the right-sided chest tube with unchanged tiny right apical pneumothorax. ACT 112: Negative or not required by law. The above report was generated using voice recognition software. It may contain grammatical, syntax o r spelling errors. Electronically signed by: Julián Vasquez M.D. 09/04/2020 10:48 PM
[2020-09-05] MEDS: NORMOSOL-R 1,000 ML IV SCH ×4 (01:05→23:57)
[2020-09-05] MEDS: HEPARIN SOD 5,000 UNIT/0.5 ML VIAL SQ SCH ×3 (05:22→20:44)
[2020-09-05] MEDS: metroNIDAZOLE 500 MG/100 ML BAG IV SCH ×3 (05:22→20:42)
--- NOTE | 2020-09-05 07:20 | XRay Report ---
KUB CLINICAL HISTORY: Small bowel obstruction. FINDINGS: 2 AP, portable, supine abdominal radiographs are compared to abdominal radiograph and small bowel follow-through dated 09/04/2020. Skin clips project over the lower abdomen. An enteric tube pr ojects over the distal stomach. There is evidence of persistent small bowel obstruction. Enteric cont rast is seen throughout the small bowel from yesterday's small bowel follow-through. Small bowel loop s measure up to 4.2 cm in diameter. No contrast is clearly identified within the colon. The bony stru ctures appear intact. IMPRESSION: Persistent small bowel obstruction. No enteric contrast is identified within the colon. Electronically signed by: Delio Alvarez M.D. 09/05/2020 7:19 AM
--- NOTE | 2020-09-05 07:31 | XRay Report ---
SINGLE VIEW CHEST CLINICAL HISTORY: Pneumothorax. FINDINGS: An AP, portable, upright chest radiograph is compared to study dated 09/04/2020 and correla avelino with chest CT dated 09/01/2020. An enteric tube is unchanged in position. The cardiomediastinal s ilhouette is unremarkable. Atelectasis is seen at the right lung base with elevation of the right hem idiaphragm. Trace pleural effusions are suspected. A right-sided chest tube is unchanged in position. There is a trace residual right apical pneumothorax . No left-sided pneumothorax is seen. The skelet al structures are osteopenic. The bony thorax is grossly intact. IMPRESSION: 1. A right-sided chest tube is in place. There is trace residual right apical pneumothorax. 2. Suspect small pleural effusions. Electronically signed by: Delio Alvarez M.D. 09/05/2020 7:30 AM
[2020-09-05 08:08] LABS: Hematocrit (blood only) 31.9 % (37-47); Hemoglobin 10.3 g/dL (12.0-16.0); Mean Corpuscular Hemoglobin 29.7 pg (25-34); Mean Corpuscular Hgb Conc 32.3 g/dL (32-36); Mean Corpuscular Volume 91.9 fL (80-100); Mean Platelet Volume 9.3 fL (7.4-10.4); Platelet Count 406 K/uL (130-400); RDW Coefficient of Variation 14.1 % (11.5-14.5); RDW Standard Deviation 47.5 fL (36.4-46.3); Red Blood Count 3.47 M/uL (4.2-5.4)
[2020-09-05 08:46] LABS: BUN Creatinine Ratio 19.5 (10-20); Calcium 8.9 mg/dl (8.5-10.1); Creatinine Clr Calc Pharmacy 43.6 ml/min; Est GFR (Non-African American) 51.8; Potassium 3.9 mmol/L (3.5-5.1)
--- NOTE | 2020-09-05 09:45 | Urology Progress Note ---
Date of Service September 05, 2020 Assessment & Plan (1) Urothelial carcinoma of distal ureter: Post op from Nephro-uretectomy on right with mild pain and overall doing well without issues. 69 yo F POD#9 s/p Right Robotic Laparoscopic Assisted Nephroureterectomy, Extensive Lysis of Adhesions on 08/27/20. - Pt with urothelial carcinoma of the distal ureter. Can remove jaci with nursing today and place steristrips. Plan to conservatively treat SBO/Ileus per Gen Surg with bowel rest, NPO, NG tube, and await spontaneous return. Patient having occ flatus but no BM Severe adhesions and scarring of abd. Pneumothorax treated with Chest Tube. Monitoring with Pulm Continue catheter. Will need cystogram beginning of next week. Monitor for changes or issues. Admission and Anticipated Discharge Date Admission Date: September 01, 2020 Subjective Postop SBO and N/V with development of Pneumothorax Patient tolerating NG and Chest tube. Occ flatus but no bowel movement. Patient had severe adhesions with considerable issues from Company Doctor surgery many years ago. Hungry, but otherwise no pain. no further nausea. Throat dry from tubes. [place] causing mild skin bother. Tolerating catheter. No severe pain. Review of Systems Review of Systems: All systems reviewed & are unremarkable except as noted in HPI & below Physical Exam Physical Exam: General: Alert in no acute distress. NG in place. HEENT: NG in place. Normocephalic Atraumatic. Inspection normal. Cranial Nerves 2-12 Grossly intact. Normal inspection of face. Normal inspection of neck. Psychologic: Normal affect. Respiratory: Nonlabored. No use of accessory muscles. No tachypnea or dyspnea. Chest tube in place. Cardiovascular: No tachycardia Skin: [place] and Dry. No rashes or visible lesions. Extremities/Lymphatics: No edema Abdomen: Appropriately tender. Mild distended. No rebound or guarding. Wound: Clean, dry, intact with jaci. Results & Data ([facility]) Vital Signs (Past 12 Hours) Vital Signs Temp Pulse Pulse Resp BP Pulse Ox 09/05/20 07:55 37 C 72 70 18 132/75 94 09/05/20 04:02 36.5 C 79 18 178/76 H 93 09/05/20 00:55 36.9 C 86 19 175/71 H 96 PG Care Time/CCT Total # of Minutes Spent Total Time Spent with Patient: Total time spent is greater than 50% in coordination of care (as documented) at patient's floor/unit and/or counseling patient: Coding Level of Care Code 67188 Subseq Hosp Care Lvl 3 Diagnoses Urothelial carcinoma of distal ureter C66.9
--- NOTE | 2020-09-05 10:23 | Surgery Progress Note ---
Date of Service September 05, 2020 Assessment & Plan (1) Small bowel obstruction: following recent right nephrectomy. No passage of contrast but explained that postoperative small bowel obstructions can sometimes take longer to resolve. Will continue ng tube decompression, no worsening signs indicating need for surgical intervention. Present on Admission?: Yes Admission and Anticipated Discharge Date Admission Date: September 01, 2020 Subjective Overall much better with the ng tube in place. Had vomiting at the time of the small bowel follow through thus, not continued. Pictures that were taken show high grade small bowel obstruction. Mild nausea now, passing some flatus but none in last 24 hours. However, hears gurgling in her abdomen. Pain is manageable. Review of Systems Respiratory: chest tube in place right side Physical Exam Gastrointestinal (Abdomen): Inspection/Auscultation: abdomen normal to inspection, + abdomen distended (mild) and + hyperactive bowel sounds Percussion/Palpation: + abdomen tender (mild, no guarding), + guarding and abdomen soft Results & Data ([facility]) Vital Signs (Past 12 Hours) Vital Signs Temp Pulse Pulse Resp BP Pulse Ox 09/05/20 07:55 37 C 72 70 18 132/75 94 09/05/20 04:02 36.5 C 79 18 178/76 H 93 09/05/20 00:55 36.9 C 86 19 175/71 H 96 Laboratory Results Abnormal lab results 09/05/20 09/05/20 Range/Units 07:49 07:49 WBC 13.20 H (4.8-10.8) K/uL RBC 3.47 L (4.2-5.4) M/uL Hgb 10.3 L (12.0-16.0) g/dL Hct 31.9 L (37-47) % RDW Std Deviation 47.5 H (36.4-46.3) fL Plt Count 406 H (130-400) K/uL BUN 21 H (7-18) mg/dl
[2020-09-05] MEDS: NICOTINE 7 MG/24 HR TDSY TD SCH (10:52)
[2020-09-05] MEDS: FAMOTIDINE 20 MG in SYRINGE 3 ML IV SCH (10:52)
--- NOTE | 2020-09-05 11:30 | Pulmonology Progress Note ---
Date of Service September 05, 2020 Assessment & Plan (1) Pneumothorax on right: Impression: 69-year-old female status post recent robotic/laparoscopic nephrectomy on the right now with right-sided pneumothorax in the setting of small bowel obstruction. She had a small bore 8 [place] catheter placed 09/02/2020. Recommendations: 1. Pneumothorax: No airleak he is seen this morning. Chest x-ray demonstrates small right apical pneumothorax. I have disconnected suction and left her to waterseal. We will repeat chest x-ray in 4 hours which will be 3 PM. If that chest x-ray appears stable, we will clamp the tube and repeat another chest x- ray at 7 PM. If all looks good, will remove the chest tube tomorrow morning after chest x-ray in the morning. Otherwise, if there is expanding pneumo or worsening symptoms, we will reinstitute suction. She is agreeable to this plan. This was also related to the nurse at bedside. Admission and Anticipated Discharge Date Admission Date: September 01, 2020 Subjective Patient without any complaints today. Minimal discomfort from the chest tube site. She is concerned about whether she will get infection from the chest tube. I reassured her that the tube was placed sterilely and this should be unlikely. Review of Systems Review of Systems: All systems reviewed & are unremarkable except as noted in HPI & below Physical Exam Constitutional: WD/WN, vitals as above Neck: trachea midline, no thyromegaly Respiratory: normal respiratory effort, lungs clear to auscultation Cardiovascular: RRR, no murmur, no edema Chest (Breasts): Additional Comments: No air leak with breathing or coughing on the chest tube Gastrointestinal (Abdomen): Inspection/Auscultation: abdomen normal to inspection Musculoskeletal: Extremities: extremities normal to inspection Skin: no rashes, warm and dry Lymphatic: no cervical lymphadenopathy Results & Data Results & Data ([facility]) Vital Signs (Past 12 Hours) Vital Signs Temp Pulse Pulse Resp BP Pulse Ox 09/05/20 07:55 98.6 F 72 70 18 132/75 94 09/05/20 04:02 97.7 F 79 18 178/76 H 93 09/05/20 00:55 98.4 F 86 19 175/71 H 96 I reviewed the vital signs, labs and imaging PG Care Time/CCT Total # of Minutes Spent Total Time Spent with Patient: Total time spent is greater than 50% in coord ination of care (as documented) at patient's floor/unit and/or counseling patient: Coding Level of Care Code 30232 Subseq Hosp Care Lvl 3 Diagnoses Pneumothorax on right J93.9
[2020-09-05] MEDS ORDERED: SODIUM CHLORIDE 0.65% NA SOLN 45 ML (OCEAN) ONE (14:13)
--- NOTE | 2020-09-05 15:11 | XRay Report ---
SINGLE VIEW CHEST CLINICAL HISTORY: Pneumothorax. Chest tube set to waterseal. FINDINGS: An AP, portable, upright chest radiograph is compared to study performed earlier the same d ay 09/05/2020 and correlated with chest CT dated 09/01/2020. An enteric tube is unchanged in position . The cardiomediastinal silhouette is unremarkable. Atelectasis is seen at the right lung base with e levation of the right hemidiaphragm. Trace pleural effusions are noted. A right-sided chest tube is u nchanged in position. There is a trace residual right apical pneumothorax. No left-sided pneumothorax is seen. The skeletal structures are osteopenic. The bony thorax is grossly intact. IMPRESSION: 1. A right-sided chest tube is in place. There is only trace residual right apical pneumothorax, unch anged from today's earlier examination. 2. Small pleural effusions. Electronically signed by: Delio Alvarez M.D. 09/05/2020 3:09 PM
[2020-09-05] MEDS: ONDANSETRON INJ 2 MG/ML 2 ML VIAL IV PRN (17:44)
--- NOTE | 2020-09-05 18:08 | Hospitalist Progress Note ---
Date of Service September 05, 2020 Assessment & Plan (1) Spontaneous pneumothorax: * Patient initially found to be hypoxic with EMS arrival. * Chest x-ray concerning for RIGHT-sided pneumothorax. Chest CT confirms moderate pneumothorax * chest tube placed by pulmonary medicine on 09/02/2020. * improving. appreciate pulm management - hopefully tube out tomorrow w ongoing improvement/stability (2) Small bowel obstruction: * Patient with intense abdominal discomfort in the epigastrium with intense nausea and vomiting. * CT findings concerning for small bowel obstruction. Likely due to adhesions. * NG tube in place. pt is much more comfortable, still significant drainage * serial exams/follow NGT outpt - stable to ?slightly improved. continue current care for now (3) Intractable nausea and vomiting: * Secondary to SBO. * Improved with NG tube drainage and decompression continuing antiemetics as needed - none today (4) Hypoxia: * Supplemental oxygen has resolved (5) ESTRELLA (acute kidney injury): * In the setting of profound dehydration with nausea, vomiting, and SBO. * improved (6) Urothelial carcinoma of distal ureter: * Per pathology findings status post nephrectomy and ureterectomy. (7) Hypertension: * Hold antihypertensives while n.p.o. BP reasonable for the situation (8) Anxiety: * Provide IV Ativan as needed. * May benefit as a secondary antinausea medication as well.phenergan added 09/04 (9) Hyperlipidemia: * Hold on home Rx while NPO. (10) DVT prophylaxis: scd (11) Discharge planning issues: maintain on tele for now. anticipate home ultimately but still acute with a number of issues Admission and Anticipated Discharge Date Admission Date: September 01, 2020 Subjective feeling ok w chest - no significant pain outside of discomfort from tube, no sob abdominal sx good as long as NGT in - no pain/bloating/nausea would like to walk around more no f/c/s no other new complaints Review of Systems Review of Systems: All systems reviewed & are unremarkable except as noted in HPI & below Physical Exam 2 Physical Exam: gen aaox3 pleasant nad heent nc at mmm cardio reg lungs cta b/l no r/r/w good effort good air entry no adventitious sounds abd soft mild distent ion no guarding/rebound ext no c/c/e Results & Data Results & Data ([facility]) Vital Signs (Past 12 Hours) Vital Signs Temp Pulse Pulse Pulse Resp BP Pulse Ox 12/19/20 16:58 98.6 F 76 18 160/71 H 94 09/05/20 12:56 98.2 F 74 18 196/70 H 96 09/05/20 08:00 74 09/05/20 07:55 98.6 F 72 70 18 132/75 94 PG Care Time/CCT Total # of Minutes Spent Total Time Spent with Patient: Total time spent is greater than 50% in coordination of care (as documented) at patient's floor/unit and/or counseling patient: Coding Level of Care Code 98269 Subseq Hosp Care Lvl 3 Diagnoses Spontaneous pneumothorax J93.83 Small bowel obstruction K56.609 Intractable nausea and vomiting R11.2 Hypoxia R09.02 ESTRELLA (acute kidney injury) N17.9 Urothelial carcinoma of distal ureter C66.9 Hypertension I10 Anxiety F41.9 Hyperlipidemia E78.5 DVT prophylaxis Z29.9 Discharge planning issues Z02.9
--- NOTE | 2020-09-05 19:22 | XRay Report ---
SINGLE VIEW CHEST CLINICAL HISTORY: Pneumothorax. Clamping of chest tube. FINDINGS: An AP, portable, upright chest radiograph is compared to studies performed earlier the same day 09/05/2020 and correlated with chest CT dated 09/01/2020. An enteric tube is unchanged in positi on. The cardiomediastinal silhouette is unremarkable. Atelectasis is seen at the right lung base with elevation of the right hemidiaphragm. Trace pleural effusions are noted. A right-sided chest tube is unchanged in position. There is a trace residual right apical pneumothorax. No left-sided pneumothor ax is seen. The skeletal structures are osteopenic. The bony thorax is grossly intact. IMPRESSION: 1. A right-sided chest tube is unchanged in position. Trace residual right apical pneumothorax is unc hanged from today's earlier examinations. 2. Small pleural effusions. Electronically signed by: Delio Alvarez M.D. 09/05/2020 7:21 PM
[2020-09-05] MEDS: CEFEPIME 2,000 MG in SYRINGE 0 ML IV SCH (20:37)
[2020-09-05] MEDS ORDERED: MELATONIN 3 MG TAB PO PRN (20:57)
[2020-09-06] MEDS: metroNIDAZOLE 500 MG/100 ML BAG IV SCH ×2 (05:42→13:04)
[2020-09-06] MEDS: HEPARIN SOD 5,000 UNIT/0.5 ML VIAL SQ SCH ×3 (05:42→22:01)
[2020-09-06] MEDS: ONDANSETRON INJ 2 MG/ML 2 ML VIAL IV PRN (06:19)
[2020-09-06 07:28] LABS: BUN Creatinine Ratio 19.5 (10-20); Creatinine Clr Calc Pharmacy 46.2 ml/min; Est GFR (African American) 70.8; Est GFR (Non-African American) 61.1; Potassium 3.9 mmol/L (3.5-5.1)
[2020-09-06] MEDS: NICOTINE 7 MG/24 HR TDSY TD SCH (08:09)
--- NOTE | 2020-09-06 08:09 | XRay Report ---
XR chest 1V portable HISTORY: 69 years-old Female pneumothorax follow-up study in a patient with right-sided pneumothorax COMPARISON: Chest radiograph 09/05/2020 TECHNIQUE: Portable AP view of the chest FINDINGS: Cardiomediastinal and hilar silhouettes are unchanged. An enteric tube is present terminating below t he diaphragm outside the [id number]. Calcified plaque the thoracic aortic arch. A right-sided ches t tube is again noted overlying the lateral right midlung. Trace right apical pneumothorax is unchang ed with pleural separation of approximately 2 mm. Unchanged mild right hemidiaphragmatic elevation wi th unchanged trace pleural effusions. No airspace consolidation typical for pneumonia. No overt pulmo nary edema. Bones appear grossly intact. IMPRESSION: 1. Unchanged positioning of the right-sided chest tube with persistent tiny right apical pneumothorax . 2. Trace pleural effusions. ACT 112: Negative or not required by law. The above report was generated using voice recognition software. It may contain grammatical, syntax o r spelling errors. Electronically signed by: Julián Vasquez M.D. 09/06/2020 8:08 AM
[2020-09-06] MEDS: FAMOTIDINE 20 MG in SYRINGE 3 ML IV SCH (08:10)
[2020-09-06] MEDS: NORMOSOL-R 1,000 ML IV SCH ×2 (10:10→19:55)
--- NOTE | 2020-09-06 11:05 | Surgery Progress Note ---
Date of Service September 06, 2020 Assessment & Plan (1) Small bowel obstruction: following recent right nephrectomy. No passage of contrast on xray yesterday but postoperative small bowel obstructions can sometimes take longer to resolve. Will continue ng tube decompression, no worsening signs indicating need for surgical intervention. Will check kub in the am. If this persists much longer, may need to consider IV nutrition. Will defer decision to primary service who returns tomorrow. Admission and Anticipated Discharge Date Admission Date: September 01, 2020 Subjective Unchanged. Had some nausea when she thinks the ng wasn't working - once she moved around, it suctioned out a large deal and nausea resolved. No bowel movement. No flatus. Thinks she hears more rumbling in her stomach. No other changes. Review of Systems Review of Systems: All systems reviewed & are unremarkable except as noted in HPI & below chest tube is clamped Physical Exam Constitutional: WD/WN, vitals as above Cardiovascular: Rate/Rhythm: regular rate and regular rhythm Gastrointestinal (Abdomen): Inspection/Auscultation: abdomen normal to inspection, + abdomen distended (mild) and + hypoactive bowel sounds Percussion/Palpation: + abdomen tender (mild) and abdomen soft; no guarding Results & Data ([facility]) Vital Signs (Past 12 Hours) Vital Signs Temp Pulse Pulse Resp BP Pulse Ox 09/06/20 08:00 67 09/06/20 07:18 36.6 C 64 17 148/67 H 96 09/06/20 03:24 36.7 C 71 17 152/66 H 95 09/05/20 23:48 37.1 C 75 16 176/74 H 95 Laboratory Results Abnormal lab results 09/06/20 Range/Units 06:23 Anion Gap 12.0 H (3-11) BUN 19 H (7-18) mg/dl
--- NOTE | 2020-09-06 12:55 | Urology Progress Note ---
Date of Service September 06, 2020 Assessment & Plan (1) Urothelial carcinoma of distal ureter: Post op from Nephro-uretectomy on right with mild pain and overall doing well without issues. 69 yo F POD#10 s/p Right Robotic Laparoscopic Assisted Nephroureterectomy, Extensive Lysis of Adhesions on 08/27/20. - Pt with urothelial carcinoma of the distal ureter. [place] removed yesterday. Has steristrips. Plan to conservatively treat SBO/Ileus per Gen Surg with bowel rest, NPO, NG tube, and await spontaneous return. Patient having only occ flatus and feels like today it has slightly decreased. Has not had BM. Severe adhesions and scarring of abd. patient has improved with ambulation and mobility and is walking the halls Pneumothorax treated with Chest Tube. Monitoring with Pulm Continue catheter. Will need cystogram beginning of next week. Monitor for changes or issues. Admission and Anticipated Discharge Date Admission Date: September 01, 2020 Subjective Only Postop from urologic surgery with development of ileus/small bowel obstruction with NG tube placement. Patient had severe nausea and vomiting which led to development of pneumothorax and has chest tube in place. Is tolerating catheters including NG tube, Yan, and chest tube. Patient has been trying to ambulate more. Is not experiencing any major pain. Is not having considerable bowel function with occasional flatus Review of Systems Review of Systems: All systems reviewed & are unremarkable except as noted in HPI & below Physical Exam Physical Exam: General: Alert in no acute distress. NG in place. HEENT: NG in place. Normocephalic Atraumatic. Inspection normal. Cranial Nerves 2-12 Grossly intact. Normal inspection of face. Normal inspection of neck. Psychologic: Normal affect. Respiratory: Nonlabored. No use of accessory muscles. No tachypnea or dyspnea. Chest tube in place. Cardiovascular: No tachycardia Skin: [place] and Dry. No rashes or visible lesions. Extremities/Lymphatics: No edema Abdomen: Appropriately tender. Moderately distended. No rebound or guarding. Wound: Clean, dry, jaci removed Results & Data ([facility]) Vital Signs (Past 12 Hours) Vital Signs Temp Pulse Pulse Resp BP Pulse Ox 09/06/20 12:00 36.5 C 82 18 143/59 H 96 09/06/20 08:00 67 09/06/20 07:18 36.6 C 64 17 148/67 H 96 09/06/20 03:24 36.7 C 71 17 152/66 H 95 PG Care Time/CCT Total # of Minutes Spent Total Time Spent with Patient: Total time spent is greater than 50% in coordination of care (as documented) at patient's floor/unit and/or counseling patient: Coding Level of Care Code 61549 Subseq Hosp Care Lvl 3 Diagnoses Urothelial carcinoma of distal ureter C66.9
--- NOTE | 2020-09-06 14:17 | Pulmonology Progress Note ---
Date of Service September 06, 2020 Assessment & Plan (1) Pneumothorax on right: Impression: 69-year-old female status post recent robotic/laparoscopic nephrectomy on the right now with right-sided pneumothorax in the setting of small bowel obstruction. She had a small bore 8 [place] catheter placed 09/02/2020. Recommendations: 1. Pneumothorax: Chest tube has been clamped since yesterday afternoon. Trace apical pneumothorax was seen. Chest tube was removed at bedside with no significant issues. Patient tolerated removal well. She did have some anxiety and received 0.5 mg of Ativan. Pulmonary will sign off at this time. Please call us with questions. Admission and Anticipated Discharge Date Admission Date: September 01, 2020 Subjective Patient is feeling anxious today about having her chest tube removed. She denies any chest pain. She does have some flank pain and tenderness. No fevers or chills. Chest tube has been clamped since yesterday. Review of Systems Review of Systems: All systems reviewed & are unremarkable except as noted in HPI & below Physical Exam Constitutional: WD/WN, vitals as above Neck: trachea midline, no thyromegaly Respiratory: normal respiratory effort, lungs clear to auscultation Cardiovascular: RRR, no murmur, no edema Chest (Breasts): Additional Comments: No air leak with breathing or coughing on the chest tube Gastrointestinal (Abdomen): Inspection/Auscultation: abdomen normal to inspection Musculoskeletal: Extremities: extremities normal to inspection Skin: no rashes, warm and dry Lymphatic: no cervical lymphadenopathy Results & Data Results & Data ([facility]) Vital Signs (Past 12 Hours) Vital Signs Temp Pulse Pulse Resp BP Pulse Ox 09/06/20 12:00 97.7 F 82 18 143/59 H 96 09/06/20 08:00 67 09/06/20 07:18 97.9 F 64 17 148/67 H 96 09/06/20 03:24 98.1 F 71 17 152/66 H 95 I reviewed the vital signs, labs and imaging PG Care Time/CCT Total # of Minutes Spent Total Time Spent with Patient: Total time spent is greater than 50% in coordination of care (as documented) at patient's floor/unit and/or counseling patient: Coding Level of Care Code 10394 Subseq Hosp Care Lvl 3 Diagnoses Pneumothorax on right J93.9
--- NOTE | 2020-09-06 16:17 | Hospitalist Progress Note ---
Date of Service September 06, 2020 Assessment & Plan (1) Spontaneous pneumothorax: * Patient initially found to be hypoxic with EMS arrival. * Chest x-ray concerning for RIGHT-sided pneumothorax. Chest CT confirms moderate pneumothorax * chest tube placed by pulmonary medicine on 09/02/2020. * improving. tube out, situation stable (2) Small bowel obstruction: * Patient initially with intense abdominal discomfort in the epigastrium with intense nausea and vomiting. * CT findings concerning for small bowel obstruction. Likely due to adhesions. * NG tube in place. continue current care, follow. hopefully will start to show some improvement (3) Intractable nausea and vomiting: * Secondary to SBO. * Improved with NG tube drainage and decompression continuing antiemetics as needed - continue to follow (4) Hypoxia: * resolved (5) ESTRELLA (acute kidney injury): * In the setting of profound dehydration with nausea, vomiting, and SBO. * improved - follow periodically (6) Urothelial carcinoma of distal ureter: * Per pathology findings status post nephrectomy and ureterectomy. (7) Hypertension: * Holding antihypertensives while n.p.o. BP reasonable for the situation (8) Anxiety: * Provide IV Ativan as needed. * May benefit as a secondary antinausea medication as well.phenergan added 09/04 (9) Hyperlipidemia: * Hold on home Rx while NPO. (10) DVT prophylaxis: scd (11) Discharge planning issues: stable for med/surg. anticipate home ultimately but still acute with a n umber of issues Admission and Anticipated Discharge Date Admission Date: September 01, 2020 Subjective chest tube removed and breathing still feels good. has walked halls twice now. still w no flatus/BM. hiccups and burps. no f/c/s. no trouble walking Review of Systems Review of Systems: All systems reviewed & are unremarkable except as noted in HPI & below Physical Exam Physical Exam: gen aaox3 pleasant nad heent ncat mmm breathing unlabored no accessory muscles good effort skin no rashes no pallor or icterus neuro no focal deficits Results & Data Results & Data ([facility]) Vital Signs (Past 12 Hours) Vital Signs Temp Pulse Pulse Resp BP Pulse Ox 09/06/20 15:51 98.6 F 67 17 169/77 H 94 09/06/20 12:00 97.7 F 82 18 143/59 H 96 09/06/20 08:00 67 09/06/20 07:18 97.9 F 64 17 148/67 H 96 PG Care Time/CCT Total # of Minutes Spent Total Time Spent with Patient: Total time spent is greater than 50% in coordination of care (as documented) at patient's floor/unit and/or counseling patient: Coding Level of Care Code 39415 Subseq Hosp Care Lvl 3 Diagnoses Spontaneous pneumothorax J93.83 Small bowel obstruction K56.609 Intractable nausea and vomiting R11.2 Hypoxia R09.02 ESTRELLA (acute kidney injury) N17.9 Urothelial carcinoma of distal ureter C66.9 Hypertension I10 Anxiety F41.9 Hyperlipidemia E78.5 DVT prophylaxis Z29.9 Discharge planning issues Z02.9
[2020-09-06] MEDS: LORazepam 0.5 MG/1 ML VIAL IV PRN (22:31)
[2020-09-07] MEDS: HEPARIN SOD 5,000 UNIT/0.5 ML VIAL SQ SCH ×3 (05:30→21:37)
[2020-09-07] MEDS: NORMOSOL-R 1,000 ML IV SCH (06:14)
[2020-09-07 06:57] LABS: Calcium 8.8 mg/dl (8.5-10.1); Creatinine Clr Calc Pharmacy 47.2 ml/min; Est GFR (African American) 72.7; Est GFR (Non-African American) 62.7; Potassium 4.1 mmol/L (3.5-5.1)
--- NOTE | 2020-09-07 08:11 | XRay Report ---
KUB CLINICAL HISTORY: Small bowel obstruction. FINDINGS: 2 AP, portable, supine abdominal radiographs are compared to study dated 09/05/2020. Skin c lips have been removed from previous. An enteric tube projects over the distal stomach. There is evid ence of persistent small bowel obstruction. Enteric contrast is seen again seen within the small [place] l loops. Small bowel loops measure up to 4.4 cm in diameter. The bony structures appear intact. IMPRESSION: Persistent small bowel obstruction, not significantly changed from previous. Electronically signed by: Delio Alvarez M.D. 09/07/2020 8:09 AM
[2020-09-07 08:23] LABS: Hematocrit (blood only) 32.2 % (37-47); Hemoglobin 10.8 g/dL (12.0-16.0); Mean Corpuscular Hemoglobin 30.7 pg (25-34); Mean Corpuscular Hgb Conc 33.5 g/dL (32-36); Mean Corpuscular Volume 91.5 fL (80-100); Platelet Count 470 K/uL (130-400); RDW Coefficient of Variation 13.9 % (11.5-14.5); RDW Standard Deviation 45.9 fL (36.4-46.3); Red Blood Count 3.52 M/uL (4.2-5.4)
[2020-09-07] MEDS: NICOTINE 7 MG/24 HR TDSY TD SCH (08:28)
[2020-09-07] MEDS: FAMOTIDINE 20 MG in SYRINGE 3 ML IV SCH (08:32)
[2020-09-07] MEDS ORDERED: TPN/PPN CONSULT PHARMACY SCH (08:51)
--- NOTE | 2020-09-07 08:52 | Surgery Progress Note ---
Date of Service September 07, 2020 Assessment & Plan (1) Small bowel obstruction: NG output slowly decreasing but contrast remains in small bowel limited progress over past 6 days since readmission, POD 11 nephrectomy recommend starting TPN, may need exploration later this week if not resolving as above. had long discussion with patient and her . options would be ex-lap vs continue conservative management for a few more days. surgery may be difficult with her history and timing of recent surgery (approx 2 weeks) meaning her abdomen could be quite hostile right now. we have decided to keep NGT/place PICC and start TPN... if no bowel fx/progression of contrast by , we will plan exploratory laparotomy with surgery as needed. Admission and Anticipated Discharge Date Admission Date: September 01, 2020 Subjective feels better but no flatus or BM Physical Exam Gastrointestinal (Abdomen): Inspection/Auscultation: + abdomen distended (mild) Percussion/Palpation: abdomen soft NGT 230 overnight Results & Data ([facility]) Vital Signs (Past 12 Hours) Vital Signs Temp Pulse Resp BP Pulse Ox 09/06/20 23:14 36.9 C 70 19 169/72 H 96 PG Care Time/CCT Total # of Minutes Spent Total Time Spent with Patient: Total time spent is greater than 50% in coordination of care (as documented) at patient's floor/unit and/or counseling patient: Coding Level of Care Code 87689 Inpt Consult Level 3 Diagnoses Small bowel obstruction K56.609
--- NOTE | 2020-09-07 09:07 | Urology Progress Note ---
Date of Service September 07, 2020 Assessment & Plan (1) Urothelial carcinoma of distal ureter: 69 year-old female patient POD#11 s/p Right Robotic Laparoscopic Assisted Nephroureterectomy, Extensive Lysis of Adhesions on 08/27/20. -Plan of care reviewed with Dr. Bonds. -Patient afebrile. -Labs reviewed, creatinine stable. -Chest tube removed yesterday, oxygen saturation stable. -Appreciate general surgery input, continue NG and care per general surgery. -PICC line and TPN consult in place. -Maintain mcgrath catheter for now, plan for CT cystogram today. -Continue NPO, pain control, ambulation, and supportive care. -Will continue to monitor closely, please call with any acute changes in patient condition. ATTENDING NOTE: Agree with findings. Independently assessed and evaluated and agree with findings as above. Patient underwent CT today. Patient appears to have good closure without signs of leakage or other issues from bladder. At this point however will maintain catheter until possibly tomorrow and remove in the morning for a removal. Patient appears to have small amount of contrast getting past point of small bowel obstruction. Imaging was able to see transition point. Patient is having minor distention. Has not had flatus today. Is having some belching. Is tolerating NG tube. General surgery team is assessing. They are continue with conservative measures of management. We will continue to monitor. Admission and Anticipated Discharge Date Admission Date: September 01, 2020 Subjective Patient feeling better overall this morning. No reported complications overnight. Chest tube was removed yesterday by pulmonary, no shortness of breath or chest pain since. Oxygen saturation stable on room air. Reports mild tenderness to abdomen area. Has not had BM. She has not passed flatus recently. Reports intermittent nausea, denies vomiting. NG tube present, output slowly decreasing - contrast remains in small bowel. Denies fevers or chills. Has been out of bed ambulating without dizziness/lightheadedness. Chart review: Afebrile Wbc 15.40 Hgb 10.8 Creatinine 0.93 General surgery input - "Recommend starting TPN, may need exploration later this week if not resolving" Denies additional urologic concerns today. Review of Systems Constitutional: as per Subjective / HPI; no fever and no chills Cardiovascular: no chest pain Gastrointestinal: as per Subjective / HPI and + nausea; no vomiting Genitourinary: as per Subjective / HPI Neurologic: as per Subjective / HPI Physical Exam Constitutional: well developed and well nourished; no acute distress and not ill appearing Respiratory: normal respiratory effort and able to speak in complete sentences; no respiratory distress and no audible wheezes Cardiovascular: Extremities: no edema Gastrointestinal (Abdomen): Inspection/Auscultation: abdomen normal to inspection and + abdomen distended (Mildly distended) Percussion/Palpation: + abdomen tender (Mildly tender, diffuse) and abdomen soft; no guarding Incisions to abdomen well approximated, intact. No drainage, erythema, or warmth present. Psychiatric: Orientation: alert, oriented x 3 and cooperative Affect: euthymic affect Genitourinary: no CVA tenderness Mcgrath catheter intact, draining clear yellow urine. Results & Data ([facility]) Vital Signs (Past 12 Hours) Vital Signs Temp Pulse Resp BP Pulse Ox 09/06/20 23:14 36.9 C 70 19 169/72 H 96 PG Care Time/CCT Total # of Minutes Spent Total Time Spent with Patient: Total time spent is greater than 50% in coordination of care (as documented) at patient's floor/unit and/or counseling patient: Coding Level of Care Code 90212 Subseq Hosp Care Lvl 3 Diagnoses Urothelial carcinoma of distal ureter C66.9
[2020-09-07] MEDS ORDERED: TPN/PPN CONSULT PHARMACY STA (09:54)
[2020-09-07] MEDS ORDERED: IOTHALAMATE MEGLUMINE II 17.2% 250 ML VIAL INSTIL ONE (10:47)
--- NOTE | 2020-09-07 11:50 | CT Scan Report ---
CT CYSTOGRAM THE ABDOMEN AND PELVIS CLINICAL HISTORY: CYSTOGRAM please, evaluate for urine leak. COMPARISON STUDY: CT of the abdomen and pelvis September 01, 2020. TECHNIQUE: A CT cystogram was performed. As such, 200 cc of Cysto-Conray was instilled through the indwelling Yan catheter. Axial images of the abdomen and pelvis were obtained after filling. In addition, post evacuation CT was performed Automated exposure control was utilized for the study. A dose lowering technique was utilized adhering to the principles of ALARA. CT DOSE: 982.94 mGycm FINDINGS: Visualized portions of the lower chest demonstrate a trace right pleural effusion. Tip of nasogastric tube is within the distal body of the stomach. No pneumatosis, free air or portal venous gas is present. Pneumoperitoneum shown on CT of September 01, 2020 has resolved. A small amount of gas within the anterior abdominal wall has diminished. This is postsurgical. Evaluation of the abdomen and pelvis is suboptimal on this unenhanced examination. There is a small amount of ascites. Unenhanced images of liver, spleen, adrenal glands, left kidney and pancreas are unremarkable. A small amount of ascites within the right nephrectomy bed is noted. There are postoperative findings from right nephroureterectomy. The proximal to mid small bowel is moderately dilated and contains oral contrast. Transition point within the right mid abdomen, within the distal ileum, shown on axial image 235 of 436. A small amount of contrast does pass beyond the site. Distal small bowel is decompressed. There is wall thickening of the cecum and ascending colon which is accentuated by underdistention. There is slight swirling of the mesentery at the site of obstruction. Similar findings were shown on prior CT. There is adequate opacification of the bladder which contains a Yan balloon and gas. There is no extraluminal contrast to suggest bladder leak. Slight intraluminal irregularity of the bladder at insertion site for the right ureter is noted. Colonic diverticulosis is noted without evidence for acute diverticulitis. Infiltration of the anterior abdominal wall is postsurgical. IMPRESSION: 1. No contrast extravasation to indicate bladder leak status post right nephroureterectomy. Slight intraluminal irregularity of the bladder at the right ureterovesical junction is likely postsurgical. 2. Findings consistent with a persistent small bowel obstruction with transition point within the right mid abdomen, as shown on CT of September 01, 2020. Small amount of oral contrast does extend into the distal small bowel however the distal small bowel is decompressed. Swirling appearance of the bowel and mesentery at this site raises the possibility of an internal hernia as the etiology for the small bowel obstruction. 3. Wall thickening of the cecum and ascending colon which may be due to underdistention or represent a nonspecific colitis. 4. Trace right pleural effusion. ACT 112: Negative or not required by law. Electronically signed by: Chicho Porter M.D. 09/07/2020 11:48 AM [facility]
[2020-09-07] MEDS: LORazepam 0.5 MG/1 ML VIAL IV PRN (12:59)
--- NOTE | 2020-09-07 12:59 | Pharmacy Report ---
Pharmacy PN Initial Consult - Date of Service September 07, 2020 - Scope Pharmacy has been consulted to manage parenteral nutrition orders and order appropriate labs. As part of the Nutrition Support Team guidelines, pharmacy will work in conjunction with dietary when determining the patients caloric needs. - Subjective The patient is a 69 year old F admitted on 09/01/20 18:43 for spontaneous right sided pneumothorax, SBO in the setting of recent nephrectomy performed on 08/27/20. Patient is to receive parenteral nutrition for ongoing SBO, NPO x 6 days. Pertinent PMH: * ureteral cancer * nephrectomy * CKD * hyperlipidemia * thyroid nodule * hypertension * osteoarthritis * anxiety - Objective Height: 5 ft 3 in Weight: 62 kg Diet: NPO Vascular Access:: peripheral only at this time (L antecubital and L posterior forearm) Intake & Output (Last 24Hrs): Intake & Output 09/05/20 09/06/20 09/07/20 09/08/20 06:59 06:59 06:59 06:59 Intake Total 3247.167 / 3247.167 2156.666 / 2156.666 3075 / 3075 200 / 200 Output Total 1730 / 1730 1490 / 1490 2980 / 2980 Balance 1517.167 / 1517.167 666.666 / 666.666 95 / 95 200 / 200 Weight 63 kg 62 kg Additional Fluid Losses/Gains:: NGT output: 780mL last 24 hrs Maint IVF: Normosol R @ 100cc/hr Laboratory Data (Last 24 Hrs):: 09/07/20 05:49 Sodium 135 L Potassium 4.1 Chloride 100 Carbon Dioxide 24 BUN 17 Creatinine 0.93 Glucose 73 Calcium 8.8 Recent Pertinent Medications:: Famotidine IV daily (renally dosed) Ondansetron IV Promethazine IV Morphine IV Normosol maint IVF Nutrition Assessment:: Please refer to the Notes section of the EMR for the 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 - Assessment Patient to receive parenteral nutrition today due to prolonged NPO status (x 6 days) in the setting of SBO which has failed to improve. Nephrectomy was performed 11 days ago. Surgical intervention for ongoing SBO may be entertained later this week if no improvement. Patient does have h/o CKD and review of chart shows eCrCls 25-45cc/min. She appears to be at her baseline. UOP remains >0.5mL/kg/hr. No documented h/o heart failure or DM. Per provider documentation: lungs clear, no edema. She is sat well on room air. She is ~3L positive per I/O's. NG suction continues with ~780mL output last 24 hrs. E-lytes reviewed. No noted abnormalities on today's labs. No phos or mag available. Both have been ordered STAT. Will contact provider for repletion if needed. Patient does not yet have central IV access. PICC line has been ordered. Will proceed with compounding PPN at this time given time of day for ordering and compounding of TPN. She may be at moderate risk for refeeding given surgery 2 wks ago and NPO x 6 days this admission. Uncertain of nutritional intake in last 2 weeks. Will initiate macros at a little less than 50% goal. K, Phos, and Mg added today's bag in amounts typical of day 1. Today's bag will provide ~12.5kcal/kg current body weight. - Plan For day 1 of PN administration, the following will be ordered: Macronutrients Amino acids 50 grams/day Dextrose 100 grams/day Lipids 25 grams/day Micronutrients Combined electrolytes 40 mL - contains 35 mEq Na, 20 meq K, 4.5 mEq Ca, 5 mEq Mg, 35 mEq Cl, 29.5 mEq acetate per 20 mL Sodium phosphate 0 MMol Sodium chloride 100 mEq Sodium acetate 0 mEq Potassium phosphate 18 mMol Potassium chloride 0 mEq Potassium acetate 30 mEq Magnesium sulfate 0 mEq Calcium gluconate 0 mEq Multivitamins 10 mL Trace Elements 1 mL Additional additives: none Total volume 2400 mL to be infused over 24 hrs will provide 790 kcal/day Final osmolarity ~636 mOsm/L (maximum for PPN is 900 mOsm/L) Labs to be ordered per PN order protocol Pharmacy will follow and adjust parenteral nutrition orders on a daily basis. Thank you.
[2020-09-07 13:02] LABS: Magnesium 2.1 mg/dl (1.8-2.4); Phosphorus 2.4 mg/dl (2.5-4.9)
--- NOTE | 2020-09-07 13:38 | Hospitalist Progress Note ---
Date of Service September 07, 2020 Assessment & Plan (1) Small bowel obstruction: * ongoing SBO without improvement despite days of supportive care * agree w surgery that intervention is becomming more and more likely --> currently no exam findings indicating need for urgent intervention, wilber moya * agree w acute malnutrition - need for TPN - consented/PICC and TPN ordered * serial exams, for now OK for surgery on more delayed basis allowing for more time for possible resolution - but with current CT and lack of progress, appearing more and more likely that intervention will be needed (2) Spontaneous pneumothorax: * Patient initially found to be hypoxic with EMS arrival. * Chest x-ray concerning for RIGHT-sided pneumothorax. Chest CT confirms moderate pneumothorax * chest tube placed by pulmonary medicine on 09/02/2020. * improved. tube out, situation stable (3) Intractable nausea and vomiting: * Secondary to SBO. * Improved with NG tube drainage and decompression continuing antiemetics as needed - but still w active SBO (4) Hypoxia: * resolved when pneumothorax resolved (5) ESTRELLA (acute kidney injury): * In the setting of profound dehydration with nausea, vomiting, and SBO. * improved - follow periodic BMP (6) Urothelial carcinoma of distal ureter: * Per pathology findings status post nephrectomy and ureterectomy. (7) Hypertension: * Holding antihypertensives while n.p.o. BP acceptable given the situation (8) Anxiety: * Provide IV Ativan as needed. * May benefit as a secondary antinausea medication as well.phenergan added 09/04 (9) Hyperlipidemia: * Hold on home Rx while NPO. (10) DVT prophylaxis: scds (11) Discharge planning issues: stable for med/surg. anticipate home ultimately but still acute with a number of issues, now appearing more likely that she'll need OR for SBO Admission and Anticipated Discharge Date Admission Date: September 01, 2020 Subjective breathing ok stomach about the same. feeling more anxious today. reviewed CT with her. case d/w surgery - agree need for TPN. discussed risks/benefits and PICC placement w pt - she agrees. no other acute problems no other acute complaints Review of Systems Review of Systems: All systems reviewed & are unremarkable except as noted in HPI & below Physical Exam Physical Exam: gen aaox3 pleasantly anxious nad heent nc at mmm ngt in place ongoing brown drainage no s/s local breakdown. breathing unlabored no accessory muscles good effort no conversational dyspnea. abd soft mild distention moderate tenderness but no guarding no rebound. ext no cyanosis, clubbing. neuro no focal deficits. PG Care Time/CCT Total # of Minutes Spent Total Time Spent with Patient: Total time spent is greater than 50% in coordination of care (as documented) at patient's floor/unit and/or counseling patient: Coding Level of Care Code 15034 Subseq Hosp Care Lvl 3 Diagnoses Small bowel obstruction K56.609 Spontaneous pneumothorax J93.83 Intractable nausea and vomiting R11.2 Hypoxia R09.02 ESTRELLA (acute kidney injury) N17.9 Urothelial carcinoma of distal ureter C66.9 Hypertension I10 Anxiety F41.9 Hyperlipidemia E78.5 DVT prophylaxis Z29.9 Discharge planning issues Z02.9
[2020-09-07] MEDS ORDERED: Custom Peripheral Pn 2,400 ML in TPN BAG 0 ML IV SCH (16:00)
[2020-09-07] MEDS ORDERED: [UNRECOGNIZED DRUG - REMARK] ONE (16:00)
[2020-09-07] MEDS ORDERED: SODIUM PHOSPHATE 21 MMOL in SODIUM CHLORIDE 0.9% 500 ML IV ONE (16:15)
[2020-09-07] MEDS: MoRPHine SULFATE 2 MG/ML CARP IV PRN (17:09)
[2020-09-08] MEDS: HEPARIN SOD 5,000 UNIT/0.5 ML VIAL SQ SCH ×3 (06:02→21:39)
[2020-09-08] MEDS: NICOTINE 7 MG/24 HR TDSY TD SCH (08:15)
[2020-09-08] MEDS: FAMOTIDINE 20 MG in SYRINGE 3 ML IV SCH (08:17)
--- NOTE | 2020-09-08 08:34 | Surgery Progress Note ---
Date of Service September 08, 2020 Assessment & Plan (1) Small bowel obstruction: clinically doing ok TPN started small amount of contrast got past point of obstruction seen on CT yesterday....will continue conservative management with plans for ex-lap if no bowel fx. Admission and Anticipated Discharge Date Admission Date: September 01, 2020 Subjective pt seen. no new complaints. felt some lower abdominal cramping yesterday but no Bowel fx. overall feeling well. Physical Exam Physical Exam: alert. nad abd: soft. nt. nd. wounds look good. Results & Data ([facility]) Vital Signs (Past 12 Hours) Vital Signs Temp Pulse Resp BP Pulse Ox 09/08/20 07:46 36.6 C 65 16 147/73 H 96 09/07/20 23:36 36.5 C 67 15 172/73 H 96 PG Care Time/CCT Total # of Minutes Spent Total Time Spent with Patient: Total time spent is greater than 50% in coordination of care (as documented) at patient's floor/unit and/or counseling patient: Coding Level of Care Code 05150 Subseq Hosp Care Lvl 2 Diagnoses Small bowel obstruction K56.609
[2020-09-08 08:44] LABS: BUN Creatinine Ratio 17.5 (10-20); Creatinine Clr Calc Pharmacy 52.3 ml/min; Est GFR (African American) 82.2; Est GFR (Non-African American) 70.9; Magnesium 2.2 mg/dl (1.8-2.4); Potassium 4.1 mmol/L (3.5-5.1)
--- NOTE | 2020-09-08 09:25 | Urology Progress Note ---
Date of Service September 08, 2020 Assessment & Plan (1) Urothelial carcinoma of distal ureter: 69 year-old female patient POD#12 s/p Right Robotic Laparoscopic Assisted Nephroureterectomy, Extensive Lysis of Adhesions on 08/27/20. -Plan of care reviewed with Dr. Bonds. -Patient afebrile. -Labs reviewed, creatinine stable. -Oxygen saturations remains stable on room air. -Appreciate general surgery input, continue NG and care per general surgery. -PICC line with TPN infusing. -CT reviewed, appears to have good closure without signs of urine leakage. -Will discontinue mcgrath catheter today. Monitor for retention, PRN bladder scan order in place. -Continue NPO, pain control, ambulation, and supportive care. -Will continue to monitor closely, please call with any acute changes in patient condition. -Tentative plan for exploratory laparotomy with general surgery on if no improvement in bowel function. Admission and Anticipated Discharge Date Admission Date: September 01, 2020 Subjective Patient feeling good this morning, no new complaints. No reported issues overnight. No shortness of breath or chest pain since chest tube removal. Oxygen saturation stable on room air. Mild tenderness to abdominal area, has not required PRN pain medication. Has not had BM. No flatus. NG tube remains intact with decreased output overnight. Denies nausea or vomiting. Denies fevers or chills. Has been out of bed ambulating without dizziness/lightheadedness. PICC line inserted yesterday, TPN started. Chart review: Afebrile Wbc 09/07 15.40 Hgb 09/07 10.[address] cystogram impression: 1. No contrast extravasation to indicate bladder leak status post right nephroureterectomy. Slight intraluminal irregularity of the bladder at the right ureterovesical junction is likely postsurgical. 2. Findings consistent with a persistent small bowel obstruction with transition point within the right mid abdomen, as shown on CT of September 01, 2020. Small amount of oral contrast does extend into the distal small bowel however the distal small bowel is decompressed. Swirling appearance of the bowel and mesentery at this site raises the possibility of an internal hernia as the etiology for the small bowel obstruction. 3. Wall thickening of the cecum and ascending colon which may be due to underdistention or represent a nonspecific colitis. 4. Trace right pleural effusion. Denies additional urologic concerns today. Review of Systems Constitutional: as per Subjective / HPI; no fever and no chills Respiratory: as per Subjective / HPI Gastrointestinal: as per Subjective / HPI; no nausea and no vomiting Genitourinary: as per Subjective / HPI Neurologic: as per Subjective / HPI Physical Exam Constitutional: well developed and well nourished; no acute distress and not ill appearing Respiratory: normal respiratory effort and able to speak in complete sentences; no respiratory distress and no audible wheezes Cardiovascular: Extremities: no edema Gastrointestinal (Abdomen): Inspection/Auscultation: abdomen normal to inspection and + abdomen distended (Improved abdominal distension. ) Percussion/Palpation: abdomen soft; abdomen nontender and no guarding Incisions healing, dry and intact without drainage, erythema, or warmth. Psychiatric: Orientation: alert, oriented x 3 and cooperative Affect: euthymic affect Genitourinary: no CVA tenderness Mcgrath catheter intact draining clear yellow urine. Results & Data ([facility]) Vital Signs (Past 12 Hours) Vital Signs Temp Pulse Resp BP Pulse Ox 09/08/20 07:46 36.6 C 65 16 147/73 H 96 09/07/20 23:36 36.5 C 67 15 172/73 H 96 PG Care Time/CCT Total # of Minutes Spent Total Time Spent with Patient: Total time spent is greater than 50% in coordination of care (as documented) at patient's floor/unit and/or counseling patient: Coding Level of Care Code 51116 Subseq Hosp Care Lvl 3 Diagnoses Urothelial carcinoma of distal ureter C66.9
[2020-09-08 09:43] LABS: Phosphorus 3.1 mg/dl (2.5-4.9)
[2020-09-08] MEDS: MoRPHine SULFATE 2 MG/ML CARP IV PRN ×3 (11:06→23:08)
[2020-09-08] MEDS ORDERED: TPN IV SCH (16:00)
[2020-09-08] MEDS ORDERED: CENTRAL PN IV SCH (16:00)
--- NOTE | 2020-09-08 18:55 | Hospitalist Progress Note ---
Date of Service September 08, 2020 Assessment & Plan (1) Small bowel obstruction: * ongoing SBO no dramatic improvement but ??maybe sl better today * agree w surgery that intervention is becoming more and more likely --> currently no exam findings indicating need for urgent intervention, mayuri king and plan is still to give another ~1-2 days for resolution unless any dramatic worsening * tolerating TPM * serial exams, for now OK for surgery on more delayed basis allowing for more time for possible resolution (2) Spontaneous pneumothorax: * Patient initially found to be hypoxic with EMS arrival. * Chest x-ray concerning for RIGHT-sided pneumothorax. Chest CT confirms moderate pneumothorax * chest tube placed by pulmonary medicine on 09/02/2020. * improved. tube out, situation stable/essentially resolved (3) Intractable nausea and vomiting: * Secondary to SBO. * Improved with NG tube drainage and decompression continuing antiemetics as needed - but still w active SBO (4) Hypoxia: * resolved when pneumothorax resolved (5) ESTRELLA (acute kidney injury): * In the setting of profound dehydration with nausea, vomiting, and SBO. * improved - follow periodic BMP (6) Urothelial carcinoma of distal ureter: * Per pathology findings status post nephrectomy and ureterectomy. (7) Hypertension: * Holding antihypertensives while n.p.o. BP acceptable given the situation (8) Anxiety: * Provide IV Ativan as needed. * May benefit as a secondary antinausea medication as well.phenergan added 09/04 (9) Hyperlipidemia: * Hold on home Rx while NPO. (10) DVT prophylaxis: scds (11) Discharge planning issues: stable for med/surg. anticipate home ultimately but still acute with a number of issues, now appearing more likely that she'll need OR for SBO Admission and Anticipated Discharge Date Admission Date: September 01, 2020 Subjective breathing is good. belly feels about the same, maybe a little more rumbles and a little less bloated. is walking - and does not note worse nausea/pain when walking (NG off suction then) no other new complaitns. feels less spacey now that TPN started Review of Systems Review of Systems: All systems reviewed & are unremarkable except as noted in HPI & below Physical Exam Physical Exam: gen aaox3 pleasant nad. heent nc at mmm ngt without breakdown, draining brown liquid. abd soft mild mod tenderness no guarding no rebound. breathing unlabored no accessory muscles good effort skin no rashes no pallor or icterus neuro no focal deficits. Results & Data Results & Data ([facility]) Vital Signs (Past 12 Hours) Vital Signs Temp Pulse Resp BP Pulse Ox 09/08/20 16:17 98.2 F 68 16 169/73 H 98 09/08/20 07:46 97.9 F 65 16 147/73 H 96 PG Care Time/CCT Total # of Minutes Spent Total Time Spent with Patient: Total time spent is greater than 50% in coordination of care (as documented) at patient's floor/unit and/or counseling patient: Coding Level of Care Code 73645 Subseq Hosp Care Lvl 3 Diagnoses Small bowel obstruction K56.609 Spontaneous pneumothorax J93.83 Intractable nausea and vomiting R11.2 Hypoxia R09.02 ESTRELLA (acute kidney injury) N17.9 Urothelial carcinoma of distal ureter C66.9 Hypertension I10 Anxiety F41.9 Hyperlipidemia E78.5 DVT prophylaxis Z29.9 Discharge planning issues Z02.9
[2020-09-09] MEDS: LORazepam 0.5 MG/1 ML VIAL IV PRN ×2 (01:08→22:08)
[2020-09-09] MEDS: HEPARIN SOD 5,000 UNIT/0.5 ML VIAL SQ SCH ×3 (05:29→21:36)
[2020-09-09 06:15] LABS: Hematocrit (blood only) 30.4 % (37-47); Hemoglobin 10.1 g/dL (12.0-16.0); Mean Corpuscular Hemoglobin 30.1 pg (25-34); Mean Corpuscular Hgb Conc 33.2 g/dL (32-36); Mean Corpuscular Volume 90.5 fL (80-100); Mean Platelet Volume 9.7 fL (7.4-10.4); Platelet Count 381 K/uL (130-400); RDW Coefficient of Variation 13.9 % (11.5-14.5); RDW Standard Deviation 45.9 fL (36.4-46.3); Red Blood Count 3.36 M/uL (4.2-5.4); White Blood Count 12.58 K/uL (4.8-10.8)
[2020-09-09 06:41] LABS: BUN Creatinine Ratio 20.4 (10-20); Calcium 8.8 mg/dl (8.5-10.1); Creatinine Clr Calc Pharmacy 46.7 ml/min; Est GFR (African American) 71.7; Est GFR (Non-African American) 61.9; Magnesium 2.3 mg/dl (1.8-2.4); Potassium 4.5 mmol/L (3.5-5.1)
[2020-09-09 06:44] LABS: Phosphorus 4.1 mg/dl (2.5-4.9)
--- NOTE | 2020-09-09 08:05 | Surgery Progress Note ---
Date of Service September 09, 2020 Assessment & Plan (1) Small bowel obstruction: Patient with ongoing evidence of SBO, she did pass some flatus this AM, no BM yet NGT output 400cc documented over last 12 hours TPN via PICC for nutrition Will continue conservative management for today. We have ordered a KUB for tomorrow morning for further evaluation. Patient is tentatively scheduled for the OR tomorrow for exploratory laparotomy should she continue to not make much progress and pending tomorrows KUB results. Repeat Covid testing to be ordered as above. planning ex-lap with release of sbo/surgery as needed tomorrow. discussed added risks of back to back surgery with regards to injur y/infection/blood clots etc... also discussed because of known adhesions since her fertility surgery and her recent urologic surgery, the procedure may be technically difficult. discussed reasonable post op expections. pt at high risk for ileus. All her questions answered. will check KUB in AM but suspect will need OR tomorrw. Admission and Anticipated Discharge Date Admission Date: September 01, 2020 Subjective Patient states she is feeling about the same. She did pass some flatus this AM, no BM yet. She is ambulating frequently. Had some mild nausea yesterday, but not much today. Her throat is sore due to NGT. Physical Exam Physical Exam: awake/alert, sitting up in chair Respiratory: normal respiratory effort Gastrointestinal (Abdomen): Inspection/Auscultation: + abdomen distended (mild) and + abdominal surgical incision (c/d/i without signs of infection) Percussion/Palpation: + abdomen tender (mild ttp luis-incisionally) and abdomen soft Results & Data ([facility]) Vital Signs (Past 12 Hours) Vital Signs Temp Pulse Resp BP Pulse Ox 09/09/20 07:29 36.6 C 69 16 115/67 99 09/08/20 23:38 36.7 C 66 14 125/68 97 PG Care Time/CCT Total # of Minutes Spent Total Time Spent with Patient: Total time spent is greater than 50% in coordination of care (as documented) at patient's floor/unit and/or counseling patient: Coding Level of Care Code 91340 Subseq Hosp Care Lvl 1 Diagnoses Small bowel obstruction K56.609
--- NOTE | 2020-09-09 08:31 | Urology Progress Note ---
Date of Service September 09, 2020 Assessment & Plan (1) Urothelial carcinoma of distal ureter: 69 year-old female patient POD#13 s/p Right Robotic Laparoscopic Assisted Nephroureterectomy, Extensive Lysis of Adhesions on 08/27/20. -Plan of care reviewed with Dr. Bonds. -Patient remains afebrile. -Labs reviewed - white count improving, creatinine stable. -Appreciate general surgery input, continue NG and care per general surgery. -PICC line with TPN infusing. -Yan discontinued yesterday, voiding without difficulties. -Continue NPO, pain control, ambulation, and supportive care. -Will continue to monitor closely, please call with any acute changes in patient condition. -Plan for exploratory laparotomy with general surgery tomorrow if no improvement in bowel function. Admission and Anticipated Discharge Date Admission Date: September 01, 2020 Subjective Patient feeling average this morning. No complaints overnight. Oxygen saturations remain stable on room air, no shortness of breath or chest pain. Mild tenderness to abdominal area. Did take PRN dose of Morphine last night however mostly due to sore throat. NG tube remains intact with decreased output overnight. No bowel movement but states she did pass flatus. Denies nausea or vomiting. Denies fevers or chills. Has been out of bed ambulating without dizziness/lightheadedness. PICC line intact with TPN infusing. Chart review: Afebrile Wbc 12.58 (previously 15.40) Hgb 10.[address] cystogram impression: 1. No contrast extravasation to indicate bladder leak status post right nephroureterectomy. Slight intraluminal irregularity of the bladder at the right ureterovesical junction is likely postsurgical. 2. Findings consistent with a persistent small bowel obstruction with transition point within the right mid abdomen, as shown on CT of September 01, 2020. Small amount of oral contrast does extend into the distal small bowel however the distal small bowel is decompressed. Swirling appearance of the bowel and mesentery at this site raises the possibility of an internal hernia as the etiology for the small bowel obstruction. 3. Wall thickening of the cecum and ascending colon which may be due to underdistention or represent a nonspecific colitis. 4. Trace right pleural effusion. Denies additional urologic concerns today. Review of Systems Constitutional: as per Subjective / HPI; no fever and no chills Respiratory: as per Subjective / HPI Gastrointestinal: as per Subjective / HPI; no nausea and no vomiting Genitourinary: as per Subjective / HPI Neurologic: as per Subjective / HPI Physical Exam Constitutional: well developed and well nourished; no acute distress and not ill appearing Respiratory: normal respiratory effort and able to speak in complete sentences; no respiratory distress and no audible wheezes Cardiovascular: Extremities: no edema Gastrointestinal (Abdomen): Inspection/Auscultation: abdomen normal to inspection and + abdomen distended (Mildly distended) Percussion/Palpation: + abdomen tender (Mild tenderness to palpation) and abdomen soft; no guarding Surgican incisions healing, well approximated, dry and intact. No erythema, warmth, or drainage. Psychiatric: Orientation: alert, oriented x 3 and cooperative Affect: euthymic affect Genitourinary: no CVA tenderness Results & Data ([facility]) Vital Signs (Past 12 Hours) Vital Signs Temp Pulse Resp BP Pulse Ox 09/09/20 07:29 36.6 C 69 16 115/67 99 09/08/20 23:38 36.7 C 66 14 125/68 97 PG Care Time/CCT Total # of Minutes Spent Total Time Spent with Patient: Total time spent is greater than 50% in coordination of care (as documented) at patient's floor/unit and/or counseling patient: Coding Level of Care Code 50683 Subseq Hosp Care Lvl 2 Diagnoses Urothelial carcinoma of distal ureter C66.9
[2020-09-09] MEDS: FAMOTIDINE 20 MG in SYRINGE 3 ML IV SCH (08:37)
[2020-09-09] MEDS: NICOTINE 7 MG/24 HR TDSY TD SCH (08:38)
--- NOTE | 2020-09-09 09:53 | Hospitalist Progress Note ---
Date of Service September 09, 2020 Assessment & Plan Admission and Anticipated Discharge Date Admission Date: September 01, 2020 69 yo F here for small bowel obstruction that developed after urologic surgery. Small bowel obstruction: ongoing SBO no dramatic improvement but ??maybe sl better today agree w surgery that intervention is becoming more and more likely --> currently no exam findings indicating need for urgent intervention, fortunately and plan is still to give another ~1-2 days for resolution unless any dramatic worsening tolerating TPN serial exams, for now OK for surgery on more delayed basis allowing for more time for possible resolution Spontaneous pneumothorax: Patient initially found to be hypoxic with EMS arrival. Chest x-ray concerning for RIGHT-sided pneumothorax. Chest CT confirms moderate pneumothorax chest tube placed by pulmonary medicine on 09/02/2020. improved. tube out, situation stable/essentially resolved Intractable nausea and vomiting: Secondary to SBO. Improved with NG tube drainage and decompression continuing antiemetics as needed - but still w active SBO Hypoxia: resolved when pneumothorax resolved ESTRELLA (acute kidney injury): In the setting of profound dehydration with nausea, vomiting, and SBO. 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 Hypertension: Holding antihypertensives while n.p.o. BP acceptable given the situation Anxiety: Provide IV Ativan as needed. May benefit as a secondary antinausea medication as well.phenergan added 09/04 Hyperlipidemia: Hold on home Rx while NPO. DVT prophylaxis: scds Discharge planning issues: stable for med/surg. anticipate home ultimately but still acute with a number of issues, now appearing more likely that she'll need OR for SBO Supervising Physician Co-Signing Physician Notes I personally examined the patient and verified all bocanegra points of history and exam, discussed case, and agree with decision making with Dr Rodolfo winkler maybe a little better but not a big change. walking in halls no problem vitals noted nad heent nc at mmm breathing unlabored no accessory muscles good effort skin no rashes no pallor or icterus. NGT without local breakdown SBO - NGT, likely to need surgery. continue supportive care otherwise as above Subjective Sherice Hanna is doing okay this morning. She was not in any pain but mentioned that her abdomen was tender to palpation and sore when she gets up. Her LBM was on the 9th but she has been having intermittent gas. She overall feels about the same as days prior. Review of Systems Review of Systems: constitutional: denies fever, chills Cardiac: denies chest pain, palpitations, edema GI: denies nausea vomiting Pulm: Denies cough, shortness of breath Physical Exam Constitutional: WD/WN, vitals as above Eyes: PERRL, conjunctivae normal, anicteric sclerae ENMT: NG tube in place Neck: normal visual inspection Respiratory: normal respiratory effort, lungs clear to auscultation Cardiovascular: RRR, no murmur, no edema Gastrointestinal (Abdomen): abdomen soft, slightly tender to palpitations Results & Data Results & Data ([facility]) Vital Signs (Past 12 Hours) Vital Signs Temp Pulse Resp BP Pulse Ox 09/09/20 07:29 36.6 C 69 16 115/67 99 09/08/20 23:38 36.7 C 66 14 125/68 97 CBC Results Results Complete Blood Count Results: RBC 3.36 M/uL (4.2-5.4) L 09/09/20 WBC 12.58 K/uL (4.8-10.8) H 09/09/20 Hgb 10.1 g/dL (12.0-16.0) L 09/09/20 Hct 30.4 % (37-47) L 09/09/20 Plt Count 381 K/uL (130-400) 09/09/20 Chemistry (BMP) Results [facility] Results: Sodium 138 mmol/L (136-145) 09/09/20 Potassium 4.5 mmol/L (3.5-5.1) 09/09/20 Chloride 102 mmol/L (98-107) 09/09/20 BUN 19 mg/dl (7-18) H 09/09/20 Creatinine 0.94 mg/dl (0.6-1.2) 09/09/20 Glucose 125 mg/dl (70-99) H 09/09/20 Resident Activity Tracking Resident Involvement: Resident Care Provided Care Provided: [facility]
[2020-09-09] MEDS ORDERED: TPN IV SCH (16:00)
[2020-09-09] MEDS ORDERED: CENTRAL PN IV SCH (16:00)
[2020-09-09] MEDS: MoRPHine SULFATE 2 MG/ML CARP IV PRN (16:16)
[2020-09-09] MEDS: ONDANSETRON INJ 2 MG/ML 2 ML VIAL IV PRN (16:16)
--- NOTE | 2020-09-09 16:25 | Anesthesiology Consultation ---
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 Surgery Operation Date: 09/10/20 10:50 Proposed Procedures p Exploratory Laparotomy Bowel Obstruction - Michael Urban, Height/Weight Height: 5 ft 3 in Weight: 56.4 kg Allergies Allergy/AdvReac Type Severity Reaction Status Date / Time magnesium sulfate Allergy Severe face, hand Verified 09/01/20 17:55 [From Suprep Bowel Prep Kit] swelling Penicillins Allergy Severe rash, Verified 09/01/20 17:55 throat tightening potassium Allergy Severe face, hand Verified 09/01/20 17:55 [From Suprep Bowel Prep Kit] swelling sodium sulfate Allergy Severe face, hand Verified 09/01/20 17:55 [From Suprep Bowel Prep Kit] swelling Medications Home Medications Medication Instructions Recorded Confirmed Last Taken calcium carbonate [Calcium 600] 600 mg PO Q OTHER DAY 01/16/19 09/01/20 08/13/20 cholecalciferol (vitamin D3) 50 2,000 units PO QPM #30 cap 10/02/19 09/01/20 08/26/20 18:00 mcg (2,000 unit) capsule [employer] [facility] 1 tab PO QPM 12/16/19 09/01/20 08/31/20 lisinopril 20 mg tablet 20 mg PO QPM #90 tab 05/21/20 09/01/20 08/26/20 18:00 lorazepam 0.5 mg tablet 0.5 mg PO DAILY PRN #30 tab 07/23/20 09/01/20 08/27/20 05:00 tamsulosin 0.4 mg capsule 0.4 mg PO HS #30 cap 08/06/20 09/01/20 08/31/20 atorvastatin 20 mg tablet 20 mg PO QPM #90 tab 08/24/20 09/01/20 08/31/20 docusate sodium [Colace] 100 mg PO BID #60 cap 08/31/20 09/01/20 09/01/20 08:00 nicotine [Nicoderm CQ] 21 mg TRANSDERMAL QAM #14 ea 08/31/20 09/01/20 Unknown ondansetron 4 mg PO TID PRN #12 tab 08/31/20 09/01/20 Unknown oxycodone-acetaminophen [Percocet] 1 tab PO TID PRN #14 tab 08/31/20 09/01/20 Unknown Active Medications Generic Name Dose Route Start Last Admin Trade Name Freq PRN Reason Stop Dose Admin Heparin Sodium (Beef Lung) 5 ml 09/07/20 22:45 09/09/20 05:20 Heparin 10 Unit/Ml 5 Ml Flush FLUSH 10/07/20 22:44 5 ml PRN PRN Administration Flush Heparin Sodium (Porcine) 5,000 units 09/03/20 14:00 09/09/20 14:37 Heparin Sod 5,000 Unit/0.5 Ml Vial SQ 10/03/20 13:59 5,000 units Q8 COSTA Administration Hydralazine HCl 10 mg 09/02/20 07:59 09/03/20 21:09 Hydralazine Hcl 20 Mg/Ml Vial IV 10/02/20 07:58 10 mg Q8H PRN Administration Blood Pressure - High Lorazepam 0.5 mg in 1 mls @ 0.5 mls/min 09/01/20 20:18 09/09/20 01:08 Ativan IV 10/01/20 20:17 0.5 mls/min BID PRN Administration Anxiety Famotidine 20 mg/ Syringe 5 mls @ 2.5 mls/min 09/02/20 09:00 09/09/20 08:37 IV 10/02/20 08:59 2.5 mls/min DAILY COSTA Administration Promethazine HCl 12.5 mg/ 50.5 mls @ 202 mls/hr 09/04/20 16:15 09/04/20 17:01 Sodium Chloride IV 10/04/20 16:14 Infused Q6H PRN Infusion Nausea And Vomiting Melatonin 3 mg 09/05/20 20:57 09/08/20 23:09 Melatonin 3 Mg Tab PO 10/05/20 20:56 3 mg HS PRN Administration Sleep Miscellaneous 1 ea 09/03/20 08:59 09/09/20 08:38 Remove Nicoderm Patch N/A 10/03/20 08:58 1 ea DAILY@0859 COSTA Administration Morphine Sulfate 2 mg 09/01/20 18:53 09/09/20 16:16 Morphine Sulfate 2 Mg/Ml Carp IV 09/15/20 18:52 2 mg Q2H PRN Administration Pain Nicotine 7 mg 09/03/20 09:00 12/23/20 08:38 Nicotine 7 Mg/24 Hr Tdsy TD 10/03/20 08:59 7 mg QAM COSTA Administration Ondansetron HCl 4 mg 09/01/20 18:43 09/09/20 16:16 Ondansetron Inj 2 Mg/Ml 2 Ml Vial IV 10/01/20 18:42 4 mg Q6H PRN Administration Nausea Past Medical History Medical History ESTRELLA (acute kidney injury) Anxiety CKD (chronic kidney disease) baseline creatinine 1.3-1.4 per chart review Hyperlipidemia Hypertension Lung nodule Last CT 01/2019, unchanged, no further f/u needed per records Osteoarthritis PONV (postoperative nausea and vomiting) Temporomandibular joint disorder + clicking, no locking Thyroid nodule 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 Past Family History Family History Aunt Diabetes Colorectal cancer Myocardial infarction Ovarian cancer Father No problems noted. Mother Dementia Pacemaker Hypertension Uterine cancer Family/Other Pancreatic cancer Breast cancer Colorectal cancer Other No family history of adverse response to anesthesia Past Surgical History Surgical History H/O exploratory laparotomy tubal surgery for fertility issues History of cardiac cath 5+ years ago ([facility] no stents, attempts to obtain official report unsuccessful History of colonoscopy History of cystoscopy cystoscopy + stent insertion: 01/02/20: LMA#4 at [facility] cystoscopy: 03/05/20: LMA#4 at [facility] cystoscopy, RP07/09/20: MAC sedation at [facility] History of tooth extraction S/P D&C (status post dilation and curettage) S/P tonsillectomy Social History Smoking Status: Current every day smoker tobacco type: cigarettes Smoking cigarettes per day: hasn't smoked since surgery - been using patch Hx Alcohol Use: Yes Alcohol type: wine alcohol intake frequency: a few times a month Alcohol Intake Frequency Comment: last drink 2 weeks ago - coffee w/ baileys Hx Substance Use: No substance use type: does not use Physical Exam Vital Signs Last Vital Signs Temp 98.2 F 09/09/20 16:11 Pulse 78 09/09/20 16:11 Resp 16 09/09/20 16:11 BP 158/83 H 09/09/20 16:11 Pulse Ox 98 09/09/20 16:11 Testing Laboratory Results 09/09/20 05:19 09/09/20 05:19 PT 10.8 Seconds (9.0-12.0) 09/01/20 16:28 INR 1.0 (0.9-1.1) 09/01/20 16:28 APTT 23.3 Seconds (21.0-31.0) 09/01/20 16:28 Urine Color Yellow 09/01/20 17:55 Urine Appearance Clear (Clear) 09/01/20 17:55 Urine pH 5.0 (4.5-7.5) 09/01/20 17:55 Ur Specific Lovely > 1.045 (1.000-1.030) H 09/01/20 17:55 Urine Protein 1+ (Negative) H 09/01/20 17:55 Urine Glucose (UA) Negative (Negative) 09/01/20 17:55 Urine Ketones Negative (Negative) 09/01/20 17:55 Urine Nitrite Negative (Negative) 09/01/20 17:55 Ur Leukocyte Esterase Negative (Negative) 09/01/20 17:55 Urine WBC (Auto) 5-10 /hpf (0-5) H 09/01/20 17:55 Urine RBC (Auto) 10-30 /hpf (0-4) H 09/01/20 17:55 U Hyaline Cast (Auto) 1-5 /lpf (0-5) 09/01/20 17:55 U Epithel Cells (Auto) 10-20 /lpf (0-5) H 09/01/20 17:55 Urine Bacteria (Auto) Negative (Negative) 09/01/20 17:55 09/01/20 18:49 Aerobic Blood Culture - Final Blood No growth in Aerobic bottle after 5 days. Anaerobic Blood Culture - Final 09/01/20 18:52 Aerobic Blood Culture - Final Blood No growth in Aerobic bottle after 5 days. Anaerobic Blood Culture - Final 09/09/20 09/09/20 12:08 06:18 POC Glucose 139 H 120 H Laboratory Tests 09/09/20 10:20 SARS-CoV-2, RNA, NAAT NEGATIVE Electrocardiogram Date: 09/01/20 Normal sinus rhythm, rate 71 bpm Normal ECG When compared with ECG of 27-AUG-2020 17:04, T wave amplitude has increased in Inferior leads Nonspecific T wave abnormality, improved in Anterolateral leads Confirmed by German Mckinney ([id number]) on 09/02/2020 6:00:55 AM Chest X-Ray Date: 09/06/20 IMPRESSION: 1. Unchanged positioning of the right-sided chest tube with persistent tiny right apical pneumothorax. 2. Trace pleural effusions.
--- NOTE | 2020-09-09 18:15 | Billing Data ---
Date of Service September 09, 2020 Coding Level of Care Code 70243 Subseq Hosp Care Lvl 3
[2020-09-10] MEDS: HEPARIN SOD 5,000 UNIT/0.5 ML VIAL SQ SCH ×3 (05:13→21:23)
[2020-09-10 06:43] LABS: BUN Creatinine Ratio 21.7 (10-20); Calcium 9.2 mg/dl (8.5-10.1); Creatinine Clr Calc Pharmacy 41.4 ml/min; Est GFR (Non-African American) 53.5; Magnesium 2.6 mg/dl (1.8-2.4); Potassium 4.7 mmol/L (3.5-5.1)
[2020-09-10 06:46] LABS: Bilirubin,Total 0.3 mg/dl (0.2-1); Phosphorus 4.4 mg/dl (2.5-4.9)
[2020-09-10] MEDS: NICOTINE 7 MG/24 HR TDSY TD SCH (08:09)
[2020-09-10] MEDS: LORazepam 0.5 MG/1 ML VIAL IV PRN ×2 (08:10→16:18)
[2020-09-10] MEDS: FAMOTIDINE 20 MG in SYRINGE 3 ML IV SCH (08:10)
--- NOTE | 2020-09-10 08:26 | Urology Progress Note ---
Date of Service September 10, 2020 Assessment & Plan (1) Urothelial carcinoma of distal ureter: 69 yo F s/p Right Robotic Laparoscopic Assisted Nephroureterectomy, Extensive Lysis of Adhesions on 08/27/20 admitted with SBO and pneumothorax. - Plan of care reviewed with Dr. Bonds. - Patient remains afebrile. - Labs reviewed - white count improving, creatinine stable. - Appreciate general surgery input, continue NG and care per general surgery. - PICC line with TPN infusing. - Voiding without difficulties after Yan discontinued. - Continue NPO, pain control, ambulation, and supportive care. - Will continue to monitor closely, please call with any acute changes in patient condition. - Tentative plan for exploratory laparotomy with general surgery if no improvement in bowel function. Admission and Anticipated Discharge Date Admission Date: September 01, 2020 Subjective Pt awake, alert and sitting up in bedside chair this AM. Reports no issues overnight. Has been ambulating in hallway already this morning. Reports some abdominal tenderness, greater on right. Mild flank discomfort on occasion. She remains NPO. PICC line with TPN infusing. Reports dry mouth. Biotene spray is helping significantly. NG tube in place and draining bilious output. No BM or consistent flatus. Voiding without difficulty. Feels she is emptying bladder completely. Occasional dysuria -mild, no hematuria. Oxygen saturations within normal limits on room air. Breathing without difficulty, no chest pain. No fever or chills. No additional concerns today. Chart review: Afebrile. Creatinine 1.06, WBC 12.58 (09/09), Hgb 10.1 (09/09). Review of Systems Constitutional: as per Subjective / HPI Respiratory: no cough and no dyspnea Cardiovascular: no chest pain Gastrointestinal: as per Subjective / HPI Genitourinary: as per Subjective / HPI Physical Exam Constitutional: comfortable; no acute distress Respiratory: normal respiratory effort and able to speak in complete sentences; no respiratory distress and no labored breathing Cardiovascular: Extremities: no calf tenderness and no pedal edema Gastrointestinal (Abdomen): Abdomen soft, minimal distention, mild tenderness to palpation more pronounced on right side, no rebound tenderness or guarding. NG tube intact and draining bilious output. Musculoskeletal: Head/Neck/Chest: normocephalic and head atraumatic Extremities: extremities normal to inspection Skin: Surgical incisions open to air, C/D/I, well approximated and healthy appearing. No erythema, warmth, or drainage. Neurologic: moves all extremities and awake Psychiatric: Orientation: alert and oriented x 3 Genitourinary: no CVA tenderness Results & Data ([facility]) Vital Signs (Past 12 Hours) Vital Signs Temp Pulse Resp BP BP Pulse Ox 09/10/20 07:19 36.6 C 68 16 123/67 98 09/10/20 00:28 37.0 C 70 14 161/72 H 98 PG Care Time/CCT Total # of Minutes Spent Total Time Spent with Patient: Total time spent is greater than 50% in coordination of care (as documented) at patient's floor/unit and/or counseling patient: Coding Level of Care Code 70936 Subseq Hosp Care Lvl 2 Diagnoses Urothelial carcinoma of distal ureter C66.9
--- NOTE | 2020-09-10 08:59 | XRay Report ---
XR KUB/Abdomen 1 view CLINICAL HISTORY: Small bowel obstruction COMPARISON STUDY: 09/07/2020 FINDINGS: A nasogastric tube is again visualized. There is persistent mild small bowel dilatation. Th is is slightly diminished when compared the prior study. There is barium within nondilated colon. IMPRESSION: 1. There is contrast within nondilated colon 2. Persistent but slightly diminished small bowel dilatation with small bowel loops measuring up to 4 cm. The findings are suggestive of a partial small bowel obstruction ACT 112: Negative or not required by law. Electronically signed by: Sheng Braxton M.D. 09/10/2020 8:58 AM
[2020-09-10] MEDS ORDERED: MIDAZOLAM HCL 1 MG/ML 2ML VIAL ONE (09:11)
[2020-09-10] MEDS ORDERED: fentaNYL citrate 100 MCG/2 ML VIAL ONE (09:11)
[2020-09-10] MEDS ORDERED: bisacodyL 10 MG SUPP PR STA (09:29)
--- NOTE | 2020-09-10 09:46 | Surgery Progress Note ---
Date of Service September 10, 2020 Assessment & Plan (1) Small bowel obstruction: Patient here with SBO -KUB this morning revealed passage of contrast into the colon, as well as persistent but slightly diminished small bowel dilatation with small bowel loops measuring up to 4 cm- suggestive of a partial small bowel obstruction -Patient is starting to pass more flatus, no BM yet. No increase in abdominal pain -Options discussed with patient regarding taking her to surgery for ex-lap vs continue conservative measures as the contrast now passed the point of obstruction and made it to the colon. Patient discussed these options with her and she is opting towards continued conservative management -Thus we will cancel the OR case for today, allow her ice chips/sips and give her a suppository...hopefully she will pass a BM in next 48hrs -Once return of bowel function we can consider an NGT clamping trial prior to removing the tube -Repeat KUB tomorrow for further evaluation -Patient was seen and examined with Dr. Urban as above. contrast now in colon with less small bowel dilation. pt feels well. no bm yet. discussed options. she wishes to continue without surgery for a couple more days which I think is reasonable. will try some suppositories. repeat KUB tomorrow. Dr. Vincent pediatric nurse practitioner for holiday...will inform him of the plan. also discussed with pt's . will cancel ex-lap for now. Admission and Anticipated Discharge Date Admission Date: September 01, 2020 Subjective Patient offers no complaints. She is passing some flatus here and there, no BM yet. Believes her abdomen feels softer. She continues to ambulate frequently. Physical Exam Physical Exam: awake/alert, sitting up in chair Constitutional: well developed and well nourished; no acute distress Respiratory: normal respiratory effort Gastrointestinal (Abdomen): Inspection/Auscultation: + abdomen distended (improving) and + abdominal surgical incision (c/d/i) Percussion/Palpation: abdomen soft; abdomen nontender Results & Data ([facility]) Vital Signs (Past 12 Hours) Vital Signs Temp Pulse Resp BP BP Pulse Ox 09/10/20 07:19 36.6 C 68 16 123/67 98 09/10/20 00:28 37.0 C 70 14 161/72 H 98 XR KUB/Abdomen 1 view CLINICAL HISTORY: Small bowel obstruction COMPARISON STUDY: 09/07/2020 FINDINGS: A nasogastric tube is again visualized. There is persistent mild small bowel dilatation. This is slightly diminished when compared the prior study. There is barium within nondilated colon. IMPRESSION: 1. There is contrast within nondilated colon 2. Persistent but slightly diminished small bowel dilatation with small bowel loops measuring up to 4 cm. The findings are suggestive of a partial small bowel obstruction ACT 112: Negative or not required by law. Electronically signed by: Sheng Braxton M.D. 09/10/2020 8:58 AM PG Care Time/CCT Total # of Minutes Spent Total Time Spent with Patient: Total time spent is greater than 50% in coordination of care (as documented) at patient's floor/unit and/or counseling patient: Coding Level of Care Code 35005 Subseq Hosp Care Lvl 3 Diagnoses Small bowel obstruction K56.609
--- NOTE | 2020-09-10 13:30 | Hospitalist Progress Note ---
Date of Service September 10, 2020 Assessment & Plan Admission and Anticipated Discharge Date Admission Date: September 01, 2020 69 yo F here for small bowel obstruction that developed after urologic surgery. Small bowel obstruction: ongoing SBO no dramatic improvement but ??maybe sl better today w/ improvement on KUB and increased gas plan is to continue conservative management for now tolerating TPN serial exams Spontaneous pneumothorax: Patient initially found to be hypoxic with EMS arrival. Chest x-ray concerning for RIGHT-sided pneumothorax. Chest CT confirms moderate pneumothorax chest tube placed by pulmonary medicine on 09/02/2020. improved. tube out, situation stable/essentially resolved Intractable nausea and vomiting: Secondary to SBO. Improved with NG tube drainage and decompression continuing antiemetics as needed - but still w active SBO Hypoxia: resolved when pneumothorax resolved ESTRELLA (acute kidney injury): In the setting of profound dehydration with nausea, vomiting, and SBO. 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 Hypertension: Holding antihypertensives while n.p.o. BP acceptable given the situation Anxiety: Provide IV Ativan as needed. May benefit as a secondary antinausea medication as well.phenergan added 09/04 Hyperlipidemia: Hold on home Rx while NPO. DVT prophylaxis: scds Discharge planning issues: stable for med/surg. anticipate home ultimately but still acute with a number of issues, now appearing more likely that she'll need OR for SBO Supervising Physician Co-Signing Physician Notes I personally examined the patient and verified all bocanegra points of history and exam, discussed case, and agree with decision making with Dr Magaña initially went to room while surgery was talking with her, on revisit she is sleeping comfortably. input from dr magaña as above, and appreciate surgical input as well. vitals noted nad heent nc at mmm breathing unlabored no accessory muscles good effort skin no rashes no pallor or icterus. NGT without local breakdown SBO - NGT, supportive care, showing improvement. follow cautiously - OK to hold off on surgery for now otherwise as above Subjective Sherice Hanna was doing okay this morning. She was nervous for the procedure that was planned for today. She admitted to passing flatus. We talked about how her diet would increase as she improved. She was no in any acute pain and had no questions for me this morning. Review of Systems Review of Systems: constitutional: denies fever, chills Cardiac: denies chest pain, palpitations, edema GI: denies nausea vomiting Pulm: Denies cough, shortness of breath Physical Exam Constitutional: WD/WN, vitals as above Eyes: PERRL, conjunctivae normal, anicteric sclerae ENMT: NG tube in place Neck: normal visual inspection Respiratory: normal respiratory effort, lungs clear to auscultation Cardiovascular: RRR, no murmur, no edema Gastrointestinal (Abdomen): abdomen soft, slightly tender to palpitations most at right lower quadrant incisions c/d/i Results & Data Results & Data ([facility]) Vital Signs (Past 12 Hours) Vital Signs Temp Pulse Resp BP Pulse Ox 09/10/20 07:19 36.6 C 68 16 123/67 98 CBC Results Results Complete Blood Count Results: RBC 3.36 M/uL (4.2-5.4) L 09/09/20 WBC 12.58 K/uL (4.8-10.8) H 09/09/20 Hgb 10.1 g/dL (12.0-16.0) L 09/09/20 Hct 30.4 % (37-47) L 09/09/20 Plt Count 381 K/uL (130-400) 09/09/20 Chemistry (BMP) Results BMP Results: Sodium 139 mmol/L (136-145) 09/10/20 Potassium 4.7 mmol/L (3.5-5.1) 09/10/20 Chloride 106 mmol/L (98-107) 09/10/20 BUN 23 mg/dl (7-18) H 09/10/20 Creatinine 1.06 mg/dl (0.6-1.2) 09/10/20 Glucose 106 mg/dl (70-99) H 09/10/20 Resident Activity Tracking Resident Involvement: Resident Care Provided Care Provided: Adult [facility] Medicine
[2020-09-10] MEDS: CHLORASEPTIC 1.4% SOLN 180 ML BTL MT PRN ×2 (15:50→20:43)
[2020-09-10] MEDS ORDERED: Custom Central Pn 1,400 ML in TPN BAG 0 ML IV SCH (16:00)
[2020-09-10] MEDS: MoRPHine SULFATE 2 MG/ML CARP IV PRN (16:18)
--- NOTE | 2020-09-10 16:37 | Billing Data ---
Date of Service September 10, 2020 Coding Level of Care Code 48562 Subseq Hosp Care Lvl 2
[2020-09-10] MEDS: ACETAMINOPHEN SUSP 325 MG/10.15 ML UDC PO PRN (21:24)
[2020-09-11] MEDS: CHLORASEPTIC 1.4% SOLN 180 ML BTL MT PRN ×4 (00:18→20:26)
[2020-09-11] MEDS: HEPARIN SOD 5,000 UNIT/0.5 ML VIAL SQ SCH ×3 (05:21→21:05)
[2020-09-11 06:59] LABS: BUN Creatinine Ratio 25.9 (10-20); Creatinine Clr Calc Pharmacy 42.6 ml/min; Est GFR (African American) 64.2; Est GFR (Non-African American) 55.4; Magnesium 2.4 mg/dl (1.8-2.4); Potassium 4.2 mmol/L (3.5-5.1)
[2020-09-11 07:02] LABS: Phosphorus 3.8 mg/dl (2.5-4.9)
--- NOTE | 2020-09-11 07:10 | XRay Report ---
XR KUB/Abdomen 1 view CLINICAL HISTORY: Small bowel obstruction COMPARISON STUDY: 09/10/2020 FINDINGS: There are persistent dilated small bowel loops measuring up to 47 mm in diameter. This is s lightly increased when compared the prior study. There is a nasogastric tube within the stomach. Ther e is contrast within nondilated colon. IMPRESSION: Persistent small bowel obstructive pattern ACT 112: Negative or not required by law. Electronically signed by: Sheng Braxton M.D. 09/11/2020 7:09 AM
[2020-09-11] MEDS: NICOTINE 7 MG/24 HR TDSY TD SCH (09:01)
[2020-09-11] MEDS: FAMOTIDINE 20 MG in SYRINGE 3 ML IV SCH (09:16)
[2020-09-11] MEDS: bisacodyL 10 MG SUPP PR SCH (09:34)
--- NOTE | 2020-09-11 10:21 | Surgery Progress Note ---
Date of Service September 11, 2020 Assessment & Plan (1) Small bowel obstruction: -KUB images and results reviewed, similar to yesterday -Will continue non-operative managment of her SBO with NPO/NGT -She is passing flatus so will hope for return of bowel function in next 24-48 hours Admission and Anticipated Discharge Date Admission Date: September 01, 2020 Subjective Pt seen and examined. +Passing flatus, No BM. No increased abdominal pain. Afebrile. Physical Exam Constitutional: WD/WN, vitals as above Gastrointestinal (Abdomen): Inspection/Auscultation: abdomen normal to inspection and + abdomen distended Percussion/Palpation: + abdomen tender (mild TTP throughout) and abdomen soft; no guarding Results & Data ([facility]) Vital Signs (Past 12 Hours) Vital Signs Temp Pulse Resp BP Pulse Ox 09/11/20 07:37 36.7 C 79 16 137/69 97 PG Care Time/CCT Total # of Minutes Spent Total Time Spent with Patient: Total time spent is greater than 50% in coordination of care (as documented) at patient's floor/unit and/or counseling patient: Coding Level of Care Code 81663 Subseq Hosp Care Lvl 1 Diagnoses Small bowel obstruction K56.609
--- NOTE | 2020-09-11 12:13 | Hospitalist Progress Note ---
Date of Service September 11, 2020 Assessment & Plan Admission and Anticipated Discharge Date Admission Date: September 01, 2020 69 yo F here for small bowel obstruction that developed after urologic surgery, surgery is managing conservatively for now. Small bowel obstruction: -ongoing SBO no dramatic improvement but ??maybe sl better today -w/ improvement on KUB and increased gas plan is to continue conservative management for now -tolerating TPN -serial exams Spontaneous pneumothorax: -Patient initially found to be hypoxic with EMS arrival. -Chest x-ray concerning for RIGHT-sided pneumothorax. Chest CT confirms moderate pneumothorax -chest tube placed by pulmonary medicine on 09/02/2020. -improved. tube out, situation stable/essentially resolved Intractable nausea and vomiting: -Secondary to SBO. -Improved with NG tube drainage and decompression continuing antiemetics as needed - but still w active SBO Hypoxia: resolved when pneumothorax resolved ESTRELLA (acute kidney injury): In the setting of profound dehydration with nausea, vomiting, and SBO. 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 Hypertension: Holding antihypertensives while n.p.o. BP acceptable Anxiety: Provide IV Ativan as needed. May benefit as a secondary antinausea medication as well.phenergan added 09/04 Hyperlipidemia: Hold on home Rx while NPO. DVT prophylaxis: scds Discharge planning issues: stable for med/surg. anticipate home ultimately but still acute with a number of issues, now appearing more likely that she'll need OR for SBO Supervising Physician Co-Signing Physician Notes I personally examined the patient and verified all bocanegra points of history and exa m, discussed case, and agree with decision making with Dr Rodolfo marquez bm. walking a lot vitals noted nad heent nc at mmm breathing unlabored no accessory muscles good effort skin no rashes no pallor or icterus. NGT without local breakdown. abd soft nd less tender no guarding no rebound. SBO - NGT, supportive care, showing improvement. follow cautiously - showing more improvement, possibly won't end up needing surgical lysis of adhesions --continue to follow otherwise as above Subjective Sherice Hanna was doing okay this morning. She asked about the KUB that was taken this morning which did not show any significant improvement from one day prior. She did have a small amount of stool that was associated with the suppository. She feels that her abdomen is feeling better overall. Review of Systems Review of Systems: constitutional: denies fever, chills Cardiac: denies chest pain, palpitations, edema GI: denies nausea vomiting Pulm: Denies cough, shortness of breath Physical Exam Constitutional: WD/WN, vitals as above Eyes: PERRL, conjunctivae normal, anicteric sclerae ENMT: NG tube in place Neck: normal visual inspection Respiratory: normal respiratory effort, lungs clear to auscultation Cardiovascular: RRR, no murmur, no edema Gastrointestinal (Abdomen): abdomen soft, slightly tender to palpitations most at right lower quadrant incisions c/d/i Results & Data Results & Data ([facility]) Vital Signs (Past 12 Hours) Vital Signs Temp Pulse Resp BP Pulse Ox 09/11/20 07:37 36.7 C 79 16 137/69 97 CBC Results Results Complete Blood Count Results: RBC 3.36 M/uL (4.2-5.4) L 09/09/20 WBC 12.58 K/uL (4.8-10.8) H 09/09/20 Hgb 10.1 g/dL (12.0-16.0) L 09/09/20 Hct 30.4 % (37-47) L 09/09/20 Plt Count 381 K/uL (130-400) 09/09/20 Chemistry (BMP) Results BMP Results: Sodium 139 mmol/L (136-145) 09/11/20 Potassium 4.2 mmol/L (3.5-5.1) 09/11/20 Chloride 105 mmol/L (98-107) 09/11/20 BUN 27 mg/dl (7-18) H 09/11/20 Creatinine 1.03 mg/dl (0.6-1.2) 09/11/20 Glucose 113 mg/dl (70-99) H 09/11/20 Resident Activity Tracking Resident Involvement: Resident Care Provided Care Provided: Adult Hospital Medicine
--- NOTE | 2020-09-11 15:19 | Urology Progress Note ---
Date of Service September 11, 2020 Assessment & Plan (1) Small bowel obstruction: Continue to monitor with ppn and bowel rest per general surgery Admission and Anticipated Discharge Date Admission Date: September 01, 2020 Subjective Patient overall feeling better is passing flatus and actually passed a small amount of stool today. Abdomen is less tender and she has been tolerating some sips of fluids. KUB does show similar picture with dilated small bowel loops and contrast in the large intestine. General surgery has seen and will continue to monitor the patient. Patient voiding without difficulty and no other urologic complaints. Physical Exam Gastrointestinal (Abdomen): Soft but slightly tender in the right lower quadrant more than anywhere else. Results & Data ([facility]) Vital Signs (Past 12 Hours) Vital Signs Temp Pulse Resp BP Pulse Ox 09/11/20 14:36 36.8 C 74 16 138/69 97 09/11/20 07:37 36.7 C 79 16 137/69 97 PG Care Time/CCT Total # of Minutes Spent Total Time Spent with Patient: Total time spent is greater than 50% in coordination of care (as documented) at patient's floor/unit and/or counseling patient: Coding Level of Care Code None Diagnoses Small bowel obstruction K56.609
[2020-09-11] MEDS ORDERED: Custom Central Pn 1,400 ML in TPN BAG 0 ML IV SCH (16:00)
--- NOTE | 2020-09-11 16:35 | Billing Data ---
Date of Service September 11, 2020 Coding Level of Care Code 75782 Subseq Hosp Care Lvl 2
[2020-09-11] MEDS: LORazepam 0.5 MG/1 ML VIAL IV PRN (21:04)
[2020-09-12] MEDS: CHLORASEPTIC 1.4% SOLN 180 ML BTL MT PRN ×2 (05:32→20:25)
[2020-09-12] MEDS: HEPARIN SOD 5,000 UNIT/0.5 ML VIAL SQ SCH (05:33)
[2020-09-12 06:56] LABS: BUN Creatinine Ratio 25.9 (10-20); Creatinine Clr Calc Pharmacy 42.6 ml/min; Est GFR (African American) 64.2; Est GFR (Non-African American) 55.4; Potassium 4.1 mmol/L (3.5-5.1)
[2020-09-12 06:57] LABS: Phosphorus 3.6 mg/dl (2.5-4.9)
--- NOTE | 2020-09-12 07:09 | Surgery Progress Note ---
Date of Service September 12, 2020 Assessment & Plan (1) Small bowel obstruction: -conservative measures seem to be working -will clamp NGT x 6 hours, if residual after this time interval is < 100 cc will d/c NGT -pt. currently on TPN, will continue until certain oral intake adequate Admission and Anticipated Discharge Date Admission Date: September 01, 2020 Supervising Physician Co-Signing Physician Notes I personally saw and evaluated the patient with Vazquez Bang PA-C and agree with the assessment and plan. 69 yo female with SBO -Plan for NGT clamp trial -Continues to have small amounts of bowel function, but nothing significant -If NGT is removed, plan for sips/chips only today Subjective Pt. denies worsening abdominal pain. No N/V. Only tiny BM noted, but passing flatus. She has been ambulating in hallway. Physical Exam Constitutional: well developed and well nourished; no acute distress Neck: trachea midline Respiratory: normal respiratory effort, lungs clear to auscultation Cardiovascular: Rate/Rhythm: regular rate and regular rhythm Gastrointestinal (Abdomen): Inspection/Auscultation: abdomen not distended Percussion/Palpation: abdomen soft; abdomen nontender Results & Data ([facility]) Vital Signs (Past 12 Hours) Vital Signs Temp Pulse Resp BP Pulse Ox 09/11/20 23:38 36.9 C 76 14 153/75 H 98 PG Care Time/CCT Total # of Minutes Spent Total Time Spent with Patient: Total time spent is greater than 50% in coordination of care (as documented) at patient's floor/unit and/or counseling patient: Coding Level of Care Code 82824 Subseq Hosp Care Lvl 1 Diagnoses Small bowel obstruction K56.609
--- NOTE | 2020-09-12 08:03 | Hospitalist Progress Note ---
Date of Service September 12, 2020 Assessment & Plan (1) Small bowel obstruction: 69 yo F here for small bowel obstruction that developed after urologic surgery, surgery is managing conservatively for now. Small bowel obstruction: -ongoing SBO no dramatic improvement -w/ improvement on KUB and increased gas plan is to continue conservative management for now -tolerating TPN -serial exams -General surgery consulted recommending conservative management -Clamped NG tube today, will place to low intermittent suction every 6 hours, and attempt p.o. intake Spontaneous pneumothorax: -Patient initially found to be hypoxic with EMS arrival. -Chest x-ray concerning for RIGHT-sided pneumothorax. Chest CT confirms moderate pneumothorax -chest tube placed by pulmonary medicine on 09/02/2020. -improved. tube out, situation stable/essentially resolved Intractable nausea and vomiting: -Secondary to SBO. -Improved with NG tube drainage and decompression continuing antiemetics as needed - but still w active SBO Hypoxia: resolved when pneumothorax resolved ESTRELLA (acute kidney injury): In the setting of profound dehydration with nausea, vomiting, and SBO. 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 Hypertension: Holding antihypertensives while n.p.o. BP acceptable Anxiety: Provide IV Ativan as needed. May benefit as a secondary antinausea medication as well. phenergan added 09/04 Hyperlipidemia: Hold on home Rx while NPO. DVT prophylaxis: -scds -No chemical prophylaxis in the event she has to proceed with surgery Discharge planning issues: stable for med/surg. anticipate home pending resolution of SBO (2) Spontaneous pneumothorax: (3) Intractable nausea and vomiting: (4) Hypoxia: (5) ESTRELLA (acute kidney injury): (6) Urothelial carcinoma of distal ureter: (7) Hypertension: (8) Anxiety: (9) Hyperlipidemia: (10) Discharge planning issues: (11) DVT prophylaxis: (12) Chronic kidney disease, stage 3a: Admission and Anticipated Discharge Date Admission Date: September 01, 2020 Supervising Physician Co-Signing Physician Notes Attending Attestation: Pt seen/examined, chart reviewed, care plan d/w resident Dr Jelani Santo. I agree w/ the bocan[place]ra components of his documentation. Patient had NG tube clamped then d/c today without incident. Passing minimal flatus. Did have small stool yesterday. Ambulating. no emesis since NG tube removal. no dyspnea or SCHAEFFER. VSS, no fever gen - sitting in chair, looks good mouth - MMM heart - RRR, s1 s2 lungs - CTA b/l, minimally decreased BS right base abd - BS + but decreased; soft; NT ext - no edema A/P: 1. SBO - clinically resolving; appreciate gen surg assistance; diet advancement per surgery. Cont TPN in meantime. 2. s/p right Nephroureterectomy with Extensive Lysis of Adhesions 08/27/20 for urothelial carcinoma. 3. right-sided pneumothorax s/p CT placement with ultimate removal - issue resolved; sats stable; no pulmonary symptoms. Thought to be due to retching in setting of #1. Gilbert Hernandez MD Subjective Patient is lying in bed in no acute distress. Patient reports tolerating her TPN, voiding, sleeping well overnight, patient reports a small bowel movement yesterday and some gas pains. From a medical standpoint the patient continues to improve, her only remaining issue is the questionable small bowel obstruction. This morning her NG tube was clamped, she will be placed on the intermittent suction in 6 hours, and hopefully allow her to attempt to eat. There are no acute issues or complaints at present, all questions were answered, no acute concerns Physical Exam Physical Exam: General: No acute distress HEENT: Normocephalic atraumatic Neck: Trachea midline, normal to visual inspection Cardiac: Regular rate and rhythm I did not appreciate any significant murmurs rubs or gallops, normal S1, normal S2, negative pedal edema, negative calf tenderness Respiratory: Clear to auscultation bilaterally with symmetrical chest expansion, I did not appreciate a significant wheezes, rales, rhonchi, no increased work of breathing GI: Soft, some left lower quadrant discomfort, no rebound, no guarding hypoactive bowel sounds present Neuro: Alert and oriented x4 Psych: Calm and cooperative with interview Results & Data Results & Data ([facility]) Vital Signs (Past 12 Hours) Vital Signs Temp Pulse Resp BP Pulse Ox 09/12/20 07:20 36.5 C 75 18 134/82 96 09/11/20 23:38 36.9 C 76 14 153/75 H 98 Laboratory Results 09/12/20 Range/Units 05:56 Sodium 138 (136-145) mmol/L Potassium 4.1 (3.5-5.1) mmol/L Chloride 104 (98-107) mmol/L Carbon Dioxide 31 (21-32) mmol/L Anion Gap 3.0 (3-11) BUN 27 H (7-18) mg/dl Creatinine 1.03 (0.6-1.2) mg/dl Est Cr Clr Drug Dosing 42.6 ml/min Est GFR ( Amer) 64.2 Est GFR (Non-Af Amer) 55.4 BUN/Creatinine Ratio 25.9 H (10-20) Glucose 112 H (70-99) mg/dl Calcium 9.0 (8.5-10.1) mg/dl Phosphorus 3.6 (2.5-4.9) mg/dl Magnesium 2.0 (1.8-2.4) mg/dl Medications Administered Current Inpatient Medications Acetaminophen (Acetaminophen Susp 325 Mg/10.15 Ml Udc) 650 mg PO Q6H PRN PRN Reason: pain, fever Stop: 10/10/20 20:49 Last Admin: 09/10/20 21:24 Dose: 650 mg Documented by: Bisacodyl (Bisacodyl 10 Mg Supp) 10 mg CA DAILY [facility] Stop: 10/11/20 08:59 Last Admin: 09/11/20 09:34 Dose: 10 mg Documented by: Dextrose (Dextrose 50% 50 Ml Syringe) 25 - 50 ml IV UD PRN; Protocol PRN Reason: Hypoglycemia Protocol Stop: 10/01/20 18:47 Enoxaparin Sodium (Enoxaparin Inj 40 Mg/0.4 Ml Syr) 40 mg SQ QAM [facility] Stop: 10/12/20 08:59 Glucagon (Glucagon For Inj 1 Mg Vial) 1 mg SQ UD PRN; Protocol PRN Reason: Hypoglycemia Protocol Stop: 10/01/20 18:47 Heparin Sodium (Beef Lung) (Heparin 10 Unit/Ml 5 Ml Flush) 5 ml FLUSH PRN PRN PRN Reason: Flush Stop: 10/07/20 22:44 Last Admin: 09/12/20 05:56 Dose: 5 ml Documented by: Heparin Sodium (Porcine) (Heparin Sod 5,000 Unit/0.5 Ml Vial) 5,000 units SQ Q8 [facility] Stop: 10/03/20 13:59 Last Admin: 09/12/20 05:33 Dose: 5,000 units Documented by: Hydralazine HCl (Hydralazine Hcl 20 Mg/Ml Vial) 10 mg IV Q8H PRN PRN Reason: Blood Pressure - High Stop: 10/02/20 07:58 Last Admin: 09/03/20 21:09 Dose: 10 mg Documented by: Lorazepam (Ativan) 0.5 mg in 1 mls @ 0.5 mls/min IV BID PRN PRN Reason: Anxiety Stop: 10/01/20 20:17 Last Admin: 09/11/20 21:04 Dose: 0.5 mls/min Documented by: Famotidine 20 mg/ Syringe 5 mls @ 2.5 mls/min IV DAILY [facility] Stop: 10/02/20 08:59 Last Admin: 09/11/20 09:16 Dose: 2.5 mls/min Documented by: Promethazine HCl 12.5 mg/ (Sodium Chloride) 50.5 mls @ 202 mls/hr IV Q6H PRN PRN Reason: Nausea And Vomiting Stop: 10/04/20 16:14 Last Infusion: 09/04/20 17:01 Dose: Infused Documented by: Nutrition (Parenteral) 1,400 (ml/ TPN BAG) 1,400 mls @ 58 mls/hr IV .Q24H [facility]; Protocol Stop: 09/12/20 15:59 Last Admin: 09/11/20 15:31 Dose: 58 mls/hr Documented by: Melatonin (Melatonin 3 Mg Tab) 3 mg PO HS PRN PRN Reason: Sleep Stop: 10/05/20 20:56 Last Admin: 09/08/20 23:09 Dose: 3 mg Documented by: Miscellaneous (Remove Nicoderm Patch) 1 ea N/A DAILY@0859 [facility] Stop: 10/03/20 08:58 Last Admin: 09/11/20 09:04 Dose: 1 ea Documented by: Miscellaneous Information (Tpn/Ppn Consult Pharmacy) 1 ea N/A UD [facility] Stop: 10/07/20 08:50 Morphine Sulfate (Morphine Sulfate 2 Mg/Ml Carp) 2 mg IV Q2H PRN PRN Reason: Pain Stop: 09/15/20 18:52 Last Admin: 09/10/20 16:18 Dose: 2 mg Documented by: Nicotine (Nicotine 7 Mg/24 Hr Tdsy) 7 mg TD QAM [facility] Stop: 10/03/20 08:59 Last Admin: 09/11/20 09:01 Dose: 7 mg Documented by: Ondansetron HCl (Ondansetron Inj 2 Mg/Ml 2 Ml Vial) 4 mg IV Q6H PRN PRN Reason: Nausea Stop: 10/01/20 18:42 Last Admin: 09/09/20 16:16 Dose: 4 mg Documented by: Phenol (Chloraseptic 1.4% Soln 180 Ml Btl) 2 sprays MT Q3H PRN PRN Reason: Sore Throat Stop: 10/09/20 08:04 Last Admin: 09/12/20 05:32 Dose: 2 sprays Documented by: Resident Activity Tracking Resident Involvement: Resident Care Provided Care Provided: Adult Hospital Medicine
[2020-09-12] MEDS: NICOTINE 7 MG/24 HR TDSY TD SCH (08:53)
[2020-09-12] MEDS: FAMOTIDINE 20 MG in SYRINGE 3 ML IV SCH (08:56)
[2020-09-12] MEDS: bisacodyL 10 MG SUPP PR SCH (09:53)
--- NOTE | 2020-09-12 10:05 | Urology Progress Note ---
Date of Service September 12, 2020 Assessment & Plan (1) Small bowel obstruction: Continue to monitor with bowel rest per general surgery. OOB, Ambulate, ISB. Admission and Anticipated Discharge Date Admission Date: September 01, 2020 Subjective Patient overall feeling better is passing flatus and actually passed a small amount of stool today. Abdomen is less tender and she has been tolerating some sips of fluids. KUB does show similar picture with dilated small bowel loops and contrast in the large intestine. General surgery has seen and will continue to monitor the patient. Patient voiding without difficulty and no other urologic complaints. Pt reports some minor increased swelling in the lower abd. Review of Systems Review of Systems: All systems reviewed & are unremarkable except as noted in HPI & below Physical Exam Constitutional: WD/WN, vitals as above Gastrointestinal (Abdomen): Inspection/Auscultation: + abdomen distended and + abdominal surgical incision Percussion/Palpation: abdomen soft Skin: no rashes, warm and dry Results & Data ([facility]) Vital Signs (Past 12 Hours) Vital Signs Temp Pulse Resp BP Pulse Ox 09/12/20 07:20 36.5 C 75 18 134/82 96 09/11/20 23:38 36.9 C 76 14 153/75 H 98 PG Care Time/CCT Total # of Minutes Spent Total Time Spent with Patient: Total time spent is greater than 50% in coordination of care (as documented) at patient's floor/unit and/or counseling patient: 30 Coding Level of Care Code 40365 Subseq Hosp Care Lvl 3 Diagnoses Small bowel obstruction K56.609
[2020-09-12] MEDS ORDERED: TPN IV SCH (16:00)
[2020-09-12] MEDS ORDERED: Custom Central Pn 1,400 ML in TPN BAG 0 ML IV SCH (16:00)
[2020-09-12] MEDS ORDERED: CENTRAL PN IV SCH (16:00)
[2020-09-12] MEDS: ENOXAPARIN INJ 40 MG/0.4 ML SYR SQ SCH (17:14)
--- NOTE | 2020-09-12 20:40 | Billing Data ---
Date of Service September 12, 2020 Coding Level of Care Code 32798 Subseq Hosp Care Lvl 2
[2020-09-12] MEDS: LORazepam 0.5 MG/1 ML VIAL IV PRN (21:12)
--- NOTE | 2020-09-13 06:19 | Surgery Progress Note ---
Date of Service September 13, 2020 Assessment & Plan (1) Small bowel obstruction: -slowly resolving -continue sips/chips until improved bowel function -continue ambulation Admission and Anticipated Discharge Date Admission Date: September 01, 2020 Supervising Physician Co-Signing Physician Notes I personally saw and evaluated the patient with Vazquez Bang PA-C and agree with the assessment and plan. 69 yo female with SBO -Had small BM and passing a lot of flatus -Trial clears today Subjective Pt. passing large amounts of flatus but no real BM yet. No N/V since NGT removed. She has tolerated ice chips/sips. She continues to ambulate in hallway. Physical Exam Neck: trachea midline Respiratory: normal respiratory effort; no respiratory distress and no labored breathing Gastrointestinal (Abdomen): Inspection/Auscultation: abdomen not distended Percussion/Palpation: + abdomen tender (minimal ) and abdomen soft BS are hypoactive Results & Data ([facility]) Vital Signs (Past 12 Hours) Vital Signs Temp Pulse Resp BP Pulse Ox Pulse Ox 09/12/20 23:37 37.0 C 84 15 134/76 96 09/12/20 20:45 99 PG Care Time/CCT Total # of Minutes Spent Total Time Spent with Patient: Total time spent is greater than 50% in coordination of care (as documented) at patient's floor/unit and/or counseling patient: Coding Level of Care Code 59518 Subseq Hosp Care Lvl 1 Diagnoses Small bowel obstruction K56.609
--- NOTE | 2020-09-13 08:27 | Hospitalist Progress Note ---
Date of Service September 13, 2020 Assessment & Plan (1) Small bowel obstruction: 69 yo F here for small bowel obstruction that developed after urologic surgery, surgery is managing conservatively for now. Small bowel obstruction: -ongoing SBO improving slowly -w/ improvement on KUB and increased gas plan is to continue conservative management for now -tolerating TPN -serial exams -General surgery consulted recommending conservative management -Slowly resolving, advance to clears today Intractable nausea and vomiting: -Secondary to SBO. 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 -Urology following Hypertension: Holding antihypertensives while n.p.o. BP acceptable Anxiety: -Provide IV Ativan as needed. -May benefit as a secondary antinausea medication as well. -phenergan added 09/04 Hyperlipidemia: Hold on home Rx while NPO. Spontaneous pneumothorax: Resolved -Patient initially found to be hypoxic with EMS arrival. -Chest x-ray concerning for RIGHT-sided pneumothorax. Chest CT confirms moderate pneumothorax -chest tube placed by pulmonary medicine on 09/02/2020. -improved. tube out, situation stable/essentially resolved Hypoxia: resolved when pneumothorax resolved ESTRELLA (acute kidney injury): resolved In the setting of profound dehydration with nausea, vomiting, and SBO. improved - follow periodic BMP DVT prophylaxis: -scds -No chemical prophylaxis in the event she has to proceed with surgery Discharge planning issues: stable for med/surg. anticipate home pending resolution of SBO (2) Spontaneous pneumothorax: (3) Intractable nausea and vomiting: (4) Hypoxia: (5) ESTRELLA (acute kidney injury): (6) Urothelial carcinoma of distal ureter: (7) Hypertension: (8) Anxiety: (9) Hyperlipidemia: (10) Discharge planning issues: (11) DVT prophylaxis: Admission and Anticipated Discharge Date Admission Date: September 01, 2020 Subjective Patient sitting up in bed this morning in no acute distress, she reports not sleeping too well overnight mainly to the hospital noise. She states she is voiding, has not had a significant bowel movement, however is having increasing gas pains and pressure, and tolerating sips and chips. Surgery evaluated her this morning and cleared her to proceed to clears which so far she has tolerated well. There were no acute events overnight, and the patient continues to improve. All questions were answered no acute concerns Physical Exam Physical Exam: General: No acute distress HEENT: Normocephalic atraumatic Neck: Trachea midline, normal to visual inspection Cardiac: Regular rate and rhythm I did not appreciate any significant murmurs rubs or gallops, normal S1, normal S2, negative pedal edema, negative calf tenderness Respiratory: Clear to auscultation bilaterally with symmetrical chest expansion, I did not appreciate a significant wheezes, rales, rhonchi, no increased work of breathing GI: Soft, nontender, distended, no rebound, no guarding hypoactive bowel sounds present Neuro: Alert and oriented x4 Psych: Calm and cooperative with interview Results & Data Results & Data ([facility]) Vital Signs (Past 12 Hours) Vital Signs Temp Pulse Resp BP Pulse Ox Pulse Ox 09/13/20 07:24 36.4 C L 71 18 128/75 98 09/12/20 23:37 37.0 C 84 15 134/76 96 09/12/20 20:45 99 Laboratory Results 09/13/20 Range/Units 07:44 Sodium 139 (136-145) mmol/L Potassium 4.5 (3.5-5.1) mmol/L Chloride 104 (98-107) mmol/L Carbon Dioxide 29 (21-32) mmol/L Anion Gap 7.0 (3-11) BUN 32 H (7-18) mg/dl Creatinine 1.08 (0.6-1.2) mg/dl Est Cr Clr Drug Dosing 40.7 ml/min Est GFR ( Amer) 60.7 Est GFR (Non-Af Amer) 52.3 BUN/Creatinine Ratio 29.4 H (10-20) Glucose 103 H (70-99) mg/dl Calcium 9.4 (8.5-10.1) mg/dl Phosphorus 4.0 (2.5-4.9) mg/dl Magnesium 2.1 (1.8-2.4) mg/dl Medications Administered Current Inpatient Medications Acetaminophen (Acetaminophen Susp 325 Mg/10.15 Ml Udc) 650 mg PO Q6H PRN PRN Reason: pain, fever Stop: 10/10/20 20:49 Last Admin: 09/10/20 21:24 Dose: 650 mg Documented by: Bisacodyl (Bisacodyl 10 Mg Supp) 10 mg NC DAILY [facility] Stop: 10/11/20 08:59 Last Admin: 09/13/20 10:04 Dose: Not Given Documented by: Dextrose (Dextrose 50% 50 Ml Syringe) 25 - 50 ml IV UD PRN; Protocol PRN Reason: Hypoglycemia Protocol Stop: 10/01/20 18:47 Enoxaparin Sodium (Enoxaparin Inj 40 Mg/0.4 Ml Syr) 40 mg SQ QAM [facility] Stop: 10/12/20 13:59 Last Admin: 09/13/20 10:03 Dose: 40 mg Documented by: Glucagon (Glucagon For Inj 1 Mg Vial) 1 mg SQ UD PRN; Protocol PRN Reason: Hypoglycemia Protocol Stop: 10/01/20 18:47 Heparin Sodium (Beef Lung) (Heparin 10 Unit/Ml 5 Ml Flush) 5 ml FLUSH PRN PRN PRN Reason: Flush Stop: 10/07/20 22:44 Last Admin: 09/13/20 07:44 Dose: 5 ml Documented by: Hydralazine HCl (Hydralazine Hcl 20 Mg/Ml Vial) 10 mg IV Q8H PRN PRN Reason: Blood Pressure - High Stop: 10/02/20 07:58 Last Admin: 09/03/20 21:09 Dose: 10 mg Documented by: Lorazepam (Ativan) 0.5 mg in 1 mls @ 0.5 mls/min IV BID PRN PRN Reason: Anxiety Stop: 10/01/20 20:17 Last Admin: 09/12/20 21:12 Dose: 0.5 mls/min Documented by: Famotidine 20 mg/ Syringe 5 mls @ 2.5 mls/min IV DAILY [facility] Stop: 10/02/20 08:59 Last Admin: 09/13/20 10:06 Dose: 2.5 mls/min Documented by: Promethazine HCl 12.5 mg/ (Sodium Chloride) 50.5 mls @ 202 mls/hr IV Q6H PRN PRN Reason: Nausea And Vomiting Stop: 10/04/20 16:14 Last Infusion: 09/04/20 17:01 Dose: Infused Documented by: Nutrition (Parenteral) 1,417 (ml/ TPN BAG) 1,417 mls @ 58 mls/hr IV .Q24H [facility]; Protocol Stop: 09/13/20 15:59 Last Admin: 09/12/20 17:14 Dose: 58 mls/hr Documented by: Melatonin (Melatonin 3 Mg Tab) 3 mg PO HS PRN PRN Reason: Sleep Stop: 10/05/20 20:56 Last Admin: 09/08/20 23:09 Dose: 3 mg Documented by: Miscellaneous (Remove Nicoderm Patch) 1 ea N/A DAILY@0859 [facility] Stop: 10/03/20 08:58 Last Admin: 09/13/20 10:03 Dose: 1 ea Documented by: Miscellaneous Information (Tpn/Ppn Consult Pharmacy) 1 ea N/A UD [facility] Stop: 10/07/20 08:50 Morphine Sulfate (Morphine Sulfate 2 Mg/Ml Carp) 2 mg IV Q2H PRN PRN Reason: Pain Stop: 09/15/20 18:52 Last Admin: 09/10/20 16:18 Dose: 2 mg Documented by: Nicotine (Nicotine 7 Mg/24 Hr Tdsy) [address] [facility] Stop: 10/03/20 08:59 Last Admin: 09/13/20 10:04 Dose: 7 mg Documented by: Ondansetron HCl (Ondansetron Inj 2 Mg/Ml 2 Ml Vial) 4 mg IV Q6H PRN PRN Reason: Nausea Stop: 10/01/20 18:42 Last Admin: 09/09/20 16:16 Dose: 4 mg Documented by: Phenol (Chloraseptic 1.4% Soln 180 Ml Btl) 2 sprays MT Q3H PRN PRN Reason: Sore Throat Stop: 10/09/20 08:04 Last Admin: 09/12/20 20:25 Dose: 2 sprays Documented by: Resident Activity Tracking Resident Involvement: Resident Care Provided Care Provided: Adult Hospital Medicine
--- NOTE | 2020-09-13 08:33 | Urology Progress Note ---
Date of Service September 13, 2020 Assessment & Plan (1) Small bowel obstruction: Continue to monitor with bowel regimen per general surgery. OOB, Ambulate, ISB. Admission and Anticipated Discharge Date Admission Date: September 01, 2020 Subjective No acute events. NG tube removed yesterday. No N/V. Still on TPN. Passing flatus. No BM. No fevers. No chills. Ambulating. Review of Systems Review of Systems: All systems reviewed & are unremarkable except as noted in HPI & below Physical Exam Constitutional: WD/WN, vitals as above Gastrointestinal (Abdomen): Inspection/Auscultation: + abdomen distended and + abdominal surgical incision Percussion/Palpation: abdomen soft Skin: no rashes, warm and dry Results & Data ([facility]) Vital Signs (Past 12 Hours) Vital Signs Temp Pulse Resp BP Pulse Ox Pulse Ox 09/13/20 07:24 36.4 C L 71 18 128/75 98 09/12/20 23:37 37.0 C 84 15 134/76 96 09/12/20 20:45 99 PG Care Time/CCT Total # of Minutes Spent Total Time Spent with Patient: Total time spent is greater than 50% in coordination of care (as documented) at patient's floor/unit and/or counseling patient: 30 Coding Level of Care Code 66661 Subseq Hosp Care Lvl 3 Diagnoses Small bowel obstruction K56.609
[2020-09-13 08:40] LABS: BUN Creatinine Ratio 29.4 (10-20); Calcium 9.4 mg/dl (8.5-10.1); Creatinine Clr Calc Pharmacy 40.7 ml/min; Est GFR (African American) 60.7; Est GFR (Non-African American) 52.3; Magnesium 2.1 mg/dl (1.8-2.4); Potassium 4.5 mmol/L (3.5-5.1)
[2020-09-13] MEDS: ENOXAPARIN INJ 40 MG/0.4 ML SYR SQ SCH (10:03)
[2020-09-13] MEDS: NICOTINE 7 MG/24 HR TDSY TD SCH (10:04)
[2020-09-13] MEDS: bisacodyL 10 MG SUPP PR SCH (10:04)
[2020-09-13] MEDS: FAMOTIDINE 20 MG in SYRINGE 3 ML IV SCH (10:06)
[2020-09-13] MEDS ORDERED: CENTRAL PN IV SCH (16:00)
[2020-09-13] MEDS ORDERED: TPN IV SCH (16:00)
[2020-09-13] MEDS: LORazepam 0.5 MG/1 ML VIAL IV PRN (22:06)
--- NOTE | 2020-09-14 08:10 | Surgery Progress Note ---
Date of Service September 14, 2020 Assessment & Plan (1) Small bowel obstruction: will advance to full liquids will recheck KUB not out of the benjamin regarding ex-lap . will need to advance to regular diet and have better bowel fx before considering d/c. Admission and Anticipated Discharge Date Admission Date: September 01, 2020 Subjective clinically doing well. no pain. no nausea. tolerating clears. +flatus. Physical Exam Physical Exam: alert. nad abd: soft. nd. nt. incisions look good. Results & Data ([facility]) Vital Signs (Past 12 Hours) Vital Signs Temp Pulse Resp BP Pulse Ox Pulse Ox 09/13/20 22:17 36.7 C 66 17 158/73 H 98 09/13/20 21:45 99 PG Care Time/CCT Total # of Minutes Spent Total Time Spent with Patient: Total time spent is greater than 50% in coordination of care (as documented) at patient's floor/unit and/or counseling patient: Coding Level of Care Code 30443 Subseq Hosp Care Lvl 2 Diagnoses Small bowel obstruction K56.609
[2020-09-14 08:41] LABS: BUN Creatinine Ratio 28.7 (10-20); Calcium 9.1 mg/dl (8.5-10.1); Creatinine Clr Calc Pharmacy 43.1 ml/min; Est GFR (Non-African American) 56.1; Magnesium 2.2 mg/dl (1.8-2.4); Potassium 4.4 mmol/L (3.5-5.1)
[2020-09-14 08:42] LABS: Phosphorus 3.7 mg/dl (2.5-4.9)
--- NOTE | 2020-09-14 08:45 | XRay Report ---
XR KUB/Abdomen 1 view CLINICAL HISTORY: SBO COMPARISON STUDY: 09/11/2020 FINDINGS: The nasogastric tube has been removed. There is contrast within nondilated colon. There is colonic diverticulosis. There are persistent dilated small bowel loops measuring up to 4 cm in diamet er. IMPRESSION: 1. Small bowel obstructive pattern 2. Interval removal of the nasogastric tube. ACT 112: Negative or not required by law. Electronically signed by: Sheng Braxton M.D. 09/14/2020 8:44 AM
[2020-09-14] MEDS: NICOTINE 7 MG/24 HR TDSY TD SCH (09:31)
[2020-09-14] MEDS: ENOXAPARIN INJ 40 MG/0.4 ML SYR SQ SCH (09:31)
[2020-09-14] MEDS: FAMOTIDINE 20 MG in SYRINGE 3 ML IV SCH (09:35)
[2020-09-14] MEDS: bisacodyL 10 MG SUPP PR SCH (09:35)
[2020-09-14] MEDS ORDERED: TPN IV SCH ×2 (11:00→16:00)
[2020-09-14] MEDS ORDERED: CENTRAL PN IV SCH ×2 (11:00→16:00)
--- NOTE | 2020-09-14 11:26 | Urology Progress Note ---
Date of Service September 14, 2020 Assessment & Plan (1) Urothelial carcinoma of distal ureter: (2) Small bowel obstruction: 69 yo F who is s/p Right Robotic Laparoscopic Assisted Nephroureterectomy, Extensive Lysis of Adhesions on 08/27/20 admitted with SBO and pneumothorax. - Doing well, clinically progressing. - Remains afebrile. - Labs reviewed - creatinine stable. - Voiding without difficulty. - Encourage ambulation. - Continue with supportive care. - Appreciate general surgery assistance, diet advancement per gen surg. - Will continue to monitor. Admission and Anticipated Discharge Date Admission Date: September 01, 2020 Subjective Pt awake, alert and sitting up in bed at time of exam this AM. Reports no issues overnight. Has been ambulating in hallway already this morning. Reports some occasional mild abdominal tenderness. Tolerating diet (clears), no nausea or vomiting. No fever or chills. + Flatus, No BM. Voiding without difficulty. Feels she is emptying bladder completely. Occasional dysuria -mild, no hematuria. Denies CP/SOB. PICC line with TPN infusing right upper arm. No additional concerns today. Chart review: Afebrile. Creatinine 1.02, WBC 12.58 (09/09), Hgb 10.1 (09/09). Review of Systems Constitutional: as per Subjective / HPI Gastrointestinal: as per Subjective / HPI Genitourinary: as per Subjective / HPI Musculoskeletal: as per Subjective / HPI Neurologic: as per Subjective / HPI Physical Exam Constitutional: well developed and well nourished; no acute distress Respiratory: normal respiratory effort and able to speak in complete sentences Cardiovascular: Extremities: no calf tenderness and no pedal edema Gastrointestinal (Abdomen): Inspection/Auscultation: + abdominal surgical incision (c/d/i; No erythema, warmth, or drainage.) Percussion/Palpation: + abdomen tender (mild) and abdomen soft Skin: Warm and dry Neurologic: moves all extremities and awake; not confused Psychiatric: Orientation: alert, oriented x 3 and cooperative Results & Data ([facility]) Vital Signs (Past 12 Hours) Vital Signs Temp Pulse Resp BP Pulse Ox 09/14/20 09:06 36.5 C 78 18 141/65 H 98 PG Care Time/CCT Total # of Minutes Spent Total Time Spent with Patient: Total time spent is greater than 50% in coordination of care (as documented) at patient's floor/unit and/or counseling patient: Coding Level of Care Code 92469 Subseq Hosp Care Lvl 2 Diagnoses Urothelial carcinoma of distal ureter C66.9 Small bowel obstruction K56.609
--- NOTE | 2020-09-14 16:37 | Hospitalist Progress Note ---
Date of Service September 14, 2020 Assessment & Plan Admission and Anticipated Discharge Date Admission Date: September 01, 2020 69 yo F here for small bowel obstruction that developed after urologic surgery, surgery is managing conservatively for now. Small bowel obstruction: -ongoing SBO improving slowly -w/ improvement on KUB and passing gas - plan is to continue conservative management for now -tolerating TPN, will decrease as her oral intake improves -serial exams -General surgery consulted recommending conservative management -Slowly resolving, advance to full liquids today Intractable nausea and vomiting: -Secondary to SBO. 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 -Urology following Hypertension: Holding antihypertensives while n.p.o. BP acceptable Anxiety: -Provide IV Ativan as needed. -May benefit as a secondary antinausea medication as well. -phenergan added 09/04 Hyperlipidemia: Hold on home Rx. Spontaneous pneumothorax: Resolved -Patient initially found to be hypoxic with EMS arrival. -Chest x-ray concerning for RIGHT-sided pneumothorax. Chest CT confirms moderate pneumothorax -chest tube placed by pulmonary medicine on 09/02/2020. -improved. tube out, situation stable/essentially resolved Hypoxia: resolved when pneumothorax resolved ESTRELLA (acute kidney injury): resolved In the setting of profound dehydration with nausea, vomiting, and SBO. improved - follow periodic BMP DVT prophylaxis: -SCDs -No chemical prophylaxis in the event she has to proceed with surgery Discharge planning issues: stable for med/surg. anticipate home pending resolution of SBO Supervising Physician Co-Signing Physician Notes I also saw the patient and confirmed bocanegra portions of the history and physical examination. Agree with the impression and plan in the resident documentation. Exam Upon examination, the patient states that she feels much better today. She tolerated clears this morning occluding some warm tea and broth. Surgery is advancing her diet to full liquid diet for lunch and supper. Blood pressure 135/75, respiratory 16, temperature 36.6. 97% on room air. Upon exam, no acute distress. Cardiovascular regular. Respirations nonlabored Abdomen soft and nontender. Bowel sounds are auscultated. Data BUN 29, creatinine 1.02. Sodium 137, potassium 4.4. KUB from today shows small bowel obstructive pattern and interval removal of NG tube. Assessment Small bowel obstruction Advance to full liquid diet Appreciate GI consultation Urothelial carcinoma Urology following Subjective Overall Sherice Hanna is doing much better than she was on Monday. Her abdominal pain is much improved, she is tolerating clears and was going to advance to fulls through the day. She had not had a bowel movement but had consistently passed gas. Review of Systems Review of Systems: constitutional: denies fever, chills Cardiac: denies chest pain, palpitations, edema GI: denies nausea vomiting, admits heartburn Pulm: Denies cough, shortness of breath Physical Exam Constitutional: WD/WN, vitals as above Eyes: PERRL, conjunctivae normal, anicteric sclerae ENMT: NG tube in place Neck: normal visual inspection Respiratory: normal respiratory effort, lungs clear to auscultation Cardiovascular: RRR, no murmur, no edema Gastrointestinal (Abdomen): abdomen soft, slightly tender to palpitations most at right lower quadrant incisions c/d/i Results & Data Results & Data ([facility]) Vital Signs (Past 12 Hours) Vital Signs Temp Pulse Resp BP Pulse Ox 09/14/20 15:39 36.6 C 78 16 135/75 97 09/14/20 09:06 36.5 C 78 18 141/65 H 98 CBC Results Results Complete Blood Count Results: RBC 3.36 M/uL (4.2-5.4) L 09/09/20 WBC 12.58 K/uL (4.8-10.8) H 09/09/20 Hgb 10.1 g/dL (12.0-16.0) L 09/09/20 Hct 30.4 % (37-47) L 09/09/20 Plt Count 381 K/uL (130-400) 09/09/20 Chemistry (BMP) Results BMP Results: Sodium 137 mmol/L (136-145) 09/14/20 Potassium 4.4 mmol/L (3.5-5.1) 09/14/20 Chloride 105 mmol/L (98-107) 09/14/20 BUN 29 mg/dl (7-18) H 09/14/20 Creatinine 1.02 mg/dl (0.6-1.2) 09/14/20 Glucose 108 mg/dl (70-99) H 09/14/20 Resident Activity Tracking Resident Involvement: Resident Care Provided Care Provided: [facility] Medicine
[2020-09-14] MEDS: EUCERIN CR 120 GM JAR EXT PRN (20:46)
[2020-09-14] MEDS: LORazepam 0.5 MG/1 ML VIAL IV PRN (21:34)
[2020-09-15 05:33] LABS: Appearance Urine Clear (Clear); Bacteria Urine Automated Negative (Negative); Bilirubin Urine Negative (Negative); Blood Urine Negative (Negative); Cast Urine Automated 0 /lpf (0-5); Color Urine Yellow; Epithelial Cell Urine Auto 0-5 /lpf (0-5); Glucose Urine UA Negative (Negative); Ketones Urine Negative (Negative); Leukocyte Esterase Urine 1+ (Negative); Nitrite Urine Negative (Negative); Protein Urine Negative (Negative); RBC Urine Automated 0-4 /hpf (0-4); Specific Gravity Urine 1.013 (1.000-1.030); Urobilinogen Urine Negative (Negative); WBC Urine Automated >30 /hpf (0-5); pH Urine 7.5 (4.5-7.5)
[2020-09-15] MEDS: NICOTINE 7 MG/24 HR TDSY TD SCH (07:39)
[2020-09-15] MEDS: ENOXAPARIN INJ 40 MG/0.4 ML SYR SQ SCH (07:40)
[2020-09-15] MEDS: FAMOTIDINE 20 MG in SYRINGE 3 ML IV SCH (07:43)
[2020-09-15] MEDS: bisacodyL 10 MG SUPP PR SCH (07:46)
--- NOTE | 2020-09-15 08:19 | Surgery Progress Note ---
Date of Service September 15, 2020 Assessment & Plan (1) Small bowel obstruction: doing ok on full liquids, still some small bowel distention on KUB try Boost between meals instead of with cont TPN for now as above. pt seen. feels/looks good. +large bm yesterday. tolerated full liquids yesterday without issue. will advance to regular diet. I'm still concerned with pt's KUB.... may still require surgery. Admission and Anticipated Discharge Date Admission Date: September 01, 2020 Subjective feels full after meals, some "gurgling" no nausea, BM yesterday Physical Exam Gastrointestinal (Abdomen): Inspection/Auscultation: abdomen not distended Percussion/Palpation: abdomen soft; abdomen nontender Results & Data ([facility]) Vital Signs (Past 12 Hours) Vital Signs Temp Pulse Resp BP Pulse Ox Pulse Ox 09/15/20 07:29 36.5 C 70 16 127/70 98 09/14/20 23:30 98 09/14/20 23:02 36.4 C L 75 18 146/73 H 98 PG Care Time/CCT Total # of Minutes Spent Total Time Spent with Patient: Total time spent is greater than 50% in coordina tion of care (as documented) at patient's floor/unit and/or counseling patient: Coding Level of Care Code None Diagnoses Small bowel obstruction K56.609
[2020-09-15 09:38] LABS: BUN Creatinine Ratio 28.4 (10-20); Calcium 9.1 mg/dl (8.5-10.1); Creatinine Clr Calc Pharmacy 45.3 ml/min; Est GFR (African American) 69.1; Est GFR (Non-African American) 59.6; Magnesium 2.3 mg/dl (1.8-2.4); Phosphorus 3.5 mg/dl (2.5-4.9); Potassium 4.4 mmol/L (3.5-5.1)
--- NOTE | 2020-09-15 10:20 | Pharmacy Report ---
PHA: Parenteral Nutrition Con - Date of Service September 15, 2020 - Scope Pharmacy was consulted on 09/07 to manage parenteral nutrition orders for this patient. - Subjective The patient is currently on day [#9] of [or central] parenteral nutrition for poor po intake. - Objective Height: 5 ft 3 in Weight: 57.2 kg Diet: Regular Intake & Output (24hrs):: Intake & Output 09/13/20 09/14/20 09/15/20 09/16/20 06:59 06:59 06:59 06:59 Intake Total 1400 / 1400 2116 1379.433 / 1379.433 Output Total 375 / 375 125 / 125 Balance 1025 / 1025 2116 1254.433 / 1254.433 Weight 56 kg 56 kg 56 kg 57.2 kg Laboratory Data (Last 24 Hr):: 09/14/20 09/15/20 08:19 08:44 Sodium 138 Potassium 4.4 Chloride 105 Carbon Dioxide 26 BUN 28 H Creatinine 0.97 Glucose 109 H Calcium 9.1 Phosphorus 3.5 Magnesium 2.3 Triglycerides 244 H Nutrition Assessment:: Please refer to the Notes section of 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 - Plan For day 9 of PN administration, the following will be ordered. Per notes, patient tolerating diet well. Okay per MD to cut TPN kcal in half today. Likely could d/c 09/16 however will follow up to determine if appropriate Macronutrients Amino acids 70 grams/day Dextrose 100 grams/day Lipids 25 grams/day Micronutrients Combined electrolytes 0 mL - contains 35 mEq Na, 20 meq K, 4.5 mEq Ca, 5 mEq Mg, 35 mEq Cl, 29.5 mEq acetate per 20 mL Sodium phosphate 12 MMol Sodium chloride 50 mEq Sodium acetate 50 mEq Potassium phosphate 12 mMol Potassium chloride 20 mEq Potassium acetate 0 mEq Magnesium sulfate 8.12 mEq Calcium gluconate 4.65 mEq Multivitamins 10 mL Trace Elements 1 mL Additional additives: Total volume 1053 mL to be infused over 24 hrs will provide 870 kcal/day Labs, as indicated, will be ordered per protocol Pharmacy will continue to follow and adjust parenteral nutrition orders on a daily basis. Thank you for allowing us to participate in the care of this patient.
--- NOTE | 2020-09-15 12:20 | Urology Progress Note ---
Date of Service September 15, 2020 Assessment & Plan (1) Small bowel obstruction: (2) Urothelial carcinoma of distal ureter: 69 yo F who is s/p Right Robotic Laparoscopic Assisted Nephroureterectomy, Extensive Lysis of Adhesions on 08/27/20 admitted with SBO and pneumothorax. - Doing well, clinically progressing. - Remains afebrile. - Labs reviewed - creatinine stable. - Urine culture pending, await final results. - Encourage ambulation. - Continue with supportive care. - Continue bowel regimen and diet advancement per gen surg. - Will continue to monitor. Subjective 69 yo F who is s/p Right Robotic Laparoscopic Assisted Nephroureterectomy, Extensive Lysis of Adhesions on 08/27/20 admitted with SBO and pneumothorax. Pt awake, alert and sitting up in bed at time of exam this AM. No issues overnight. BM yesterday. + Flatus Denies any pain or discomfort at this time. Tolerating diet (full liquid), no nausea or vomiting. No fever or chills. Voiding without difficulty. Feels she is emptying bladder completely. Reports some mild dysuria, no hematuria. Ambulating without difficulty PICC line with TPN infusing right upper arm. No additional concerns today. Chart review: Afebrile. Creatinine 0.97, WBC 12.58 (09/09), Hgb 10.1 (09/09). Urine culture pending. Review of Systems Constitutional: as per Subjective / HPI Gastrointestinal: as per Subjective / HPI Genitourinary: as per Subjective / HPI Physical Exam Constitutional: well developed and well nourished; no acute distress Respiratory: normal respiratory effort and able to speak in complete sentences Cardiovascular: Extremities: no calf tenderness and no pedal edema Gastrointestinal (Abdomen): Inspection/Auscultation: + abdominal surgical incision (Well approximated; No erythema, warmth, or drainage.) Percussion/Palpation: abdomen soft; abdomen nontender and no guarding Skin: Warm and dry Neurologic: moves all extremities and awake; not confused Psychiatric: Orientation: alert, oriented x 3 and cooperative Results & Data ([facility]) Vital Signs (Past 12 Hours) Vital Signs Temp Pulse Resp BP Pulse Ox 09/15/20 07:29 36.5 C 70 16 127/70 98 PG Care Time/CCT Total # of Minutes Spent Total Time Spent with Patient: Total time spent is greater than 50% in coordination of care (as documented) at patient's floor/unit and/or counseling patient: Coding Level of Care Code 18916 Subseq Hosp Care Lvl 2 Diagnoses Small bowel obstruction K56.609 Urothelial carcinoma of distal ureter C66.9
--- NOTE | 2020-09-15 12:22 | Hospitalist Progress Note ---
Date of Service September 15, 2020 Assessment & Plan Admission and Anticipated Discharge Date Admission Date: September 01, 2020 69 yo F here for small bowel obstruction that developed after urologic surgery, surgery is managing conservatively for now. Small bowel obstruction: -ongoing SBO improving slowly -w/ improvement on KUB and passing gas - plan is to continue conservative management for now -tolerating TPN, will decrease as her oral intake improves -serial exams -General surgery consulted recommending conservative management -Slowly resolving, advance diet as tolerable Intractable nausea and vomiting: -Secondary to SBO. 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 -Urology following Hypertension: Holding antihypertensives while n.p.o. BP acceptable Anxiety: -Provide IV Ativan as needed. -May benefit as a secondary antinausea medication as well. -phenergan added 09/04 Hyperlipidemia: Hold on home Rx. Spontaneous pneumothorax: Resolved -Patient initially found to be hypoxic with EMS arrival. -Chest x-ray concerning for RIGHT-sided pneumothorax. Chest CT confirms moderate pneumothorax -chest tube placed by pulmonary medicine on 09/02/2020. -improved. tube out, situation stable/essentially resolved Hypoxia: resolved when pneumothorax resolved ESTRELLA (acute kidney injury): resolved In the setting of profound dehydration with nausea, vomiting, and SBO. improved - follow periodic BMP DVT prophylaxis: -SCDs -No chemical prophylaxis in the event she has to proceed with surgery Discharge planning issues: stable for med/surg. anticipate home pending resolution of SBO Supervising Physician Co-Signing Physician Notes I also saw the patient and confirmed bocanegra portions of the history and physical examination. Agree with the impression and plan in the resident documentation. Patient is without complaints. She is actually up and walking the hallways. She notes having a bowel movement overnight. She has been tolerating full liquid diet without difficulty. Exam Vital signs stable. Afebrile. Upon exam, no acute distress. Cardiovascular regular. Respirations nonlabored Abdomen soft and nontender. Bowel sounds are auscultated. Data BUN 28, creatinine 0.97 Sodium 138, potassium 4.4. Assessment Small bowel obstruction Advance diet as per surgery Urothelial carcinoma Urology following Subjective Sherice Hanna is doing well this morning. She has had a bowel movement that was liquid and somewhat soft. She was eating a full liquid diet and tolerating it well. Review of Systems Review of Systems: constitutional: denies fever, chills Cardiac: denies chest pain, palpitations, edema GI: denies nausea vomiting, admits heartburn Pulm: Denies cough, shortness of breath Physical Exam Constitutional: WD/WN, vitals as above Eyes: PERRL, conjunctivae normal, anicteric sclerae ENMT: NG tube in place Neck: normal visual inspection Respiratory: normal respiratory effort, lungs clear to auscultation Cardiovascular: RRR, no murmur, no edema Gastrointestinal (Abdomen): abdomen soft, slightly tender to palpitations most at right lower quadrant incisions c/d/i Results & Data Results & Data ([facility]) Vital Signs (Past 12 Hours) Vital Signs Temp Pulse Resp BP Pulse Ox 09/15/20 07:29 36.5 C 70 16 127/70 98 CBC Results Results Complete Blood Count Results: RBC 3.36 M/uL (4.2-5.4) L 09/09/20 WBC 12.58 K/uL (4.8-10.8) H 09/09/20 Hgb 10.1 g/dL (12.0-16.0) L 09/09/20 Hct 30.4 % (37-47) L 09/09/20 Plt Count 381 K/uL (130-400) 09/09/20 Chemistry (BMP) Results BMP Results: Sodium 138 mmol/L (136-145) 09/15/20 Potassium 4.4 mmol/L (3.5-5.1) 09/15/20 Chloride 105 mmol/L (98-107) 09/15/20 BUN 28 mg/dl (7-18) H 09/15/20 Creatinine 0.97 mg/dl (0.6-1.2) 09/15/20 Glucose 109 mg/dl (70-99) H 09/15/20 Resident Activity Tracking Resident Involvement: Resident Care Provided Care Provided: Adult [facility] Medicine
[2020-09-15] MEDS ORDERED: TPN IV SCH (16:00)
[2020-09-15] MEDS ORDERED: CENTRAL PN IV SCH (16:00)
[2020-09-15] MEDS: LORazepam 0.5 MG/1 ML VIAL IV PRN (18:38)
[2020-09-16] MEDS: EUCERIN CR 120 GM JAR EXT PRN (07:38)
[2020-09-16] MEDS ORDERED: bisacodyL 10 MG SUPP PR ONE (07:39)
--- NOTE | 2020-09-16 07:44 | Surgery Progress Note ---
Date of Service September 16, 2020 Assessment & Plan (1) Small bowel obstruction: continues to make some progress stop TPN after current bag suppository today as above. looks/feels well. no n/v. +large amount of flatus. non-distended. non-tender. had pork chop/pudding/mashed potatoes etc....last night. cereal this am. continue diet. will repeat KUB tomorrow. if she continues to eat without issue and has another BM might consider d/c . agree with suppository and weaning TPN. Admission and Anticipated Discharge Date Admission Date: September 01, 2020 Subjective tolerated soft food about the same as full liquids, felt a little bloated after, no nausea, no BM Physical Exam Gastrointestinal (Abdomen): Inspection/Auscultation: + abdomen distended (slightly) Percussion/Palpation: abdomen soft Results & Data ([facility]) Vital Signs (Past 12 Hours) Vital Signs Temp Pulse Resp BP Pulse Ox 09/16/20 07:31 36.7 C 09/16/20 07:00 74 16 144/72 H 97 09/15/20 23:14 36.6 C 71 16 148/73 H 96 PG Care Time/CCT Total # of Minutes Spent Total Time Spent with Patient: Total time spent is greater than 50% in coordination of care (as documented) at patient's floor/unit and/or counseling patient: Coding Level of Care Code 71472 Subseq Hosp Care Lvl 2 Diagnoses Small bowel obstruction K56.609
--- NOTE | 2020-09-16 08:35 | Urology Progress Note ---
Date of Service September 16, 2020 Assessment & Plan (1) Urothelial carcinoma of distal ureter: Status post nephroureterectomy with complicated postoperative course secondary to bowel obstruction So far has responded to conservative management Diet was advanced yesterday after bowel movement, still awaiting confirmation that she continues to progress but overall appears to be headed in the right direction She continues to have supplemental nutrition in addition to her p.o. intake Subjectively feels well today I reviewed her pathology from her surgical procedureshe did not have any evidence of residual cancer but this appears to be a palisading granuloma/intense scar of the distal ureterthis is very reassuring and she seemed to be quite relieved to hear this newsI have explained that Dr. Bonds will talk to her in more detail about the findings when he sees her as an outpatient Admission and Anticipated Discharge Date Admission Date: September 01, 2020 Subjective Subjectively feeling well Bowel movement yesterday Currently tolerating a low residue/low fiber diet No bowel function yet today aside from some minor flatus Does not feel as distended No significant abdominal pain, no nausea or vomiting Physical Exam Physical Exam: Abdomen not grossly distended, incisions appropriate Nontender Constitutional: well developed and well nourished Respiratory: no respiratory distress Cardiovascular: Extremities: no pedal edema Gastrointestinal (Abdomen): Inspection/Auscultation: abdomen normal to inspection Results & Data ([facility]) Vital Signs (Past 12 Hours) Vital Signs Temp Pulse Resp BP Pulse Ox 09/16/20 07:31 36.7 C 09/16/20 07:00 74 16 144/72 H 97 09/15/20 23:14 36.6 C 71 16 148/73 H 96 PG Care Time/CCT Total # of Minutes Spent Total Time Spent with Patient: Total time spent is greater than 50% in coordination of care (as documented) at patient's floor/unit and/or counseling patient: Coding Level of Care Code 63689 Subseq Hosp Care Lvl 2 Diagnoses Urothelial carcinoma of distal ureter C66.9
[2020-09-16] MEDS: NICOTINE 7 MG/24 HR TDSY TD SCH (09:12)
[2020-09-16] MEDS: ENOXAPARIN INJ 40 MG/0.4 ML SYR SQ SCH (09:14)
[2020-09-16] MEDS: bisacodyL 10 MG SUPP PR SCH (09:15)
[2020-09-16] MEDS: FAMOTIDINE 20 MG in SYRINGE 3 ML IV SCH (09:15)
[2020-09-16 09:29] LABS: BUN Creatinine Ratio 29.8 (10-20); Calcium 9.6 mg/dl (8.5-10.1); Creatinine Clr Calc Pharmacy 41.4 ml/min; Est GFR (Non-African American) 53.5; Magnesium 2.4 mg/dl (1.8-2.4); Phosphorus 3.7 mg/dl (2.5-4.9); Potassium 4.5 mmol/L (3.5-5.1)
--- NOTE | 2020-09-16 13:24 | Hospitalist Progress Note ---
Date of Service September 16, 2020 Assessment & Plan Admission and Anticipated Discharge Date Admission Date: September 01, 2020 69 yo F here for small bowel obstruction that developed after urologic surgery, surgery is managing conservatively for now with tentative plan for discharge tomorrow. Small bowel obstruction: -ongoing SBO resolving slowly w/ improvement on KUB and passing gas and bowel movement -discontinued TPN -serial exams -General surgery consulted recommending conservative management -Slowly resolving, advancing diet as tolerable - low fiber Intractable nausea and vomiting: -Secondary to SBO. 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 -Urology following Hypertension: Holding antihypertensives while n.p.o. BP acceptable Anxiety: -Provide IV Ativan as needed. -May benefit as a secondary antinausea medication as well. -phenergan added 09/04 Hyperlipidemia: Hold on home Rx. Spontaneous pneumothorax: Resolved -Patient initially found to be hypoxic with EMS arrival. -Chest x-ray concerning for RIGHT-sided pneumothorax. Chest CT confirms moderate pneumothorax -chest tube placed by pulmonary medicine on 09/02/2020. -improved. tube out, resolved Hypoxia: resolved when pneumothorax resolved ESTRELLA (acute kidney injury): resolved In the setting of profound dehydration with nausea, vomiting, and SBO. improved - follow periodic BMP DVT prophylaxis: -SCDs -No chemical prophylaxis in the event she has to proceed with surgery Discharge planning issues: stable for med/surg. anticipate home pending resolution of SBO Supervising Physician Co-Signing Physician Notes I also saw the patient and confirmed bocanegra portions of the history and physical examination. Agree with the impression and plan in the resident documentation. Patient is without complaints. She is now tolerating a fairly normal diet; she is -and I continue to encourage -small more frequent meals. No bowel movements today but still with flatus. Exam Vital signs stable. Afebrile. Upon exam, no acute distress. Cardiovascular regular. Respirations nonlabored Abdomen soft and nontender. Bowel sounds are auscultated. Data BUN 32, creatinine 1.06 Assessment Small bowel obstruction Continues to improve May be ready for discharge tomorrow Urothelial carcinoma Urology following Subjective Sherice Hanna was in good spirits this morning when we spoke with her this morning. She had talked with Dr. Urban about potentially going home tomorrow. She was no longer on TPN, and was going to get a suppository today. She had not had a bowel movement today, and did note some bloating and gas. Review of Systems Review of Systems: constitutional: denies fever, chills Cardiac: denies chest pain, palpitations, edema GI: denies nausea vomiting, admits heartburn Pulm: Denies cough, shortness of breath Physical Exam Constitutional: WD/WN, vitals as above Eyes: PERRL, conjunctivae normal, anicteric sclerae ENMT: NG tube in place Neck: normal visual inspection Respiratory: normal respiratory effort, lungs clear to auscultation Cardiovascular: RRR, no murmur, no edema Gastrointestinal (Abdomen): abdomen soft, slightly tender to palpitations most at right lower quadrant incisions c/d/i Results & Data Results & Data ([facility]) Vital Signs (Past 12 Hours) Vital Signs Temp Pulse Resp BP Pulse Ox 09/16/20 07:31 36.7 C 09/16/20 07:00 74 16 144/72 H 97 CBC Results Results Complete Blood Count Results: RBC 3.36 M/uL (4.2-5.4) L 09/09/20 WBC 12.58 K/uL (4.8-10.8) H 09/09/20 Hgb 10.1 g/dL (12.0-16.0) L 09/09/20 Hct 30.4 % (37-47) L 09/09/20 Plt Count 381 K/uL (130-400) 09/09/20 Chemistry (BMP) Results BMP Results: Sodium 137 mmol/L (136-145) 09/16/20 Potassium 4.5 mmol/L (3.5-5.1) 09/16/20 Chloride 105 mmol/L (98-107) 09/16/20 BUN 32 mg/dl (7-18) H 09/16/20 Creatinine 1.06 mg/dl (0.6-1.2) 09/16/20 Glucose 104 mg/dl (70-99) H 09/16/20 Resident Activity Tracking Resident Involvement: Resident Care Provided Care Provided: Adult [facility] Medicine
[2020-09-17] MEDS: ACETAMINOPHEN SUSP 325 MG/10.15 ML UDC PO PRN (00:04)
[2020-09-17] MEDS: NICOTINE 7 MG/24 HR TDSY TD SCH (07:45)
[2020-09-17] MEDS: ENOXAPARIN INJ 40 MG/0.4 ML SYR SQ SCH (07:50)
[2020-09-17] MEDS: FAMOTIDINE 20 MG in SYRINGE 3 ML IV SCH (07:53)
[2020-09-17 08:11] LABS: Basophils # (auto) 0.05 K/uL (0-0.2); Basophils % (auto) 0.7 %; Eosinophils # (auto) 0.26 K/uL (0-0.5); Eosinophils % (auto) 3.6 %; Hematocrit (blood only) 29.4 % (37-47); Hemoglobin 9.7 g/dL (12.0-16.0); Immature Granulocytes # (auto) 0.01 K/uL (0.00-0.02); Immature Granulocytes % (auto) 0.1 %; Lymphocytes # (auto) 1.33 K/uL (1.2-3.4); Lymphocytes % (auto) 18.5 %; Mean Corpuscular Hemoglobin 30.1 pg (25-34); Mean Corpuscular Volume 91.3 fL (80-100); Mean Platelet Volume 10.3 fL (7.4-10.4); Monocytes % (auto) 9.7 %; Neutrophils # (auto) 4.84 K/uL (1.4-6.5); Neutrophils % (auto) 67.4 %; Platelet Count 364 K/uL (130-400); RDW Coefficient of Variation 15.3 % (11.5-14.5); RDW Standard Deviation 51.5 fL (36.4-46.3); Red Blood Count 3.22 M/uL (4.2-5.4); White Blood Count 7.19 K/uL (4.8-10.8)
--- NOTE | 2020-09-17 08:25 | Surgery Progress Note ---
Date of Service September 17, 2020 Assessment & Plan (1) Small bowel obstruction: tolerating diet, off TPN KUB pending but clinically doing well and likely d/c today as above. KUB shows improving sbo/less dilated. hank diet. no symptoms ok for d/c. instructions given. Admission and Anticipated Discharge Date Admission Date: September 01, 2020 Subjective BM yesterday, tolerating low fiber diet, wants to go home Physical Exam Gastrointestinal (Abdomen): Inspection/Auscultation: abdomen not distended Percussion/Palpation: abdomen soft; abdomen nontender Results & Data ([facility]) Vital Signs (Past 12 Hours) Vital Signs Temp Pulse Resp BP Pulse Ox 09/17/20 08:18 75 09/17/20 07:00 36.6 C 16 117/65 98 09/16/20 23:53 36.6 C 76 14 146/72 H 98 PG Care Time/CCT Total # of Minutes Spent Total Time Spent with Patient: Total time spent is greater than 50% in coordination of care (as documented) at patient's floor/unit and/or counseling patient: Coding Level of Care Code 69898 Inpt Consult Level 2 Diagnoses Small bowel obstruction K56.609
[2020-09-17 08:28] LABS: BUN Creatinine Ratio 25.6 (10-20); Calcium 9.2 mg/dl (8.5-10.1); Creatinine Clr Calc Pharmacy 39.2 ml/min; Est GFR (Non-African American) 50.1; Potassium 4.4 mmol/L (3.5-5.1)
[2020-09-17] MEDS: LORazepam 0.5 MG/1 ML VIAL IV PRN (09:06)
--- NOTE | 2020-09-17 10:03 | XRay Report ---
KUB HISTORY: Acute generalized abdominal pain with reported small bowel obstruction sbo COMPARISON: KUB 09/14/2020 FINDINGS: Moderate improvement of the previously noted small bowel gaseous distention. A mildly promi nent small bowel loop within the left midabdomen measures 3.5 cm. Enteric contrast is again noted wit hin the large bowel with colonic diverticulosis. Surgical clips of the right abdomen. No renal calcu li. No ureteral calculi. No pneumoperitoneum or pneumatosis. Degenerative changes of the spine and pe lvis. No fracture. IMPRESSION: 1. Moderately decreased gaseous distention of the small bowel with a persistent mildly dilated loop w ithin the left midabdomen. Findings are suggestive of a resolving small bowel obstruction. 2. No pneumoperitoneum. 3. Colonic diverticulosis. ACT 112: Negative or not required by law. The above report was generated using voice recognition software. It may contain grammatical, syntax o r spelling errors. Electronically signed by: Julián Vasquez M.D. 09/17/2020 10:01 AM
--- NOTE | 2020-09-17 12:05 | Urology Progress Note ---
Date of Service September 17, 2020 Assessment & Plan (1) Small bowel obstruction: Small bowel obstruction after nephroureterectomy Has progressed appropriately Appears to have contrast moving further through her colon continues to pass flatus and lack clinical signs of obstruction Hopeful for discharge home later today I did review pathology with her yesterdayshe does not have any residual malignancy based on the final pathology from her nephro ureterectomy We will arrange for appropriate outpatient follow-up Admission and Anticipated Discharge Date Admission Date: September 01, 2020 Subjective subjectively doing well Denies any major urologic complaints Still passing some flatus, nondistended, not nauseated Review of Systems Review of Systems: All systems reviewed & are unremarkable except as noted in HPI & below Physical Exam Constitutional: well developed and well nourished Respiratory: no respiratory distress Cardiovascular: Extremities: no pedal edema Gastrointestinal (Abdomen): Inspection/Auscultation: abdomen normal to inspection Results & Data ([facility]) Vital Signs (Past 12 Hours) Vital Signs Temp Pulse Resp BP Pulse Ox 09/17/20 08:18 75 09/17/20 07:00 36.6 C 16 117/65 98 PG Care Time/CCT Total # of Minutes Spent Total Time Spent with Patient: Total time spent is greater than 50% in coordination of care (as documented) at patient's floor/unit and/or counseling patient: Coding Level of Care Code 34599 Subseq Hosp Care Lvl 2 Diagnoses Small bowel obstruction K56.609
[2020-09-17] MEDS ORDERED: Nursing to Pharmacy Communication SCH (14:00)
--- NOTE | 2020-09-17 16:54 | Discharge Summary ---
Date of Service September 17, 2020 Admission HPI Per Admitting Provider Patient is a 69-year-old female with significant past medical history of hyperlipidemia, anxiety, hypertension, chronic kidney disease, and mitral regurgitation who presented to the emergency department via EMS with a several hour episode of severe nausea and vomiting with associated abdominal pain as well as shortness of breath. Patient recently underwent RIGHT-sided laparoscopic nephrectomy in the setting of renal carcinoma. The patient had an uneventful hospital stay and was discharged from this institution yesterday. She was doing well at the time of discharged home, but throughout the night she reports that she did have an episode of vomiting. She reports that throughout most of the day she was experiencing intense nausea and vomiting with associated abdominal pain. She subsequently developed shortness of breath and upon EMS arrival, patient was noted to be hypoxic. On evaluation in the emergency department, the patient was noted to have a RIGHT-sided pneumothorax. She received antinausea medications with moderate relief of symptoms. Pain has been controlled at this point. Patient does have a moderate leukocytosis, but is without other significant laboratory findings. Slight ESTRELLA appreciated. No significant electrolyte derangements. COVID-[address] of the abdomen and pelvis demonstrates small bowel obstruction. Chest CT with findings of moderate right pneumothorax. Emergency provider spoke with general surgery as well as pulmonary/critical care provider. Plan for supplemental oxygen throughout the night with repeat chest x-ray. Chest tube/pigtail catheter to be placed if any respiratory decline. NG tube ordered. Upon evaluation in the emergency department, the patient is awake, alert, and oriented. The patient is ill-appearing. She complains of intense upper abdominal pain. She feels extremely nauseous. NG tube was placed with substantial amount of decompression in the emergency department. The patient was more comfortable and able to provide historical information at this time. She reports that she has had ongoing upper abdominal pain. She adamantly declines any complaints of headaches, dizziness, lightheadedness, chest pain, hemoptysis, hematemesis, hematochezia, melena, hematuria, or dysuria. The patient reports that she has not had a bowel movement since the time of discharge. Admission Exam Per Admitting Provider VITAL SIGNS - Vital signs and nursing notes were reviewed. GENERAL - 69-year-old female appearing her stated age who is in moderate dist ress. Communicates well with provider and answers questions appropriately. HEAD - NC/AT. EYES - PERRL with EOMI bilaterally. Sclera anicteric. Palpebral conjunctiva pink and moist with no injection noted. EARS - No deformities of external structures noted on gross examination bilaterally. NOSE - Midline and without cyanosis. No epistaxis or purulent drainage noted. Septum midline without deviation or septal hematoma noted. MOUTH/OROPHARYNX - Without perioral cyanosis. Buccal mucosa pink and dry. NECK - Neck with FROM. No nuchal rigidity. LUNGS - Chest wall symmetric without accessory muscle use, intercostals retractions, or central cyanosis. Breath sounds appreciated greater LEFT versus right. Slightly diminished to the RIGHT, but able to discern inspiratory next Tory noises. CARDIAC - RRR with S1/S2. No murmur, rubs, or gallops appreciated. ABDOMEN - Abdominal contour flat without pulsations or visible masses. Postsurgical incision sites clean, dry, and intact. BS absent. Moderate tenderness to palpation appreciated in the epigastrium. Mild guarding. No palpable masses, hepatosplenomegaly, or ascites noted. EXTREMITIES - No clubbing or peripheral cyanosis. No pretibial edema present. +3/5 radial and dorsalis pedis pulses palpated throughout. +5/5 strength noted in UE/LE bilaterally. NEUROLOGIC - Cranial nerves II through XII grossly intact. Sensory intact to light touch throughout. PSYCH - A&Ox3 and cooperates fully with examiner. Pt is very pleasant despite current state of illness. Principal Diagnosis Small Bowel obstruction UTI Discharge Exam Constitutional: WD/WN, vitals as above Eyes: PERRL, conjunctivae normal, anicteric sclerae ENMT: NG tube in place Neck: normal visual inspection Respiratory: normal respiratory effort, lungs clear to auscultation Cardiovascular: RRR, no murmur, no edema Gastrointestinal (Abdomen): abdomen soft, slightly tender to palpitations most at right lower quadrant incisions c/d/i Discharge Data Allergies Allergy/AdvReac Type Severity Reaction Status Date / Time magnesium sulfate Allergy Severe face, hand Verified 09/01/20 17:55 [From Suprep Bowel Prep Kit] swelling Penicillins Allergy Severe rash, Verified 09/01/20 17:55 throat tightening potassium Allergy Severe face, hand Verified 09/01/20 17:55 [From Suprep Bowel Prep Kit] swelling sodium sulfate Allergy Severe face, hand Verified 09/01/20 17:55 [From Suprep Bowel Prep Kit] swelling Consultations 09/01/20 17:55 ED Decision to Admit Stat 09/01/20 20:18 Consult General Surgery Routine Consult Urology Stat Procedures Performed Operation Date: 09/10/20 09:40 <No data on this case meets the specified criteria> Ordered Studies 09/01/20 15:58 CT abd pelvis IV con only Stat CT angio chest PE protocol Stat 09/04/20 09:24 FL small bowel follow through Routine 09/07/20 09:22 CT abd pelvis wo con Routine Hospital Course (1) Small bowel obstruction: 69 yo F here for small bowel obstruction that developed after urologic surgery, managed conservatively and improved over hospital course. Small bowel obstruction: -ongoing SBO resolving slowly w/ improvement on KUB and passing gas and bowel movement prior to discharge -discontinued TPN prior to discharge -General surgery consulted recommending conservative management -Slowly resolved, advancing diet as tolerable - continue low fiber diet - f/u with general surgery Intractable nausea and vomiting: -Secondary to SBO. 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 -will follow up with urology Hypertension: Holding antihypertensives while n.p.o. BP acceptable Anxiety: -continue home medications Hyperlipidemia: -restarted home medication Spontaneous pneumothorax: Resolved -Patient initially found to be hypoxic -Chest CT confirms moderate pneumothorax -chest tube placed by pulmonary medicine on 09/02/2020. -improved. tube out, resolved UTI w/ enterococcus faecalis - sensitive to Nitrofurantoin - discharged w/ 7 days of Nitrofurantoin Hypoxia: resolved when pneumothorax resolved ESTRELLA (acute kidney injury): resolved In the setting of profound dehydration with nausea, vomiting, and SBO. improved - follow periodic BMP Total Time Total Time Spent Total Time Spent (In Minutes): 25 Discharge Plan Discharge Items Patient Disposition: Home - Self-Care Reason For Visit: Spontaneous Right Sided pneumothorax, SBO, s/p Rig Discharge Diagnosis: small bowel obstruction Activity: Per Instructions section Non-emergency contact: Primary Care Provider Call non-emergency contact if: your symptoms worsen Follow-up/Referrals: Verónica Faulkner DO [Primary Care Provider] - Michael Urban DO [Surgeon] - Diet: Low Fiber Addtl Attending Provider Instructions: Bowel obstruction You were found to have a bowel obstruction that the hospitalist treated along with with general surgery. We had a vascular line to give you nutrition while you were recovering. You were having bowel movement and improved abdominal pain prior to discharge. You can continue the low fiber diet going home. You will need to follow up with your primary care doctor and general surgery. Urinary tract infection You were found to have a bacterial infection, we started you on an antibiotic while you were in the hospital. You will continue this medication for a total of 7 days. You will have some of the medication to go home with and you will rock picker the rest of the medication at the pharmacy. You will need to follow up with urology after leaving the hospital. Return precautions If you develop abdominal pain, you are not having bowel movements or you are having nausea and vomiting or shortness of breath we would want you to call or come in to get evaluated. Pending Studies at Discharge: No Stand-Alone Forms: My [facility], Smoking Cessation Medications and DC Order Prescriptions: New nitrofurantoin monohyd/m-cryst 100 mg capsule 100 mg PO BID 5 Days Qty: 10 RF: 0 Continued lisinopril 20 mg tablet 20 mg PO QPM Qty: 90 RF: 1 tamsulosin 0.4 mg capsule 0.4 mg PO HS Qty: 30 RF: 0 atorvastatin 20 mg tablet 20 mg PO QPM Qty: 90 RF: 1 cholecalciferol (vitamin D3) 50 mcg (2,000 unit) capsule 2,000 units PO QPM Qty: 30 RF: 0 lorazepam [Ativan] 0.5 mg tablet 0.5 mg PO DAILY PRN (Reason: anxiety) Qty: 30 RF: 0 [employer] [facility] 40-10-5-3.3 mg Tablet 1 tab PO QPM RF: 0 docusate sodium [Colace] 100 mg capsule 100 mg PO BID Qty: 60 RF: 0 oxycodone-acetaminophen [Percocet] 5-325 mg tablet 1 tab PO TID PRN (Reason: pain) Qty: 14 RF: 0 nicotine [Nicoderm CQ] 21 mg/24 hr Patch 24 Hour 21 mg transdermal QAM Qty: 14 RF: 0 ondansetron 4 mg tablet,disintegrating 4 mg PO TID PRN (Reason: nausea and vomiting) Qty: 12 RF: 0 calcium carbonate [Calcium 600] 600 mg calcium (1,500 mg) Tablet 600 mg PO Q OTHER DAY RF: 0 Discharge Orders: Discharge Order (Routine); Ordered 09/17/20 Ordered By: Paul Medina/Other Patient Handouts: Low-Fiber Diet Admission Data Admit Date/Time: 09/01/20 18:43 Attending Provider: Clive Packer Admit Provider: Hemanth Martinez Primary Care Provider: Verónica Faulkner Other Providers: Hemanth Martinez ; Frank Bonds ; Frantz Navarro ; Vazquez Bang ; Henry Villalobos ; Troy Elias Jr ; Michael Urban ; Antonio Leiva ; Stephanie Fay ; Artis Vincent ; Rafael Sherman Other Interventions: Discharge Summary Assessment (RN) Last Done: 09/17/20 15:06 Supervising Physician Co-Signing Physician Notes I also saw the patient and confirmed bocanegra portions of the history and physical examination. Agree with the impression and plan in the resident documentation. I also discussed the case with the urology team Exam Vital signs stable. Afebrile. Upon exam, no acute distress. Cardiovascular regular. Respirations nonlabored Abdomen soft and nontender. Bowel sounds are auscultated. Assessment Small bowel obstruction Continues to improve Discharge today Urothelial carcinoma Urology following UTI Macrobid 100 mg p.o. twice daily x7 days (really the only oral choice given sensitivities and her penicillin allergy)
[2020-09-17] MEDS ORDERED: NITROFURANTOIN MONOHYDRATE 100 MG CAP PO SCH ×3 (21:00)
== END 2020-09-17 15:59 | disposition home or self-care (01) | DRG 388 ==
LOC: ED 15:04 → 1E 18:43 → SUATTDRO 18:43 → 1E 19:42 → 2S 09-02 16:58 → 3W 09-06 16:17

== ENCOUNTER 2020-10-09 10:47 | Inpatient (IN) ==
[2020-10-09] MEDS ORDERED: SODIUM CHLORIDE 0.9% 500 ML IV SCH (11:30)
[2020-10-09] MEDS ORDERED: MoRPHine SULFATE 4 MG/ML 1 ML CARP\\VIAL IV STA ×2 (11:30→12:16)
[2020-10-09] MEDS ORDERED: ONDANSETRON INJ 2 MG/ML 2 ML VIAL IV STA ×2 (11:30→16:08)
--- NOTE | 2020-10-09 11:43 | Emergency Department Note ---
History of Present Illness General Chief Complaint: Abdominal Pain Time Seen by Provider: 10/09/20 11:05 Source: patient Mode of arrival: EMS Limitations: no limitations History of Present Illness Maximum Pain Intensity: 7 This is a 70-year-old female who presents to the ED with a chief complaint of abdominal pain. The patient states that her symptoms started yesterday evening. It worsened through the night and today. She states that it is a steady pain that she describes as pressure. She has some associated nausea and vomiting. No diarrhea. She does have history of bowel obstruction. She tried Tylenol which did not help. Oxycodone at 3 AM helped a little for about 1 hour. She has history of right nephrectomy 6 weeks ago. Home Medications Medication Instructions Recorded Confirmed Type calcium carbonate [Calcium 600] 600 mg PO Q OTHER DAY 01/16/19 10/09/20 History cholecalciferol (vitamin D3) 50 2,000 units PO QPM #30 cap 10/02/19 10/09/20 History mcg (2,000 unit) capsule [facility] 1 tab PO QPM 12/16/19 10/09/20 History lisinopril 20 mg tablet 20 mg PO QPM #90 tab 05/21/20 10/09/20 Rx tamsulosin 0.4 mg capsule 0.4 mg PO HS #30 cap 08/06/20 10/09/20 Rx atorvastatin 20 mg tablet 20 mg PO QPM #90 tab 08/24/20 10/09/20 Rx docusate sodium [Colace] 100 mg PO BID #60 cap 08/31/20 10/09/20 Rx nicotine [Nicoderm CQ] 21 mg TRANSDERMAL QAM #14 ea 08/31/20 10/09/20 Rx ondansetron 4 mg PO TID PRN #12 tab 08/31/20 10/09/20 Rx oxycodone-acetaminophen [Percocet] 1 tab PO TID PRN #14 tab 08/31/20 10/09/20 Rx nicotine 14 mg/24 hr daily 1 patch TRANSDERMAL Q24H #14 ea 09/18/20 10/09/20 Rx transdermal patch lorazepam 0.5 mg tablet 0.5 mg PO DAILY PRN #30 tab 09/21/20 10/09/20 Rx Allergies Allergy/AdvReac Type Severity Reaction Status Date / Time magnesium sulfate Allergy Severe face, hand Verified 10/09/20 11:51 [From Suprep Bowel Prep Kit] swelling Penicillins Allergy Severe rash, Verified 10/09/20 11:51 throat tightening potassium Allergy Severe face, hand Verified 10/09/20 11:51 [From Suprep Bowel Prep Kit] swelling sodium sulfate Allergy Severe face, hand Verified 10/09/20 11:51 [From Suprep Bowel Prep Kit] swelling Past Med/Surg History Medical History Anxiety CKD (chronic kidney disease) baseline creatinine 1.3-1.4 per chart review Hyperlipidemia Hypertension Leukocytosis Lung nodule Last CT 01/2019, unchanged, no further f/u needed per records Osteoarthritis Pneumothorax on right PONV (postoperative nausea and vomiting) Small bowel obstruction Temporomandibular joint disorder + clicking, no locking Thyroid nodule 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 Surgical History H/O exploratory laparotomy tubal surgery for fertility issues History of cardiac cath 5+ years ago ([facility])- no stents, attempts to obtain official report unsuccessful History of colonoscopy History of cystoscopy cystoscopy + stent insertion: 01/02/20: LMA#4 at [facility] cystoscopy: 03/05/20: LMA#4 at [facility] cystoscopy, RP07/09/20: MAC sedation at [facility] History of tooth extraction Hx of nephroureterectomy S/P D&C (status post dilation and curettage) S/P tonsillectomy Family History Aunt Diabetes Colorectal cancer Myocardial infarction Ovarian cancer Father No problems noted. Mother Dementia Pacemaker Hypertension Uterine cancer Family/Other Pancreatic cancer Breast cancer Colorectal cancer Other No family history of adverse response to anesthesia Social History Smoking Status: Former smoker packs per day: 1; Cigarettes Per Day: hasn't smoked since surgery - been using patch; Second Hand Exposure: Yes ( A CHILD); Hx Alcohol Use: Yes Alcohol type: wine Hx Substance Use: No Preferred Language: German Communication Ability: Effective Visual Impairment: No Limitations Hearing Ability: Normal Case Assembler Required: No Beliefs That Will Affect Care: None marital status: Current Living Situation: Spouse current occupational status: retired Feels Safe at Home: Yes Childhood Exposure to Second-Hand Smoke: Yes caffeine: Yes (Coffee x 2-3 per day) during the past year weight has: remained stable Dental Care, Regularly: Yes Physical Activity Frequency: Daily Seatbelt Use: always Sunscreen Use: No Assistive Devices: None Review of Systems A total of 10 systems reviewed and were otherwise negative Physical Exam Vital Signs Vital Signs - 24 hr 10/09/20 10:53 10/09/20 10:57 10/09/20 10:59 Temperature 36.5 C Temperature Source Oral Pulse Rate 96 H 99 H 94 H Pulse Rate [Apical] Pulse Rate from SpO2 Sensor 96 H 93 H Respiratory Rate 28 H 16 20 Blood Pressure 133/109 H 133/109 H Blood Pressure [Right Arm] Blood Pressure Mean 117 117 Blood Pressure Mean [Right Arm] Pulse Oximetry 97 98 98 Oxygen Delivery Method Room Air Sepsis Recent Fever Within 48 Hours No Sepsis New/Unexplained Change in Mental Status N/A Sepsis Action Taken by Nursing No Action Required 10/09/20 11:00 10/09/20 11:01 10/09/20 11:10 Temperature Temperature Source Pulse Rate 89 90 88 Pulse Rate [Apical] Pulse Rate from SpO2 Sensor 89 90 88 Respiratory Rate 20 20 18 Blood Pressure 129/70 Blood Pressure [Right Arm] Blood Pressure Mean 89 Blood Pressure Mean [Right Arm] Pulse Oximetry 97 97 95 Oxygen Delivery Method Sepsis Recent Fever Within 48 Hours Sepsis New/Unexplained Change in Mental Status Sepsis Action Taken by Nursing 10/09/20 11:20 10/09/20 11:30 10/09/20 11:31 Temperature Temperature Source Pulse Rate 82 88 88 Pulse Rate [Apical] Pulse Rate from SpO2 Sensor 83 87 87 Respiratory Rate 15 15 22 Blood Pressure 116/54 L Blood Pressure [Right Arm] Blood Pressure Mean 74 Blood Pressure Mean [Right Arm] Pulse Oximetry 97 98 94 Oxygen Delivery Method Sepsis Recent Fever Within 48 Hours Sepsis New/Unexplained Change in Mental Status Sepsis Action Taken by Nursing 10/09/20 11:38 10/09/20 11:40 10/09/20 11:50 Temperature Temperature Source Pulse Rate 84 76 Pulse Rate [Apical] Pulse Rate from SpO2 Sensor 81 77 Respiratory Rate 19 16 Blood Pressure Blood Pressure [Right Arm] Blood Pressure Mean Blood Pressure Mean [Right Arm] Pulse Oximetry 95 93 Oxygen Delivery Method Room Air Sepsis Recent Fever Within 48 Hours Sepsis New/Unexplained Change in Mental Status Sepsis Action Taken by Nursing 10/09/20 12:00 10/09/20 12:01 10/09/20 12:10 Temperature Temperature Source Pulse Rate 73 72 80 Pulse Rate [Apical] Pulse Rate from SpO2 Sensor 73 72 80 Respiratory Rate 20 17 6 L Blood Pressure 109/55 L Blood Pressure [Right Arm] Blood Pressure Mean 73 Blood Pressure Mean [Right Arm] Pulse Oximetry 95 97 93 Oxygen Delivery Method Sepsis Recent Fever Within 48 Hours Sepsis New/Unexplained Change in Mental Status Sepsis Action Taken by Nursing 10/09/20 12:20 10/09/20 12:30 10/09/20 12:31 Temperature Temperature Source Pulse Rate 81 81 81 Pulse Rate [Apical] Pulse Rate from SpO2 Sensor Respiratory Rate 14 16 15 Blood Pressure 105/54 L Blood Pressure [Right Arm] Blood Pressure Mean 71 Blood Pressure Mean [Right Arm] Pulse Oximetry Oxygen Delivery Method Sepsis Recent Fever Within 48 Hours Sepsis New/Unexplained Change in Mental Status Sepsis Action Taken by Nursing 10/09/20 12:40 10/09/20 12:50 10/09/20 13:33 Temperature Temperature Source Pulse Rate 85 87 Pulse Rate [Apical] 84 Pulse Rate from SpO2 Sensor Respiratory Rate 16 15 18 Blood Pressure Blood Pressure [Right Arm] 112/57 L Blood Pressure Mean Blood Pressure Mean [Right Arm] 75 Pulse Oximetry Oxygen Delivery Method Sepsis Recent Fever Within 48 Hours Sepsis New/Unexplained Change in Mental Status Sepsis Action Taken by Nursing CONSTITUTIONAL/VITAL SIGNS: Reviewed / noted above. GENERAL: Non-toxic in appearance. INTEGUMENTARY: Warm, dry, and [place]. HEAD: Normocephalic. EYES: without scleral icterus or trauma. ENT/OROPHARYNX: clear and moist. LYMPHADENOPATHY/NECK: Is supple without lymphadenopathy or meningismus. RESPIRATORY: Lungs clear and equal. CARDIOVASCULAR: Regular rate and rhythm. GI/ABDOMEN: Soft and diffusely tender more so in the lower abdomen in the right abdomen. No organomegaly or pulsatile mass. No rebound or guarding. Normal bowel sounds. EXTREMITIES: Warm and well perfused. BACK: No CVA tenderness. NEUROLOGICAL: Intact without focal deficits. PSYCHIATRIC: normal affect. MUSCULOSKELETAL: Normally developed with good muscle tone. TRIAGE NURSING DOCUMENTATION REVIEWED. Course Administered Medications Discontinued Medications Sodium Chloride (Nss) 500 mls @ 999 mls/hr IV .Q31M [place] Stop: 10/09/20 12:00 Last Infusion: 10/09/20 12:26 Dose: 0 mls/hr Documented by: [id number] Admin: 10/09/20 11:50 Dose: 999 mls/hr Documented by: [id number] Morphine Sulfate (Morphine Sulfate 4 Mg/Ml 1 Ml Carp\Vial) 4 mg IV NOW STA Stop: 10/09/20 11:31 Last Admin: 10/09/20 11:50 Dose: 4 mg Documented by: [id number] Morphine Sulfate (Morphine Sulfate 4 Mg/Ml 1 Ml Carp\Vial) 4 mg IV NOW STA Stop: 10/09/20 12:17 Last Admin: 10/09/20 12:21 Dose: 4 mg Documented by: [id number] Ondansetron HCl (Ondansetron Inj 2 Mg/Ml 2 Ml Vial) 4 mg IV NOW STA Stop: 10/09/20 11:31 Last Admin: 10/09/20 11:51 Dose: 4 mg Documented by: [id number] Medical Decision Making Differential Diagnosis Differential considered: pancreatitis, hepatitis, acute cholecystitis, AAA, UTI, pyelonephritis, kidney stones, appendicitis, diverticulitis, shingles, bowel obstruction, mesenteric ischemia, intussusception,hernia,. Medical Records Attestation: I reviewed the patient's medical records. Home Medications Current Medication List: was personally reviewed by me Laboratory Data Attestation: I reviewed the patient's lab results. Result diagrams: 10/09/20 12:01 10/09/20 12:01 Labs: Lab Results 10/09/20 10/09/20 10/09/20 Range/Units 12:01 12:01 13:00 WBC 22.14 H (4.8-10.8) K/uL RBC 3.99 L (4.2-5.4) M/uL Hgb 12.3 (12.0-16.0) g/dL Hct 37.0 (37-47) % MCV 92.7 (80-100) fL MCH 30.8 (25-34) pg MCHC 33.2 (32-36) g/dL RDW Std Deviation 52.2 H (36.4-46.3) fL RDW Coeff of [place] 15.3 H (11.5-14.5) % Plt Count 381 (130-400) K/uL MPV 10.0 (7.4-10.4) fL Immature Gran % (Auto) 0.3 % Neut % (Auto) 90.3 % Lymph % (Auto) 3.4 % [place] % (Auto) 5.7 % Eos % (Auto) 0.2 % Baso % (Auto) 0.1 % Neut # (Auto) 19.97 H (1.4-6.5) K/uL Lymph # (Auto) 0.76 L (1.2-3.4) K/uL [place] # (Auto) 1.27 H (0.11-0.59) K/uL Eos # (Auto) 0.05 (0-0.5) K/uL Baso # (Auto) 0.03 (0-0.2) K/uL Immature Gran # (Auto) 0.06 H (0.00-0.02) K/uL Sodium 140 (136-145) mmol/L Potassium 4.4 (3.5-5.1) mmol/L Chloride 112 H (98-107) mmol/L Carbon Dioxide 21 (21-32) mmol/L Anion Gap 7.0 (3-11) BUN 27 H (7-18) mg/dl Creatinine 1.72 H (0.6-1.2) mg/dl Est Cr Clr Drug Dosing 27.2 ml/min Est GFR ( Amer) 34.3 Est GFR (Non-Af Amer) 29.6 BUN/Creatinine Ratio 15.9 (10-20) Glucose 138 H (70-99) mg/dl Calcium 9.5 (8.5-10.1) mg/dl Total Bilirubin 0.5 (0.2-1) mg/dl AST 10 L (15-37) U/L ALT 19 (12-78) U/L Alkaline Phosphatase 72 (45-117) U/L Total Protein 6.6 (6.4-8.2) gm/dl Albumin 3.6 (3.4-5.0) gm/dl Globulin 3.0 (2.5-4.0) gm/dl Albumin/Globulin Ratio 1.2 (0.9-2) Lipase 124 (73-393) U/L COVID-19 Eval Order Covid19 [facility]Now [facility] SARS-CoV-2, RNA, NAAT (NEGATIVE) 10/09/20 Range/Units 13:00 WBC (4.8-10.8) K/uL RBC (4.2-5.4) M/uL Hgb (12.0-16.0) g/dL Hct (37-47) % MCV (80-100) fL MCH (25-34) pg MCHC (32-36) g/dL RDW Std Deviation (36.4-46.3) fL RDW Coeff of [place]ita (11.5-14.5) % Plt Count (130-400) K/uL MPV (7.4-10.4) fL Immature Gran % (Auto) % Neut % (Auto) % Lymph % (Auto) % [place] % (Auto) % Eos % (Auto) % Baso % (Auto) % Neut # (Auto) (1.4-6.5) K/uL Lymph # (Auto) (1.2-3.4) K/uL [place] # (Auto) (0.11-0.59) K/uL Eos # (Auto) (0-0.5) K/uL Baso # (Auto) (0-0.2) K/uL Immature Gran # (Auto) (0.00-0.02) K/uL Sodium (136-145) mmol/L Potassium (3.5-5.1) mmol/L Chloride (98-107) mmol/L Carbon Dioxide (21-32) mmol/L Anion Gap (3-11) BUN (7-18) mg/dl Creatinine (0.6-1.2) mg/dl Est Cr Clr Drug Dosing ml/min Est GFR ( Amer) Est GFR (Non-Af Amer) BUN/Creatinine Ratio (10-20) Glucose (70-99) mg/dl Calcium (8.5-10.1) mg/dl Total Bilirubin (0.2-1) mg/dl AST (15-37) U/L ALT (12-78) U/L Alkaline Phosphatase (45-117) U/L Total Protein (6.4-8.2) gm/dl Albumin (3.4-5.0) gm/dl Globulin (2.5-4.0) gm/dl Albumin/Globulin Ratio (0.9-2) Lipase (73-393) U/L COVID-19 Eval Order SARS-CoV-2, RNA, NAAT NEGATIVE (NEGATIVE) Imaging Data Chest x-ray: Radiologist's impression: XR chest 1V portable HISTORY: 70 years-old Female Resp sx c/w COVID-19 acute shortness of breath COMPARISON: CT abdomen and pelvis 10/09/2020 TECHNIQUE: Portable AP view of the chest FINDINGS: Cardiomediastinal and hilar silhouettes are within normal limits. No pneumothorax, pleural effusion, airspace consolidation or overt pulmonary edema. Bones of the chest appear grossly intact. IMPRESSION: No acute process. CT scan of the abdomen pelvis:IMPRESSION: 1. High-grade small bowel obstruction with transition point within the right hemipelvis, possibly secondary to underlying adhesions. No obstructing lesion identified.. 2. No pneumatosis or pneumoperitoneum. 3. Small volume of abdominopelvic ascites. 4. Prior right nephrectomy. 5. Additional findings as above. MDM Narrative This is a 70-year-old female who presents with abdominal pain. Details above. She has associated nausea and vomiting. History of small bowel obstruction in the past. The patient white blood sinus 22,000. BUN is 27 creatinine is 1.72. Chemistry panel was unremarkable. Lipase is negative. CT scan of the abdomen pelvis reveals a high-grade small bowel obstruction. Chest x-ray did not show acute process. Covid test was negative. The patient will be seen by the hospitalist for further evaluation and care. NG tube has been ordered. Impression & Plan SBO (small bowel obstruction), Abdominal pain, Vomiting Discharge Plan Visit Data Chief Complaint: Abdominal Pain ED Provider: Carlos Domingo Discharge Problem: SBO (small bowel obstruction), Abdominal pain, Vomiting Patient Disposition: Admitted As Inpatient Forms Stand Alone Forms: [facility], Virtual Emergency Department, Important Visit Information Prescriptions Prescriptions: No Action lisinopril 20 mg tablet 20 mg PO QPM Qty: 90 RF: 1 tamsulosin 0.4 mg capsule 0.4 mg PO HS Qty: 30 RF: 0 atorvastatin 20 mg tablet 20 mg PO QPM Qty: 90 RF: 1 nicotine [Nicoderm CQ] 14 mg/24 hr patch 24 hour 1 patch transdermal Q24H Qty: 14 RF: 0 lorazepam [Ativan] 0.5 mg tablet 0.5 mg PO DAILY PRN (Reason: anxiety) Qty: 30 RF: 0 cholecalciferol (vitamin D3) 50 mcg (2,000 unit) capsule 2,000 units PO QPM Qty: 30 RF: 0 [facility] 40-10-5-3.3 mg Tablet 1 tab PO QPM RF: 0 docusate sodium [Colace] 100 mg capsule 100 mg PO BID Qty: 60 RF: 0 oxycodone-acetaminophen [Percocet] 5-325 mg tablet 1 tab PO TID PRN (Reason: pain) Qty: 14 RF: 0 nicotine [Nicoderm CQ] 21 mg/24 hr Patch 24 Hour 21 mg transdermal QAM Qty: 14 RF: 0 ondansetron 4 mg tablet,disintegrating 4 mg PO TID PRN (Reason: nausea and vomiting) Qty: 12 RF: 0 calcium carbonate [Calcium 600] 600 mg calcium (1,500 mg) Tablet 600 mg PO Q OTHER DAY RF: 0 Referrals Referrals: Verónica Faulkner DO [Primary Care Provider] -
[2020-10-09 12:13] LABS: Basophils # (auto) 0.03 K/uL (0-0.2); Basophils % (auto) 0.1 %; Eosinophils # (auto) 0.05 K/uL (0-0.5); Eosinophils % (auto) 0.2 %; Hemoglobin 12.3 g/dL (12.0-16.0); Immature Granulocytes # (auto) 0.06 K/uL (0.00-0.02); Immature Granulocytes % (auto) 0.3 %; Lymphocytes # (auto) 0.76 K/uL (1.2-3.4); Lymphocytes % (auto) 3.4 %; Mean Corpuscular Hemoglobin 30.8 pg (25-34); Mean Corpuscular Hgb Conc 33.2 g/dL (32-36); Mean Corpuscular Volume 92.7 fL (80-100); Monocytes # (auto) 1.27 K/uL (0.11-0.59); Monocytes % (auto) 5.7 %; Neutrophils # (auto) 19.97 K/uL (1.4-6.5); Neutrophils % (auto) 90.3 %; Platelet Count 381 K/uL (130-400); RDW Coefficient of Variation 15.3 % (11.5-14.5); RDW Standard Deviation 52.2 fL (36.4-46.3); Red Blood Count 3.99 M/uL (4.2-5.4); White Blood Count 22.14 K/uL (4.8-10.8)
[2020-10-09 12:34] LABS: Albumin Level 3.6 gm/dl (3.4-5.0); BUN Creatinine Ratio 15.9 (10-20); Calcium 9.5 mg/dl (8.5-10.1); Creatinine Clr Calc Pharmacy 27.2 ml/min; Est GFR (African American) 34.3; Est GFR (Non-African American) 29.6; Potassium 4.4 mmol/L (3.5-5.1)
[2020-10-09 12:37] LABS: Albumin Globulin Ratio 1.2 (0.9-2); Bilirubin,Total 0.5 mg/dl (0.2-1); Total Protein 6.6 gm/dl (6.4-8.2)
--- NOTE | 2020-10-09 13:49 | CT Scan Report ---
ABDOMEN AND PELVIS CT WITHOUT CONTRAST CT DOSE: 286.56 mGy.cm HISTORY: Acute generalized abdominal pain with nausea and vomiting abd pain/n/v TECHNIQUE: Multiaxial CT images of the abdomen and pelvis were performed without contrast. A dose lo wering technique was utilized adhering to the principles of ALARA. COMPARISON STUDY: CT abdomen and pelvis 09/07/2020 FINDINGS: Trace pericardial effusion. Imaged inferior cardiac chambers are unremarkable. Mild subsegm ental right lung base atelectasis. No pneumatosis or pneumoperitoneum. The unenhanced spleen, mildly atrophic pancreas and adrenal glands are unremarkable. The gallbladder is either contracted or surgic ally absent. Unenhanced liver is unremarkable. Postoperative changes right nephrectomy. Small volume of abdominal pelvic ascites. Left kidney is unremarkable. Mild urinary bladder wall thickening. Unrem arkable uterus. Calcified plaque of the abdominal aorta without aneurysm. No adenopathy. Tiny hiatal hernia. Numerous dilated air and fluid-filled loops of small bowel are noted throughout t he abdomen and pelvis measuring up to 4.0 cm transversely. Transition point is noted within the right hemipelvis on image 257 series 3 with abrupt small bowel luminal narrowing. No obstructing mass iden tified. Mesenteric edema with mild swirling of the mesentery. Colonic diverticulosis. The right hemic olon is decompressed. Noninflamed appendix. Postoperative changes of the ventral abdominal wall. Bone s appear intact. No acute fracture. Degenerative changes of the spine, pelvis and hips. IMPRESSION: 1. High-grade small bowel obstruction with transition point within the right hemipelvis, possibly sec ondary to underlying adhesions. No obstructing lesion identified.. 2. No pneumatosis or pneumoperitoneum. 3. Small volume of abdominopelvic ascites. 4. Prior right nephrectomy. 5. Additional findings as above. ACT 112: Negative or not required by law. The above report was generated using voice recognition software. It may contain grammatical, syntax o r spelling errors. Electronically signed by: Julián Vasquez M.D. 10/09/2020 1:48 PM
--- NOTE | 2020-10-09 14:15 | XRay Report ---
XR chest 1V portable HISTORY: 70 years-old Female Resp sx c/w COVID-19 acute shortness of breath COMPARISON: CT abdomen and pelvis 10/09/2020 TECHNIQUE: Portable AP view of the chest FINDINGS: Cardiomediastinal and hilar silhouettes are within normal limits. No pneumothorax, pleural effusion, airspace consolidation or overt pulmonary edema. Bones of the chest appear grossly intact. IMPRESSION: No acute process. ACT 112: Negative or not required by law. The above report was generated using voice recognition software. It may contain grammatical, syntax o r spelling errors. Electronically signed by: Julián Vasquez M.D. 10/09/2020 2:14 PM
[2020-10-09] MEDS ORDERED: LACTATED RINGER'S 1,000 ML IV ONE (14:56)
--- NOTE | 2020-10-09 15:07 | History & Physical Report ---
Date of Service October 09, 2020 Assessment & Plan (1) SBO (small bowel obstruction): Mrs. Hanna is a 70 year old female with a history of Hypertension, Hyperlipidemia, Mild Mitral Regurgitation, Urothelial Cancer of the distal Ureter, s/p Laparoscopic Right Nephro-ureterectomy 6 weeks ago, CKD, GERD, DJD, Small Bowel Obstruction 09/01/2020, Pneumothorax, and Anxiety who presents to [facility] ER with a Recurrent Small Bowel Obstruction. Patient was doing well at home tolerating her diet and recovering from her recent surgery and illnesses, however last evening developed abdominal pressure and pain in the middle of her abdomen which gradually worsened last night and into today followed by pressure in her lower abdomen, nausea, and vomiting. She was having normal bowel movements up until yesterday. She denies any fevers, chills, or any urinary symptoms. She tried Tylenol which did not help. Oxycodone taken at 3 AM slightly helped for about 1 hour. She has history of right nephrectomy 6 weeks ago, and a small bowel obstruction and a pneumothorax diagnosed on 09/01/2020. In the ER she is hypotensive with IVF's running wide open. NGT is in place with gentle suction. -- Admit to Med-Surg. -- Continue IVF's. -- NPO. -- NG Tube is in place. -- Consult General Surgeon. (2) ESTRELLA (acute kidney injury): -- Appears to be pre-renal azotemia related to vomiting and small bowel obstruction. -- Continue monitoring renal function on a daily basis. -- IV Fluid resuscitation. -- Anti-emetics. (3) Chronic kidney disease, stage 3a: -- Baseline Creatinine appears to be between 1.3 to 1.4. (4) Hypertension: -- Hypotensive in the ER and with ESTRELLA. -- Hold Lisinopril for now. (5) Hyperlipidemia: -- Resume Atorvastatin when she is no longer npo. History of Present Illness Chief Complaint: -- Small Bowel Obstruction. Primary Care Provider: Verónica Faulkner DO Mrs. Hanna is a 70 year old female with a history of Hypertension, Hyperlipidemia, Mild Mitral Regurgitation, Urothelial Cancer of the distal Ureter, s/p Laparoscopic Right Nephro-ureterectomy 6 weeks ago, CKD, GERD, DJD, Small Bowel Obstruction 09/01/2020, Pneumothorax, and Anxiety who presents to [facility] ER with a Recurrent Small Bowel Obstruction. Patient was doing well at home tolerating her diet and recovering from her recent surgery and illnesses, however last evening developed abdominal pressure and pain in the middle of her abdomen which gradually worsened last night and into today followed by pressure in her lower abdomen, nausea, and vomiting. She was having normal bowel movements up until yesterday. She denies any fevers, chills, or any urinary symptoms. She tried Tylenol which did not help. Oxycodone taken at 3 AM slightly helped for about 1 hour. She has history of right nephrectomy 6 weeks ago, and a small bowel obstruction and a pneumothorax diagnosed on 09/01/2020. Allergies Allergy/AdvReac Type Severity Reaction Status Date / Time magnesium sulfate Allergy Severe face, hand Verified 10/09/20 11:51 [From Suprep Bowel Prep Kit] swelling Penicillins Allergy Severe rash, Verified 10/09/20 11:51 throat tightening potassium Allergy Severe face, hand Verified 10/09/20 11:51 [From Suprep Bowel Prep Kit] swelling sodium sulfate Allergy Severe face, hand Verified 10/09/20 11:51 [From Suprep Bowel Prep Kit] swelling Home Medications Medication Instructions Recorded Confirmed Type calcium carbonate [Calcium 600] 600 mg PO Q OTHER DAY 01/16/19 10/09/20 History cholecalciferol (vitamin D3) 50 2,000 units PO QPM #30 cap 10/02/19 10/09/20 History mcg (2,000 unit) capsule [facility] 1 tab PO QPM 12/16/19 10/09/20 History lisinopril 20 mg tablet 20 mg PO QPM #90 tab 05/21/20 10/09/20 Rx tamsulosin 0.4 mg capsule 0.4 mg PO HS #30 cap 08/06/20 10/09/20 Rx atorvastatin 20 mg tablet 20 mg PO QPM #90 tab 08/24/20 10/09/20 Rx docusate sodium [Colace] 100 mg PO BID #60 cap 08/31/20 10/09/20 Rx nicotine [Nicoderm CQ] 21 mg TRANSDERMAL QAM #14 ea 08/31/20 10/09/20 Rx ondansetron 4 mg PO TID PRN #12 tab 08/31/20 10/09/20 Rx oxycodone-acetaminophen [Percocet] 1 tab PO TID PRN #14 tab 08/31/20 10/09/20 Rx nicotine 14 mg/24 hr daily 1 patch TRANSDERMAL Q24H #14 ea 09/18/20 10/09/20 Rx transdermal patch lorazepam 0.5 mg tablet 0.5 mg PO DAILY PRN #30 tab 09/21/20 10/09/20 Rx Past Med/Surg History Medical History Anxiety CKD (chronic kidney disease) baseline creatinine 1.3-1.4 per chart review Hyperlipidemia Hypertension Leukocytosis Lung nodule Last CT 01/2019, unchanged, no further f/u needed per records Osteoarthritis Pneumothorax on right PONV (postoperative nausea and vomiting) Small bowel obstruction Temporomandibular joint disorder + clicking, no locking Thyroid nodule 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 Surgical History H/O exploratory laparotomy tubal surgery for fertility issues History of cardiac cath 5+ years ago (Former[facility])- no stents, attempts to obtain official report unsuccessful History of colonoscopy History of cystoscopy cystoscopy + stent insertion: 01/02/20: LMA#4 at [facility] cystoscopy: 03/05/20: LMA#4 at [facility] cystoscopy, RP07/09/20: MAC sedation at [facility] History of tooth extraction Hx of nephroureterectomy S/P D&C (status post dilation and curettage) S/P tonsillectomy Family History Aunt Diabetes Colorectal cancer Myocardial infarction Ovarian cancer Father No problems noted. Mother Dementia Pacemaker Hypertension Uterine cancer Family/Other Pancreatic cancer Breast cancer Colorectal cancer Other No family history of adverse response to anesthesia Social History Smoking Status: Former smoker packs per day: 1; Cigarettes Per Day: hasn't smoked since surgery - been using patch; Second Hand Exposure: Yes ( A CHILD); Hx Alcohol Use: Yes Alcohol type: wine Hx Substance Use: No Preferred Language: Togolese Communication Ability: Effective Visual Impairment: No Limitations Hearing Ability: Normal Search Engine Optimization Analyst Required: No Beliefs That Will Affect Care: None marital status: Current Living Situation: Spouse current occupational status: retired Other Information That Helps Us Care for You: No Feels Safe at Home: Yes Safety Concerns: Feels Safe At This Time Childhood Exposure to Second-Hand Smoke: Yes caffeine: Yes (Coffee x 2-3 per day) during the past year weight has: remained stable Dental Care, Regularly: Yes Physical Activity Frequency: Daily Seatbelt Use: always Sunscreen Use: No Assistive Devices: None Review of Systems Review of Systems: All systems reviewed & are unremarkable except as noted in Subjective Physical Exam Physical Exam: GENERAL: Patient appears acutely ill. Pale complexion. HEENT: Head is atraumatic, normocephalic. EOM's intact. Facies symmetric. Sclerae without jaundice. No perioral cyanosis. NECK: No JVD. JVP is at the level of the clavicle sitting upright. Carotid upstrokes are + 2 bilaterally. CHEST/LUNGS: Clear to auscultation throughout all lung hernández. No wheezes, rales, or crackles. CVS: S1 and S2 are regular without obvious murmurs, gallops, or rubs. PMI is nondisplaced. No lifts, heaves, or thrills. No abdominal aortic or renal bruits. ABDOMINAL EXAM: No bowel sounds. Abdomen is distended, tender to palpation in the mid and lower abdomen. EXTREMITIES: No clubbing or cyanosis. No edema. Intact posterior tibial and radial pulses bilaterally. NEUROLOGIC EXAM: Patient is awake, alert, and interactive. Cooperative. Answers questions appropriately. Speech is clear. Results & Data Results & Data ([facility]) Vital Signs (Past 12 Hours) Vital Signs Temp Pulse Pulse Resp BP BP Pulse Ox 10/09/20 14:31 90 23 10/09/20 14:30 90 19 89/53 L 10/09/20 14:27 92 H 19 83/56 L 10/09/20 14:20 92 H 16 10/09/20 14:10 91 H 17 10/09/20 14:01 90 17 10/09/20 14:00 90 17 84/53 L 10/09/20 13:50 87 16 10/09/20 13:40 87 16 10/09/20 13:33 84 18 112/57 L 10/09/20 13:31 83 24 10/09/20 13:30 83 20 112/57 L 10/09/20 13:27 85 14 10/09/20 13:01 89 19 10/09/20 13:00 88 13 92/50 L 10/09/20 12:50 87 15 10/09/20 12:40 85 16 10/09/20 12:31 81 15 10/09/20 12:30 81 16 105/54 L 10/09/20 12:20 81 14 10/09/20 12:10 80 6 L 93 10/09/20 12:01 72 17 97 10/09/20 12:00 73 20 109/55 L 95 10/09/20 11:50 76 16 93 10/09/20 11:40 84 19 95 10/09/20 11:31 88 22 94 10/09/20 11:30 88 15 116/54 L 98 10/09/20 11:20 82 15 97 10/09/20 11:10 88 18 95 10/09/20 11:01 90 20 97 10/09/20 11:00 89 20 129/70 97 10/09/20 10:59 94 H 20 98 10/09/20 10:57 36.5 C 99 H 16 133/109 H 98 10/09/20 10:53 96 H 28 H 133/109 H 97 Laboratory Results Laboratory Results - last 24 hr 10/09/20 10/09/20 10/09/20 12:01 12:01 13:00 WBC 22.14 H RBC 3.99 L Hgb 12.3 Hct 37.0 MCV 92.7 MCH 30.8 MCHC 33.2 RDW Std Deviation 52.2 H RDW Coeff of Bonita 15.3 H Plt Count 381 MPV 10.0 Immature Gran % (Auto) 0.3 Neut % (Auto) 90.3 Lymph % (Auto) 3.4 [place] % (Auto) 5.7 Eos % (Auto) 0.2 Baso % (Auto) 0.1 Neut # (Auto) 19.97 H Lymph # (Auto) 0.76 L [place] # (Auto) 1.27 H Eos # (Auto) 0.05 Baso # (Auto) 0.03 Immature Gran # (Auto) 0.06 H Sodium 140 Potassium 4.4 Chloride 112 H Carbon Dioxide 21 Anion Gap 7.0 BUN 27 H Creatinine 1.72 H Est Cr Clr Drug Dosing 27.2 Est GFR ( Amer) 34.3 Est GFR (Non-Af Amer) 29.6 BUN/Creatinine Ratio 15.9 Glucose 138 H Calcium 9.5 Total Bilirubin 0.5 AST 10 L ALT 19 Alkaline Phosphatase 72 Total Protein 6.6 Albumin 3.6 Globulin 3.0 Albumin/Globulin Ratio 1.2 Lipase 124 [facility] SARS-[facility]-2, RNA, NAAT 10/09/20 13:00 WBC RBC Hgb Hct MCV MCH MCHC RDW Std Deviation RDW Coeff of Bonita Plt Count MPV Immature Gran % (Auto) Neut % (Auto) Lymph % (Auto) [place] % (Auto) Eos % (Auto) Baso % (Auto) Neut # (Auto) Lymph # (Auto) [place] # (Auto) Eos # (Auto) Baso # (Auto) Immature Gran # (Auto) Sodium Potassium Chloride Carbon Dioxide Anion Gap BUN Creatinine Est Cr Clr Drug Dosing Est GFR ( Amer) Est GFR (Non-Af Amer) BUN/Creatinine Ratio Glucose Calcium Total Bilirubin AST ALT Alkaline Phosphatase Total Protein Albumin Globulin Albumin/Globulin Ratio Lipase COVID-19 Eval Order SARS-CoV-2, RNA, NAAT NEGATIVE Diagnostic Findings CT Scan Abdomen/Pelvis 10/09/2020: 1. High-grade small bowel obstruction with transition point within the right hemipelvis, possibly secondary to underlying adhesions. No obstructing lesion identified.. 2. No pneumatosis or pneumoperitoneum. 3. Small volume of abdominopelvic ascites. 4. Prior right nephrectomy. CXR 10/09/2020: -- No acute process. Medications Administered Discontinued Medications Sodium Chloride (Nss) 500 mls @ 999 mls/hr IV .Q31M [facility] Stop: 10/09/20 12:00 Last Infusion: 10/09/20 12:26 Dose: 0 mls/hr Documented by: [id number] Admin: 10/09/20 11:50 Dose: 999 mls/hr Documented by: [id number] Morphine Sulfate (Morphine Sulfate 4 Mg/Ml 1 Ml Carp\Vial) 4 mg IV NOW STA Stop: 10/09/20 11:31 Last Admin: 10/09/20 11:50 Dose: 4 mg Documented by: [id number] Morphine Sulfate (Morphine Sulfate 4 Mg/Ml 1 Ml Carp\Vial) 4 mg IV NOW STA Stop: 10/09/20 12:17 Last Admin: 10/09/20 12:21 Dose: 4 mg Documented by: [id number] Ondansetron HCl (Ondansetron Inj 2 Mg/Ml 2 Ml Vial) 4 mg IV NOW STA Stop: 10/09/20 11:31 Last Admin: 10/09/20 11:51 Dose: 4 mg Documented by: [id number] Code Status & VTE Plan Code Status Full Code VTE Prophylaxis Plan VTE Prophylaxis will be ordered: Yes Supervising Physician Co-Signing Physician Notes I personally saw and examined the patient. I verified all bocanegra points and agree with JAYA Glover with the following exceptions and/or additions: 70 year old female with recurrent SBO suspected secondary to adhesions. Discharged 09/17 with the same diagnosis. Leukocytosis on that admission and received antibiotics. On this occasion SBO appears to have occurred overnight. O/E distended abdomen with generalized abdominal pain on palpation, BS +ve, Chest CTAB, HS1+2, no murmurs A/P SBO - NG tube, IV fluids, cover for translocation of bacteria with cefepime and metronidazole however if blood cultures negative suspect these can be discontinued. Consult surgery. PG Care Time/CCT Total # of Minutes Spent Total Time Spent with Patient: Total time spent is greater than 50% in coordination of care (as documented) at patient's floor/unit and/or counseling patient:35 Coding Level of Care Code 10901 Initial Inpt Care Lvl 2 Diagnoses SBO (small bowel obstruction) K56.609 ESTRELLA (acute kidney injury) N17.9 Chronic kidney disease, stage 3a N18.31 Hypertension I10 Hyperlipidemia E78.5 Time Spent (min) 50
[2020-10-09] MEDS ORDERED: SODIUM CHLORIDE 0.9% 1000ML 1,000 ML IV ONE (15:27)
[2020-10-09] MEDS ORDERED: NORMOSOL-R 1,000 ML IV ONE ×2 (15:27→18:55)
[2020-10-09] MEDS ORDERED: SODIUM CHLORIDE 0.9% 500 ML IV ONE (15:35)
[2020-10-09] MEDS ORDERED: metroNIDAZOLE 500 MG/100 ML BAG IV STA (17:14)
[2020-10-09] MEDS ORDERED: CEFEPIME 2,000 MG in SYRINGE 0 ML IV STA (17:14)
[2020-10-09] MEDS ORDERED: CEFEPIME 20 ML IV ONE (17:30)
[2020-10-09 18:20] LABS: Appearance Urine Cloudy (Clear); Bilirubin Urine Negative (Negative); Blood Urine Negative (Negative); Color Urine Yellow; Epithelial Cell Urine Auto >30 /lpf (0-5); Glucose Urine UA Negative (Negative); Ketones Urine Trace (Negative); Leukocyte Esterase Urine 1+ (Negative); Nitrite Urine Negative (Negative); Protein Urine 1+ (Negative); Specific Gravity Urine 1.019 (1.000-1.030); Urobilinogen Urine Negative (Negative)
[2020-10-09 18:33] LABS: Bacteria Urine Automated 1+ (Negative); Cast Urine Automated >30 /lpf (0-5)
[2020-10-09 18:34] LABS: RBC Urine Automated 0-4 /hpf (0-4)
[2020-10-09] MEDS ORDERED: ONDANSETRON INJ 2 MG/ML 2 ML VIAL IV PRN (18:44)
[2020-10-09] MEDS ORDERED: D5W AND NSS 1,000 ML IV SCH (18:44)
[2020-10-09] MEDS: NICOTINE 14 MG/24 HR PATCH TD SCH (19:34)
[2020-10-09] MEDS: D5W AND 1/2NSS 1,000 ML IV SCH (20:37)
[2020-10-10] MEDS: metroNIDAZOLE 500 MG/100 ML BAG IV SCH ×3 (01:59→18:00)
[2020-10-10] MEDS: D5W AND 1/2NSS 1,000 ML IV SCH ×3 (05:30→20:55)
[2020-10-10] MEDS: ACETAMINOPHEN 1,000 MG/100 ML VIAL IV PRN ×2 (08:33→17:18)
--- NOTE | 2020-10-10 08:47 | Hospitalist Progress Note ---
Date of Service October 10, 2020 Assessment & Plan (1) SBO (small bowel obstruction): Mrs. Hanna is a 70 year old female with a history of Hypertension, Hyperlipidemia, Mild Mitral Regurgitation, Urothelial Cancer of the distal Ureter, s/p Laparoscopic Right Nephro-ureterectomy 6 weeks ago, CKD, GERD, DJD, Small Bowel Obstruction 09/01/2020, Pneumothorax, and Anxiety who presents to [facility] ER with a Recurrent Small Bowel Obstruction. -- Continue IVF's. -- NPO. -- NG Tube is in place. Improvement in white blood cell Urine culture and blood cultures pending General surgery following (2) ESTRELLA (acute kidney injury): -- Appears to be pre-renal azotemia related to vomiting and small bowel obstruction. -- Continue monitoring renal function on a daily basis. -- IV Fluid resuscitation. -- Anti-emetics. Creatinine with slight improvement overnight. Will recheck in the a.m. continue current IV fluids (3) Chronic kidney disease, stage 3a: -- Baseline Creatinine appears to be between 1.3 to 1.4. (4) Hypertension: -- Hypotensive in the ER and with ESTRELLA. -- Hold Lisinopril for now. Normal blood pressure at this time (5) Hyperlipidemia: -- Resume Atorvastatin when she is no longer npo. (6) Anemia: Stable likely multifactorial No reported bleeding, overall symptoms are improving Repeat CBC in a.m. Admission and Anticipated Discharge Date Admission Date: October 09, 2020 Subjective No new events overnight Patient was sitting comfortably in chair No new fevers chills nausea vomiting diarrhea Improved abdominal discomfort Review of Systems Review of Systems: All systems reviewed & are unremarkable except as noted in Subjective Physical Exam Physical Exam: Constitutional: WD/WN, vitals as above Respiratory: Effort normal, CTA B/L CV: RRR, no murmur, no edema Abdomen: minimal BS, soft, nontender, no hepatosplenomegaly Results & Data Results & Data ([facility]) Vital Signs (Past 12 Hours) Vital Signs Temp Pulse Resp BP Pulse Ox 10/10/20 07:06 36.7 C 93 H 16 129/65 96 10/09/20 23:00 36.6 C 101 H 20 97/60 L 96 Laboratory Results Laboratory Results - last 24 hr 10/09/20 10/09/20 10/09/20 12:01 12:01 13:00 WBC 22.14 H RBC 3.99 L Hgb 12.3 Hct 37.0 MCV 92.7 MCH 30.8 MCHC 33.2 RDW Std Deviation 52.2 H RDW Coeff of Bonita 15.3 H Plt Count 381 MPV 10.0 Immature Gran % (Auto) 0.3 Neut % (Auto) 90.3 Lymph % (Auto) 3.4 [place] % (Auto) 5.7 Eos % (Auto) 0.2 Baso % (Auto) 0.1 Neut # (Auto) 19.97 H Lymph # (Auto) 0.76 L [place] # (Auto) 1.27 H Eos # (Auto) 0.05 Baso # (Auto) 0.03 Immature Gran # (Auto) 0.06 H Sodium 140 Potassium 4.4 Chloride 112 H Carbon Dioxide 21 Anion Gap 7.0 BUN 27 H Creatinine 1.72 H Est Cr Clr Drug Dosing 27.2 Est GFR ( Amer) 34.3 Est GFR (Non-Af Amer) 29.6 BUN/Creatinine Ratio 15.9 Glucose 138 H Calcium 9.5 Total Bilirubin 0.5 AST 10 L ALT 19 Alkaline Phosphatase 72 Total Protein 6.6 Albumin 3.6 Globulin 3.0 Albumin/Globulin Ratio 1.2 Lipase 124 Urine Color Urine Appearance Urine pH Ur Specific [place] Urine Protein Urine Glucose (UA) Urine Ketones Urine Blood Urine Nitrite Urine Bilirubin Urine Urobilinogen Ur Leukocyte Esterase Urine WBC (Auto) Urine RBC (Auto) U Hyaline Cast (Auto) U Epithel Cells (Auto) Urine Bacteria (Auto) Ur Renal Epithelial Cell Urine Crystals COVID-19 Eval Order Covid19 [facility] SARS-CoV-2, RNA, NAAT 10/09/20 10/09/20 13:00 18:10 WBC RBC Hgb Hct MCV MCH MCHC RDW Std Deviation RDW Coeff of Bonita Plt Count MPV Immature Gran % (Auto) Neut % (Auto) Lymph % (Auto) [place] % (Auto) Eos % (Auto) Baso % (Auto) Neut # (Auto) Lymph # (Auto) [place] # (Auto) Eos # (Auto) Baso # (Auto) Immature Gran # (Auto) Sodium Potassium Chloride Carbon Dioxide Anion Gap BUN Creatinine Est Cr Clr Drug Dosing Est GFR ( Amer) Est GFR (Non-Af Amer) BUN/Creatinine Ratio Glucose Calcium Total Bilirubin AST ALT Alkaline Phosphatase Total Protein Albumin Globulin Albumin/Globulin Ratio Lipase Urine Color Yellow Urine Appearance Cloudy A Urine pH 5.0 Ur Specific [place] 1.019 Urine Protein 1+ H Urine Glucose (UA) Negative Urine Ketones Trace H Urine Blood Negative Urine Nitrite Negative Urine Bilirubin Negative Urine Urobilinogen Negative Ur Leukocyte Esterase 1+ H Urine WBC (Auto) 10-30 H Urine RBC (Auto) 0-4 U Hyaline Cast (Auto) >30 H U Epithel Cells (Auto) >30 H Urine Bacteria (Auto) 1+ H Ur Renal Epithelial Cell Not Reportable Urine Crystals Not Reportable COVID-19 Eval Order SARS-CoV-2, RNA, NAAT NEGATIVE Medications Administered Current Inpatient Medications Acetaminophen (Ofirmev) 1,000 mg in 100 mls @ 400 mls/hr IV Q8H PRN PRN Reason: Pain or Fever Stop: 10/12/20 18:43 Last Admin: 10/10/20 08:33 Dose: 400 mls/hr Documented by: Metronidazole (Flagyl) 500 mg in 100 mls @ 100 mls/hr IV Q8H [facility] Stop: 10/20/20 01:59 Last Infusion: 10/10/20 03:02 Dose: Infused Documented by: Cefepime HCl 1,000 mg/ Syringe 11.3 mls @ 5.5 mls/min IV Q24H [facility]; Protocol Stop: 10/20/20 15:59 Dextrose/Sodium Chloride (D5w And 1/2nss) 1,000 mls @ 125 mls/hr IV .Q8H [facility] Stop: 11/08/20 19:59 Last Admin: 10/10/20 05:30 Dose: 125 mls/hr Documented by: Miscellaneous (Remove Nicoderm Patch) 1 ea N/A QAM [facility] Stop: 11/08/20 18:59 Last Admin: 10/09/20 19:36 Dose: 1 ea Documented by: Nicotine (Nicotine 14 Mg/24 Hr Patch) 14 mg TD QAM [facility] Stop: 11/08/20 18:59 Last Admin: 10/09/20 19:34 Dose: Not Given Documented by: Ondansetron HCl (Ondansetron Inj 2 Mg/Ml 2 Ml Vial) 4 mg IV Q8 PRN PRN Reason: Nausea Stop: 11/08/20 18:43 Last Admin: 10/10/20 07:59 Dose: 4 mg Documented by: PG Care Time/CCT Total # of Minutes Spent Total Time Spent with Patient: Total time spent is greater than 50% in coordination of care (as documented) at patient's floor/unit and/or counseling patient: Coding Level of Care Code 57563 Subseq Hosp Care Lvl 2 Diagnoses SBO (small bowel obstruction) K56.609 ESTRELLA (acute kidney injury) N17.9 Chronic kidney disease, stage 3a N18.31 Hypertension I10 Hyperlipidemia E78.5 Anemia D64.9
[2020-10-10] MEDS: NICOTINE 14 MG/24 HR PATCH TD SCH (08:48)
--- NOTE | 2020-10-10 10:13 | Surgery Consultation ---
Date of Consultation October 10, 2020 Assessment & Plan (1) SBO (small bowel obstruction): recurrent SBO CT scan similar from previous hospitalization feeling better this AM con't ngt IVF OOB conservative management recommended Present on Admission?: Yes History of Present Illness Attending Physician: Simeon Lazcano, DO History of Present Illness Mrs. Hanna is a 70 year old female s/p Laparoscopic Right Nephro-ureterectomy 6 weeks ago and a post-op SBO on 09/01/2020 who presents with a recurrent small bowel obstruction. She was doing well at home tolerating her diet until she developed pain in the middle of her abdomen which gradually worsened with nausea, and vomiting. She was having normal bowel movements up until yesterday. She denies any fevers, chills, or any urinary symptoms. A CT scan shows a possible recurrent SBO and a similar scan to her previous scan. The hospital course was lengthy with her last SBO. She feels better but still has not passed flatus. The ngt drainage is gastric in appearance. Allergies Allergy/AdvReac Type Severity Reaction Status Date / Time magnesium sulfate Allergy Severe face, hand Verified 10/09/20 11:51 [From Suprep Bowel Prep Kit] swelling Penicillins Allergy Severe rash, Verified 10/09/20 11:51 throat tightening potassium Allergy Severe face, hand Verified 10/09/20 11:51 [From Suprep Bowel Prep Kit] swelling sodium sulfate Allergy Severe face, hand Verified 10/09/20 11:51 [From Suprep Bowel Prep Kit] swelling Home Medications Medication Instructions Recorded Confirmed Type calcium carbonate [Calcium 600] 600 mg PO Q OTHER DAY 01/16/19 10/09/20 History cholecalciferol (vitamin D3) 50 2,000 units PO QPM #30 cap 10/02/19 10/09/20 History mcg (2,000 unit) capsule B[place] 1 tab PO QPM 12/16/19 10/09/20 History lisinopril 20 mg tablet 20 mg PO QPM #90 tab 05/21/20 10/09/20 Rx tamsulosin 0.4 mg capsule 0.4 mg PO HS #30 cap 08/06/20 10/09/20 Rx atorvastatin 20 mg tablet 20 mg PO QPM #90 tab 08/24/20 10/09/20 Rx docusate sodium [Colace] 100 mg PO BID #60 cap 08/31/20 10/09/20 Rx nicotine [Nicoderm CQ] 21 mg TRANSDERMAL QAM #14 ea 08/31/20 10/09/20 Rx ondansetron 4 mg PO TID PRN #12 tab 08/31/20 10/09/20 Rx oxycodone-acetaminophen [Percocet] 1 tab PO TID PRN #14 tab 08/31/20 10/09/20 Rx nicotine 14 mg/24 hr daily 1 patch TRANSDERMAL Q24H #14 ea 09/18/20 10/09/20 Rx transdermal patch lorazepam 0.5 mg tablet 0.5 mg PO DAILY PRN #30 tab 09/21/20 10/09/20 Rx Patient History Medical History Anxiety CKD (chronic kidney disease) baseline creatinine 1.3-1.4 per chart review Hyperlipidemia Hypertension Leukocytosis Lung nodule Last CT 01/2019, unchanged, no further f/u needed per records Osteoarthritis Pneumothorax on right PONV (postoperative nausea and vomiting) Small bowel obstruction Temporomandibular joint disorder + clicking, no locking Thyroid nodule 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 Surgical History H/O exploratory laparotomy tubal surgery for fertility issues History of cardiac cath 5+ years ago ([facility])- no stents, attempts to obtain official report unsuccessful History of colonoscopy History of cystoscopy cystoscopy + stent insertion: 01/02/20: LMA#4 at [facility] cystoscopy: 03/05/20: LMA#4 at [facility] cystoscopy, RP07/09/20: MAC sedation at [facility] History of tooth extraction Hx of nephroureterectomy S/P D&C (status post dilation and curettage) S/P tonsillectomy Family History Aunt Diabetes Colorectal cancer Myocardial infarction Ovarian cancer Father No problems noted. Mother Dementia Pacemaker Hypertension Uterine cancer Family/Other Pancreatic cancer Breast cancer Colorectal cancer Other No family history of adverse response to anesthesia Social History Smoking Status: Former smoker packs per day: 1; Cigarettes Per Day: hasn't smoked since surgery - been using patch; Second Hand Exposure: Yes ( A CHILD); Hx Alcohol Use: Yes Alcohol type: wine Hx Substance Use: No Preferred Language: [place] Communication Ability: Effective Visual Impairment: No Limitations Hearing Ability: Normal Rail Signal Mechanic Required: No Beliefs That Will Affect Care: None marital status: Current Living Situation: Spouse current occupational status: retired Other Information That Helps Us Care for You: No Feels Safe at Home: Yes Safety Concerns: Feels Safe At This Time Childhood Exposure to Second-Hand Smoke: Yes caffeine: Yes (Coffee x 2-3 per day) during the past year weight has: remained stable Dental Care, Regularly: Yes Physical Activity Frequency: Daily Seatbelt Use: always Sunscreen Use: No Assistive Devices: None Review of Systems Constitutional: + anorexia; no fever, no chills and no fatigue Eyes: no problem reported Ear, Nose, Mouth, Throat: no problem reported Respiratory: no cough and no dyspnea Cardiovascular: no chest pain Gastrointestinal: + abdominal pain, + nausea and + change in stools; no vomiting and no coffee ground emesis Genitourinary: no dysuria Musculoskeletal: no back pain Integumentary: no rash and no yellowing of the skin Neurologic: no problem reported Psychiatric: + anxiety Hematologic / Lymphatic: no easy bleeding and no easy bruising Physical Exam Constitutional: well developed and well nourished; not ill appearing Eyes: PERRL, conjunctivae normal, anicteric sclerae Neck: trachea midline Respiratory: normal respiratory effort, lungs clear to auscultation Cardiovascular: RRR, no murmur, no edema Gastrointestinal (Abdomen): Inspection/Auscultation: abdomen normal to inspection, + abdomen distended and normal bowel sounds Percussion/Palpation: + abdomen tender; no guarding, abdomen not rigid and no hernia Musculoskeletal: Head/Neck/Chest: normocephalic and head atraumatic Skin: no rashes, warm and dry Psychiatric: Orientation: alert and oriented x 3 Results & Data ([facility]) Vital Signs (Past 12 Hours) Vital Signs Temp Pulse Resp BP Pulse Ox 10/10/20 07:06 36.7 C 93 H 16 129/65 96 10/09/20 23:00 36.6 C 101 H 20 97/60 L 96 Diagnostic Findings ABDOMEN AND PELVIS CT WITHOUT CONTRAST CT DOSE: 286.56 mGy.cm HISTORY: Acute generalized abdominal pain with nausea and vomiting abd pain/n/v TECHNIQUE: Multiaxial CT images of the abdomen and pelvis were performed without contrast. A dose lowering technique was utilized adhering to the principles of ALARA. COMPARISON STUDY: CT abdomen and pelvis 09/07/2020 FINDINGS: Trace pericardial effusion. Imaged inferior cardiac chambers are unremarkable. Mild subsegmental right lung base atelectasis. No pneumatosis or pneumoperitoneum. The unenhanced spleen, mildly atrophic pancreas and adrenal glands are unremarkable. The gallbladder is either contracted or surgically absent. Unenhanced liver is unremarkable. Postoperative changes right nephrectomy. Small volume of abdominal pelvic ascites. Left kidney is unremarkable. Mild urinary bladder wall thickening. Unremarkable uterus. Calcified plaque of the abdominal aorta without aneurysm. No adenopathy. Tiny hiatal hernia. Numerous dilated air and fluid-filled loops of small bowel are noted throughout the abdomen and pelvis measuring up to 4.0 cm transversely. Transition point is noted within the right hemipelvis on image 257 series 3 with abrupt small bowel luminal narrowing. No obstructing mass identified. Mesenteric edema with mild swirling of the mesentery. Colonic diverticulosis. The right hemicolon is decompressed. Noninflamed appendix. Postoperative changes of the ventral abdominal wall. Bones appear intact. No acute fracture. Degenerative changes of the spine, pelvis and hips. IMPRESSION: 1. High-grade small bowel obstruction with transition point within the right hemipelvis, possibly secondary to underlying adhesions. No obstructing lesion identified.. 2. No pneumatosis or pneumoperitoneum. 3. Small volume of abdominopelvic ascites. 4. Prior right nephrectomy. 5. Additional findings as above.
[2020-10-10 11:47] LABS: Hematocrit (blood only) 31.1 % (37-47); Hemoglobin 10.2 g/dL (12.0-16.0); Mean Corpuscular Hemoglobin 30.2 pg (25-34); Mean Corpuscular Hgb Conc 32.8 g/dL (32-36); Mean Platelet Volume 9.5 fL (7.4-10.4); Platelet Count 263 K/uL (130-400); RDW Coefficient of Variation 15.7 % (11.5-14.5); RDW Standard Deviation 53.3 fL (36.4-46.3); Red Blood Count 3.38 M/uL (4.2-5.4); White Blood Count 11.23 K/uL (4.8-10.8)
[2020-10-10 11:48] LABS: Basophils # (auto) 0.02 K/uL (0-0.2); Basophils % (auto) 0.2 %; Eosinophils # (auto) 0.07 K/uL (0-0.5); Eosinophils % (auto) 0.6 %; Immature Granulocytes # (auto) 0.02 K/uL (0.00-0.02); Immature Granulocytes % (auto) 0.2 %; Lymphocytes % (auto) 8.9 %; Monocytes % (auto) 6.2 %; Neutrophils # (auto) 9.42 K/uL (1.4-6.5); Neutrophils % (auto) 83.9 %; RBC Morphology Unremarkable
[2020-10-10 12:04] LABS: Albumin Level 3.2 gm/dl (3.4-5.0); BUN Creatinine Ratio 21.1 (10-20); Calcium 8.8 mg/dl (8.5-10.1); Creatinine Clr Calc Pharmacy 27.7 ml/min; Est GFR (African American) 35.1; Est GFR (Non-African American) 30.2; Potassium 4.3 mmol/L (3.5-5.1)
[2020-10-10 12:06] LABS: Bilirubin,Total 0.6 mg/dl (0.2-1); Globulin 3.2 gm/dl (2.5-4.0); Total Protein 6.4 gm/dl (6.4-8.2)
[2020-10-10] MEDS: LORazepam 0.5 MG/1 ML VIAL IV PRN (15:58)
[2020-10-10] MEDS: CEFEPIME 1,000 MG in SYRINGE 0 ML IV SCH (17:14)
[2020-10-10] MEDS ORDERED: METHYLNALTREXONE BROMIDE 12 MG/0.6 ML VIAL SQ STA (22:55)
[2020-10-11] MEDS: metroNIDAZOLE 500 MG/100 ML BAG IV SCH ×3 (01:43→17:52)
[2020-10-11] MEDS: ACETAMINOPHEN 1,000 MG/100 ML VIAL IV PRN ×2 (02:51→16:07)
[2020-10-11] MEDS: MELATONIN 3 MG TAB PO PRN ×2 (02:51→21:43)
[2020-10-11] MEDS: D5W AND 1/2NSS 1,000 ML IV SCH ×3 (03:43→21:39)
[2020-10-11] MEDS: NICOTINE 14 MG/24 HR PATCH TD SCH (07:44)
[2020-10-11 08:19] LABS: Basophils # (auto) 0.02 K/uL (0-0.2); Basophils % (auto) 0.2 %; Eosinophils # (auto) 0.28 K/uL (0-0.5); Eosinophils % (auto) 3.1 %; Hemoglobin 8.5 g/dL (12.0-16.0); Immature Granulocytes # (auto) 0.02 K/uL (0.00-0.02); Immature Granulocytes % (auto) 0.2 %; Lymphocytes # (auto) 0.95 K/uL (1.2-3.4); Lymphocytes % (auto) 10.5 %; Mean Corpuscular Hgb Conc 32.7 g/dL (32-36); Mean Corpuscular Volume 91.9 fL (80-100); Mean Platelet Volume 9.6 fL (7.4-10.4); Monocytes # (auto) 0.57 K/uL (0.11-0.59); Monocytes % (auto) 6.3 %; Neutrophils # (auto) 7.18 K/uL (1.4-6.5); Neutrophils % (auto) 79.7 %; Platelet Count 211 K/uL (130-400); RDW Coefficient of Variation 15.6 % (11.5-14.5); RDW Standard Deviation 53.4 fL (36.4-46.3); Red Blood Count 2.83 M/uL (4.2-5.4); White Blood Count 9.02 K/uL (4.8-10.8)
[2020-10-11 08:50] LABS: Albumin Globulin Ratio 0.9 (0.9-2); Albumin Level 2.8 gm/dl (3.4-5.0); BUN Creatinine Ratio 17.2 (10-20); Bilirubin,Total 0.4 mg/dl (0.2-1); Calcium 8.6 mg/dl (8.5-10.1); Creatinine Clr Calc Pharmacy 41.4 ml/min; Est GFR (Non-African American) 49.2; Potassium 3.9 mmol/L (3.5-5.1); Total Protein 5.8 gm/dl (6.4-8.2)
--- NOTE | 2020-10-11 10:32 | Surgery Progress Note ---
Date of Service October 11, 2020 Assessment & Plan (1) SBO (small bowel obstruction): bowel function returned begin fulls advance as patient wishes home per medical team Admission and Anticipated Discharge Date Admission Date: October 09, 2020 Subjective passing flatus, good BM ngt with minimal output, gastric-- dislodged this AM hungry Review of Systems Constitutional: no fever and no chills Respiratory: no cough and no dyspnea Cardiovascular: no chest pain Gastrointestinal: no abdominal pain, no nausea, no vomiting and no diarrhea/loose stools Genitourinary: no dysuria Musculoskeletal: no back pain and no myalgia Integumentary: no rash and no lesions Neurologic: no localized weakness and no generalized weakness Psychiatric: no anxiety Endocrine: no fatigue Physical Exam Constitutional: well developed and well nourished; no acute distress Neck: trachea midline Respiratory: normal respiratory effort, lungs clear to auscultation Cardiovascular: RRR, no murmur, no edema Gastrointestinal (Abdomen): Inspection/Auscultation: abdomen normal to inspection and normal bowel sounds; abdomen not distended Percussion/Palpati on: abdomen soft; abdomen nontender Musculoskeletal: Head/Neck/Chest: normocephalic and head atraumatic Skin: no rashes, warm and dry Psychiatric: Orientation: oriented x 3 and oriented to person Results & Data ([facility]) Vital Signs (Past 12 Hours) Vital Signs Temp Pulse Resp BP Pulse Ox 10/11/20 07:31 36.5 C 84 16 131/66 97 10/10/20 23:20 37.6 C H 86 18 128/67 96
--- NOTE | 2020-10-11 13:40 | Hospitalist Progress Note ---
Date of Service October 11, 2020 Assessment & Plan (1) SBO (small bowel obstruction): Pain and n/v improved. Continues to have some tenderness on palpation. Patient "sneezed out" her NGT. Full liquid diet ordered by gen surg. WBCs have normalized. Blood cultures preliminarily negative. Urine culture growing alpha strep not enterococcus and lactobacillus species. Likely contaminants. Avoid abx at this time as she has no UTI symptoms and is allergic to pcn. Possible d/c home tomorrow if tolerating advanced diet. (2) ESTRELLA (acute kidney injury): Cr improved to 1.13. (3) Chronic kidney disease, stage 3a: Cr improved to 1.13. Baseline Cr is 1.3-1.4. (4) Hypertension: BP stable at 131/66. Continue to hold Lisinopril d/t ESTRELLA. (5) Hyperlipidemia: Will resume atorvastatin 20mg HS. (6) Anemia: Likely multifactorial. H&H dropped to 8.5 and 26.0 this morning. Continue to monitor. Repeat CBC in AM. Admission and Anticipated Discharge Date Admission Date: October 09, 2020 Subjective 70 yo female admitted with SBO. Patient reports she "sneezed out" her NG tube this morning. Dr. Renner was notified. No need for NGT replacement, and she was advanced to a full liquid diet. Patient denies any n/v. Pain has improved. She reports a BM yesterday. Review of Systems Constitutional: no fever and no chills Eyes: no worsening vision Ear, Nose, Mouth, Throat: no dizziness Respiratory: no dyspnea Cardiovascular: no chest pain Gastrointestinal: no abdominal pain, no nausea and no vomiting Psychiatric: no confusion Physical Exam Physical Exam: Temp Pulse Resp BP Pulse Ox 36.5 C 84 16 131/66 97 10/11/20 07:31 10/11/20 07:31 10/11/20 07:31 10/11/20 07:31 10/11/20 07:31 Patient is afebrile. Vital signs stable. Constitutional: average body habitus; no acute distress ENMT: Ears: no hearing impairment Neck: normal visual inspection Respiratory: normal respiratory effort, lungs clear to auscultation Cardiovascular: Rate/Rhythm: regular rate and regular rhythm Heart Sounds: + murmur Gastrointestinal (Abdomen): Inspection/Auscultation: normal bowel sounds Percussion/Palpation: + abdomen tender (diffuse tenderness with palpation ) and abdomen soft Psychiatric: A+Ox3, euthymic affect Results & Data Results & Data ([facility]) Vital Signs (Past 12 Hours) Vital Signs Temp Pulse Resp BP Pulse Ox 10/11/20 07:31 36.5 C 84 16 131/66 97 PG Care Time/CCT Total # of Minutes Spent Total Time Spent with Patient: Total time spent is greater than 50% in coordination of care (as documented) at patient's floor/unit and/or counseling patient: C[place] [address] Subseq Hosp Care Lvl 2 Patient Type Established Diagnoses SBO (small bowel obstruction) K56.609 ESTRELLA (acute kidney injury) N17.9 Chronic kidney disease, stage 3a N18.31 Hypertension I10 Hyperlipidemia E78.5 Anemia D64.9
[2020-10-11] MEDS: CEFEPIME 1,000 MG in SYRINGE 0 ML IV SCH (16:39)
[2020-10-11] MEDS: LORazepam 0.5 MG/1 ML VIAL IV PRN (20:07)
[2020-10-11] MEDS: ATORVASTATIN 20 MG TAB PO SCH (20:22)
[2020-10-12] MEDS: metroNIDAZOLE 500 MG/100 ML BAG IV SCH ×3 (02:14→17:54)
[2020-10-12] MEDS: D5W AND 1/2NSS 1,000 ML IV SCH ×3 (06:07→22:20)
--- NOTE | 2020-10-12 06:40 | Ultrasound Report ---
BILATERAL LOWER EXTREMITY VENOUS DOPPLER HISTORY: Acute pain and swelling of the lower extremities DVT COMPARISON STUDY: None. FINDINGS: There is normal compressibility, flow, and augmentation within the bilateral lower extremit y deep venous systems. IMPRESSION: No DVT within the right or left lower extremity. ACT 112: Negative or not required by law. Electronically signed by: Julián Vasquez M.D. 10/12/2020 6:39 AM
[2020-10-12] MEDS: NICOTINE 14 MG/24 HR PATCH TD SCH (08:30)
--- NOTE | 2020-10-12 09:07 | Hospitalist Progress Note ---
Date of Service October 12, 2020 Assessment & Plan (1) SBO (small bowel obstruction): Mrs. Hanna is a 70 year old female with a history of Hypertension, Hyperlipidemia, Mild Mitral Regurgitation, Urothelial Cancer of the distal Ureter, s/p Laparoscopic Right Nephro-ureterectomy 6 weeks ago, CKD, GERD, DJD, Small Bowel Obstruction 09/01/2020, Pneumothorax, and Anxiety who presents to [facility] ER with a Recurrent Small Bowel Obstruction. * Continue IVF D51/2 NSS @ 125cc/hr * Diet advanced to low fiber this morning * NGT discontinued prior days "sneezed out" * Urine culture with alpha strep not enteroccocus, lactobacillus species (denies urinary symptoms) * Cefepime (on day 3 of therapy) * General surgery consulted -- small frequent meals advise. ok for d/c from surgical standpoint and will need f/u with Dr. Urban as outpatient * WBC 9.3k * Blood cultures no growth to date after 48 hours -- follow * KUB with mildly dilated loops LUQ, diverticulosis without evidence of diverticulitis * Labs in AM (2) ESTRELLA (acute kidney injury): * Appears to be pre-renal azotemia related to vomiting and small bowel obstruction. * Cr elevated to 1.72 on admission * IVF as above * RESOLVED -- Cr now 1.01 * BMP in AM (3) Chronic kidney disease, stage 3a: * Baseline Creatinine appears to be between 1.3 to 1.4. * Cr 1.01 (4) Hypertension: * Hypotensive in the ER and with ESTRELLA. * Holding lisinopril initially -- will resume now that Cr 1.01 and BP elevated to 168/71 * Continue to monitor (5) Hyperlipidemia: * Resume Atorvastatin when she is no longer npo. (6) Anemia: * Stable likely multifactorial * No reported bleeding, overall symptoms are improving * Repeat CBC with improvement in h/h to 9.3/27.9 * Will add iron panel/b12/folate to AM labs * CBC in AM Dispo: advanced diet this morning continue to monitor today likely d/c tomorrow Admission and Anticipated Discharge Date Admission Date: October 09, 2020 Subjective Patient evaluated early this afternoon. Tolerated breakfast. Had normal BM on monday and then nothing until a smaller loose stool this morning. Still with abdominal pain, initially in RLQ but now diffuse (less) and in her left side. Has been repositioning herself in bed with improvement of pain although believes bed causing some lower back pain. Just now tolerating more solid foods. No nausea or vomiting. Has been ambulating the halls several times this morning. Had a bowel obstruction approximately 3-4 weeks ago after her nephrectomy and states she was told she had lots of adhesions and they did attempt to correct some with most recent surgery but were unable to address them all. Does not feel comfortable for d/c just yet as she is just now eating regular diet, but KUB did show improvement. Worried about the weather tomorrow but if roads better and symptoms controlled would consider afternoon/evening d/c. They live approximately 50 minutes away and her will be providing transportation. No fever, chills, chest pain, shortness of breath,nausea, vomiting or dysuria at this time. Review of Systems Review of Systems: All systems reviewed & are unremarkable except as noted in HPI & below Physical Exam Constitutional: WD/WN, vitals as above well developed, well nourished and average body habitus; no acute distress and not ill appearing Eyes: PERRL, conjunctivae normal, anicteric sclerae ENMT: Ears: no hearing impairment Neck: normal visual inspection and trachea midline Respiratory: normal respiratory effort, lungs clear to auscultation normal respiratory effort; no respiratory distress and no labored breathing Cardiovascular: RRR, no murmur, no edema Rate/Rhythm: regular rate and regular rhythm Heart Sounds: + murmur Gastrointestinal (Abdomen): Inspection/Auscultation: abdomen normal to inspection, normal bowel sounds and + abdominal surgical scar (low midline scar, laparoscopic scars); abdomen not distended Percussion/Palpation: abdomen soft; abdomen nontender, no guarding, abdomen not rigid and no hernia Musculoskeletal: Head/Neck/Chest: normocephalic and head atraumatic Skin: no rashes, warm and dry Psychiatric: A+Ox3, euthymic affect Orientation: alert, oriented x 3 and oriented to person Results & Data Results & Data ([facility]) Vital Signs (Past 12 Hours) Vital Signs Temp Pulse Resp BP Pulse Ox 10/12/20 07:03 36.9 C 70 20 168/71 H 97 10/12/20 00:08 36.7 C 73 14 132/65 97 Laboratory Results 10/12/20 10/12/20 Range/Units 09:59 09:59 WBC 9.34 (4.8-10.8) K/uL RBC 3.05 L (4.2-5.4) M/uL Hgb 9.3 L (12.0-16.0) g/dL Hct 27.9 L (37-47) % MCV 91.5 (80-100) fL MCH 30.5 (25-34) pg MCHC 33.3 (32-36) g/dL RDW Std Deviation 50.2 H (36.4-46.3) fL RDW Coeff of Bonita 15.0 H (11.5-14.5) % Plt Count 249 (130-400) K/uL MPV 9.7 (7.4-10.4) fL Immature Gran % (Auto) 0.2 % Neut % (Auto) 78.0 % Lymph % (Auto) 12.1 % [place] % (Auto) 5.4 % Eos % (Auto) 4.0 % Baso % (Auto) 0.3 % Neut # (Auto) 7.29 H (1.4-6.5) K/uL Lymph # (Auto) 1.13 L (1.2-3.4) K/uL [place] # (Auto) 0.50 (0.11-0.59) K/uL Eos # (Auto) 0.37 (0-0.5) K/uL Baso # (Auto) 0.03 (0-0.2) K/uL Immature Gran # (Auto) 0.02 (0.00-0.02) K/uL Sodium 139 (136-145) mmol/L Potassium 3.8 (3.5-5.1) mmol/L Chloride 109 H (98-107) mmol/L Carbon Dioxide 23 (21-32) mmol/L Anion Gap 7.0 (3-11) BUN 10 D (7-18) mg/dl Creatinine 1.01 (0.6-1.2) mg/dl Est Cr Clr Drug Dosing 46.3 ml/min Est GFR ( Amer) 65.3 Est GFR (Non-Af Amer) 56.4 BUN/Creatinine Ratio 10.0 (10-20) Glucose 125 H (70-99) mg/dl Calcium 8.5 (8.5-10.1) mg/dl Total Bilirubin 0.4 (0.2-1) mg/dl AST 7 L (15-37) U/L ALT 15 (12-78) U/L Alkaline Phosphatase 75 (45-117) U/L Total Protein 6.5 (6.4-8.2) gm/dl Albumin 3.4 (3.4-5.0) gm/dl Globulin 3.1 (2.5-4.0) gm/dl Albumin/Globulin Ratio 1.1 (0.9-2) Diagnostic Findings XR KUB/Abdomen 1 view CLINICAL HISTORY: Small bowel obstruction COMPARISON STUDY: CT scan dated 10/09/2020 FINDINGS: There are mildly enlarged left upper quadrant small bowel loops. There is no pathologic colonic dilatation. Multiple colonic diverticula are suspected. IMPRESSION: 1. Mildly dilated small bowel loops 2. Suspected colonic diverticulosis PG Care Time/CCT Total # of Minutes Spent Total Time Spent with Patient: Total time spent is greater than 50% in coordination of care (as documented) at patient's floor/unit and/or counseling patient: Coding Level of Care Code 43431 Subseq Hosp Care Lvl 2 Diagnoses SBO (small bowel obstruction) K56.609 ESTRELLA (acute kidney injury) N17.9 Chronic kidney disease, stage 3a N18.31 Hypertension I10 Hyperlipidemia E78.5 Anemia D64.9
[2020-10-12 10:08] LABS: Basophils # (auto) 0.03 K/uL (0-0.2); Basophils % (auto) 0.3 %; Eosinophils # (auto) 0.37 K/uL (0-0.5); Hematocrit (blood only) 27.9 % (37-47); Hemoglobin 9.3 g/dL (12.0-16.0); Immature Granulocytes # (auto) 0.02 K/uL (0.00-0.02); Immature Granulocytes % (auto) 0.2 %; Lymphocytes # (auto) 1.13 K/uL (1.2-3.4); Lymphocytes % (auto) 12.1 %; Mean Corpuscular Hemoglobin 30.5 pg (25-34); Mean Corpuscular Hgb Conc 33.3 g/dL (32-36); Mean Corpuscular Volume 91.5 fL (80-100); Mean Platelet Volume 9.7 fL (7.4-10.4); Monocytes % (auto) 5.4 %; Neutrophils # (auto) 7.29 K/uL (1.4-6.5); Platelet Count 249 K/uL (130-400); RDW Standard Deviation 50.2 fL (36.4-46.3); Red Blood Count 3.05 M/uL (4.2-5.4); White Blood Count 9.34 K/uL (4.8-10.8)
[2020-10-12 10:38] LABS: Albumin Globulin Ratio 1.1 (0.9-2); Albumin Level 3.4 gm/dl (3.4-5.0); Bilirubin,Total 0.4 mg/dl (0.2-1); Calcium 8.5 mg/dl (8.5-10.1); Creatinine Clr Calc Pharmacy 46.3 ml/min; Est GFR (African American) 65.3; Est GFR (Non-African American) 56.4; Globulin 3.1 gm/dl (2.5-4.0); Potassium 3.8 mmol/L (3.5-5.1); Total Protein 6.5 gm/dl (6.4-8.2)
--- NOTE | 2020-10-12 11:51 | XRay Report ---
XR KUB/Abdomen 1 view CLINICAL HISTORY: Small bowel obstruction COMPARISON STUDY: CT scan dated 10/09/2020 FINDINGS: There are mildly enlarged left upper quadrant small bowel loops. There is no pathologic col onic dilatation. Multiple colonic diverticula are suspected. IMPRESSION: 1. Mildly dilated small bowel loops 2. Suspected colonic diverticulosis ACT 112: Negative or not required by law. Electronically signed by: Sheng Braxton M.D. 10/12/2020 11:50 AM
--- NOTE | 2020-10-12 12:23 | Surgery Progress Note ---
Date of Service October 12, 2020 Assessment & Plan (1) SBO (small bowel obstruction): bowel function returned abdomen soft, nondistended, nontender okay for discharge from surgical standpoint follow-up with Dr. Urban as outpatient advised small frequent meals Admission and Anticipated Discharge Date Admission Date: October 09, 2020 Subjective feeling well ambulating hallway no nausea or vomiting no bloating tolerated pancakes and coffee this am passing gas some diarrhea this am Physical Exam Constitutional: WD/WN, vitals as above no acute distress Respiratory: normal respiratory effort; no respiratory distress and no labored breathing Gastrointestinal (Abdomen): Inspection/Auscultation: abdomen normal to inspection and + abdominal surgical scar (low midline scar, laparoscopic scars); abdomen not distended Percussion/Palpation: abdomen soft; abdomen nontender, no guarding and abdomen not rigid Skin: no rashes, warm and dry Psychiatric: A+Ox3, euthymic affect Results & Data ([facility]) Vital Signs (Past 12 Hours) Vital Signs Temp Pulse Resp BP Pulse Ox 10/12/20 07:03 36.9 C 70 20 168/71 H 97 Laboratory Results 10/12/20 10/12/20 Range/Units 09:59 09:59 WBC 9.34 (4.8-10.8) K/uL RBC 3.05 L (4.2-5.4) M/uL Hgb 9.3 L (12.0-16.0) g/dL Hct 27.9 L (37-47) % MCV 91.5 (80-100) fL MCH 30.5 (25-34) pg MCHC 33.3 (32-36) g/dL RDW Std Deviation 50.2 H (36.4-46.3) fL RDW Coeff of Bonita 15.0 H (11.5-14.5) % Plt Count 249 (130-400) K/uL MPV 9.7 (7.4-10.4) fL Immature Gran % (Auto) 0.2 % Neut % (Auto) 78.0 % Lymph % (Auto) 12.1 % [place] % (Auto) 5.4 % Eos % (Auto) 4.0 % Baso % (Auto) 0.3 % Neut # (Auto) 7.29 H (1.4-6.5) K/uL Lymph # (Auto) 1.13 L (1.2-3.4) K/uL [place] # (Auto) 0.50 (0.11-0.59) K/uL Eos # (Auto) 0.37 (0-0.5) K/uL Baso # (Auto) 0.03 (0-0.2) K/uL Immature Gran # (Auto) 0.02 (0.00-0.02) K/uL Sodium 139 (136-145) mmol/L Potassium 3.8 (3.5-5.1) mmol/L Chloride 109 H (98-107) mmol/L Carbon Dioxide 23 (21-32) mmol/L Anion Gap 7.0 (3-11) BUN 10 D (7-18) mg/dl Creatinine 1.01 (0.6-1.2) mg/dl Est Cr Clr Drug Dosing 46.3 ml/min Est GFR ( Amer) 65.3 Est GFR (Non-Af Amer) 56.4 BUN/Creatinine Ratio 10.0 (10-20) Glucose 125 H (70-99) mg/dl Calcium 8.5 (8.5-10.1) mg/dl Total Bilirubin 0.4 (0.2-1) mg/dl AST 7 L (15-37) U/L ALT 15 (12-78) U/L Alkaline Phosphatase 75 (45-117) U/L Total Protein 6.5 (6.4-8.2) gm/dl Albumin 3.4 (3.4-5.0) gm/dl Globulin 3.1 (2.5-4.0) gm/dl Albumin/Globulin Ratio 1.1 (0.9-2) Diagnostic Findings XR KUB/Abdomen 1 view CLINICAL HISTORY: Small bowel obstruction COMPARISON STUDY: CT scan dated 10/09/2020 FINDINGS: There are mildly enlarged left upper quadrant small bowel loops. There is no pathologic colonic dilatation. Multiple colonic diverticula are suspected. IMPRESSION: 1. Mildly dilated small bowel loops 2. Suspected colonic diverticulosis
[2020-10-12] MEDS: CEFEPIME 2,000 MG in SYRINGE 0 ML IV SCH (13:40)
[2020-10-12] MEDS: MELATONIN 3 MG TAB PO PRN (20:04)
[2020-10-12] MEDS: ATORVASTATIN 20 MG TAB PO SCH (20:04)
[2020-10-12] MEDS: lisinopril 20 MG TAB PO SCH (20:04)
[2020-10-12] MEDS: LORazepam 0.5 MG/1 ML VIAL IV PRN (20:04)
[2020-10-13] MEDS: metroNIDAZOLE 500 MG/100 ML BAG IV SCH ×3 (01:53→17:16)
[2020-10-13] MEDS: NICOTINE 14 MG/24 HR PATCH TD SCH (08:33)
--- NOTE | 2020-10-13 09:06 | Hospitalist Progress Note ---
Date of Service October 13, 2020 Assessment & Plan (1) SBO (small bowel obstruction): Mrs. Hanna is a 70 year old female with a history of Hypertension, Hyperlipidemia, Mild Mitral Regurgitation, Urothelial Cancer of the distal Ureter, s/p Laparoscopic Right Nephro-ureterectomy 6 weeks ago, CKD, GERD, DJD, Small Bowel Obstruction 09/01/2020, Pneumothorax, and Anxiety who presents to [facility] ER with a Recurrent Small Bowel Obstruction. * Continue IVF D51/2 NSS @ 125cc/hr --> will d/c today * Diet advanced to low fiber this morning * NGT discontinued prior days "sneezed out" * Urine culture with alpha strep not enterococcus, lactobacillus species (denies urinary symptoms) * Cefepime/Flagyl (on day 4 of therapy) * General surgery consulted -- small frequent meals advise. ok for d/c from surgical standpoint and will need f/u with Dr. Urban as outpatient * WBC 7.6k * Blood cultures no growth to date after 48 hours -- follow * KUB with mildly dilated loops LUQ, diverticulosis without evidence of diverticulitis -- will repeat in AM. Continuing to pass gas and +BM on 10/12 * Added miralax/colace * Labs in AM (2) ESTRELLA (acute kidney injury): * Appears to be pre-renal azotemia related to vomiting and small bowel obstruction. * Cr elevated to 1.72 on admission * IVF as above, now to be d/c'd * RESOLVED -- Cr now 1.05 * BMP in AM (3) Chronic kidney disease, stage 3a: * Baseline Creatinine appears to be between closer to 1. * Cr 1.05 (4) Hypertension: * Hypotensive in the ER and with ESTRELLA. * Holding lisinopril initially -- resume now that Cr 1.01 * BP elevated to 161/69-- some component of discomfort/anxiety * Continue to monitor (5) Hyperlipidemia: * Resumed Atorvastatin (6) Anemia: * Stable likely multifactorial -- also with iron deficiency on labs. No reported bleeding, overall symptoms are improving * Repeat CBC with improvement in h/h to 9.5/28.5 * Will add iron panel/b12/folate to AM labs * --> iron low at 29, transferrin sat low 9, TIBC 284wnl, transferrin 226 wnl. Folate/B12 wnl. * Will order dose of venofer while inpatient and should continue daily oral supplementation at discharge * CBC in AM Dispo: continue to monitor today likely d/c tomorrow Admission and Anticipated Discharge Date Admission Date: October 09, 2020 Subjective Patient evaluated this morning. Pain about the same as yesterday but states not so much pain as discomfort, diffuse but primary RLQ where nephrectomy was. Aware this may be tender for some time. Thinks she ate a little too much. No nausea/vomiting. No further BM since yesterday early AM. She is very nervous about discharge today due to weather and prior SBO with prolonged hospitalization. She states she believes some of this is anxiety related and not getting great sleep. Would like increased melatonin. Has been pushing fluids and making good urine. Discussed discontinuing IVF and continue to walk the eller. She has an appointment with Dermatology morning for lesion of her left lower leg that has increased in size, and sometimes bleeds. Has been cauterized int he past but appears to be like an actinic keratosis. Likely to need biopsy for confirmation at upcoming appointment and will try and discharge tomorrow early AM. Questions/concerns addressed at this time. No fever, chills, chest pain, shortness of breath. Review of Systems Review of Systems: All systems reviewed & are unremarkable except as noted in HPI & below Physical Exam Constitutional: WD/WN, vitals as above well developed, well nourished and average body habitus; no acute distress and not ill appearing Eyes: PERRL, conjunctivae normal, anicteric sclerae ENMT: Ears: no hearing impairment Neck: normal visual inspection and trachea midline Respiratory: normal respiratory effort; no respiratory distress and no labored breathing Auscultation: lungs clear to auscultation bilaterally Cardiovascular: Rate/Rhythm: regular rate and regular rhythm Heart Sounds: + murmur Gastrointestinal (Abdomen): Inspection/Auscultation: abdomen normal to inspection, normal bowel sounds and + abdominal surgical scar (low midline scar, laparoscopic scars); abdomen not distended Percussion/Palpation: + abdomen tender (RLQ) and abdomen soft; no guarding, abdomen not rigid and no hernia Musculoskeletal: Head/Neck/Chest: normocephalic and head atraumatic Skin: warm dry 2 small lesions to LLE 1 to lateral aspect with crusting (appears like an actinic keratosis). poorly defined edges 1 to proximal left spicer reddened appearance, non-tender. defined edges Neurologic: PERRL, EOMI, accommodation nl, no face palsy, no dysarthria Psychiatric: Orientation: alert and oriented x 3 Affect: + anxious affect Results & Data Results & Data ([facility]) Vital Signs (Past 12 Hours) Vital Signs Temp Pulse Resp BP Pulse Ox 10/13/20 07:30 36.9 C 70 18 161/69 H 99 10/12/20 23:42 37.0 C 79 14 155/67 H 99 Laboratory Results 10/12/20 10/12/20 Range/Units 09:59 09:59 WBC 9.34 (4.8-10.8) K/uL RBC 3.05 L (4.2-5.4) M/uL Hgb 9.3 L (12.0-16.0) g/dL Hct 27.9 L (37-47) % MCV 91.5 (80-100) fL MCH 30.5 (25-34) pg MCHC 33.3 (32-36) g/dL RDW Std Deviation 50.2 H (36.4-46.3) fL RDW Coeff of Bonita 15.0 H (11.5-14.5) % Plt Count 249 (130-400) K/uL MPV 9.7 (7.4-10.4) fL Immature Gran % (Auto) 0.2 % Neut % (Auto) 78.0 % Lymph % (Auto) 12.1 % [place] % (Auto) 5.4 % Eos % (Auto) 4.0 % Baso % (Auto) 0.3 % Neut # (Auto) 7.29 H (1.4-6.5) K/uL Lymph # (Auto) 1.13 L (1.2-3.4) K/uL [place] # (Auto) 0.50 (0.11-0.59) K/uL Eos # (Auto) 0.37 (0-0.5) K/uL Baso # (Auto) 0.03 (0-0.2) K/uL Immature Gran # (Auto) 0.02 (0.00-0.02) K/uL Sodium 139 (136-145) mmol/L Potassium 3.8 (3.5-5.1) mmol/L Chloride 109 H (98-107) mmol/L Carbon Dioxide 23 (21-32) mmol/L Anion Gap 7.0 (3-11) BUN 10 D (7-18) mg/dl Creatinine 1.01 (0.6-1.2) mg/dl Est Cr Clr Drug Dosing 46.3 ml/min Est GFR ( Amer) 65.3 Est GFR (Non-Af Amer) 56.4 BUN/Creatinine Ratio 10.0 (10-20) Glucose 125 H (70-99) mg/dl Calcium 8.5 (8.5-10.1) mg/dl Total Bilirubin 0.4 (0.2-1) mg/dl AST 7 L (15-37) U/L ALT 15 (12-78) U/L Alkaline Phosphatase 75 (45-117) U/L Total Protein 6.5 (6.4-8.2) gm/dl Albumin 3.4 (3.4-5.0) gm/dl Globulin 3.1 (2.5-4.0) gm/dl Albumin/Globulin Ratio 1.1 (0.9-2) PG Care Time/CCT Total # of Minutes Spent Total Time Spent with Patient: Total time spent is greater than 50% in coordination of care (as documented) at patient's floor/unit and/or counseling patient: Coding Level of Care Code 15770 Subseq Hosp Care Lvl 2 Diagnoses SBO (small bowel obstruction) K56.609 ESTRELLA (acute kidney injury) N17.9 Chronic kidney disease, stage 3a N18.31 Hypertension I10 Hyperlipidemia E78.5 Anemia D64.9
[2020-10-13 09:14] LABS: Basophils # (auto) 0.02 K/uL (0-0.2); Basophils % (auto) 0.3 %; Eosinophils # (auto) 0.32 K/uL (0-0.5); Eosinophils % (auto) 4.2 %; Hematocrit (blood only) 28.5 % (37-47); Hemoglobin 9.5 g/dL (12.0-16.0); Immature Granulocytes # (auto) 0.01 K/uL (0.00-0.02); Immature Granulocytes % (auto) 0.1 %; Lymphocytes # (auto) 0.96 K/uL (1.2-3.4); Lymphocytes % (auto) 12.5 %; Mean Corpuscular Hemoglobin 30.2 pg (25-34); Mean Corpuscular Hgb Conc 33.3 g/dL (32-36); Mean Corpuscular Volume 90.5 fL (80-100); Mean Platelet Volume 9.9 fL (7.4-10.4); Monocytes % (auto) 5.2 %; Neutrophils # (auto) 5.95 K/uL (1.4-6.5); Neutrophils % (auto) 77.7 %; Platelet Count 282 K/uL (130-400); RDW Standard Deviation 49.4 fL (36.4-46.3); Red Blood Count 3.15 M/uL (4.2-5.4); White Blood Count 7.66 K/uL (4.8-10.8)
[2020-10-13 09:29] LABS: Albumin Level 3.3 gm/dl (3.4-5.0); BUN Creatinine Ratio 7.5 (10-20); Calcium 9.2 mg/dl (8.5-10.1); Creatinine Clr Calc Pharmacy 44.6 ml/min; Est GFR (African American) 62.3; Est GFR (Non-African American) 53.8; Potassium 3.7 mmol/L (3.5-5.1)
[2020-10-13 09:32] LABS: Bilirubin,Total 0.5 mg/dl (0.2-1); Ferritin 35.3 ng/ml (8-388); Globulin 3.4 gm/dl (2.5-4.0); Total Protein 6.7 gm/dl (6.4-8.2)
[2020-10-13 09:54] LABS: Folate (Folic Acid) 19.2 ng/ml (>5.38)
[2020-10-13] MEDS ORDERED: MELATONIN 3 MG TAB PO PRN (12:12)
[2020-10-13] MEDS ORDERED: IRON SUCROSE 200 MG in 0.9 % SODIUM CHLORIDE 100 ML IV ONE (12:30)
[2020-10-13] MEDS: DOCUSATE SODIUM 100 MG CAP PO SCH ×2 (13:25→20:39)
[2020-10-13] MEDS: POLYETHYLENE (MIRALAX) 17 GM PACK PO SCH (13:25)
[2020-10-13] MEDS: CEFEPIME 2,000 MG in SYRINGE 0 ML IV SCH (14:15)
[2020-10-13] MEDS ORDERED: hydrALAZINE HCL 20 MG/ML VIAL IV PRN (17:50)
[2020-10-13] MEDS: lisinopril 20 MG TAB PO SCH (20:39)
[2020-10-13] MEDS: ATORVASTATIN 20 MG TAB PO SCH (20:40)
[2020-10-13] MEDS: LORazepam 0.5 MG/1 ML VIAL IV PRN (20:40)
[2020-10-14] MEDS: metroNIDAZOLE 500 MG/100 ML BAG IV SCH ×2 (02:34→10:42)
--- NOTE | 2020-10-14 07:45 | XRay Report ---
XR KUB/Abdomen 1 view CLINICAL HISTORY: Small bowel obstruction. Follow-up study COMPARISON STUDY: 10/12/2020 FINDINGS: There is gas present within nondilated large and small bowel. There are no calcifications s uspicious for urinary tract calculi. There is a surgical clip within the right mid abdomen. IMPRESSION: No evidence of pathologic bowel dilatation. ACT 112: Negative or not required by law. Electronically signed by: Sheng Braxton M.D. 10/14/2020 7:44 AM
[2020-10-14 07:46] LABS: Hemoglobin 10.1 g/dL (12.0-16.0); Mean Corpuscular Hemoglobin 30.4 pg (25-34); Mean Corpuscular Hgb Conc 33.7 g/dL (32-36); Mean Corpuscular Volume 90.4 fL (80-100); Mean Platelet Volume 9.7 fL (7.4-10.4); Platelet Count 337 K/uL (130-400); RDW Coefficient of Variation 14.8 % (11.5-14.5); RDW Standard Deviation 48.9 fL (36.4-46.3); Red Blood Count 3.32 M/uL (4.2-5.4); White Blood Count 7.65 K/uL (4.8-10.8)
[2020-10-14] MEDS: POLYETHYLENE (MIRALAX) 17 GM PACK PO SCH (08:11)
[2020-10-14] MEDS: NICOTINE 14 MG/24 HR PATCH TD SCH (08:11)
[2020-10-14] MEDS: DOCUSATE SODIUM 100 MG CAP PO SCH (08:12)
[2020-10-14 08:19] LABS: Albumin Level 3.6 gm/dl (3.4-5.0); BUN Creatinine Ratio 9.6 (10-20); Bilirubin,Total 0.5 mg/dl (0.2-1); Calcium 9.6 mg/dl (8.5-10.1); Creatinine Clr Calc Pharmacy 43.7 ml/min; Est GFR (African American) 60.9; Est GFR (Non-African American) 52.6; Magnesium 2.1 mg/dl (1.8-2.4); Potassium 3.9 mmol/L (3.5-5.1)
[2020-10-14 08:21] LABS: Albumin Globulin Ratio 1.1 (0.9-2); Globulin 3.4 gm/dl (2.5-4.0)
--- NOTE | 2020-10-14 09:04 | Discharge Summary ---
Date of Service October 14, 2020 Admission HPI Per Admitting Provider Mrs. Hanna is a 70 year old female with a history of Hypertension, Hyperlipidemia, Mild Mitral Regurgitation, Urothelial Cancer of the distal Ureter, s/p Laparoscopic Right Nephro-ureterectomy 6 weeks ago, CKD, GERD, DJD, Small Bowel Obstruction 09/01/2020, Pneumothorax, and Anxiety who presents to [facility] ER with a Recurrent Small Bowel Obstruction. Patient was doing well at home tolerating her diet and recovering from her recent surgery and illnesses, however last evening developed abdominal pressure and pain in the middle of her abdomen which gradually worsened last night and into today followed by pressure in her lower abdomen, nausea, and vomiting. She was having normal bowel movements up until yesterday. She denies any fevers, chills, or any urinary symptoms. She tried Tylenol which did not help. Oxycodone taken at 3 AM slightly helped for about 1 hour. She has history of right nephrectomy 6 weeks ago, and a small bowel obstruction and a pneumothorax diagnosed on 09/01/2020. Admission Exam Per Admitting Provider GENERAL: Patient appears acutely ill. Pale complexion. HEENT: Head is atraumatic, normocephalic. EOM's intact. Facies symmetric. Sclerae without jaundice. No perioral cyanosis. NECK: No JVD. JVP is at the level of the clavicle sitting upright. Carotid upstrokes are + 2 bilaterally. CHEST/LUNGS: Clear to auscultation throughout all lung hernández. No wheezes, rales, or crackles. CVS: S1 and S2 are regular without obvious murmurs, gallops, or rubs. PMI is nondisplaced. No lifts, heaves, or thrills. No abdominal aortic or renal bruits. ABDOMINAL EXAM: No bowel sounds. Abdomen is distended, tender to palpation in the mid and lower abdomen. EXTREMITIES: No clubbing or cyanosis. No edema. Intact posterior tibial and radial pulses bilaterally. NEUROLOGIC EXAM: Patient is awake, alert, and interactive. Cooperative. Answers questions appropriately. Speech is clear. Principal Diagnosis Small Bowel Obstruction Discharge Exam Constitutional well developed, well nourished and average body habitus; no acute distress and not ill appearing Eyes PERRL, conjunctivae normal, anicteric sclerae ENMT Ears: no hearing impairment Neck normal visual inspection and trachea midline Respiratory normal respiratory effort; no respiratory distress and no labored breathing Auscultation: lungs clear to auscultation bilaterally Cardiovascular Rate/Rhythm: regular rate and regular rhythm Heart Sounds: + murmur Extremities: no edema Gastrointestinal (Abdomen) Inspection/Auscultation: normal bowel sounds and + abdominal surgical scar (low midline scar, laparoscopic scars); abdomen not distended Percussion/Palpation: + abdomen tender (minimally, RLQ) and abdomen soft; no guarding, abdomen not rigid and no hernia Musculoskeletal Head/Neck/Chest: normocephalic and head atraumatic Skin warm, dry Neurologic PERRL, EOMI, accommodation nl, no face palsy, no dysarthria Psychiatric Orientation: alert and oriented x 3 Affect: + anxious affect Lymphatic no cervical or axillary lymphadenopathy Discharge Data Allergies Allergy/AdvReac Type Severity Reaction Status Date / Time magnesium sulfate Allergy Severe face, hand Verified 10/09/20 11:51 [From Suprep Bowel Prep Kit] swelling Penicillins Allergy Severe rash, Verified 10/09/20 11:51 throat tightening potassium Allergy Severe face, hand Verified 10/09/20 11:51 [From Suprep Bowel Prep Kit] swelling sodium sulfate Allergy Severe face, hand Verified 10/09/20 11:51 [From Suprep Bowel Prep Kit] swelling Consultations 10/09/20 14:59 Consult General Surgery Stat Ordered Studies 10/09/20 11:30 CT abd pelvis wo con Stat CXR 10/11/20 17:24 US venous doppler LE BI Routine 10/12 KUB 10/14 [facility] Hospital Course (1) SBO (small bowel obstruction): Mrs. Hanna is a 70 year old female with a history of Hypertension, Hyperlipidemia, Mild Mitral Regurgitation, Urothelial Cancer of the distal Ureter, s/p Laparoscopic Right Nephro-ureterectomy 6 weeks ago, CKD, GERD, DJD, Small Bowel Obstruction 09/01/2020, Pneumothorax, and Anxiety who presented to [facility] ER with a Recurrent Small Bowel Obstruction which occured overnight and after large meal (previously been utilizing smaller meals but felt very hungry and over did it). Recently admitted for the same following R nephrectomy and felt due to adhesions which were attempted to be treated during her nephrectomy. NGT was placed but then discontinued by patient General surgery consulted Supportive treatment provided -- IVF, antiemetics, pain control Covered with Cefepime/Flagyl given elevated WBC with L shift on admission for possible translocation of bacteria WBC improved, afebrile --> sent on oral Cipro/flagyl to complete 10 day course Blood cultures without growth to date KUB prior to d/c with resolution Passing gas, multiple BMs. Tolerated low fiber diet --> to continue for 2 weeks. Provided information on low fiber diet and to continue with stool softeners/miralax/colace for next couple of weeks until bowel function returns to normal. Advised smaller frequent meals to prevent recurrance. To follow up with Dr. Urban outpatient and PCP and will need repeat c-scope in 8-12 weeks Also found to have iron deficiency anemia -- given dose of Venofer x 1 and discussed talking with her PCP about IV transfusions in the future vs taking iron supplementation with vitamin C in the coming weeks but would hold off in acute setting to prevent worsening abdominal pain/constipation (2) ESTRELLA (acute kidney injury): Appears to be pre-renal azotemia related to vomiting and small bowel obstruction. Cr elevated to 1.72 on admission IVF as above RESOLVED -- Cr 1.07 prior to discharge (3) Chronic kidney disease, stage 3a: Baseline Creatinine appears to be between closer to 1. (4) Hypertension: Hypotensive in the ER and with ESTRELLA. Held lisinopril initially -- resumed after acute kidney injury resolved BP elevated but better controlled, 145/71 at discharge -- follow up with PCP (5) Hyperlipidemia: Continued Atorvastatin once able to take PO Iron deficiency anemia Anemia without unknown cause -- added iron studies c/w iron deficiency anemia Venofer x 1 while inpatient To follow up with PCP outpatient as above Total Time Total Time Spent Total Time Spent (In Minutes): 70 Discharge Plan Discharge Items Patient Disposition: Home - Self-Care Reason For Visit: SMALL BOWEL OBSTRUCTION Discharge Diagnosis: Small Bowel Obstruction Goals: You have been hospitalized for an acute medical problem. During your stay at [facility], we have made an effort to correct the problem that brought you to the hospital while keeping you as comfortable as possible. Medications were used to bring your condition under control and your discharge instructions will include directions for any medications you should take after leaving the hospital. Please make sure you see your Primary Care Provider as part of your follow up plan. Activity: Resume your previous activity Non-emergency contact: Primary Care Provider, Surgeon, Specialist and [employer] Call non-emergency contact if: you have any medication questions, your symptoms worsen and your pain is not controlled Follow-up/Referrals: Verónica Faulkner DO [Primary Care Provider] - 10/21/20 8:20 am Michael Urban DO [Surgeon] - 10/21/20 10:00 am (2 weeks) Frank Bonds DO [Physician] - (2 weeks Office will call patient with appointment date and time) Diet: Low Fiber Addtl Attending Provider Instructions: You have been hospitalized for a small bowel obstruction. General surgery was consulted and you have been managed conservatively. You have been given antibiotics and will continue ciprofloxacin and metronidazole for total treatment of 10 days. should follow up with Dr. Urban as an outpatient and will likely need repeat colonoscopy in the coming months after resolution. You have had repeat imaging which shows resolution of obstruction and you should continue a low fiber diet for the next 2 weeks. Please continue to use colace/miralax daily to help keep your bowels regular. Information has been provided on low fiber diet. You were also found to have anemia and found to have low iron. You were given supplementation via IV and should discuss with your PCP about further IV transfusions vs starting oral supplementation however should avoid oral for the next week or two as this can cause constipation. IV has less of those effects, so if you develop pain/constipation on oral agents you may want to consider IV through our medical treatment unit as discussed. As discussed, taking with vitamin C You should follow up with your primary care provider in the next 1-2 weeks to monitor your progress. Please also follow up with nephrology as previously scheduled to monitor post-surgery. Please return to the emergency department with any worsening pain, nausea, inability to keep up with oral intake, or for any other symptoms that are concerning for you. It has been a pleasure being a part of the medical team providing for you while you have been in the hospital. Take care! Pending Studies at Discharge: Yes Studies:: Blood cultures -- no growth to date Stand-Alone Forms: [facility] Medications and DC Order Prescriptions: New polyethylene glycol 3350 [Miralax] 17 gram Powder In Packet 17 g PO DAILY 14 Days RF: 0 ciprofloxacin HCl 500 mg tablet 500 mg PO Q12H 5 Days Qty: 11 RF: 0 metronidazole 500 mg tablet 500 mg PO Q8H 5 Days Qty: 17 RF: 0 Continued lisinopril 20 mg tablet 20 mg PO QPM Qty: 90 RF: 1 tamsulosin 0.4 mg capsule 0.4 mg PO HS Qty: 30 RF: 0 atorvastatin 20 mg tablet 20 mg PO QPM Qty: 90 RF: 1 nicotine [Nicoderm CQ] 14 mg/24 hr patch 24 hour 1 patch transdermal Q24H Qty: 14 RF: 0 lorazepam [Ativan] 0.5 mg tablet 0.5 mg PO DAILY PRN (Reason: anxiety) Qty: 30 RF: 0 cholecalciferol (vitamin D3) 50 mcg (2,000 unit) capsule 2,000 units PO QPM Qty: 30 RF: 0 [facility] 40-10-5-3.3 mg Tablet 1 tab PO QPM RF: 0 docusate sodium [Colace] 100 mg capsule 100 mg PO BID Qty: 60 RF: 0 oxycodone-acetaminophen [Percocet] 5-325 mg tablet 1 tab PO TID PRN (Reason: pain) Qty: 14 RF: 0 ondansetron 4 mg tablet,disintegrating 4 mg PO TID PRN (Reason: nausea and vomiting) Qty: 12 RF: 0 calcium carbonate [Calcium 600] 600 mg calcium (1,500 mg) Tablet 600 mg PO Q OTHER DAY RF: 0 Discontinued nicotine [Nicoderm CQ] 21 mg/24 hr Patch 24 Hour 21 mg transdermal QAM Qty: 14 RF: 0 Discharge Orders: Discharge Order (Routine); Ordered 10/14/20 Ordered By: Ml Medina/Other Patient Handouts: Small Bowel Obstruction, Low-Fiber Diet Admission Data Admit Date/Time: 10/09/20 17:18 Attending Provider: Hemanth Martinez Admit Provider: Gilbert Stewart Primary Care Provider: Verónica Faulkner Other Providers: Shayne Renner Other Interventions: Discharge Summary Assessment (RN) Last Done: 10/14/20 12:01 Coding Level of Care Code D/C Day Management >30 mins Diagnoses SBO (small bowel obstruction) K56.609 ESTRELLA (acute kidney injury) N17.9 Chronic kidney disease, stage 3a N18.31 Hypertension I10 Hyperlipidemia E78.5
[2020-10-14] MEDS ORDERED: IRON SUCROSE 200 MG in 0.9 % SODIUM CHLORIDE 100 ML IV ONE (09:30)
[2020-10-14] MEDS: CEFEPIME 2,000 MG in SYRINGE 0 ML IV SCH (10:42)
[2020-10-14] MEDS ORDERED: metroNIDAZOLE 500 MG TAB PO STA (11:02)
[2020-10-14] MEDS ORDERED: CIPROFLOXACIN 500 MG TAB PO ONE (11:15)
== END 2020-10-14 13:30 | disposition home or self-care (01) | DRG 389 ==
LOC: ED 10:47 → SUATTDRO 17:18 → 3W 17:18